=== PATIENT | male | born 1935 | race Caucasian/White ===

== ENCOUNTER 2017-08-09 09:16 | Emergency (ER) | payer OTHER ==
[2017-08-09 09:28] VITALS: TEMP 98.3; BMI 25.0
--- NOTE | 2017-08-09 09:54 | PDOC ---
History of Present Illness - General History Source: Patient Exam Limitations: No Limitations - History of Present Illness Initial Comments: 08/09/17 10:38 The patient is a 81 year old male, accompanied by grandson with no significant past medical history who presents to the emergency department with chest pain and cough for the past 7 days. Patient reports midsternal chest pain, 6/10 in severity, radiating to his upper back. Patient endorses chest pain is exacerbated with deep inspiration and is worse "when it is colder". Patient also endorses productive cough (yellow phlegm) with dyspnea. Patient has not taken any medications for relief and presents to the ED for further evaluation. Patient denies headache or dizziness. Patient denies fever, chills, abdominal pain, nausea, vomit, diarrhea or constipation. Patient denies dysuria, frequency, urgency or hematuria. Patient denies sick contacts or recent travel. Allergies: NKA Past surgical history: Craniotomy s/p subdural hematoma Social history: None PCP: Dr. 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 - Surgical History Neurologic Surgery: Yes - Suicide/Smoking/Psychosocial Hx Smoking History: Never smoked Hx Alcohol Use: No Drug/Substance Use Hx: No <Jeane Cruz - Last Filed: 08/09/17 18:04> - Past Medical History Allergies/Adverse Reactions: Allergies Allergy/AdvReac Type Severity Reaction Status Date / Time No Known Allergies Allergy Verified 08/09/17 09:29 Home Medications: Ambulatory Orders Acetaminophen [Tylenol] 325 mg PO PRN PRN 08/09/17 Albuterol Sulfate Inhaler - [Ventolin HFA Inhaler -] 1 - 2 inh PO QID PRN #1 inhaler 08/09/17 Guaifenesin AC [Robitussin AC] 5 ml PO Q6H PRN #60 ml MDD 20 mL 08/09/17 Warfarin Sodium [Coumadin] 3 mg PO DAILY 08/09/17 Review of Systems - Review of Systems Able to Perform ROS?: Yes Comments:: 08/09/17 12:37 GENERAL/CONSTITUTIONAL: No fever or chills. No weakness. HEAD, EYES, EARS, NOSE AND THROAT: No change in vision. No ear pain or discharge. No sore throat. GASTROINTESTINAL: No nausea, vomiting, diarrhea or constipation. GENITOURINARY: No dysuria, frequency, or change in urination. CARDIOVASCULAR: +chest pain +shortness of breath. RESPIRATORY: + cough. No wheezing, or hemoptysis. MUSCULOSKELETAL: No joint or muscle swelling or pain. No neck or back pain. SKIN: No rash NEUROLOGIC: No headache, vertigo, loss of consciousness, or change in strength/ sensation. ENDOCRINE: No increased thirst. No abnormal weight change. HEMATOLOGIC/LYMPHATIC: No anemia, easy bleeding, or history of blood clots. ALLERGIC/IMMUNOLOGIC: No hives or skin allergy. <Miley Lindo - Last Filed: 08/09/17 12:37> *Physical Exam - Vital Signs Last Vital Signs Temp Pulse Resp BP Pulse Ox 98.3 F 70 16 136/98 98 08/09/17 09:23 08/09/17 10:06 08/09/17 10:06 08/09/17 10:06 08/09/17 10:06 <Miley Lindo - Last Filed: 08/09/17 12:37> - Vital Signs Last Vital Signs Temp Pulse Resp BP Pulse Ox 98.3 F 76 18 138/79 98 08/09/17 09:23 08/09/17 09:23 08/09/17 09:23 08/09/17 09:23 08/09/17 09:23 - Physical Exam Comments: GENERAL: Awake, alert, and fully oriented, in no acute distress HEAD: No signs of trauma EYES: PERRLA, EOMI, sclera anicteric, conjunctiva clear ENT: Auricles normal inspection, hearing grossly normal, nares patent, oropharynx clear without exudates. Moist mucosa NECK: Normal ROM, supple, no lymphadenopathy, JVD, or masses LUNGS: Dec air entry B/L, no wheezes and no crackles HEART: Regular rate and rhythm, normal S1 and S2, no murmurs, rubs or gallops ABDOMEN: Soft, nontender, normoactive bowel sounds. No guarding, no rebound. No masses EXTREMITIES: Normal range of motion, no edema. No clubbing or cyanosis. No cords, erythema, or tenderness NEUROLOGICAL: Cranial nerves II through XII grossly intact. Normal speech, normal gait. Motor and sensation intact. SKIN: Warm, Dry, normal turgor, no rashes or lesions noted. <Jeane Cruz - Last Filed: 08/09/17 18:04> Heart Score/ECG Review - ECG Impressions Comment:: EKG read 09:24- NSR 73 bpm, no acute ST/T changes <Jeane Cruz - Last Filed: 08/09/17 18:04> ED Treatment Course - LABORATORY CBC & Chemistry Diagram: 08/09/17 10:30 08/09/17 10:30 <Miley Lindo - Last Filed: 08/09/17 12:37> - LABORATORY CBC & Chemistry Diagram: 08/09/17 10:30 08/09/17 10:30 <Jeane Cruz - Last Filed: 08/09/17 18:04> Medical Decision Making - Medical Decision Making 08/09/17 13:25 Pt with improved air movement s/p neb treatment. Suspect reactive airway symptoms s/p recent URI/flu. Will treat with nebs and robitussin AC. Low suspicion for ACS, PE. <Jeane Cruz - Last Filed: 08/09/17 18:04> *DC/Admit/Observation/Transfer - Attestations Scribe Attestion: 08/09/17 10:47 Documentation prepared by Miley Lindo, acting as medical data entry clerk for Jeane Cruz MD <Miley Lindo - Last Filed: 08/09/17 12:37> - Discharge Dispostion Admit: No <Jeane Cruz - Last Filed: 08/09/17 18:04> Diagnosis at time of Disposition: Cough, Atypical chest pain - Discharge Dispostion Disposition: HOME Condition at time of disposition: Stable - Prescriptions Prescriptions: Albuterol Sulfate Inhaler - [Ventolin HFA Inhaler -] 1 - 2 inh PO QID PRN #1 inhaler PRN Reason: Short Of Breath/Wheezing Guaifenesin AC [Robitussin AC] 5 ml PO Q6H PRN #60 ml MDD 20 mL PRN Reason: Cough - Referrals Referrals: Papa Phillips MD [Primary Care Provider] - - Patient Instructions Printed Discharge Instructions: DI for Atypical Chest Pain Additional Instructions: Do not take your coumadin tonight. Follow up with your physician in 1-2 days.
[2017-08-09 10:41] LABS: BASO % 1.2 % (0-2.0); EOS % 8.6 % (0-4.5); HEMATOCRIT 37.6 % (35.4-49); HEMOGLOBIN 12.5 GM/dL (11.7-16.9); LYMPH % 19.1 % (8-40); MCH 29.7 pg (25.7-33.7); MCHC 33.2 g/dl (32.0-35.9); MEAN CELL VOLUME 89.5 fl (80-96); MEAN PLT VOLUME 8.4 fl (7.5-11.1); NEUT % 61.1 % (42.8-82.8); PLATELET COUNT 188 K/MM3 (134-434); RDW 13.9 % (11.9-15.9); WHITE BLOOD COUNT 7.1 K/mm3 (4.0-10.0)
[2017-08-09 10:56] LABS: PROTHROMBIN TIME (PATIENT) 54.9 SEC (9.98-11.88)
[2017-08-09 11:01] LABS: INR 4.86 (0.82-1.09)
[2017-08-09 11:16] LABS: ALBUMIN 4.1 g/dl (3.4-5.0); ANION GAP 5 (8-16); BILIRUBIN,TOTAL 0.5 mg/dL (0.2-1.0); BLOOD UREA NITROGEN 17 mg/dL (7-18); CALCIUM 8.3 mg/dL (8.5-10.1); CHLORIDE 103 mmol/L (98-107); CO2 29 mmol/L (21-32); GLUCOSE,RANDOM 107 mg/dL (74-106); SGPT/ALT 27 U/L (12-78); SODIUM 137 mmol/L (136-145); TOT PROT 7.3 g/dl (6.4-8.2)
[2017-08-09 11:19] LABS: ALK PHOS 324 U/L (45-117); POTASSIUM 4.4 mmol/L (3.5-5.1); SGOT/AST 34 U/L (15-37)
[2017-08-09] MEDS ORDERED: ALBUTEROL SO4 0.083% IH SOL 2.5 MG/3 ML VIAL.NEB. NEB ONE ×2 (11:20→11:30)
[2017-08-09] MEDS ORDERED: guaiFENesin/CODEINE 10 ML UNIT-DOSE CUPS PO ONE (13:29)
[2017-08-09 13:36] VITALS: BP 138/69; PULSE 91
[2017-08-09] MEDS ORDERED: guaiFENesin 200 MG/10 ML 10 ML UNIT-DOSE CUPS ONE (13:38)
--- NOTE | 2017-08-09 23:19 | EKG ---
Test Reason : Blood Pressure : / mmHG Vent. Rate : 073 BPM Atrial Rate : 073 BPM P-R Int : 130 ms QRS Dur : 108 ms QT Int : 402 ms P-R-T Axes : 000 -14 -05 degrees QTc Int : 442 ms NORMAL SINUS RHYTHM NORMAL ECG WHEN COMPARED WITH ECG OF 04-NOV-2005 14:22, NO SIGNIFICANT CHANGE WAS FOUND Confirmed by VIJAY SALAS MD ([id number]) on 08/09/2017 11:18:29 PM Referred By: Confirmed By:VIJAY SALAS MD
== END 2017-08-09 13:46 | disposition home or self-care (01) ==
LOC: JER 09:16
DX: R07.89 Other chest pain (principal); Z86.73 Personal history of transient ischemic attack (TIA), and cerebral infarction without residual deficits; Z79.01 Long term (current) use of anticoagulants
CPT/HCPCS: 36415; 71045-TC; 80053; 82550; 84484; 85025; 85610; 93005; 93010; 99285-25

== ENCOUNTER 2018-09-05 00:35 | Inpatient (IN) | payer OTHER ==
--- NOTE | 2018-09-05 01:10 | PDOC ---
Attending Attestation - Resident Resident Name: RománJorge - HPI HPI: 09/05/18 03:26 Pt presents to the ED complaining of the acute onset of crushing substernal chest pain that was relieved with nitro. Also complains of shortness of breath. Patient has history of metastatic prostate CA with bone mets and frequent episodes of shortness of breath, and bone pain, states that this episode was much different than his chronic pain. Patient has a history of blood clots, anticoagulated with warfarin. - Physicial Exam PE: 09/05/18 03:30 Agree with resident exam. PAteint is alert and oriented x 3 and in no acute distress. Lungs are clear. Heart has regular rate and rhythm with no murmurs. aBdomen soft, non tender non distended without guarding or rebound. - Medical Decision Making 09/05/18 03:31 Pt presents to the ED complaining of chest pain relieved with nitroglycerin. EKG shows no evidence of acute ischemia, but troponin is positive. Will treat with asprin and admit to medicine for NSTEMI.
--- NOTE | 2018-09-05 01:34 | PDOC ---
History of Present Illness - General Chief Complaint: Chest Pain Stated Complaint: CHEST PAIN Time Seen by Provider: 09/05/18 01:09 History Source: Patient Exam Limitations: No Limitations - History of Present Illness Initial Comments: 09/05/18 01:26 82 yo male pmh of metastatic prostate cancer (treated by Oncology, Dr. Gary in [facility], 1 round of chemo completed, currently 3 weeks into radiation therapy) blood clots (on warfarin) HLD and fluid retention (recently put on Furosemide by PCP) BIBA for 1 day of CP. Given 0.4 mg sublingual nitro Pt states the pain started last night, lasted 1.5 hours and resolved but throught the day has been constant, non radiating, non exertional substernal CP difficulty to describe. Pt does admit to SOB on exertion which has been a constant problem since metastasis of CA. Admits to bilateral pedal edema that has been getting worse, states he is taking his furosemide. Denies recent travel, calf tenderness, hx of smoking/immobilization, F/C/N/V, back pain, abdominal pain or changes in bowel or bladder habits. Past History - Past Medical History Allergies/Adverse Reactions: Allergies Allergy/AdvReac Type Severity Reaction Status Date / Time No Known Allergies Allergy Verified 09/05/18 01:12 Home Medications: Ambulatory Orders Acetaminophen [Tylenol] 325 mg PO PRN PRN 08/09/17 Albuterol Sulfate Inhaler - [Ventolin HFA Inhaler -] 1 - 2 inh PO QID PRN #1 inhaler 08/09/17 Guaifenesin AC [Robitussin AC -] 5 ml PO Q6H PRN #60 ml MDD 20 mL 08/09/17 Ergocalciferol (Vitamin D2) [Vitamin D2] 50,000 unit PO WEEKLY 09/05/18 Furosemide 20 mg PO BID 09/05/18 Simvastatin 10 mg PO DAILY 09/05/18 Warfarin Sodium [Coumadin] 2.5 mg PO DAILY 09/05/18 Losartan Potassium [Cozaar -] 25 mg PO DAILY #7 tablet 09/07/18 Metoprolol Succinate [Toprol XL -] 25 mg PO DAILY #7 tab.sr.24h 09/07/18 Nitroglycerin [place] [Nitrolingual [place] -] 1 spray TL [id number] PRN #1 bottle MDD 3 09/07/18 COPD: No - Surgical History Neurologic Surgery: Yes - Suicide/Smoking/Psychosocial Hx Smoking History: Never smoked Have you smoked in the past 12 months: No Information on smoking cessation initiated: No Hx Alcohol Use: No Drug/Substance Use Hx: No Review of Systems - Review of Systems Constitutional: No: Chills, Fever Respiratory: Yes: Shortness of Breath (chronic). No: Cough Cardiac (ROS): Yes: Chest Pain (resolved with Nitro). No: Edema ABD/GI: No: Constipated, Diarrhea, Nausea, Vomiting : No: Frequency, Flank Pain Musculoskeletal: No: Back Pain Neurological: No: Headache, Numbness, Tingling *Physical Exam - Vital Signs Last Vital Signs Temp Pulse Resp BP Pulse Ox 99.1 F 95 H 19 95/60 95 09/05/18 00:35 09/05/18 00:35 09/05/18 00:35 09/05/18 00:35 09/05/18 00:35 - Physical Exam General Appearance: Yes: Nourished, Appropriately Dressed. No: Apparent Distress HEENT: positive: EOMI Neck: positive: Supple Respiratory/Chest: positive: Lungs Clear, Normal Breath Sounds. negative: Respiratory Distress, Accessory Muscle Use, Crackles, Rales, Rhonchi, Wheezing Cardiovascular: positive: Regular Rhythm, Regular Rate, S1, S2. negative: Edema , JVD Vascular Pulses: Dorsalis-Pedis (R): 4+, Doralis-Pedis (L): 4+ Gastrointestinal/Abdominal: positive: Flat, Soft. negative: Pulsatile Mass, Distended, Guarding, Rebound, Tenderness Extremity: positive: Normal Capillary Refill Integumentary: positive: Normal Color, Dry, Warm Neurologic: positive: Fully Oriented, Alert, Normal Mood/Affect, Normal Response Moderate Sedation - Procedure Monitoring Vital Signs: Procedure Monitoring Vital Signs Temperature 99.1 F 09/05/18 00:35 Pulse Rate 95 H 09/05/18 00:35 Respiratory Rate 19 09/05/18 00:35 Blood Pressure 95/60 09/05/18 00:35 O2 Sat by Pulse Oximetry (%) 95 09/05/18 00:35 Heart Score/ECG Review - History History: Moderately suspicious - Electrocardiogram EKG: Normal - Age Age: >/= 65 - Risk Factors Risk Factors Heart Score: Yes Hx Hypercholesterolemia, Yes Hx Hypertension Based on the list above the patient has:: >/=3 risk factors or Hx atherosclerotic disease - Troponin Troponin: >/=3x normal limit - Score Heart Score - Total: 7 ED Treatment Course - LABORATORY CBC & Chemistry Diagram: 09/07/18 05:50 09/07/18 05:50 Medical Decision Making - Medical Decision Making 82 yo male presents to ED with CP relieved by 0.4 mg Nitro by EMS Vitals WNL NAD AOX3 Pt does not have active CP while in the ED EKG NSR without ST changes DDX INLT: ACS, PE, CHF, pain related to metastatic prostate CA, costochondritis Labs show elevated trop 1.15 Pt on Warfarin, found to be supra therapeutic, full dose ASA given. Spoke with Cardiology regarding NSTEMI and supra therapeutic warfarin, advised to treat with 25 mg Metoprolol, do not give heparin and admit to tele unit. PT accepted for admission *DC/Admit/Observation/Transfer Diagnosis at time of Disposition: NSTEMI (non-ST elevated myocardial infarction) - Discharge Dispostion Disposition: VNS/HOME HEALTH CARE Condition at time of disposition: Stable Decision to Admit order: Yes - Referrals - Patient Instructions - Post Discharge Activity
[2018-09-05 01:45] LABS: BASO % 0.6 % (0-2.0); EOS % 1.5 % (0-4.5); HEMATOCRIT 29.4 % (35.4-49); HEMOGLOBIN 10.4 GM/dL (11.7-16.9); MCH 32.7 pg (25.7-33.7); MCHC 35.3 g/dl (32.0-35.9); MEAN CELL VOLUME 92.5 fl (80-96); MEAN PLT VOLUME 7.9 fl (7.5-11.1); MONO % 13.8 % (3.8-10.2); NEUT % 70.1 % (42.8-82.8); PLATELET COUNT 171 K/MM3 (134-434); RBC 3.18 M/mm3 (4.00-5.60); RDW 15.2 % (11.9-15.9); WHITE BLOOD COUNT 3.2 K/mm3 (4.0-10.0)
[2018-09-05 03:17] LABS: ALBUMIN 3.5 g/dl (3.4-5.0); ALK PHOS 145 U/L (45-117); ANION GAP 9 MMOL/L (8-16); BILIRUBIN,TOTAL 0.6 mg/dL (0.2-1); BLOOD UREA NITROGEN 17 mg/dL (7-18); CALCIUM 7.4 mg/dL (8.5-10.1); CHLORIDE 105 mmol/L (98-107); CO2 25 mmol/L (21-32); CREATININE 0.9 mg/dL (0.55-1.3); GLUCOSE,RANDOM 116 mg/dL (74-106); N-TERMINAL BNP 2795.6 pg/ml (5-450); POTASSIUM 4.2 mmol/L (3.5-5.1); SGOT/AST 27 U/L (15-37); SGPT/ALT 14 U/L (13-61); SODIUM 139 mmol/L (136-145); TOT PROT 6.2 g/dl (6.4-8.2)
[2018-09-05] MEDS ORDERED: ASPIRIN COATED 81 MG TABLET.EC ONE (03:21)
[2018-09-05 03:48] LABS: INR 3.91 (0.83-1.09); PROTHROMBIN TIME (PATIENT) 46.8 SEC (9.7-13.0)
[2018-09-05 03:51] LABS: ACTIVATED PTT 40.3 SECONDS (25.2-36.5)
[2018-09-05] MEDS ORDERED: NITROGLYCERIN SUBLINGUAL 1/150 0.4 MG TAB SL ONE (04:15)
[2018-09-05] MEDS ORDERED: metoPROLOL SUCCINATE 25 MG TAB.SR.24H (FP) PO ONE (04:57)
[2018-09-05] MEDS ORDERED: ATORVASTATIN CA 40 MG TABLET (FP) PO ONE (05:15)
[2018-09-05] MEDS ORDERED: CLOPIDOGREL BISULFATE 300 MG TABLET PO ONE (05:18)
--- NOTE | 2018-09-05 05:21 | HP ---
CHIEF COMPLAINT: chest pain PCP: HISTORY OF PRESENT ILLNESS: 82M w/ pmhx of metastatic prostate cx (currently doing RT since 08/26/18 MWF, s/p chemo 04/14), subdural hematoma (s/p craniotomy 2005 currently on Coumadin), HLD , fluid retention presented to the ED with persistent substernal chest pain that started Wednesday night during his sleep. Pt stated his substernal chest pain woke him up from sleep and lasted about 1.5 hours x3 episodes. He denies exertional chest pain as he has been getting these symptoms in the middle of the night while he is sleeping. He also admits to worsening shaw during onset of the chest pain, although he does admit that he has baseline SHAW ever since he was diagnosed with met prostate cx. Chest pain is described as 1010 and radiates to his anterior neck. Denies having this pain in the past, denies hx of heart disease. Of note, pt's metastatic prostate cx spread to his lungs. He was supposed to get an echo last week, however, it was not done for unknown reason. POC: Dana - daughter ER course was notable for: (1) Initial BP 95/60, WBC 3.2, H/H 10.4/29.4, CKMB 4.9, Trop 1.15, BNP 2795.6 (2) Nitro SL 0.2 mg x2 given (3) Cardio consulted, recommended medical management, Plavix, Atorvastatin, Metoprolol Recent Travel: Denies PAST MEDICAL HISTORY: As per HPI PAST SURGICAL HISTORY: craniotomy s/p subdural hematoma Social History: Denies hx of smoking/alcohol/rec drug use Home: Currently lives in an apt, daughter lives in same building Family History: Brother- CAD s/p stents Allergies No Known Allergies Allergy (Verified 09/05/18 01:12) HOME MEDICATIONS: Home Medications Medication Instructions Recorded Acetaminophen [Tylenol] 325 mg PO PRN PRN 08/09/17 Albuterol Sulfate Inhaler - 1 - 2 inh PO QID PRN #1 inhaler 08/09/17 [Ventolin HFA Inhaler -] Guaifenesin AC [Robitussin AC] 5 ml PO Q6H PRN #60 ml MDD 20 mL 08/09/17 Warfarin Sodium [Coumadin] 3 mg PO DAILY 08/09/17 REVIEW OF SYSTEMS CONSTITUTIONAL: Absent: fever, chills, diaphoresis, generalized weakness, malaise, loss of appetite, weight change HEENT: Absent: rhinorrhea, nasal congestion, throat pain, throat swelling, difficulty swallowing, mouth swelling, ear pain, eye pain, visual changes CARDIOVASCULAR: +chest pain, b/l peripheral edema Absent: syncope, palpitations, irregular heart rate, lightheadedness, RESPIRATORY: +shortness of breath, dyspnea with exertion Absent: cough, orthopnea, wheezing, stridor, hemoptysis GASTROINTESTINAL: Absent: abdominal pain, abdominal distension, nausea, vomiting, diarrhea, constipation, melena, hematochezia GENITOURINARY: Absent: dysuria, frequency, urgency, hesitancy, hematuria, flank pain MUSCULOSKELETAL: Absent: myalgia, arthralgia, joint swelling, back pain, neck pain NEUROLOGIC: Absent: headache, focal weakness or paresthesias, dizziness, unsteady gait, seizure, mental status changes, bladder or bowel incontinence PHYSICAL EXAMINATION Vital Signs - 24 hr 09/05/18 09/05/18 00:35 04:50 Temperature 99.1 F Pulse Rate 95 H Pulse Rate [ 102 H Right] Respiratory 19 Rate Blood Pressure 95/60 Blood Pressure 115/79 [Left Arm] O2 Sat by Pulse 95 Oximetry (%) GENERAL: Awake, alert, and fully oriented, in no acute distress. HEAD: Normal with no signs of trauma. EYES: Pupils equal, round and reactive to light, extraocular movements intact, sclera anicteric, conjunctiva clear. No lid lag. EARS, NOSE, THROAT: Ears normal, nares patent, oropharynx clear without exudates. Moist mucous membranes. NECK: Normal range of motion, supple without lymphadenopathy, JVD, or masses. LUNGS: Breath sounds equal, clear to auscultation bilaterally. No wheezes, and no crackles. No accessory muscle use. HEART: Regular rate and rhythm, normal S1 and S2 without murmur, rub or gallop. ABDOMEN: Soft, nontender, not distended, normoactive bowel sounds, no guarding, no rebound, no masses. No hepatomegaly or splenomegaly. MUSCULOSKELETAL: Normal range of motion at all joints. No bony deformities or tenderness. No CVA tenderness. UPPER EXTREMITIES: 2+ pulses, warm, well-perfused. No cyanosis. No clubbing. No peripheral edema. LOWER EXTREMITIES: 2+ pulses, warm, well-perfused. No calf tenderness. No peripheral edema. NEUROLOGICAL: Cranial nerves II-XII intact. Normal speech. Normal gait. PSYCHIATRIC: Cooperative. Good eye contact. Appropriate mood and affect. SKIN: Warm, dry, normal turgor, no rashes or lesions noted, normal capillary refill. Laboratory Results - last 24 hr 09/05/18 09/05/18 09/05/18 01:31 01:31 03:28 WBC 3.2 L RBC 3.18 L Hgb 10.4 L Hct 29.4 L D MCV 92.5 MCH 32.7 D MCHC 35.3 RDW 15.2 Plt Count 171 MPV 7.9 Absolute Neuts (auto) 2.2 Neutrophils % 70.1 Lymphocytes % 14.0 D Monocytes % 13.8 H Eosinophils % 1.5 D Basophils % 0.6 Nucleated RBC % 0 PT with INR 46.80 H INR 3.91 H PTT (Actin FS) 40.3 H Sodium 139 Potassium 4.2 Chloride 105 Carbon Dioxide 25 Anion Gap 9 BUN 17 Creatinine 0.9 Creat Clearance w eGFR > 60 Random Glucose 116 H Calcium 7.4 L Total Bilirubin 0.6 AST 27 ALT 14 Alkaline Phosphatase 145 H Creatine Kinase 260 Creatine Kinase Index 1.8 CK-MB (CK-2) 4.9 H Troponin I 1.15 H* B-Natriuretic Peptide 2795.6 H Total Protein 6.2 L Albumin 3.5 CONSULTS Cardio- Dr. Dodson IMAGING: * CXR: pending * CTA Chest: pending * EKG (09/05/18): Sinus tach, HR 96, QTc 530 ms, LVH, no signed of ST-T changes ASSESSMENT/PLAN: 82M w/ pmhx of metastatic prostate cx (currently doing RT since 08/26/18 MWF, s/p chemo 04/14), subdural hematoma (s/p craniotomy 2005 currently on Coumadin), HLD , fluid retention presented to the ED with persistent substernal chest pain. #NSTEMI -Pt found to have no ST elevations on EKG, elevated trop at 1.15, +family history, chest pain improved with nitro; likely to be NSTEMI -Nitro 0.2 mg SL x2 given in ED -Cardio consulted, recommended medical mgmt at this time with Metoprolol, Plavix , statin; await further recs -Give Metoprolol 25 QD, loading dose clopidogrel 300 mg, Atorvastatin 40 mg HS -Will hold off heparin drip for now due to supratherapeutic INR -Monitor vitals; pt found to be hypotensive upon arrival. Given IV NS bolus which improved BP to 115/78. Can give nitro/Morphine if pt is hemodynamically stable -Echo ordered -Trops elevated 1.15; trend trops -CTA to r/o PE -4L O2 NC -ABG ordered -admit to tele #Supratherapeutic INR; INR 3.91 -Hold warfarin for now -No evidence of bleeding #Leukopenia/Anemia -may be related to RT/malignancy -trend CBC; anemia workup (FE/TIBC, transferrin, ferritin, FOBT) #Hx of Metastatic Prostate Cx -Outpatient follow up -Consider onc consult #Hx of Subdural Hematoma -Will hold Coumadin for now #HLD; -Hold home med -Give Atorvastatin 40 PO HS #Prophylaxis -hold AC as INR is supratherapeutic -SCDs #FEN -hold IVf -recheck BMP in AM -NPO for now dispo -admit to inpt tele -full code -medications have been reconciled Visit type - Emergency Visit Emergency Visit: Yes ED Registration Date: 09/05/18 Care time: The patient presented to the Emergency Department on the above date and was hospitalized for further evaluation of their emergent condition. - New Patient This patient is new to me today: Yes Date on this admission: 09/06/18 - Critical Care Critical Care patient: No
--- NOTE | 2018-09-05 05:22 | PN ---
Teaching Attending Note Name of Resident: Yamel Wagoner ATTENDING PHYSICIAN STATEMENT I saw and evaluated the patient. Chart, data, imaging reviewed. I reviewed the resident's note and discussed the case with the resident. I agree with the resident's findings and plan as documented. SUBJECTIVE: 82yo man with prostate caa w/ mets to chest previously on chemo, now with radiation tx to chest c/o substernal chest pain for 1 day with radiation to neck , relieved by nitroglycerin. Pt appears anxious, some shortness of breath present as well. OBJECTIVE: Last Vital Signs Temp Pulse Resp BP Pulse Ox 99.1 F 102 H 19 115/79 95 09/05/18 00:35 09/05/18 04:50 09/05/18 00:35 09/05/18 04:50 09/05/18 00:35 General- appears anxious HEENT - atraumatic neck no jvd cv - s1+s2+tachcardia chest bibasilar crackles abdomen -soft ext -2+ pedal edema in LE Abnormal Lab Results 09/05/18 09/05/18 09/05/18 01:31 01:31 03:28 WBC 3.2 L RBC 3.18 L Hgb 10.4 L Hct 29.4 L D Monocytes % 13.8 H PT with INR 46.80 H INR 3.91 H PTT (Actin FS) 40.3 H Random Glucose 116 H Calcium 7.4 L Alkaline Phosphatase 145 H CK-MB (CK-2) 4.9 H Troponin I 1.15 H* B-Natriuretic Peptide 2795.6 H Total Protein 6.2 L imaging studies reviewed ekg with no acute ST- T changes ASSESSMENT AND PLAN: #NSTEMI- + trop, CKMB, s/p ASA in ER. Dr. Vanegas was called and case discussed over phone, recommends medical management for now. Borderline hypotension, should monitor closely for signs of cardiogenic shock, CHF. Patient found to be desaturating to high 80s on room air. -admit to telemtry -clopidogrel 300mg po -hold off heparin drip for now as INR was supratherapeutic -nitroglycerin 0.4mg SL prn -high dose statin -metoprolol if BP is wnl -supplemental oxygen -ABG -CTA to r/o PE -echo -cardiology consult -monitor BP closely -diurese if BP is stable #Supratherapeutic INR -no evidence of bleeding -monitor INR #leukopenia/anemia -likely related to radiation therapy/malignancy -anemia w/u -trend CBC #lower ext swelling -lower ext duplex to r/o dvt
[2018-09-05] MEDS ORDERED: ATORVASTATIN CA 10 MG TABLET (FP) ONE (05:30)
[2018-09-05] MEDS ORDERED: ASPIRIN 81 MG CHEWABLE TABLETS PO ONE (06:25)
[2018-09-05 07:27] LABS: BASO % 0.9 % (0-2.0); EOS % 1.3 % (0-4.5); HEMATOCRIT 27.6 % (35.4-49); HEMOGLOBIN 9.8 GM/dL (11.7-16.9); LYMPH % 14.2 % (8-40); MCH 32.9 pg (25.7-33.7); MCHC 35.7 g/dl (32.0-35.9); MEAN CELL VOLUME 92.2 fl (80-96); MEAN PLT VOLUME 8.2 fl (7.5-11.1); MONO % 13.3 % (3.8-10.2); NEUT % 70.3 % (42.8-82.8); PLATELET COUNT 162 K/MM3 (134-434); RBC 2.99 M/mm3 (4.00-5.60); WHITE BLOOD COUNT 2.8 K/mm3 (4.0-10.0)
[2018-09-05 07:32] VITALS: BMI 25.9
[2018-09-05 07:51] LABS: ARTERIAL BLOOD GAS pH 7.45 (7.35-7.45)
[2018-09-05 07:52] LABS: ALLENS TEST POSITIVE; ARTERIAL BLD GAS O2 SATURATION 98.7 % (90-98.9)
[2018-09-05 07:58] LABS: ALBUMIN 3.3 g/dl (3.4-5.0); ALK PHOS 142 U/L (45-117); ANION GAP 8 MMOL/L (8-16); BILIRUBIN,TOTAL 0.6 mg/dL (0.2-1); BLOOD UREA NITROGEN 15 mg/dL (7-18); CALCIUM 7.1 mg/dL (8.5-10.1); CHLORIDE 104 mmol/L (98-107); CHOLESTEROL 141 mg/dL (50-200); CO2 27 mmol/L (21-32); CREATININE 0.7 mg/dL (0.55-1.3); GLUCOSE,RANDOM 95 mg/dL (74-106); HDL CHOLESTEROL 44 mg/dL (40-60); MAGNESIUM 2.4 mg/dL (1.8-2.4); PHOSPHOROUS 2.5 mg/dL (2.5-4.9); POTASSIUM 3.5 mmol/L (3.5-5.1); SGOT/AST 26 U/L (15-37); SGPT/ALT 13 U/L (13-61); SODIUM 139 mmol/L (136-145); TOT PROT 5.8 g/dl (6.4-8.2); TRIGLYCERIDES 118 mg/dL (0-150)
--- NOTE | 2018-09-05 10:13 | CON.CARD ---
Consult Consult Specialty:: Cardiology Referred by:: Hospitalist Medicine Reason for Consultation:: Chest pain - History of Present Illness Chief Complaint: Chest pain History of Present Illness: 82 yo man with prostate ca w/ mets to chest previously on chemo, undergoing radiation tx to chest (currently doing RT since 08/26/18 MWF, s/p chemo 04/14), subdural hematoma (s/p craniotomy 2006 currently on Coumadin), HLD c/o substernal chest pain for 1 day with radiation to neck, relieved by nitroglycerin associated with shortness of breath and LE edema, but denies near or true syncope, palpitations, orthopnea, PND. - History Source History Provided By: Patient Limitations to Obtaining History: No Limitations - Alcohol/Substance Use Hx Alcohol Use: No - Smoking History Smoking history: Never smoked Have you smoked in the past 12 months: No Home Medications - Allergies Allergies/Adverse Reactions: Allergies Allergy/AdvReac Type Severity Reaction Status Date / Time No Known Allergies Allergy Verified 09/05/18 01:12 - Home Medications Home Medications: Ambulatory Orders Acetaminophen [Tylenol] 325 mg PO PRN PRN 08/09/17 Albuterol Sulfate Inhaler - [Ventolin HFA Inhaler -] 1 - 2 inh PO QID PRN #1 inhaler 08/09/17 Guaifenesin AC [Robitussin AC] 5 ml PO Q6H PRN #60 ml MDD 20 mL 08/09/17 Warfarin Sodium [Coumadin] 3 mg PO DAILY 08/09/17 Ergocalciferol (Vitamin D2) [Vitamin D2] 50,000 unit PO WEEKLY 09/05/18 Furosemide 20 mg PO BID 09/05/18 Simvastatin 10 mg PO DAILY 09/05/18 Review of Systems - Review of Systems Cardiovascular: reports: Chest Pain, Edema, Shortness of Breath Respiratory: reports: SOB Vital Signs: Vital Signs Temperature 98 F 09/05/18 09:27 Pulse Rate 78 09/05/18 09:27 Respiratory Rate 18 09/05/18 09:27 Blood Pressure 110/64 09/05/18 09:27 O2 Sat by Pulse Oximetry (%) 100 09/05/18 07:31 Constitutional: Yes: No Distress, Calm, Thin Neck: Yes: Supple Respiratory: Yes: Regular, Diminished, On Nasal O2 Gastrointestinal: Yes: Normal Bowel Sounds, Soft Cardiovascular: Yes: Regular Rate and Rhythm JVD: No Carotid Bruit: No Heart Sounds: Yes: S1, S2 Murmur: Yes: Systolic Murmur, Grade 1 Edema: No - Other Data Labs, Other Data: CBC, BMP 09/05/18 06:28 09/05/18 06:28 INR, PTT INR 3.91 (0.83-1.09) H 09/05/18 03:28 Troponin, BNP 09/05/18 09/05/18 01:31 06:28 Troponin I 1.15 H* 1.19 H* B-Natriuretic Peptide 2795.6 H Troponin, BNP 09/05/18 09/05/18 01:31 06:28 Troponin I 1.15 H* 1.19 H* B-Natriuretic Peptide 2795.6 H NSR @ 96 LAD, LVH nonspec ST changes Echo: Pending Imaging - Results Chest X-ray: Report Reviewed (Congestion) Cat Scan: Image Reviewed (Bilateral pleural effusions) Problem List - Problems (1) Subendocardial ischemia Code(s): I24.8 - OTHER FORMS OF ACUTE ISCHEMIC HEART DISEASE (2) Acute diastolic (congestive) heart failure Code(s): I50.31 - ACUTE DIASTOLIC (CONGESTIVE) HEART FAILURE (3) Hyperlipidemia Code(s): E78.5 - HYPERLIPIDEMIA, UNSPECIFIED Qualifiers: Hyperlipidemia type: pure hypercholesterolemia Qualified Code(s): E78.00 - Pure hypercholesterolemia, unspecified; E78.0 - Pure hypercholesterolemia (4) Supratherapeutic INR Code(s): R79.1 - ABNORMAL COAGULATION PROFILE Assessment/Plan 1. Acute hypoxic respiratory failure referable to 2. Acute diastolic heart failure with subendocardial ischemic injury and pleural effusions 3. Met prostate ca on coumadin with supratherapeutic INR 4. Hyperlipidemia 5. Leukopenia/anemia -likely related to radiation therapy/malignancy P:1. F/u chest CT, echo, trend trops to document peak 2. IV diuresis with monitor diuretic response, renal fxn and electrolytes 3. Dose coumadin per INR, continue Toprol XL, Lipitor, eventual JAKE-I/ARB as hemodynamics tolerate 4. Thank you for consultative opportunity
--- NOTE | 2018-09-05 10:33 | EKG ---
Test Reason : Blood Pressure : / mmHG Vent. Rate : 096 BPM Atrial Rate : 096 BPM P-R Int : 156 ms QRS Dur : 098 ms QT Int : 420 ms P-R-T Axes : 012 -35 053 degrees QTc Int : 530 ms NORMAL SINUS RHYTHM LEFT AXIS DEVIATION MODERATE VOLTAGE CRITERIA FOR LVH, MAY BE NORMAL VARIANT NONSPECIFIC ST ABNORMALITY PROLONGED QT ABNORMAL ECG WHEN COMPARED WITH ECG OF 09-AUG-2017 09:22, T WAVE VARIATION Confirmed by VIJAY SALAS MD ([id number]) on 09/05/2018 10:32:48 AM Referred By: Confirmed By:VIJAY SALAS MD
[2018-09-05] MEDS: CLOPIDOGREL BISULFATE 75 MG TABLET (FP) PO SCH (11:14)
[2018-09-05] MEDS: FUROSEMIDE 40 MG/4 ML INJECTABLE VIAL IVPUSH SCH ×2 (11:14→16:05)
--- NOTE | 2018-09-05 12:31 | PN ---
Teaching Attending Note Name of Resident: Guicho Figueroa ATTENDING PHYSICIAN STATEMENT I saw and evaluated the patient. I reviewed the resident's note and discussed the case with the resident. I agree with the resident's findings and plan as documented. SUBJECTIVE:states breathing is much improved but not at baseline. denies CP, SOB < fever, chills, cough, orthopnea, N/V/C/D OBJECTIVE: Last Vital Signs Temp Pulse Resp BP Pulse Ox 98 F 78 18 110/64 98 09/05/18 09:27 09/05/18 09:27 09/05/18 09:27 09/05/18 09:27 09/05/18 09:00 Intake & Output 09/02/18 09/03/18 09/04/18 09/05/18 22:59 22:59 23:59 23:59 Weight 146 lb 6 oz General NAD CV S1 S2 RRR no murmur/rub/gallop Lungs crackles B/L bases, Abdomen soft NT/ND Extremities trace pitting edema ASSESSMENT AND PLAN: 82yo M with PMH prostate ca with mets s/p chemo and RTx, SDH s/p craniotomy presented to the ER with CP and dyspnea 1. NSTEMI-asa/plavix loaded in the ER. not started on hep due to supratherapeutic INR. Trend troponin till it peaks. echo pending. Cardio on board 2. Acute hypoxic respiratory failure- due to volume overload. now 98% on 2L NC. CTA done in the ER. will f/u results. will cont iwth diuresis prn. titrate oxygen supplementation 3. Supratherapeutic INR- unclear why he is on coumadin (states due to SDH?). no signs of bleeding. will trend daily 4. Leukopenia- due to malignancy. trend 5. DVT ppx- supratherapeutic INR
[2018-09-05 14:07] LABS: BASO % 0.8 % (0-2.0); EOS % 1.2 % (0-4.5); HEMATOCRIT 30.1 % (35.4-49); HEMOGLOBIN 10.5 GM/dL (11.7-16.9); LYMPH % 12.9 % (8-40); MCH 32.3 pg (25.7-33.7); MCHC 34.8 g/dl (32.0-35.9); MEAN CELL VOLUME 92.9 fl (80-96); MEAN PLT VOLUME 8.1 fl (7.5-11.1); MONO % 12.7 % (3.8-10.2); NEUT % 72.4 % (42.8-82.8); PLATELET COUNT 169 K/MM3 (134-434); RBC 3.24 M/mm3 (4.00-5.60); RDW 15.6 % (11.9-15.9); WHITE BLOOD COUNT 2.8 K/mm3 (4.0-10.0)
--- NOTE | 2018-09-05 14:54 | ECHO ---
Name: MAXIME ANTON Exam:Adult Echocardiogram Study Date: 09/05/2018 10:43 AM Age: 82 yrs Reason For Study: Chest pain Height: 63 in Weight: 139 lb BSA: 1.7 m2 MMode/2D Measurements & Calculations IVSd: 1.0 cm ACS: 1.9 cm LVIDd: 3.4 cm LVIDs: 2.9 cm LVPWd: 1.8 cm EDV(Teich): 46.6 ml LVOT diam: 1.9 cm ESV(Teich): 32.3 ml RV S Drew: 12.3 cm/sec Doppler Measurements & Calculations MV E max drew: 90.7 cm/sec MV A max drew: 96.7 cm/sec MV dec slope: 406.0 cm/sec2 MV E/A: 0.94 MR max drew: 356.3 cm/sec TR max drew: 274.3 cm/sec MR max P.8 mmHg TR max P.1 mmHg Med Peak E' Drew: 5.8 cm/sec PI Vmax: 176.5 cm/sec Med E/e': 15.7 Lat Peak E' Drew: 6.2 cm/sec Lat E/e': 14.6 Procedure A complete two-dimensional transthoracic echocardiogram was performed (2D, M-mode, Doppler and color flow Doppler). Left Ventricle The left ventricle is normal in size. Left ventricular systolic function is mild to moderately reduce d. Ejection Fraction = 40-45%. Diastolic dysfunction, Grade II, consistent with elevated left atrial pre ssure. Ratio E/E'= 16. There is mild to moderate global hypokinesis of the left ventricle. Right Ventricle The right ventricle is normal size. The right ventricular systolic function is normal. RV systolic TD I is 12 cm/s. Atria The left atrial size is normal. Right atrial size is normal. Mitral Valve The mitral valve is normal in structure and function. There is no mitral regurgitation noted. Tricuspid Valve The tricuspid valve is normal in structure and function. There is mild tricuspid regurgitation. Aortic Valve The aortic valve is normal in structure and function. No aortic regurgitation is present. Pulmonic Valve The pulmonic valve is not well visualized. Trace to mild pulmonic valvular regurgitation. Great Vessels The aortic root is normal size. Pericardium/Pleura There is no pericardial effusion. Interpretation Summary The left ventricle is normal in size. Left ventricular systolic function is mild to moderately reduced. There is mild to moderate global hypokinesis of the left ventricle. Ejection Fraction = 40-45%. Diastolic dysfunction, Grade II, consistent with elevated left atrial pressure. Ratio E/E'= 16 The right ventricular systolic function is normal. The left atrial size is normal. Right atrial size is normal. There is mild tricuspid regurgitation. Trace to mild pulmonic valvular regurgitation. There is no pericardial effusion. Previous study is not available for comparison Patrick Bee MD 09/05/2018 02:54 PM
--- NOTE | 2018-09-05 15:07 | PN ---
Physical Exam: SUBJECTIVE: Patient seen and examined at bedside. Chest pain resolved. Ongoing dyspnea worsened by exertion. No other complaints. OBJECTIVE: Vital Signs Period Temp Pulse Resp BP Sys/Ibarra Pulse Ox Last 24 Hr 98 F-99.1 F 78-102 18-19 95-115/60-79 95-100 GENERAL: A&Ox3, NAD HEENT: NC/AT, PERRLA, EOMI, MMM NECK: Trachea midline, full range of motion, supple. 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 SKIN: Warm, dry, normal turgor, no rashes or lesions noted Laboratory Results - last 24 hr 09/05/18 09/05/18 09/05/18 01:31 01:31 03:28 WBC 3.2 L RBC 3.18 L Hgb 10.4 L Hct 29.4 L D MCV 92.5 MCH 32.7 D MCHC 35.3 RDW 15.2 Plt Count 171 MPV 7.9 Absolute Neuts (auto) 2.2 Neutrophils % 70.1 Lymphocytes % 14.0 D Monocytes % 13.8 H Eosinophils % 1.5 D Basophils % 0.6 Nucleated RBC % 0 PT with INR 46.80 H INR 3.91 H PTT (Actin FS) 40.3 H Anticoagulation Therapy Puncture Site ABG pH ABG pCO2 at Pt Temp ABG pO2 at Pt Temp ABG HCO3 ABG O2 Sat (Measured) ABG O2 Content ABG Base Excess Eugene Test O2 Delivery Device Oxygen Flow Rate Vent Mode Vent Rate Mechanical Rate Pressure Support Vent Sodium 139 Potassium 4.2 Chloride 105 Carbon Dioxide 25 Anion Gap 9 BUN 17 Creatinine 0.9 Creat Clearance w eGFR > 60 Random Glucose 116 H Lactic Acid Calcium 7.4 L Phosphorus Magnesium Ferritin Total Bilirubin 0.6 AST 27 ALT 14 Alkaline Phosphatase 145 H Creatine Kinase 260 Creatine Kinase Index 1.8 CK-MB (CK-2) 4.9 H Troponin I 1.15 H* B-Natriuretic Peptide 2795.6 H Total Protein 6.2 L Albumin 3.5 Triglycerides Cholesterol Total LDL Cholesterol HDL Cholesterol 03/05/1609/05/18 09/05/18 06:28 06:28 06:28 WBC 2.8 L RBC 2.99 L Hgb 9.8 L Hct 27.6 L MCV 92.2 MCH 32.9 MCHC 35.7 RDW 15.0 Plt Count 162 MPV 8.2 Absolute Neuts (auto) 1.9 Neutrophils % 70.3 Lymphocytes % 14.2 Monocytes % 13.3 H Eosinophils % 1.3 Basophils % 0.9 Nucleated RBC % 0 PT with INR INR PTT (Actin FS) Anticoagulation Therapy Puncture Site ABG pH ABG pCO2 at Pt Temp ABG pO2 at Pt Temp ABG HCO3 ABG O2 Sat (Measured) ABG O2 Content ABG Base Excess Eugene Test O2 Delivery Device Oxygen Flow Rate Vent Mode Vent Rate Mechanical Rate Pressure Support Vent Sodium 139 Potassium 3.5 Chloride 104 Carbon Dioxide 27 Anion Gap 8 BUN 15 Creatinine 0.7 Creat Clearance w eGFR > 60 Random Glucose 95 Lactic Acid 1.2 Calcium 7.1 L Phosphorus 2.5 Magnesium 2.4 Ferritin Total Bilirubin 0.6 AST 26 ALT 13 Alkaline Phosphatase 142 H Creatine Kinase Creatine Kinase Index CK-MB (CK-2) Troponin I 1.19 H* B-Natriuretic Peptide Total Protein 5.8 L Albumin 3.3 L Triglycerides 118 Cholesterol 141 Total LDL Cholesterol 82 HDL Cholesterol 44 09/05/18 09/05/18 09/05/18 07:42 07:50 13:40 WBC 2.8 L RBC 3.24 L Hgb 10.5 L Hct 30.1 L MCV 92.9 MCH 32.3 MCHC 34.8 RDW 15.6 Plt Count 169 MPV 8.1 Absolute Neuts (auto) 2.1 Neutrophils % 72.4 Lymphocytes % 12.9 Monocytes % 12.7 H Eosinophils % 1.2 Basophils % 0.8 Nucleated RBC % 0 PT with INR INR PTT (Actin FS) Anticoagulation Therapy No Result Required. Puncture Site Right radial ABG pH 7.45 ABG pCO2 at Pt Temp 37.0 ABG pO2 at Pt Temp 160.0 H* ABG HCO3 25.5 ABG O2 Sat (Measured) 98.7 ABG O2 Content 14.1 L ABG Base Excess No Result Required. Eugene Test Positive O2 Delivery Device No Result Required. Oxygen Flow Rate Yes Vent Mode No Result Required. Vent Rate No Result Required. Mechanical Rate No Result Required. Pressure Support Vent No Result Required. Sodium Potassium Chloride Carbon Dioxide Anion Gap BUN Creatinine Creat Clearance w eGFR Random Glucose Lactic Acid Calcium Phosphorus Magnesium Ferritin 159.9 Total Bilirubin AST ALT Alkaline Phosphatase Creatine Kinase Creatine Kinase Index CK-MB (CK-2) Troponin I B-Natriuretic Peptide Total Protein Albumin Triglycerides Cholesterol Total LDL Cholesterol HDL Cholesterol Active Medications Generic Name Dose Route Start Last Admin Trade Name Freq PRN Reason Stop Dose Admin Atorvastatin Calcium 40 mg 09/05/18 22:00 Lipitor - PO HS JUDSON Clopidogrel Bisulfate 75 mg 09/05/18 10:00 09/05/18 11:14 Plavix - PO 75 mg DAILY JUDSON Administration Furosemide 40 mg 09/05/18 10:31 09/05/18 11:14 Lasix Injection - IVPUSH 40 mg BID@0600,1400 JUDSON Administration Metoprolol Succinate 25 mg 09/06/18 10:00 Toprol Xl - PO DAILY JUDSON ASSESSMENT/PLAN: 82 y/o M w/ PMHx metastatic prostate Ca s/p bicalutiamide Tx (at least as recently as April), currently on ?palliative RT to prescribed 10 Fx, ?SDH vs ?venous thrombosis s/p craniotomy, p/w CP and dyspnea #NSTEMI -EKG w/o ST changes -serial troponins rising, now 1.57 -cardiology on board -continue to trend -echo: mild-mod reduction of LV systolic function, EF 40-45%, grade II diastolic dysfunction, mild TR, mild FL -cont Plavix/Toprol/Lipitor -no AC as INR is supratherapeutic -hold coumadin #acute respiratory failure 2/2 volume overload -saturating 98% on 2L NC -CTA negative -cont Lasix #supratherapeutic INR -cont to trend -hold coumadin -indication for coumadin is unclear #Leukopenia -d/t malignancy vs oncologic Tx -trend CBC #FEN -no IVF -monitor and correct electrolytes -cardiac diet #PPx -DVT: not indicated given INR elevation -GI: not indicated #code -full #dispo -cont to monitor on telemetry Visit type - Emergency Visit Emergency Visit: No - New Patient This patient is new to me today: Yes Date on this admission: 09/05/18 - Critical Care Critical Care patient: No
[2018-09-05] MEDS: ATORVASTATIN CA 40 MG TABLET (FP) PO SCH (21:11)
[2018-09-06 04:17] LABS: SERUM IRON SATURATION 29 % (15-55); TOTAL IRON BINDING CAPACITY 281 ug/dL (250-450); UIBC 200 ug/dL (111-343)
[2018-09-06] MEDS: FUROSEMIDE 40 MG/4 ML INJECTABLE VIAL IVPUSH SCH ×2 (05:43→13:47)
--- NOTE | 2018-09-06 07:54 | PN ---
Physical Exam: SUBJECTIVE: Patient seen and examined at bedside. No acute complaints, no chest or other pain, breathing improved. OBJECTIVE: Vital Signs Period Temp Pulse Resp BP Sys/Ibarra Pulse Ox Last 24 Hr 97.7 F-98.5 F 73-88 16-26 91-116/52-67 98-99 GENERAL: A&Ox3, NAD HEENT: NC/AT, PERRLA, EOMI, MMM NECK: Trachea midline, full range of motion, supple. 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 SKIN: Warm, dry, normal turgor, no rashes or lesions noted Laboratory Results - last 24 hr 09/05/18 09/05/18 09/05/18 06:28 07:42 07:50 WBC RBC Hgb Hct MCV MCH MCHC RDW Plt Count MPV Absolute Neuts (auto) Neutrophils % Lymphocytes % Monocytes % Eosinophils % Basophils % Nucleated RBC % Puncture Site Right radial ABG pH 7.45 ABG pCO2 at Pt Temp 37.0 ABG pO2 at Pt Temp 160.0 H* ABG HCO3 25.5 ABG O2 Sat (Measured) 98.7 ABG O2 Content 14.1 L ABG Base Excess No Result Required. Eugene Test Positive Oxygen Flow Rate Yes Sodium 139 Potassium 3.5 Chloride 104 Carbon Dioxide 27 Anion Gap 8 BUN 15 Creatinine 0.7 Creat Clearance w eGFR > 60 Random Glucose 95 Calcium 7.1 L Phosphorus 2.5 Magnesium 2.4 Iron 81 TIBC 281 Iron Saturation 29 Transferrin 237 Ferritin Total Bilirubin 0.6 AST 26 ALT 13 Alkaline Phosphatase 142 H Troponin I 1.19 H* Total Protein 5.8 L Albumin 3.3 L Triglycerides 118 Cholesterol 141 Total LDL Cholesterol 82 HDL Cholesterol 44 09/05/18 09/05/18 09/05/18 07:50 13:40 13:40 WBC 2.8 L RBC 3.24 L Hgb 10.5 L Hct 30.1 L MCV 92.9 MCH 32.3 MCHC 34.8 RDW 15.6 Plt Count 169 MPV 8.1 Absolute Neuts (auto) 2.1 Neutrophils % 72.4 Lymphocytes % 12.9 Monocytes % 12.7 H Eosinophils % 1.2 Basophils % 0.8 Nucleated RBC % 0 Puncture Site ABG pH ABG pCO2 at Pt Temp ABG pO2 at Pt Temp ABG HCO3 ABG O2 Sat (Measured) ABG O2 Content ABG Base Excess Eugene Test Oxygen Flow Rate Sodium Potassium Chloride Carbon Dioxide Anion Gap BUN Creatinine Creat Clearance w eGFR Random Glucose Calcium Phosphorus Magnesium Iron TIBC Iron Saturation Transferrin Ferritin 159.9 Total Bilirubin AST ALT Alkaline Phosphatase Troponin I 1.57 H* Total Protein Albumin Triglycerides Cholesterol Total LDL Cholesterol HDL Cholesterol 09/05/18 17:00 WBC RBC Hgb Hct MCV MCH MCHC RDW Plt Count MPV Absolute Neuts (auto) Neutrophils % Lymphocytes % Monocytes % Eosinophils % Basophils % Nucleated RBC % Puncture Site ABG pH ABG pCO2 at Pt Temp ABG pO2 at Pt Temp ABG HCO3 ABG O2 Sat (Measured) ABG O2 Content ABG Base Excess Eugene Test Oxygen Flow Rate Sodium Potassium Chloride Carbon Dioxide Anion Gap BUN Creatinine Creat Clearance w eGFR Random Glucose Calcium Phosphorus Magnesium Iron TIBC Iron Saturation Transferrin Ferritin Total Bilirubin AST ALT Alkaline Phosphatase Troponin I 1.50 H* Total Protein Albumin Triglycerides Cholesterol Total LDL Cholesterol HDL Cholesterol Active Medications Generic Name Dose Route Start Last Admin Trade Name Freq PRN Reason Stop Dose Admin Atorvastatin Calcium 40 mg 09/05/18 22:00 09/05/18 21:11 Lipitor - PO 40 mg HS JUDSON Administration Clopidogrel Bisulfate 75 mg 09/05/18 10:00 09/05/18 11:14 Plavix - PO 75 mg DAILY JUDSON Administration Furosemide 40 mg 09/05/18 10:31 09/06/18 05:43 Lasix Injection - IVPUSH 40 mg BID@0600,1400 JUDSON Administration Metoprolol Succinate 25 mg 09/06/18 10:00 Toprol Xl - PO DAILY JUDSON ASSESSMENT/PLAN: 82 y/o M w/ PMHx metastatic prostate Ca s/p bicalutiamide Tx (at least as recently as April), currently on ?palliative RT to prescribed 10 Fx, ?SDH vs ?venous thrombosis s/p craniotomy, p/w CP and dyspnea #NSTEMI -EKG w/o ST changes -serial troponins peaked at 1.57 now 1.5 -cardiology on board -echo: mild-mod reduction of LV systolic function, EF 40-45%, grade II diastolic dysfunction, mild TR, mild RI -cont Plavix/Toprol/Lipitor -no AC as INR is supratherapeutic -hold coumadin #acute respiratory failure 2/2 volume overload -saturating 98% on 2L NC -CTA negative -cont Lasix #supratherapeutic INR -cont to trend -hold coumadin -indication for coumadin is unclear #Leukopenia -d/t malignancy vs oncologic Tx -trend CBC #Prostate Ca -currently on ?palliative RT, radiation oncologist Dr. Yovany Dale contacted and informed of hospitalization #FEN -no IVF -monitor and correct electrolytes -cardiac diet #PPx -DVT: not indicated given INR elevation -GI: not indicated #code -full #dispo -cont to monitor on telemetry Visit type - Emergency Visit Emergency Visit: No - New Patient This patient is new to me today: No - Critical Care Critical Care patient: No
[2018-09-06 07:56] LABS: BASO % 1.1 % (0-2.0); EOS % 2.3 % (0-4.5); HEMATOCRIT 32.4 % (35.4-49); HEMOGLOBIN 11.6 GM/dL (11.7-16.9); LYMPH % 26.9 % (8-40); MCH 32.9 pg (25.7-33.7); MCHC 35.7 g/dl (32.0-35.9); MEAN PLT VOLUME 8.7 fl (7.5-11.1); MONO % 14.8 % (3.8-10.2); NEUT % 54.9 % (42.8-82.8); PLATELET COUNT 205 K/MM3 (134-434); RBC 3.52 M/mm3 (4.00-5.60); RDW 14.9 % (11.9-15.9); WHITE BLOOD COUNT 4.3 K/mm3 (4.0-10.0)
[2018-09-06 08:14] LABS: INR 2.83 (0.83-1.09); PROTHROMBIN TIME (PATIENT) 33.8 SEC (9.7-13.0)
[2018-09-06 08:25] LABS: ANION GAP 8 MMOL/L (8-16); BLOOD UREA NITROGEN 19 mg/dL (7-18); CALCIUM 7.5 mg/dL (8.5-10.1); CHLORIDE 102 mmol/L (98-107); CO2 30 mmol/L (21-32); GLUCOSE,RANDOM 141 mg/dL (74-106); MAGNESIUM 2.4 mg/dL (1.8-2.4); PHOSPHOROUS 2.9 mg/dL (2.5-4.9); POTASSIUM 3.3 mmol/L (3.5-5.1); SODIUM 140 mmol/L (136-145)
[2018-09-06] MEDS ORDERED: POTASSIUM CHLORIDE TABS 20 MEQ TABLET.ER (FP) PO ONE (09:14)
[2018-09-06] MEDS: CLOPIDOGREL BISULFATE 75 MG TABLET (FP) PO SCH (09:31)
[2018-09-06] MEDS: KCL 10 MEQ IVPB 10 MEQ/100 ML INFUS.BAG IVPB SCH ×3 (09:31→11:52)
[2018-09-06] MEDS: metoPROLOL SUCCINATE 25 MG TAB.SR.24H (FP) PO SCH (09:32)
--- NOTE | 2018-09-06 11:24 | PN ---
Progress Note, Physician Chief Complaint: Events noted Complains of epigastric discomfort History of Present Illness: Patient was seen and examined. Awake and alert. Chart was reviewed Denies chest pain, SOB or palpitations - Current Medication List Current Medications: Active Medications Atorvastatin Calcium (Lipitor -) 40 mg PO HS [facility] Last Admin: 09/05/18 21:11 Dose: 40 mg Clopidogrel Bisulfate (Plavix -) 75 mg PO DAILY [facility] Last Admin: 09/06/18 09:31 Dose: 75 mg Furosemide (Lasix Injection -) 40 mg IVPUSH BID@0600,1400 [facility] Last Admin: 09/06/18 05:43 Dose: 40 mg Potassium Chloride (Potassium Chloride 10 Meq Premix Ivpb -) 10 meq in 100 mls @ 100 mls/hr IVPB Q60M [facility] Stop: 09/06/18 12:14 Last Admin: 09/06/18 10:39 Dose: 100 mls/hr Metoprolol Succinate (Toprol Xl -) 25 mg PO DAILY [facility] Last Admin: 09/06/18 09:32 Dose: Not Given - Objective Vital Signs: Vital Signs Temperature 98 F 09/06/18 10:39 Pulse Rate 92 H 09/06/18 10:39 Respiratory Rate 18 09/06/18 10:39 Blood Pressure 95/62 09/06/18 10:39 O2 Sat by Pulse Oximetry (%) 99 09/05/18 21:00 Eyes: Yes: PERRL HENT: Yes: Atraumatic Neck: Yes: Supple Cardiovascular: Yes: Regular Rate and Rhythm, Murmur (Soft SM), S1, S2 Respiratory: Yes: CTA Bilaterally Gastrointestinal: Yes: Normal Bowel Sounds, Soft. No: Tenderness Edema: No Additional Findings/Remarks: - Review of Systems Constitutional: denies: Chills, Fever Cardiovascular: denies: Chest Pain, Palpitations, Shortness of Breath Respiratory: denies: Cough, Hemoptysis, Orthopnea, SOB, SOB on Exertion Gastrointestinal: denies: Abdominal Pain, Constipation, Diarrhea, Melena, Nausea , Rectal Bleeding, Vomiting Genitourinary: denies: Dysuria, Hematuria Musculoskeletal: denies: Back Pain Neurological: denies Syncope. denies: Dizziness, Headache, Seizure Labs: CBC, BMP 09/06/18 05:50 09/06/18 05:50 INR, PTT INR 2.83 (0.83-1.09) H 09/06/18 05:50 Problem List - Problems (1) Acute diastolic (congestive) heart failure Code(s): I50.31 - ACUTE DIASTOLIC (CONGESTIVE) HEART FAILURE (2) Hyperlipidemia Code(s): E78.5 - HYPERLIPIDEMIA, UNSPECIFIED Qualifiers: Hyperlipidemia type: pure hypercholesterolemia Qualified Code(s): E78.00 - Pure hypercholesterolemia, unspecified; E78.0 - Pure hypercholesterolemia (3) Subendocardial ischemia Code(s): I24.8 - OTHER FORMS OF ACUTE ISCHEMIC HEART DISEASE (4) Supratherapeutic INR Code(s): R79.1 - ABNORMAL COAGULATION PROFILE Assessment/Plan 1. Acute hypoxic respiratory failure 2. Acute diastolic heart failure with subendocardial ischemic injury and pleural effusion 3. 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 Hyperlipidemia 5. Leukopenia/anemia - likely related to radiation therapy/malignancy 6. LV systolic dysfunction 7. Diastolic dysfunction PLAN: 1. Chest CT noted. 2. Echocardiography noted with mild to moderate LV systolic dysfunction and grade 2 diastolic dysfunction and elevated filling pressure 2. IV diuresis with monitoring renal function and electrolytes 3. Dose Coumadin per INR, continue Toprol XL, Lipitor, eventual JAKE-I/ARB as hemodynamics tolerate Further plans are to follow Patrick Bee MD
[2018-09-06] MEDS ORDERED: PT OWN MED DRAWER 7, Y5N ONE (13:39)
--- NOTE | 2018-09-06 14:17 | PN ---
Teaching Attending Note Name of Resident: Guicho Figueroa ATTENDING PHYSICIAN STATEMENT I saw and evaluated the patient. I reviewed the resident's note and discussed the case with the resident. I agree with the resident's findings and plan as documented. SUBJECTIVE: No further chest pain, shortness of breath. No cough/sputum/fever/ chills. OBJECTIVE: Afebrile, Hemodynamically Stable. Last Vital Signs Temp Pulse Resp BP Pulse Ox 98 F 92 H 18 95/62 98 09/06/18 10:39 09/06/18 10:39 09/06/18 10:39 09/06/18 10:39 09/06/18 09:00 HEENT - Atraumatic, Normocephalic. Heart - S1, S2, RRR Lungs - coarse breath sounds bibasally R>L Abdomen - soft, non-tender. Bowel Sounds normal. Extremities - Trace edema, no calf tenderness Laboratory Results - last 24 hr 09/05/18 09/05/18 09/05/18 07:50 13:40 13:40 WBC 2.8 L RBC 3.24 L Hgb 10.5 L Hct 30.1 L MCV 92.9 MCH 32.3 MCHC 34.8 RDW 15.6 Plt Count 169 MPV 8.1 Absolute Neuts (auto) 2.1 Neutrophils % 72.4 Lymphocytes % 12.9 Monocytes % 12.7 H Eosinophils % 1.2 Basophils % 0.8 Nucleated RBC % 0 PT with INR INR Sodium Potassium Chloride Carbon Dioxide Anion Gap BUN Creatinine Creat Clearance w eGFR Random Glucose Calcium Phosphorus Magnesium Iron 81 TIBC 281 Iron Saturation 29 Transferrin 237 Troponin I 1.57 H* TSH 09/05/18 09/06/18 09/06/18 17:00 05:50 05:50 WBC RBC Hgb Hct MCV MCH MCHC RDW Plt Count MPV Absolute Neuts (auto) Neutrophils % Lymphocytes % Monocytes % Eosinophils % Basophils % Nucleated RBC % PT with INR INR Sodium 140 Potassium 3.3 L Chloride 102 Carbon Dioxide 30 Anion Gap 8 BUN 19 H Creatinine 1.0 Creat Clearance w eGFR > 60 Random Glucose 141 H Calcium 7.5 L Phosphorus 2.9 Magnesium 2.4 Iron TIBC Iron Saturation Transferrin Troponin I 1.50 H* 1.28 H* TSH 1.33 09/06/18 09/06/18 05:50 05:50 WBC 4.3 RBC 3.52 L Hgb 11.6 L Hct 32.4 L MCV 92.0 MCH 32.9 MCHC 35.7 RDW 14.9 Plt Count 205 D MPV 8.7 Absolute Neuts (auto) 2.3 Neutrophils % 54.9 D Lymphocytes % 26.9 D Monocytes % 14.8 H Eosinophils % 2.3 D Basophils % 1.1 Nucleated RBC % 0 PT with INR 33.80 H INR 2.83 H Sodium Potassium Chloride Carbon Dioxide Anion Gap BUN Creatinine Creat Clearance w eGFR Random Glucose Calcium Phosphorus Magnesium Iron TIBC Iron Saturation Transferrin Troponin I TSH Current Medications Generic Name Dose Route Start Last Admin Trade Name Freq PRN Reason Stop Dose Admin Atorvastatin Calcium 40 mg 09/05/18 22:00 09/05/18 21:11 Lipitor - PO 40 mg HS JUDSON Administration Clopidogrel Bisulfate 75 mg 09/05/18 10:00 09/06/18 09:31 Plavix - PO 75 mg DAILY JUDSON Administration Furosemide 40 mg 09/05/18 10:31 09/06/18 05:43 Lasix Injection - IVPUSH 40 mg BID@0600,1400 JUDSON Administration Metoprolol Succinate 25 mg 09/06/18 10:00 09/06/18 09:32 Toprol Xl - PO Not Given DAILY JUDSON ASSESSMENT AND PLAN: 82 year old Male with 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 1. Acute NSTEMI - TropI max 1.5, Currently pain free. Evaluated by Cardiology - started on Plavix, Statin. Echo - EF 40-45%, grade 2 diastolic dysfunction, mild global hypokinesis. Cardiology consulted for recommendations regarding further management/ischemia investigation. 2. Acute Hypoxic Respiratory Failure secondary to Acute Systolic CHF - resolved - responded to Lasix diuresis. Weaned off O2. Started on Toprol. Further recommendations as per Cardiology. CTA Chest - no evidence of PE, small pleural effusions, mediastinal LN. 3. Prostate Cancer with Metastases s/p RTx s/p Hormonal Therapy CT - extensive sclerotic changes; splenic density 2.8cm (rec follow up US) Hematology/Oncology follow up on discharge 4. History of daniela-operative DVT s/p IVC filter, on Coumadin. INR supratherapeutic on admission - now 2.83. Will resume Coumadin pending further consideration of metastatic disease, related prothrombotic state, and bleeding risk. 5. History of SDH s/p Craniotomy - no neuro deficits. 6. HLD - Continue Statin. 7. Hypokalemia - will replete.
[2018-09-06] MEDS ORDERED: WARFARIN NA 3 MG TABLET PO ONE (18:00)
[2018-09-06] MEDS ORDERED: NITROGLYCERIN SUBLINGUAL 1/150 0.4 MG TAB SL ONE ×2 (20:40→20:45)
[2018-09-06] MEDS ORDERED: metoPROLOL SUCCINATE 25 MG TAB.SR.24H (FP) PO ONE (20:41)
[2018-09-06] MEDS: ATORVASTATIN CA 40 MG TABLET (FP) PO SCH (21:10)
[2018-09-07 02:34] VITALS: TEMP 98.8
[2018-09-07 06:21] VITALS: PULSE 84
[2018-09-07] MEDS: FUROSEMIDE 40 MG/4 ML INJECTABLE VIAL IVPUSH SCH (06:34)
[2018-09-07 07:20] LABS: EOS % 2.3 % (0-4.5); HEMATOCRIT 30.9 % (35.4-49); LYMPH % 16.6 % (8-40); MCH 33.4 pg (25.7-33.7); MCHC 35.7 g/dl (32.0-35.9); MEAN CELL VOLUME 93.5 fl (80-96); MEAN PLT VOLUME 8.5 fl (7.5-11.1); MONO % 15.8 % (3.8-10.2); NEUT % 64.3 % (42.8-82.8); PLATELET COUNT 177 K/MM3 (134-434); RDW 15.4 % (11.9-15.9); WHITE BLOOD COUNT 3.1 K/mm3 (4.0-10.0)
[2018-09-07 07:34] LABS: INR 2.03 (0.83-1.09); PROTHROMBIN TIME (PATIENT) 24.1 SEC (9.7-13.0)
[2018-09-07 07:39] LABS: ANION GAP 5 MMOL/L (8-16); BLOOD UREA NITROGEN 19 mg/dL (7-18); CALCIUM 7.2 mg/dL (8.5-10.1); CHLORIDE 105 mmol/L (98-107); CO2 29 mmol/L (21-32); CREATININE 0.8 mg/dL (0.55-1.3); GLUCOSE,RANDOM 114 mg/dL (74-106); MAGNESIUM 2.4 mg/dL (1.8-2.4); PHOSPHOROUS 2.9 mg/dL (2.5-4.9); POTASSIUM 3.8 mmol/L (3.5-5.1); SODIUM 139 mmol/L (136-145)
[2018-09-07] MEDS: metoPROLOL SUCCINATE 25 MG TAB.SR.24H (FP) PO SCH (09:09)
--- NOTE | 2018-09-07 10:58 | PN ---
Progress Note, Physician History of Present Illness: Denies further chest pain or dyspnea. - Current Medication List Current Medications: Active Medications Atorvastatin Calcium (Lipitor -) 40 mg PO HS [facility] Last Admin: 09/06/18 21:10 Dose: 40 mg Furosemide (Lasix Injection -) 40 mg IVPUSH BID@0600,1400 [facility] Last Admin: 09/07/18 06:34 Dose: 40 mg Metoprolol Succinate (Toprol Xl -) 25 mg PO DAILY [facility] Last Admin: 09/07/18 09:09 Dose: Not Given - Objective Vital Signs: Vital Signs Temperature 98.8 F 09/07/18 07:58 Pulse Rate 84 09/07/18 07:58 Respiratory Rate 16 09/07/18 08:00 Blood Pressure 102/67 09/07/18 07:58 O2 Sat by Pulse Oximetry (%) 97 09/07/18 08:00 Constitutional: Yes: No Distress, Calm, Thin Neck: Yes: Supple Cardiovascular: Yes: Regular Rate and Rhythm Respiratory: Yes: Regular, CTA Bilaterally Gastrointestinal: Yes: Normal Bowel Sounds, Soft Edema: No Labs: CBC, BMP 09/07/18 05:50 09/07/18 05:50 INR, PTT INR 2.03 (0.83-1.09) H 09/07/18 05:50 - ....Imaging EKG: Report Reviewed (Tele: NSR) Problem List - Problems (1) Subendocardial ischemia Code(s): I24.8 - OTHER FORMS OF ACUTE ISCHEMIC HEART DISEASE (2) Acute diastolic (congestive) heart failure Code(s): I50.31 - ACUTE DIASTOLIC (CONGESTIVE) HEART FAILURE (3) Hyperlipidemia Code(s): E78.5 - HYPERLIPIDEMIA, UNSPECIFIED Qualifiers: Hyperlipidemia type: pure hypercholesterolemia Qualified Code(s): E78.00 - Pure hypercholesterolemia, unspecified; E78.0 - Pure hypercholesterolemia (4) Prostate cancer metastatic to bone Code(s): C61 - MALIGNANT NEOPLASM OF PROSTATE; C79.51 - SECONDARY MALIGNANT NEOPLASM OF BONE Assessment/Plan 09/05/2018 Echocardiography noted with mild to moderate LV systolic dysfunction LVEF 40-45%, grade 2 diastolic dysfunction and elevated filling pressure, mild TR, CT 09/04/[address]: Pulm vasculaar congestion and small effusions 1. Acute hypoxic respiratory failure 2. Acute diastolic/systolic heart failure with subendocardial ischemic injury and pleural effusion resolving 3. 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 Hyperlipidemia 5. Leukopenia/anemia - likely related to radiation therapy/malignancy PLAN: 1. Change to oral diuresis Lasix 20 qd with monitoring diuretic response, renal function and electrolytes 2. Dose Coumadin per INR, continue Toprol XL 25 qd, Lipitor 40 qhs, add losartan 25 qd as hemodynamics tolerate, Plavix d/lisseth 3. May be d/lisseth home with further cardiovascular w/u as outpatient [phone]
[2018-09-07] MEDS ORDERED: LOSARTAN POTASSIUM 25 MG TABLET PO SCH (12:00)
--- NOTE | 2018-09-07 12:52 | EKG ---
Test Reason : Blood Pressure : / mmHG Vent. Rate : 103 BPM Atrial Rate : 103 BPM P-R Int : 086 ms QRS Dur : 096 ms QT Int : 364 ms P-R-T Axes : 000 -27 105 degrees QTc Int : 476 ms SINUS TACHYCARDIA WITH SHORT OH SEPTAL INFARCT , AGE UNDETERMINED ABNORMAL ECG WHEN COMPARED WITH ECG OF 05-SEP-2018 00:42, OH INTERVAL HAS DECREASED SEPTAL INFARCT IS NOW PRESENT ST NOW DEPRESSED IN LATERAL LEADS QT HAS SHORTENED Confirmed by NORBERTO QUIÑONEZ, GENARO ([id number]) on 09/07/2018 12:52:19 PM Referred By: Confirmed By:GENARO THORNTON MD
[2018-09-07 13:14] VITALS: BP 89/47
--- NOTE | 2018-09-07 13:29 | DS ---
Physical Exam: SUBJECTIVE: Patient seen and examined at bedside. No acute complaints, no chest or other pain, breathing improved. OBJECTIVE: Vital Signs Period Temp Pulse Resp BP Sys/Ibarra Pulse Ox Last 24 Hr 98.0 F-98.8 F 82-106 16-20 83-140/47-87 97-97 PHYSICAL EXAM GENERAL: A&Ox3, NAD HEENT: NC/AT, PERRLA, EOMI, MMM NECK: Trachea midline, full range of motion, supple. LUNGS: CTA b/l HEART: RRR no m/r/g ABDOMEN: +bs, soft, NT, ND EXTREMITIES: 2+ pulses, warm, well-perfused, no edema. NEUROLOGICAL: circuit court magistrate, motor, sensory systems w/o focal deficit PSYCH: Normal mood, normal affect. SKIN: Warm, dry, normal turgor, no rashes or lesions noted LABS Laboratory Results - last 24 hr 09/06/18 09/07/18 09/07/18 20:25 05:50 05:50 WBC 3.1 L RBC 3.30 L Hgb 11.0 L Hct 30.9 L MCV 93.5 MCH 33.4 MCHC 35.7 RDW 15.4 Plt Count 177 MPV 8.5 Absolute Neuts (auto) 2.0 Neutrophils % 64.3 Lymphocytes % 16.6 D Monocytes % 15.8 H Eosinophils % 2.3 Basophils % 1.0 Nucleated RBC % 0 PT with INR 24.10 H INR 2.03 H Sodium Potassium Chloride Carbon Dioxide Anion Gap BUN Creatinine Creat Clearance w eGFR Random Glucose Calcium Phosphorus Magnesium Creatine Kinase 170 Creatine Kinase Index 0.8 CK-MB (CK-2) 1.4 Troponin I 0.59 H 09/07/18 05:50 WBC RBC Hgb Hct MCV MCH MCHC RDW Plt Count MPV Absolute Neuts (auto) Neutrophils % Lymphocytes % Monocytes % Eosinophils % Basophils % Nucleated RBC % PT with INR INR Sodium 139 Potassium 3.8 Chloride 105 Carbon Dioxide 29 Anion Gap 5 L BUN 19 H Creatinine 0.8 Creat Clearance w eGFR > 60 Random Glucose 114 H Calcium 7.2 L Phosphorus 2.9 Magnesium 2.4 Creatine Kinase Creatine Kinase Index CK-MB (CK-2) Troponin I HOSPITAL COURSE: Date of Admission:09/05/18 Patient is an 82 y/o M w/ PMHx metastatic prostate Ca s/p bicalutiamide Tx (at least as recently as April), currently on ?palliative RT to prescribed 10 Fx , h/o SDH s/p craniotomy in 2005, subsequently developed b/l LE DVTs and was started on coumadin, p/w substernal chest pain and dyspnea. EKG w/o ST changes, serial troponins positive and rising to peak of 1.57 then downtrended, admitted for NSTEMI. Cardiology was consulted. CTA negative for PE or other acute pathology. INR was supratherapeutic on presentation and coumadin was held, then restarted when INR fell to therapeutic range. Per cardiology patient was treated with Plavix/Lipitor/Toprol/Losartan. He was stabilized and discharged for outpatient f/u with primary care and cardiology on coumadin, statin, beta- blockade, and ARB (anti-platelet therapy held). Additionally patient's radiation oncologist was contacted to inform him of hiatus of treatment during hospitalization. Date of Discharge: 09/07/18 Minutes to complete discharge: 40 Discharge Summary Reason For Visit: NON ST ELEVATION MYOCARDIAL INFARCTION NSTEMI Current Active Problems Acute diastolic (congestive) heart failure (Acute) Hyperlipidemia (Acute) NSTEMI (non-ST elevated myocardial infarction) (Acute) Prostate cancer metastatic to bone (Acute) Subendocardial ischemia (Acute) Supratherapeutic INR (Acute) Condition: Stable - Instructions Diet, Activity, Other Instructions: You were hospitalized for a heart attack. You seen and evaluated by a staff computer aided design designer and treated with medical management. There is no indication for invasive cardiac intervention at this time. Please resume your home medications. Additionally, you are being prescribed three new medications. (1) Losartan and (2) Metoprolol Succinate, which will aid in your recovery from the heart attack and are to be taken every day exactly as prescribed, and (3) Nitroglycerin, to be sprayed under the tongue only if you feel chest pain. Follow up with Dr. Dodson, the computer aided design designer, within 1 week of discharge for further evaluation and management. Additionally, please follow up with your primary medical doctor, Dr. Ardon. Referrals have been made on your behalf. If you experience worsening chest pain, shortness of breath, sudden weakness or numbness, fever, chills, or any other new or concerning symptoms, please return to the Emergency Department. Referrals: Terra Ardon MD [Other] ( ) Omar Dodson MD [Staff Physician] - Disposition: VNS/HOME HEALTH CARE - Home Medications Comprehensive Discharge Medication List: Ambulatory Orders Acetaminophen [Tylenol] 325 mg PO PRN PRN 08/09/17 Albuterol Sulfate Inhaler - [Ventolin HFA Inhaler -] 1 - 2 inh PO QID PRN #1 inhaler 08/09/17 Guaifenesin AC [Robitussin AC -] 5 ml PO Q6H PRN #60 ml MDD 20 mL 08/09/17 Ergocalciferol (Vitamin D2) [Vitamin D2] 50,000 unit PO WEEKLY 09/05/18 Furosemide 20 mg PO BID 09/05/18 Simvastatin 10 mg PO DAILY 09/05/18 Warfarin Sodium [Coumadin] 2.5 mg PO DAILY 09/05/18 Losartan Potassium [Cozaar -] 25 mg PO DAILY #7 tablet 09/07/18 Metoprolol Succinate [Toprol XL -] 25 mg PO DAILY #7 tab.sr.24h 09/07/18 Nitroglycerin [place] [Nitrolingual [place] -] 1 spray TL [id number] PRN #1 bottle MDD 3 09/07/18 This patient is new to me today: No Emergency Visit: No Critical Care patient: No - Discharge Referral Referred to [facility] No
--- NOTE | 2018-09-07 15:27 | PN ---
Teaching Attending Note Name of Resident: Guicho Figueroa ATTENDING PHYSICIAN STATEMENT I saw and evaluated the patient. I reviewed the resident's note and discussed the case with the resident. I agree with the resident's findings and plan as documented. SUBJECTIVE: No further chest pain, shortness of breath. No cough/sputum/fever/ chills. OBJECTIVE: Afebrile, Hemodynamically Stable. Last Vital Signs Temp Pulse Resp BP Pulse Ox 98.8 F 84 16 89/47 L 97 09/07/18 07:58 09/07/18 13:14 09/07/18 13:14 09/07/18 13:14 09/07/18 08:00 HEENT - Atraumatic, Normocephalic. Heart - S1, S2, RRR Lungs - few crackles bibasally R>L Abdomen - soft, non-tender. Bowel Sounds normal. Extremities - Trace edema, no calf tenderness Laboratory Results - last 24 hr 09/06/18 09/07/18 09/07/18 20:25 05:50 05:50 WBC 3.1 L RBC 3.30 L Hgb 11.0 L Hct 30.9 L MCV 93.5 MCH 33.4 MCHC 35.7 RDW 15.4 Plt Count 177 MPV 8.5 Absolute Neuts (auto) 2.0 Neutrophils % 64.3 Lymphocytes % 16.6 D Monocytes % 15.8 H Eosinophils % 2.3 Basophils % 1.0 Nucleated RBC % 0 PT with INR 24.10 H INR 2.03 H Sodium Potassium Chloride Carbon Dioxide Anion Gap BUN Creatinine Creat Clearance w eGFR Random Glucose Calcium Phosphorus Magnesium Creatine Kinase 170 Creatine Kinase Index 0.8 CK-MB (CK-2) 1.4 Troponin I 0.59 H 09/07/18 05:50 WBC RBC Hgb Hct MCV MCH MCHC RDW Plt Count MPV Absolute Neuts (auto) Neutrophils % Lymphocytes % Monocytes % Eosinophils % Basophils % Nucleated RBC % PT with INR INR Sodium 139 Potassium 3.8 Chloride 105 Carbon Dioxide 29 Anion Gap 5 L BUN 19 H Creatinine 0.8 Creat Clearance w eGFR > 60 Random Glucose 114 H Calcium 7.2 L Phosphorus 2.9 Magnesium 2.4 Creatine Kinase Creatine Kinase Index CK-MB (CK-2) Troponin I Discharge Medications Medication Instructions Recorded Acetaminophen [Tylenol] 325 mg PO PRN PRN 08/09/17 Albuterol Sulfate Inhaler - 1 - 2 inh PO QID PRN #1 inhaler 08/09/17 [Ventolin HFA Inhaler -] Guaifenesin AC [Robitussin AC -] 5 ml PO Q6H PRN #60 ml MDD 20 mL 08/09/17 Ergocalciferol (Vitamin D2) 50,000 unit PO WEEKLY 09/05/18 [Vitamin D2] Furosemide 20 mg PO BID 09/05/18 Simvastatin 10 mg PO DAILY 09/05/18 Warfarin Sodium [Coumadin] 2.5 mg PO DAILY 09/05/18 Losartan Potassium [Cozaar -] 25 mg PO DAILY #7 tablet 09/07/18 Metoprolol Succinate [Toprol XL -] 25 mg PO DAILY #7 tab.sr.24h 09/07/18 Nitroglycerin [place] [Nitrolingual 1 spray TL [id number] PRN #1 bottle 09/07/18 [place] -] MDD 3 ASSESSMENT AND PLAN: 82 year old Male with 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 1. Acute NSTEMI - TropI max 1.5, Currently pain free. Evaluated by Cardiology - started on Plavix, Statin. Echo - EF 40-45%, grade 2 diastolic dysfunction, mild global hypokinesis. Cardiology evaluated and recommended medication optimization with BB, JAKE-I, Statin. 2. Acute Hypoxic Respiratory Failure secondary to Acute Systolic CHF - resolved - responded to Lasix diuresis. Weaned off O2. Started on Toprol and JAKE-I. Medically Stable for discharge on oral Lasix, Metoprolol, Lisinopril with out- patient follow up. CTA Chest - no evidence of PE, small pleural effusions, mediastinal LN. 3. Prostate Cancer with Metastases s/p RTx s/p Hormonal Therapy CT - extensive sclerotic changes; splenic density 2.8cm (rec follow up US) Hematology/Oncology follow up on discharge 4. History of daniela-operative LE DVT, on Coumadin. INR supratherapeutic on admission - now 2. Coumadin resumed pending further consideration of metastatic disease, related prothrombotic state, and bleeding risk by Oncology and Cardiology as an out-patient. 5. History of SDH s/p Craniotomy - no neuro deficits. 6. HLD - Continue Statin. 7. Hypokalemia - repleted. Medically stable for discharge on optimal medication regimen as recommended by Cardiology - for outpatient Cardiology follow up.
[2018-09-08] MEDS ORDERED: FUROSEMIDE 20 MG TABLET (FP) PO SCH (10:00)
== END 2018-09-07 14:34 | disposition home health service (06) | DRG 280 ==
LOC: JER 00:35 → JERBED 03:42 → J4W 06:20
PROVIDERS: ADMIT Internal Medicine
DX: I21.4 Non-ST elevation (NSTEMI) myocardial infarction (principal); I50.31 Acute diastolic (congestive) heart failure; J96.01 Acute respiratory failure with hypoxia; C79.51 Secondary malignant neoplasm of bone; D68.8 Other specified coagulation defects; E78.5 Hyperlipidemia, unspecified; C61 Malignant neoplasm of prostate; Z79.01 Long term (current) use of anticoagulants; D63.0 Anemia in neoplastic disease; D70.9 Neutropenia, unspecified
CPT/HCPCS: 36415; 36600; 71045-TC-FY; 71275-TC; 76705-TC; 80048; 80053; 80061; 82550; 82553; 82728; 82803; 83540; 83550; 83605; 83721; 83735; 83880; 84100; 84443; 84466; 84484; 85025; 85610; 85730; 93005; 93010; 93306-TC; 93970-TC; 99283-25

== ENCOUNTER 2018-09-15 18:23 | Inpatient (IN) | payer OTHER ==
--- NOTE | 2018-09-15 20:00 | PDOC ---
Attending Attestation - [facility] HPI: 09/15/18 20:57 The patient is an 83 year old male with a past medical history of Prostate cancer with mets to lungs s/p chemotherapy (last session March 2018) currently getting radiation for 3 weeks 3 times weekly, CHF, HTN, HLD, clot in brain s/p removal (on Coumadin) here today for evaluation of shortness of breath and 2 lbs weight gain in the past 24 hours. The patients daughter reports that the patients aide noticed the patients weight gain and increased shortness of breath. She also reports that the patients ankles are more swollen. The patient reports that he is usually short of breath but it has been worse recently. Patient also notes an episode of chest pain which resolved when he used his nitro spray. Currently denies chest pain. Patient denies headache, lightheadedness. Denies fever, chills. Denies chest pain, shortness of breath. Denies nausea, vomiting, diarrhea, abdominal pain. Allergies: NKDA - Physicial Exam PE: 09/15/18 21:17 Constitutional: Awake, alert, oriented. No acute distress. Head: Normocephalic. Atraumatic Eyes: PERRL. EOMI. Conjunctivae are not pale. ENT: Mucous membranes are moist and intact. Posterior pharynx without exudates or erythema. Uvula midline. Neck: Supple. Full ROM. No lymphadenopathy. Cardiovascular: Regular rate. Regular rhythm. S1, S2 regular. Distal pulses are 2+ and symmetric. Pulmonary/Chest: +rales bilaterally at lung bases with diminished breath sounds in the right lung. No evidence of respiratory distress. Abdominal: +dilated vessels in abdomen. Soft and non-distended. There is no tenderness. No rebound, guarding or rigidity. No organomegaly. No palpable masses. Good bowel sounds. Back: No CVA tenderness. Musculoskeletal: + 1+pitting edema of ankles bilaterally. No cyanosis. No clubbing. Full range of motion in all extremities. No calf tenderness. Radial/ pedal pulses are intact and 2+ bilaterally Skin: Skin is warm and dry. No petechiae. No purpura. Neurological: Alert and oriented to person, place, and time. Cranial nerves II -XII are grossly intact. Normal speech. Strength is grossly symmetric. No sensory deficits. Psychiatric: Good eye contact. Normal interaction, affect and behavior. - Medical Decision Making 09/15/18 20:57 Documentation prepared by BERYL Horton, acting as medical lab director for Josi Hooper DO. <Guicho Peralta - Last Filed: 09/15/18 21:17> - Resident Resident Name: Andie Huynh - ED Attending Attestation I have performed the following: I have examined & evaluated the patient, The case was reviewed & discussed with the resident, I agree w/resident's findings & plan, Exceptions are as noted - Medical Decision Making 09/15/18 20:00 I, Dr. Josi Hooper, DO, attest that this document has been prepared under my direction and personally reviewed by me in its entirety. I further attest, that it accurately reflects all work, treatment, procedures and medical decision -making performed by me. 09/15/18 21:26 a/p: 83yo male with increasing sob, simpson, 2lb wt gain since yesterday -sob with exertion and speaking -1+ edema in the legs -soft rales in the chest -concern for volume overload -will send labs, ekg, cxr -will most likely need iv lasix -will monitor and reassess -pt laying slightly elevated and not flat but in NAD 09/15/18 21:32 mildly elevated bnp b lines on bedside ultrasound edema in legs will give iv lasix and place in obs 09/15/18 23:22 resident discussed the case with tasha/discussed with Narciso the resident with [facility] who accepts pt to service <Josi Hooper - Last Filed: 09/15/18 23:23> Heart Score/ECG Review - ECG Intrepretation Comment:: 09/15/18 21:29 sinus at 66, nl axis, nl interval, no acute st/t wave findings <Josi Hooper - Last Filed: 09/15/18 23:23>
--- NOTE | 2018-09-15 20:32 | PDOC ---
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 Per daughter, high school home economics teacher noticed pt gained 2lbs and is having a harder time breathing. Pt states that he is normally short of breath but this time he can only speak a few words without needed to catch a breath. Per daughter, ankles seem more swollen than usual. Pt states he was having chest pain earlier but the pain went away when he used the nitro spray. Right now he is denying chest pain, cough, fevers, chills, pleuritic chest pain, weakness, numbness/ tingling, changes in vision PMD: Reva Onc: Linus? PMH: see hpi PSH: see hpi Meds: see med rec Allergies: nkda Past History - Past Medical History Allergies/Adverse Reactions: Allergies Allergy/AdvReac Type Severity Reaction Status Date / Time No Known Allergies Allergy Verified 09/05/18 01:12 Home Medications: Ambulatory Orders Ergocalciferol (Vitamin D2) [Vitamin D2] 50,000 unit PO WEEKLY 09/05/18 Furosemide 20 mg PO TID 09/05/18 Simvastatin 10 mg PO DAILY 09/05/18 Warfarin Sodium [Coumadin] 3 mg PO DAILY 09/05/18 Losartan Potassium [Cozaar -] 25 mg PO DAILY #7 tablet 09/07/18 Nitroglycerin [place] [Nitrolingual [place] -] 1 spray TL [id number] PRN #1 bottle MDD 3 09/07/18 Abiraterone Acetate 250 mg PO QID 09/15/18 Furosemide 20 mg PO BID 09/15/18 Prednisone 5 mg PO BID 09/15/18 Cancer: Yes (PROSTATE METS TO BONE) COPD: No CHF: Yes HTN: Yes Hypercholesterolemia: Yes - Surgical History Neurologic Surgery: Yes - Suicide/Smoking/Psychosocial Hx Smoking History: Unknown if ever smoked Have you smoked in the past 12 months: No Hx Alcohol Use: No Drug/Substance Use Hx: No Substance Use Type: None Hx Substance Use Treatment: No Review of Systems - Review of Systems Constitutional: Yes: Other (weight gain). No: Chills, Fever, Night Sweats, Weakness HEENTM: No: Blurred Vision, Double Vision Respiratory: Yes: SOB with Exertion. No: Cough, SOB at Rest, Wheezing, Productive cough Cardiac (ROS): No: Chest Pain, Lightheadedness, Palpitations, Syncope, Chest Tightness ABD/GI: No: Constipated, Diarrhea, Nausea, Vomiting, Abdominal cramping : No: Burning, Dysuria Musculoskeletal: No: Back Pain, Joint Pain, Neck Pain Integumentary: No: Symptoms Reported Neurological: No: Headache, Numbness, Tingling, Tremors, Weakness *Physical Exam - Vital Signs Last Vital Signs Temp Pulse Resp BP Pulse Ox 97.5 F L 71 16 110/63 97 09/15/18 18:25 09/15/18 18:25 09/15/18 18:25 09/15/18 18:25 09/15/18 18:25 - Physical Exam General Appearance: Yes: Nourished, Appropriately Dressed. No: Apparent Distress HEENT: positive: EOMI, [place], Normal ENT Inspection Neck: positive: Trachea midline, Supple. negative: Lymphadenopathy (R), Lymphadenopathy (L) Respiratory/Chest: positive: Lungs Clear, Normal Breath Sounds. negative: Crackles, Rales, Rhonchi, Stridor, Wheezing Cardiovascular: positive: Regular Rhythm, Regular Rate, S1, S2, Edema (slight edema in ankles). negative: JVD, Murmur Vascular Pulses: Carotid (R): 2+, Carotid (L): 2+, Dorsalis-Pedis (R): 1+, Doralis-Pedis (L): 1+ Gastrointestinal/Abdominal: positive: Normal Bowel Sounds, Soft. negative: Tender Musculoskeletal: negative: CVA Tenderness Extremity: positive: Normal Capillary Refill, Pelvis Stable, Pedal Edema (1+ in ankles) Integumentary: positive: Normal Color, Dry, Warm Neurologic: positive: generator man II-XII NML intact, Fully Oriented, Alert, Normal Mood/ Affect, Normal Response, Motor Strength 5/5 Moderate Sedation - Procedure Monitoring Vital Signs: Procedure Monitoring Vital Signs Temperature 97.5 F L 09/15/18 18:25 Pulse Rate 71 09/15/18 18:25 Respiratory Rate 16 09/15/18 18:25 Blood Pressure 110/63 09/15/18 18:25 O2 Sat by Pulse Oximetry (%) 97 09/15/18 18:25 ED Treatment Course - LABORATORY CBC & Chemistry Diagram: 09/15/18 20:00 09/15/18 20:21 - RADIOLOGY Radiology Studies Ordered: Category Date Time Status CHEST X-RAY PORTABLE* [RAD] Stat Radiology 09/15/18 19:55 Ordered Medical Decision Making - Medical Decision Making 09/15/18 20:31 Pt is an 83yo M with PMH of Prostate Ca with mets to lungs s/p chemotherapy ( last session March 2018) currently getting radiation x3 weeks three times weekly, last session is tomorrow, CHF, HTN, HLD, 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 Per daughter, high school home economics teacher noticed pt gained 2lbs and is having a harder time breathing. Pt states that he is normally short of breath but this time he can only speak a few words without needed to catch a breath. Per daughter, ankles seem more swollen than usual. Pt states he was having chest pain earlier but the pain went away when he used the nitro spray. Right now he is denying chest pain, cough, fevers, chills, pleuritic chest pain, weakness, numbness/tingling, changes in vision Vitals: wnl PE: slight edema in ankles ddx includes but not limited to chf exacerbation, acs, pna, ptx, pe, dissection -cbc, cmp, trop, bnp, mg, coags -ekg, cxr Lab significant for bnp 1999s. POCUS shows some b lines in LLF. CXR shows increased haziness in left lower lung field which is shown on prior CT. given 20mg lasix. all other labs wnl. trop negative. ua negative for infection. will admit tele/obs for chf. *DC/Admit/Observation/Transfer Diagnosis at time of Disposition: CHF (congestive heart failure) Qualifiers: Heart failure type: unspecified Heart failure chronicity: unspecified Qualified Code(s): I50.9 - Heart failure, unspecified - Discharge Dispostion Condition at time of disposition: Good Decision to Admit order: Yes - Referrals - Patient Instructions - Post Discharge Activity
[2018-09-15 20:38] LABS: BASO % 1.1 % (0-2.0); HEMOGLOBIN 10.6 GM/dL (11.7-16.9); LYMPH % 15.9 % (8-40); MCH 33.5 pg (25.7-33.7); MCHC 35.4 g/dl (32.0-35.9); MEAN CELL VOLUME 94.5 fl (80-96); MEAN PLT VOLUME 8.9 fl (7.5-11.1); MONO % 14.6 % (3.8-10.2); NEUT % 67.4 % (42.8-82.8); PLATELET COUNT 155 K/MM3 (134-434); RBC 3.18 M/mm3 (4.00-5.60); RDW 15.3 % (11.9-15.9); WHITE BLOOD COUNT 3.1 K/mm3 (4.0-10.0)
[2018-09-15 20:50] LABS: INR 1.08 (0.83-1.09); PROTHROMBIN TIME (PATIENT) 12.7 SEC (9.7-13.0)
[2018-09-15 20:52] LABS: ACTIVATED PTT 26.5 SECONDS (25.2-36.5)
[2018-09-15 21:19] LABS: ALBUMIN 3.8 g/dl (3.4-5.0); ALK PHOS 165 U/L (45-117); ANION GAP 8 MMOL/L (8-16); BILIRUBIN,TOTAL 0.6 mg/dL (0.2-1); BLOOD UREA NITROGEN 22 mg/dL (7-18); CALCIUM 7.4 mg/dL (8.5-10.1); CHLORIDE 104 mmol/L (98-107); CO2 26 mmol/L (21-32); CREATININE 0.9 mg/dL (0.55-1.3); GLUCOSE,RANDOM 88 mg/dL (74-106); MAGNESIUM 2.7 mg/dL (1.8-2.4); N-TERMINAL BNP 2439.6 pg/ml (5-450); POTASSIUM 4.3 mmol/L (3.5-5.1); SGOT/AST 19 U/L (15-37); SGPT/ALT 17 U/L (13-61); SODIUM 138 mmol/L (136-145); TOT PROT 6.5 g/dl (6.4-8.2)
[2018-09-15] MEDS ORDERED: FUROSEMIDE 40 MG/4 ML INJECTABLE VIAL IVPUSH ONE ×2 (21:32→23:45)
[2018-09-15] MEDS ORDERED: FUROSEMIDE 40 MG/4 ML INJECTABLE VIAL ONE (21:39)
[2018-09-15 21:59] LABS: URINE APPEARANCE CLEAR; URINE BILIRUBIN NEGATIVE (<2.0 mg/dL); URINE COLOR YELLOW; URINE GLUCOSE (UA) NEGATIVE (NEGATIVE); URINE KETONE NEGATIVE (NEGATIVE); URINE LEUK ESTERASE NEGATIVE (NEGATIVE); URINE NITRITE NEGATIVE (NEGATIVE); URINE PROTEIN NEGATIVE (NEGATIVE)
--- NOTE | 2018-09-15 22:30 | PN ---
Teaching Attending Note Name of Resident: Narciso Jeong ATTENDING PHYSICIAN STATEMENT I saw and evaluated the patient. I reviewed the resident's note and discussed the case with the resident. I agree with the resident's findings and plan as documented. SUBJECTIVE: Seen and examined; please see resident note for further historical documentation. Briefly, this is an 83 y/o presenting with symptoms of fluid overload. He has a known history of systolic/diastolic CHF and was recently discharged 09/07 (admitted 09/05) for NSTEMI (subendocardial ischemia) and was seen by Dr. Dodson at that time; per DCS was on 20 lasix BID. SOB is exertional, improved with rest; some orthopnea. He states he is compliant with his home medications. Based on documented weights he has a 5 pound gain since the of this month. His home health worker noted weight gain, swelling of his LE. He was discharged off Plavix. Though he initially denied it to the ER he endorses to us a history of intermittent chest pain that is substernal and nonradiating that had woke from sleep and that also occurred this AM. He is scheduled to followup with CV on 09/26 per the family. 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, HLD, Leukopenia, Anemia, PSH, Family Hx, Social Hx reviewed Medication list reviewed; pending reconciliation Home Medications Medication Instructions Recorded Ergocalciferol (Vitamin D2) 50,000 unit PO WEEKLY 09/05/18 [Vitamin D2] Furosemide 20 mg PO TID 09/05/18 Simvastatin 10 mg PO DAILY 09/05/18 Warfarin Sodium [Coumadin] 3 mg PO DAILY 09/05/18 Losartan Potassium [Cozaar -] 25 mg PO DAILY #7 tablet 09/07/18 Nitroglycerin [place] [Nitrolingual 1 spray TL [id number] PRN #1 bottle 09/07/18 [place] -] MDD 3 Abiraterone Acetate 250 mg PO QID 09/15/18 Furosemide 20 mg PO BID 09/15/18 Prednisone 5 mg PO BID 09/15/18 OBJECTIVE: VS, labs, imaging reviewed NAD, AAO, resting comfortably in bed NC AT EOMI PERRLA RRR s1/2 no mgr, 1+ sym b/l edema Lungs with mild b/l crackles, w/ sym exp NT ND +BS CN2-12 wnl, no fnd Normal mood, appropriate behavior 09/05/2018 echo (per Dr. Dodson's note) shows mild to moderate LVEF reduced to 40- 45% with G2 diastolic dyfn and elevated filling pressure; mild TR and NC. Prior imaging studies have demonstrated fluid overload. Reviewed old CV consultations. ASSESSMENT AND PLAN: Patient presents with apparent CHF exacerbation and chest pain and is found to have subtherapeutic INR. 1) CHF Exacerbation -BNP actually lower than it was last time; he is saturating well on RA and is hemodynamically stable. Lasix per the DC summary/meds and his home bottle is written for BID but per conversation with ER the patient may have been taking QOD but the family assures us that they have been taking daily. Is also on chronic prednisone which could potentially worsen his sx. -Placing on Lasix 40 IV QD and assess output to see if can do a BID dose; daily weights, strict Is and Os, fluid/salt restriction -Continue GDMT with BB, JAKE. Consider CV consultation for medication optimization. Reviewed 09/05 echo. -Monitor on telemetry; optimize electrolytes 2) Chest Pain in adult with recent subendocardial ischemia, r/o ACS -Will monitor on telemetry; he has been CP free since he got here with his last instance being in the AM with occasional nighttime occurances. Will of course consider non-cardiac causes but will r/o NM, etc. Initial troponin is negative so will trend and monitor. Consider CV consult in the AM. Given ASA in the ER. As bridging with warfarin therapy and given not DC on ASA will hold off scheduling additional doses. 3) History of brain clot 2005, with subtherapeutic INR on coumadin. -INR is 1.08 today; he has not had his INR checked since DC. Will bridge with lovenox and restart coumadin with pharmacy to dose. May need teaching. He has an IVC filter; denies history of DVT. Check old records. 4) Anemia -At baseline; may be related to cancer; followup OP and monitor CBC 5) Leukopenia -At baseline; may be related to cancer/tx. Followup OP and monitor CBC 6) Prostate Cancer s/p RT/Hormonal tx -Noted history; nonacute and may followup as OP. Continue home meds. 7) Elevated Alkaline Phosphatase -Chronically elevated; last in 140s now 160s. Check GGT.
[2018-09-16] MEDS ORDERED: ASPIRIN 81 MG CHEWABLE TABLETS PO ONE (00:05)
[2018-09-16] MEDS ORDERED: ENOXAPARIN NA (PORCINE) 60 MG/0.6 ML DISP.SYRIN SQ SCH (00:15)
[2018-09-16] MEDS ORDERED: ENOXAPARIN NA (PORCINE) 60 MG/0.6 ML DISP.SYRIN SQ ONE ×2 (00:15→00:24)
[2018-09-16] MEDS ORDERED: ASPIRIN 81 MG CHEWABLE TABLETS ONE (00:24)
[2018-09-16] MEDS ORDERED: FUROSEMIDE 40 MG/4 ML INJECTABLE VIAL ONE (00:24)
--- NOTE | 2018-09-16 00:28 | HP ---
<Narciso Jeong - Last Filed: 09/18/18 18:50> CHIEF COMPLAINT: shortness of breath, leg swelling PCP: Dr. Diamond Vasquez HISTORY OF PRESENT ILLNESS: Pt. is an 83 y.o. M presenting for shortness of breath and leg swelling that was noticed earlier in the day by ADMINISTRATIVE OFFICE MANAGER. Per daughter , ADMINISTRATIVE OFFICE MANAGER notice swelling of the ankles, shortness of breath and ~2lb weight gain over the last 24 hours. Pt. endorses baseline dyspnea on exertion. Pt. endorses chest pain earlier in the day, he took a spray of nitroglycerin and te chest pain resolved. Per Pt. he has been using the nitroglycerin almost everyday since his last hospital admission. Pt. endorses L>R elbow pain and bilateral shoulder pain that "comes and goes" without any identifiable associations. Patient was recently admitted for chest pain 2/2 NSTEMI and was started on Nitroglycerin spray, Metoprolol and Losartan. Pt. endorses taking Prednisone and Abiraterone for metastatic prostate cancer. Pt. denies any shortness of breath, chest pain, headache, abdominal pain, changes in bowel or urinary habits. ER course was notable for: (1)Lasix 40mg IV (2)EKG (3) Recent Travel: No PAST MEDICAL HISTORY: Prostate Ca(known mets to lung, suspicious for bone and periaortic), CHF, HTN, HLD, brain clot? PAST SURGICAL HISTORY: IVC Filter, craniotomy for subdural hematoma(2005) Social History: Smoking: Denies Alcohol: Denies Drugs: [place] Lives in the same building as daughter but separate Apt. Family History: Brother-CAD x3 stents Allergies No Known Allergies Allergy (Verified 09/05/18 01:12) HOME MEDICATIONS: Home Medications Medication Instructions Recorded Ergocalciferol (Vitamin D2) 50,000 unit PO WEEKLY 09/05/18 [Vitamin D2] Furosemide 20 mg PO TID 09/05/18 Simvastatin 10 mg PO DAILY 09/05/18 Warfarin Sodium [Coumadin] 3 mg PO DAILY 09/05/18 Losartan Potassium [Cozaar -] 25 mg PO DAILY #7 tablet 09/07/18 Nitroglycerin [place] [Nitrolingual 1 spray TL [id number] PRN #1 bottle 09/07/18 [place] -] MDD 3 Abiraterone Acetate 250 mg PO QID 09/15/18 Furosemide 20 mg PO BID 09/15/18 Prednisone 5 mg PO BID 09/15/18 REVIEW OF SYSTEMS CONSTITUTIONAL: weight change Absent: fever, chills, diaphoresis, generalized weakness, malaise, loss of appetite, HEENT: Absent: rhinorrhea, nasal congestion, throat pain, throat swelling, difficulty swallowing, mouth swelling, ear pain, eye pain, visual changes CARDIOVASCULAR: chest pain-resolved now, peripheral edema Absent: , syncope, palpitations, irregular heart rate, lightheadedness RESPIRATORY: shortness of breath, dyspnea with exertion Absent: cough, orthopnea, wheezing, stridor, hemoptysis GASTROINTESTINAL: Absent: abdominal pain, abdominal distension, nausea, vomiting, diarrhea, constipation, melena, hematochezia GENITOURINARY: Absent: dysuria, frequency, urgency, hesitancy, hematuria, flank pain, genital pain MUSCULOSKELETAL: Absent: myalgia, arthralgia, joint swelling, back pain, neck pain SKIN: Absent: rash, itching, pallor HEMATOLOGIC/IMMUNOLOGIC: Absent: easy bleeding, easy bruising, lymphadenopathy, frequent infections ENDOCRINE: unexplained weight gain, Absent: unexplained weight loss, heat intolerance, cold intolerance NEUROLOGIC: Absent: headache, focal weakness or paresthesias, dizziness, unsteady gait, seizure, mental status changes, bladder or bowel incontinence PSYCHIATRIC: Absent: anxiety, depression, suicidal or homicidal ideation, hallucinations. PHYSICAL EXAMINATION Vital Signs - 24 hr 09/15/18 18:25 Temperature 97.5 F L Pulse Rate 71 Respiratory 16 Rate Blood Pressure 110/63 O2 Sat by Pulse 97 Oximetry (%) GENERAL: Awake, alert, and fully oriented, in no acute distress. HEAD: Normal with no signs of trauma. EYES: Pupils equal, round and reactive to light, extraocular movements intact, sclera anicteric, conjunctiva clear. EARS, NOSE, THROAT: Ears normal, nares patent, oropharynx clear without exudates. Moist mucous membranes. NECK: Normal range of motion, supple without lymphadenopathy, JVD, or masses. LUNGS: Bibasilar crackles. No accessory muscle use. HEART: Regular rate and rhythm, normal S1 and S2 without murmur, rub or gallop. ABDOMEN: Soft, nontender, not distended, normoactive bowel sounds, no guarding, no rebound, no masses. No hepatomegaly or splenomegaly. MUSCULOSKELETAL: Normal range of motion at all joints. No bony deformities or tenderness. No CVA tenderness. UPPER EXTREMITIES: 2+ pulses, warm, well-perfused. No cyanosis. No clubbing. No peripheral edema. LOWER EXTREMITIES: warm, well-perfused. No calf tenderness. No peripheral edema. NEUROLOGICAL: Normal speech. PSYCHIATRIC: Cooperative. Good eye contact. Appropriate mood and affect. SKIN: Warm, dry, normal turgor, no rashes or lesions noted, normal capillary refill. Laboratory Results - last 24 hr 09/15/18 09/15/18 09/15/18 20:00 20:00 20:21 WBC 3.1 L RBC 3.18 L Hgb 10.6 L Hct 30.0 L MCV 94.5 MCH 33.5 MCHC 35.4 RDW 15.3 Plt Count 155 MPV 8.9 Absolute Neuts (auto) 2.1 Neutrophils % 67.4 Lymphocytes % 15.9 Monocytes % 14.6 H Eosinophils % 1.0 Basophils % 1.1 Nucleated RBC % 0 PT with INR 12.70 INR 1.08 PTT (Actin FS) 26.5 Sodium Potassium Chloride Carbon Dioxide Anion Gap BUN Creatinine Creat Clearance w eGFR Random Glucose Calcium Magnesium Total Bilirubin AST ALT Alkaline Phosphatase Troponin I 0.02 B-Natriuretic Peptide Total Protein Albumin Urine Color Urine Appearance Urine pH Ur Specific [place] Urine Protein Urine Glucose (UA) Urine Ketones Urine Blood Urine Nitrite Urine Bilirubin Urine Urobilinogen Ur Leukocyte Esterase 09/15/18 09/15/18 20:21 21:30 WBC RBC Hgb Hct MCV MCH MCHC RDW Plt Count MPV Absolute Neuts (auto) Neutrophils % Lymphocytes % Monocytes % Eosinophils % Basophils % Nucleated RBC % PT with INR INR PTT (Actin FS) Sodium 138 Potassium 4.3 Chloride 104 Carbon Dioxide 26 Anion Gap 8 BUN 22 H Creatinine 0.9 Creat Clearance w eGFR 80.20 Random Glucose 88 Calcium 7.4 L Magnesium 2.7 H Total Bilirubin 0.6 AST 19 ALT 17 Alkaline Phosphatase 165 H Troponin I B-Natriuretic Peptide 2439.6 H Total Protein 6.5 Albumin 3.8 Urine Color Yellow Urine Appearance Clear Urine pH 6.0 Ur Specific [place] 1.012 Urine Protein Negative Urine Glucose (UA) Negative Urine Ketones Negative Urine Blood Negative Urine Nitrite Negative Urine Bilirubin Negative Urine Urobilinogen 1.0 Ur Leukocyte Esterase Negative ASSESSMENT/PLAN: Pt. is an 83 y.o. M w/ PMHx. Prostate Ca(known mets to lung, suspicious for bone and periaortic), CHF, HTN, HLD, brain clot?presents with shortness of breath and leg swelling that was noticed earlier in the day by ADMINISTRATIVE OFFICE MANAGER. #Dyspnea on Exertion like 2/2 CHF started Lasix 40mg IV Daily Given Lovenox 1mg/kg in ED Pt.'s last echo was on 09/05/18: nml LV size, 40-45% EF, mild-moderate global hypokinesis, Grade 2 diastolic dysfunction, mild TR, mild pulmonic valvular dysfunction #Chest pain Trop- x 2 EKG: NSR, no acute ST segment or t wave changes c/w simvastatin for HLD c/w Nitroglycerin spray PRN #Metastatic Prostate Ca c/w Abiraterone and Prednisone f/u on receiving last radiation therapy session #Leukopenia Pt. a baseline WBC level based on levels compared to last admission on discharge Pt. has Hx. of radiation therapy(3x/week for 3 weeks-last session scheduled for 09/16/18) #HTN c/w Metoprolol and Losartan #FEN encourage PO intake monitor electrolytes replete as needed encourage PO intake #DVTPpx. received therapeutic Lovenox dose in ED can c/w Pt.s home dose of Coumadin 3mg Visit type - Emergency Visit Emergency Visit: Yes ED Registration Date: 09/15/18 Care time: The patient presented to the Emergency Department on the above date and was hospitalized for further evaluation of their emergent condition. - New Patient This patient is new to me today: Yes Date on this admission: 09/15/18 - Critical Care Critical Care patient: No <Tim Drake - Last Filed: 10/17/18 21:52> Seen and examined; agree with above aside from what is supplemented in my own documentation. Repeated all villanueva parts of exam, supervised all vital parts of patient care.
[2018-09-16 04:31] VITALS: BMI 18.6
[2018-09-16 06:36] LABS: HEMATOCRIT 30.7 % (35.4-49); HEMOGLOBIN 10.7 GM/dL (11.7-16.9); MCH 32.8 pg (25.7-33.7); MEAN CELL VOLUME 93.8 fl (80-96); MEAN PLT VOLUME 8.6 fl (7.5-11.1); PLATELET COUNT 156 K/MM3 (134-434); RBC 3.27 M/mm3 (4.00-5.60); RDW 15.1 % (11.9-15.9); WHITE BLOOD COUNT 3.2 K/mm3 (4.0-10.0)
[2018-09-16 06:58] LABS: INR 1.15 (0.83-1.09); PROTHROMBIN TIME (PATIENT) 13.6 SEC (9.7-13.0)
[2018-09-16 07:06] LABS: ANION GAP 7 MMOL/L (8-16); BLOOD UREA NITROGEN 21 mg/dL (7-18); CALCIUM 7.2 mg/dL (8.5-10.1); CHLORIDE 100 mmol/L (98-107); CO2 31 mmol/L (21-32); CREATININE 0.9 mg/dL (0.55-1.3); GLUCOSE,RANDOM 89 mg/dL (74-106); MAGNESIUM 2.8 mg/dL (1.8-2.4); PHOSPHOROUS 3.1 mg/dL (2.5-4.9); POTASSIUM 3.6 mmol/L (3.5-5.1); SODIUM 139 mmol/L (136-145)
[2018-09-16] MEDS ORDERED: NITROGLYCERIN 0.4MG/SPRAY 4.9 GM BOTTLE TL PRN (08:29)
[2018-09-16] MEDS ORDERED: NITROGLYCERIN SUBLINGUAL 1/150 0.4 MG TAB SL PRN (09:22)
[2018-09-16] MEDS ORDERED: ABIRATERONE ACETATE 250 MG PO SCH (10:00)
[2018-09-16] MEDS: predniSONE 5 MG TABLET (UD) PO SCH ×2 (10:46→21:32)
[2018-09-16] MEDS: FUROSEMIDE 40 MG/4 ML INJECTABLE VIAL IVPUSH SCH (10:46)
[2018-09-16] MEDS: ENOXAPARIN NA (PORCINE) 60 MG/0.6 ML DISP.SYRIN SQ SCH ×2 (10:46→21:32)
--- NOTE | 2018-09-16 11:03 | EKG ---
Test Reason : Blood Pressure : / mmHG Vent. Rate : 066 BPM Atrial Rate : 066 BPM P-R Int : 124 ms QRS Dur : 098 ms QT Int : 438 ms P-R-T Axes : -26 -23 027 degrees QTc Int : 459 ms NORMAL SINUS RHYTHM MINIMAL VOLTAGE CRITERIA FOR LVH, MAY BE NORMAL VARIANT Confirmed by SHERI LOPEZ MD ([id number]) on 09/16/2018 11:03:19 AM Referred By: Confirmed By:SHERI LOPEZ MD
--- NOTE | 2018-09-16 13:53 | PN ---
Physical Exam: SUBJECTIVE: Patient seen and examined at bedside. States dyspnea is ongoing, only with exertion. Edema improved. No chest pain at time of encounter. OBJECTIVE: Vital Signs Period Temp Pulse Resp BP Sys/Ibarra Pulse Ox Last 24 Hr 97.5 F-98.5 F 71-88 16-20 96-122/58-76 97-100 HEENT: NC/AT, PERRLA, EOMI, MMM NECK: Trachea midline, full range of motion, supple. 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 SKIN: Warm, dry, normal turgor, no rashes or lesions noted Laboratory Results - last 24 hr 09/15/18 09/15/18 09/15/18 20:00 20:00 20:21 WBC 3.1 L RBC 3.18 L Hgb 10.6 L Hct 30.0 L MCV 94.5 MCH 33.5 MCHC 35.4 RDW 15.3 Plt Count 155 MPV 8.9 Absolute Neuts (auto) 2.1 Neutrophils % 67.4 Lymphocytes % 15.9 Monocytes % 14.6 H Eosinophils % 1.0 Basophils % 1.1 Nucleated RBC % 0 PT with INR 12.70 INR 1.08 PTT (Actin FS) 26.5 Sodium Potassium Chloride Carbon Dioxide Anion Gap BUN Creatinine Creat Clearance w eGFR Random Glucose Calcium Phosphorus Magnesium Total Bilirubin AST ALT Alkaline Phosphatase Troponin I 0.02 B-Natriuretic Peptide Total Protein Albumin Urine Color Urine Appearance Urine pH Ur Specific [place] Urine Protein Urine Glucose (UA) Urine Ketones Urine Blood Urine Nitrite Urine Bilirubin Urine Urobilinogen Ur Leukocyte Esterase Blood Type Antibody Screen 09/15/18 09/15/18 09/16/18 20:21 21:30 01:45 WBC RBC Hgb Hct MCV MCH MCHC RDW Plt Count MPV Absolute Neuts (auto) Neutrophils % Lymphocytes % Monocytes % Eosinophils % Basophils % Nucleated RBC % PT with INR INR PTT (Actin FS) Sodium 138 Potassium 4.3 Chloride 104 Carbon Dioxide 26 Anion Gap 8 BUN 22 H Creatinine 0.9 Creat Clearance w eGFR 80.20 Random Glucose 88 Calcium 7.4 L Phosphorus Magnesium 2.7 H Total Bilirubin 0.6 AST 19 ALT 17 Alkaline Phosphatase 165 H Troponin I 0.02 B-Natriuretic Peptide 2439.6 H Total Protein 6.5 Albumin 3.8 Urine Color Yellow Urine Appearance Clear Urine pH 6.0 Ur Specific [place] 1.012 Urine Protein Negative Urine Glucose (UA) Negative Urine Ketones Negative Urine Blood Negative Urine Nitrite Negative Urine Bilirubin Negative Urine Urobilinogen 1.0 Ur Leukocyte Esterase Negative Blood Type Antibody Screen 09/16/18 09/16/18 09/16/18 05:30 05:30 05:30 WBC 3.2 L RBC 3.27 L Hgb 10.7 L Hct 30.7 L MCV 93.8 MCH 32.8 MCHC 35.0 RDW 15.1 Plt Count 156 MPV 8.6 Absolute Neuts (auto) Neutrophils % Lymphocytes % Monocytes % Eosinophils % Basophils % Nucleated RBC % PT with INR 13.60 H INR 1.15 H PTT (Actin FS) Sodium 139 Potassium 3.6 Chloride 100 Carbon Dioxide 31 Anion Gap 7 L BUN 21 H Creatinine 0.9 Creat Clearance w eGFR 80.20 Random Glucose 89 Calcium 7.2 L Phosphorus 3.1 Magnesium 2.8 H Total Bilirubin AST ALT Alkaline Phosphatase Troponin I B-Natriuretic Peptide Total Protein Albumin Urine Color Urine Appearance Urine pH Ur Specific [place] Urine Protein Urine Glucose (UA) Urine Ketones Urine Blood Urine Nitrite Urine Bilirubin Urine Urobilinogen Ur Leukocyte Esterase Blood Type Antibody Screen 09/16/18 05:30 WBC RBC Hgb Hct MCV MCH MCHC RDW Plt Count MPV Absolute Neuts (auto) Neutrophils % Lymphocytes % Monocytes % Eosinophils % Basophils % Nucleated RBC % PT with INR INR PTT (Actin FS) Sodium Potassium Chloride Carbon Dioxide Anion Gap BUN Creatinine Creat Clearance w eGFR Random Glucose Calcium Phosphorus Magnesium Total Bilirubin AST ALT Alkaline Phosphatase Troponin I B-Natriuretic Peptide Total Protein Albumin Urine Color Urine Appearance Urine pH Ur Specific [place] Urine Protein Urine Glucose (UA) Urine Ketones Urine Blood Urine Nitrite Urine Bilirubin Urine Urobilinogen Ur Leukocyte Esterase Blood Type B POSITIVE Antibody Screen Negative Active Medications Generic Name Dose Route Start Last Admin Trade Name Freq PRN Reason Stop Dose Admin Atorvastatin Calcium 10 mg 09/16/18 22:00 Lipitor - PO HS [facility] Enoxaparin Sodium 60 mg 09/16/18 10:00 09/16/18 10:46 Lovenox - SQ 60 mg BID [facility] Administration Ergocalciferol 50,000 unit 09/20/18 10:00 Drisdol - PO Tu [facility] Furosemide 40 mg 09/16/18 10:00 09/16/18 10:46 Lasix Injection - IVPUSH 40 mg DAILY [facility] Administration Nitroglycerin 0.4 mg 09/16/18 09:22 Nitrostat - SL Q5M PRN FOR CHEST PAIN Non-Formulary Medication 250 mg 09/16/18 10:00 Abiraterone Acetate [Abiraterone Acetate] PO QID [facility] Prednisone 5 mg 09/16/18 10:00 09/16/18 10:46 Deltasone - PO 5 mg BID [facility] Administration ASSESSMENT/PLAN: 83 y/o M w/ metastatic prostate Ca s/p ADT/RT now on prednisone and abiraterone , 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 Admitted for CHF exacerbation #CHF exacerbation -echo 09/05: 40-45% F, global hypokinesis, grade II diastolic dysfunction -cont Lasix -PT #CAD -cont lipitor -NTG PRN -holding home anti-hypertensives at present d/t soft blood pressures on presentation -monitor BP #Prostate Ca -cont prednisone, abiraterone #h/o DVT -therapeutic dose Lovenox -INR subtherapeutic, holding coumadin, consider Lovenox brim curler in setting of malignancy #FEN -no IVF -monitor and replete electrolytes -Chol/Fat/Na-controlled diet #PPx -DVT: therapeutic Lovenox -GI: not indicated #code -full #dispo -cont to monitor on telemetry Visit type - Emergency Visit Emergency Visit: No - New Patient This patient is new to me today: Yes Date on this admission: 09/16/18 - Critical Care Critical Care patient: No
--- NOTE | 2018-09-16 14:54 | PN ---
Teaching Attending Note Name of Resident: Guicho Figueroa ATTENDING PHYSICIAN STATEMENT I saw and evaluated the patient. I reviewed the resident's note and discussed the case with the resident. I agree with the resident's findings and plan as documented. SUBJECTIVE:c/o dyspnea when speaking and minimal exertion. denies CP, fever, chills, cough, N/V/C/D OBJECTIVE: Last Vital Signs Temp Pulse Resp BP Pulse Ox 97.8 F 77 18 96/58 L 99 09/16/18 06:00 09/16/18 06:00 09/16/18 06:00 09/16/18 06:00 09/16/18 02:00 Intake & Output 09/13/18 09/14/18 09/15/18 09/16/18 23:59 23:59 23:59 23:59 Weight 142 lb 137 lb General NAD CV S1 S2 RRR no murmur/rub/gallop Lungs CTA B/L no wheezing/rales/rhonchi Abdomen soft NT/ND Extremities trace pitting edema ASSESSMENT AND PLAN: 82yo M with PMH prostate ca with mets s/p chemo and RTx, SDH s/p craniotomy with recent admission for NSTEMI which was medically managed returned with worsening shortness of breath and pedal edema and found to be in acute on chronic systolic CHF 1. Acute on chronic systolic CHF- remains symptomatic. will cont lasix IV. recent echo noted. water restrict <1L. strict I&O, daily weights 2. Subtherapeutic INR- states he is compliant with coumadin. will need to d/w with PMD if pt would benefit from alternative agent for anticoagulation. currently on full dose lovenox 3. CAD- cont statin 4. prostate ca with mets- cont chemo. 5. SDH s/p craniotomy 6. DVT ppx- full dose lovenox
[2018-09-16] MEDS: ATORVASTATIN CA 10 MG TABLET (FP) PO SCH (21:32)
[2018-09-17 07:31] LABS: EOS % 0.6 % (0-4.5); HEMATOCRIT 30.6 % (35.4-49); HEMOGLOBIN 10.7 GM/dL (11.7-16.9); LYMPH % 14.9 % (8-40); MCHC 34.9 g/dl (32.0-35.9); MEAN CELL VOLUME 94.6 fl (80-96); MEAN PLT VOLUME 8.9 fl (7.5-11.1); MONO % 12.6 % (3.8-10.2); NEUT % 70.9 % (42.8-82.8); PLATELET COUNT 150 K/MM3 (134-434); RBC 3.24 M/mm3 (4.00-5.60); RDW 15.4 % (11.9-15.9); WHITE BLOOD COUNT 3.3 K/mm3 (4.0-10.0)
[2018-09-17 07:35] LABS: ANION GAP 8 MMOL/L (8-16); BLOOD UREA NITROGEN 25 mg/dL (7-18); CHLORIDE 101 mmol/L (98-107); CO2 29 mmol/L (21-32); CREATININE 0.8 mg/dL (0.55-1.3); GLUCOSE,RANDOM 101 mg/dL (74-106); MAGNESIUM 2.8 mg/dL (1.8-2.4); POTASSIUM 3.7 mmol/L (3.5-5.1); SODIUM 138 mmol/L (136-145)
[2018-09-17 08:04] LABS: CALCIUM 6.8 mg/dL (8.5-10.1)
[2018-09-17] MEDS: predniSONE 5 MG TABLET (UD) PO SCH ×2 (09:29→22:49)
[2018-09-17] MEDS: ENOXAPARIN NA (PORCINE) 60 MG/0.6 ML DISP.SYRIN SQ SCH ×2 (09:29→22:49)
[2018-09-17] MEDS: FUROSEMIDE 40 MG/4 ML INJECTABLE VIAL IVPUSH SCH (09:29)
--- NOTE | 2018-09-17 13:32 | PN ---
Progress Note (short form) - Note Progress Note: c/o persistent SOB on exertion. no improvement since arrival. has non productive cough. Denies CP, fever, chills, N/V/C/D Current Medications Generic Name Dose Route Start Last Admin Trade Name Freq PRN Reason Stop Dose Admin Atorvastatin Calcium 10 mg 09/16/18 22:00 09/16/18 21:32 Lipitor - PO 10 mg HS [facility] Administration Enoxaparin Sodium 60 mg 09/16/18 10:00 09/17/18 09:29 Lovenox - SQ 60 mg BID [facility] Administration Ergocalciferol 50,000 unit 09/20/18 10:00 Drisdol - PO Tu [facility] Furosemide 40 mg 09/16/18 10:00 09/17/18 09:29 Lasix Injection - IVPUSH 40 mg DAILY [facility] Administration Nitroglycerin 0.4 mg 09/16/18 09:22 Nitrostat - SL Q5M PRN FOR CHEST PAIN Non-Formulary Medication 1,000 mg 09/16/18 18:15 Abiraterone Acetate [Abiraterone Acetate] PO DAILY [facility] Prednisone 5 mg 09/16/18 10:00 09/17/18 09:29 Deltasone - PO 5 mg BID [facility] Administration Last Vital Signs Temp Pulse Resp BP Pulse Ox 97.2 F L 99 H 20 121/69 99 09/17/18 10:00 09/17/18 10:00 09/17/18 10:00 09/17/18 10:00 09/17/18 10:00 Intake & Output 09/14/18 09/15/18 09/16/18 09/17/18 23:59 23:59 23:59 23:59 Intake Total 250 10 Balance 250 10 Weight 142 lb 137 lb 136 lb 8 oz General NAD CV S1 S2 RRR no murmur/rub/gallop Lungs CTA B/L no wheezing/rales/rhonchi Abdomen soft NT/ND Extremities no pitting edema CBCD WBC 3.3 K/mm3 (4.0-10.0) L 09/17/18 05:30 RBC 3.24 M/mm3 (4.00-5.60) L 09/17/18 05:30 Hgb 10.7 GM/dL (11.7-16.9) L 09/17/18 05:30 Hct 30.6 % (35.4-49) L 09/17/18 05:30 MCV 94.6 fl (80-96) 09/17/18 05:30 MCHC 34.9 g/dl (32.0-35.9) 09/17/18 05:30 RDW 15.4 % (11.9-15.9) 09/17/18 05:30 Plt Count 150 K/MM3 (134-434) 09/17/18 05:30 MPV 8.9 fl (7.5-11.1) 09/17/18 05:30 CMP Sodium 138 mmol/L (136-145) 09/17/18 05:30 Potassium 3.7 mmol/L (3.5-5.1) 09/17/18 05:30 Chloride 101 mmol/L (98-107) 09/17/18 05:30 Carbon Dioxide 29 mmol/L (21-32) 09/17/18 05:30 Anion Gap 8 MMOL/L (8-16) 09/17/18 05:30 BUN 25 mg/dL (7-18) H 09/17/18 05:30 Creatinine 0.8 mg/dL (0.55-1.3) 09/17/18 05:30 Creat Clearance w eGFR 91.87 (>60) 09/17/18 05:30 Calcium 6.8 mg/dL (8.5-10.1) L* 09/17/18 05:30 Total Bilirubin 0.6 mg/dL (0.2-1) 09/15/18 20:21 AST 19 U/L (15-37) 09/15/18 20:21 ALT 17 U/L (13-61) 09/15/18 20:21 Alkaline Phosphatase 165 U/L (45-117) H 09/15/18 20:21 Total Protein 6.5 g/dl (6.4-8.2) 09/15/18 20:21 Albumin 3.8 g/dl (3.4-5.0) 09/15/18 20:21 ASSESSMENT AND PLAN: 82yo M with PMH prostate ca with mets s/p chemo and RTx, SDH s/p craniotomy with recent admission for NSTEMI which was medically managed returned with worsening shortness of breath and pedal edema and found to be in acute on chronic systolic CHF 1. Acute on chronic systolic CHF- remains symptomatic however does not appear volume overloaded. will repeat CXR to evaluate. cont lasix IV. recent echo noted. water restrict <1L. strict I&O, daily weights 2. Subtherapeutic INR- states he is compliant with coumadin. will need to d/w with PMD if pt would benefit from alternative agent for anticoagulation. currently on full dose lovenox 3. CAD- cont statin 4. prostate ca with mets- cont chemo. 5. SDH s/p craniotomy 6. DVT ppx- full dose lovenox Visit type - Emergency Visit Emergency Visit: Yes ED Registration Date: 09/15/18 Care time: The patient presented to the Emergency Department on the above date and was hospitalized for further evaluation of their emergent condition. - New Patient This patient is new to me today: No - Critical Care Critical Care patient: No - Discharge Referral Referred to [facility] Med P.C.: No
[2018-09-17] MEDS ORDERED: FUROSEMIDE 40 MG/4 ML INJECTABLE VIAL IVPUSH ONE (14:55)
[2018-09-17 15:01] LABS: ALBUMIN 3.8 g/dl (3.4-5.0)
[2018-09-17] MEDS: ATORVASTATIN CA 10 MG TABLET (FP) PO SCH (22:49)
[2018-09-18] MEDS ORDERED: FUROSEMIDE 20 MG TABLET (FP) PO SCH (06:00)
[2018-09-18] MEDS: FUROSEMIDE 40 MG/4 ML INJECTABLE VIAL IVPUSH SCH (06:01)
[2018-09-18 07:35] LABS: ANION GAP 12 MMOL/L (8-16); BLOOD UREA NITROGEN 30 mg/dL (7-18); CALCIUM 7.3 mg/dL (8.5-10.1); CHLORIDE 98 mmol/L (98-107); CO2 28 mmol/L (21-32); GLUCOSE,RANDOM 136 mg/dL (74-106); POTASSIUM 3.7 mmol/L (3.5-5.1); SODIUM 138 mmol/L (136-145)
[2018-09-18] MEDS: ENOXAPARIN NA (PORCINE) 60 MG/0.6 ML DISP.SYRIN SQ SCH ×2 (09:05→22:13)
[2018-09-18] MEDS: predniSONE 5 MG TABLET (UD) PO SCH ×2 (09:06→22:13)
[2018-09-18] MEDS ORDERED: PT OWN MED DRAWER 7, Y5N ONE ×2 (09:44→12:13)
--- NOTE | 2018-09-18 11:56 | PN ---
Physical Exam: SUBJECTIVE: Patient seen and examined at bedside. Dyspnea is unchanged, occurs with exertion, no dyspnea at rest. Edema improved. No chest pain since admission. Did complain of spell of dizziness this morning, resolved by time of encounter. OBJECTIVE: Vital Signs Period Temp Pulse Resp BP Sys/Ibarra Pulse Ox Last 24 Hr 97.6 F-98.8 F 69-105 18-20 88-133/50-77 95-100 HEENT: NC/AT, PERRLA, EOMI, MMM NECK: Trachea midline, full range of motion, supple. 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 SKIN: Warm, dry, normal turgor, no rashes or lesions noted Laboratory Results - last 24 hr 09/17/18 09/18/18 05:30 06:00 Sodium 138 138 Potassium 3.7 3.7 Chloride 101 98 Carbon Dioxide 29 28 Anion Gap 8 12 BUN 25 H 30 H Creatinine 0.8 1.0 Creat Clearance w eGFR 91.87 71.02 Random Glucose 101 136 H Calcium 6.8 L* 7.3 L Phosphorus 3.0 Magnesium 2.8 H Albumin 3.8 Active Medications Generic Name Dose Route Start Last Admin Trade Name Freq PRN Reason Stop Dose Admin Atorvastatin Calcium 10 mg 09/16/18 22:00 09/17/18 22:49 Lipitor - PO 10 mg HS [facility] Administration Enoxaparin Sodium 60 mg 09/16/18 10:00 09/18/18 09:05 Lovenox - SQ 60 mg BID [facility] Administration Ergocalciferol 50,000 unit 09/20/18 10:00 Drisdol - PO [facility] [place] Furosemide 40 mg 09/18/18 06:00 09/18/18 06:01 Lasix Injection - IVPUSH 40 mg BID@0600,1400 [facility] Administration Nitroglycerin 0.4 mg 09/16/18 09:22 Nitrostat - SL Q5M PRN FOR CHEST PAIN Non-Formulary Medication 1,000 mg 09/18/18 10:00 09/18/18 09:43 Abiraterone Acetate [Abiraterone Acetate] PO 1,000 mg DAILY [facility] Administration Prednisone 5 mg 09/16/18 10:00 09/18/18 09:06 Deltasone - PO 5 mg BID [facility] Administration ASSESSMENT/PLAN: 83 y/o M w/ metastatic prostate Ca s/p ADT/RT now on prednisone and abiraterone , 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
--- NOTE | 2018-09-18 12:44 | PN ---
Progress Note (short form) - Note Progress Note: Orthostatics+, holding Lasix, ordering chest CT and pulmonology consult
--- NOTE | 2018-09-18 12:45 | PN ---
Teaching Attending Note Name of Resident: Guicho Figueroa ATTENDING PHYSICIAN STATEMENT I saw and evaluated the patient. I reviewed the resident's note and discussed the case with the resident. I agree with the resident's findings and plan as documented. SUBJECTIVE:cont to have dyspnea on exertion and when speaking. c/o dizyzness this AM when getting out of bed. denies CP or cough OBJECTIVE: Last Vital Signs Temp Pulse Resp BP Pulse Ox 97.7 F 103 H 18 88/50 L 95 09/18/18 08:00 09/18/18 09:12 09/18/18 10:46 09/18/18 09:12 09/18/18 10:46 Intake & Output 09/15/18 09/16/18 09/17/18 09/18/18 23:59 23:59 23:59 23:59 Intake Total 250 630 15 Balance 250 630 15 Weight 142 lb 137 lb 136 lb 8 oz 132 lb 6.4 oz General NAD Lungs scattered wheezing no crackles. good inspiratory effort Extremities no pedal edema ASSESSMENT AND PLAN: 82yo M with PMH prostate ca with mets s/p chemo and RTx, SDH s/p craniotomy with recent admission for NSTEMI which was medically managed returned with worsening shortness of breath and pedal edema and found to be in acute on chronic systolic CHF 1. Acute on chronic systolic CHF- remains symptomatic however does not appear volume overloaded. repeat CXR supports taht and now becoming symptomatic with + orthostatics. will check CT chest and consult pulmonary. hold lasix. strict I&O , daily weights 2. Subtherapeutic INR- states he is compliant with coumadin. will need to d/w with PMD if pt would benefit from alternative agent for anticoagulation. currently on full dose lovenox 3. CAD- cont statin 4. prostate ca with mets- cont chemo. 5. SDH s/p craniotomy 6. DVT ppx- full dose lovenox
--- NOTE | 2018-09-18 14:06 | CON.PULM ---
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 The patients family reports that the patients aide noticed the patients weight gain and increased shortness of breath. She also reports that the patients ankles are more swollen. The patient reports that he is usually short of breath but it has been worse recently. Patient also notes an episode of chest pain which resolved when he used his nitro spray. Currently denies chest pain. Patient is a never smoker. 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 No: Renal Inusuff Heme/Onc: Yes: Anemia Infectious Disease: No: AIDS Psych: No: Addictions Musculoskeletal: Yes: Other (pain in shoulders) - Alcohol/Substance Use Hx Alcohol Use: No - Smoking History Smoking history: Never smoked Have you smoked in the past 12 months: No - Social History ADL: Family Assistance Place of : Other History of Recent Travel: No Home Medications - Allergies Allergies/Adverse Reactions: Allergies Allergy/AdvReac Type Severity Reaction Status Date / Time No Known Allergies Allergy Verified 09/05/18 01:12 - Home Medications Home Medications: Ambulatory Orders Ergocalciferol (Vitamin D2) [Vitamin D2] 50,000 unit PO WEEKLY 09/05/18 Furosemide 20 mg PO TID 09/05/18 Simvastatin 10 mg PO DAILY 09/05/18 Warfarin Sodium [Coumadin] 3 mg PO DAILY 09/05/18 Losartan Potassium [Cozaar -] 25 mg PO DAILY #7 tablet 09/07/18 Nitroglycerin Pike [Nitrolingual Pike -] 1 spray TL [id number] PRN #1 bottle MDD 3 09/07/18 Abiraterone Acetate 250 mg PO QID 09/15/18 Furosemide 20 mg PO BID 09/15/18 Prednisone 5 mg PO BID 09/15/18 Family Disease History - Family Disease History Family History: Unremarkable Review of Systems - Review of Systems Constitutional: reports: Loss of Appetite. denies: Fever Eyes: denies: Blind Spots HENT: denies: Difficult Swallowing Neck: denies: Decreased ROM Cardiovascular: reports: Shortness of Breath. denies: Chest Pain Respiratory: reports: Exercise Intolerance, Orthopnea, SOB on Exertion. denies : Hemoptysis Gastrointestinal: denies: Abdominal Pain Genitourinary: reports: No Symptoms Breasts: reports: No Symptoms Reported Musculoskeletal: reports: Back Pain, Joint Pain Integumentary: reports: No Symptoms Neurological: reports: No Symptoms Physical Exam Vital Sings: Vital Signs Temperature 97.7 F 09/18/18 08:00 Pulse Rate 103 H 09/18/18 09:12 Respiratory Rate 18 09/18/18 10:46 Blood Pressure 88/50 L 09/18/18 09:12 O2 Sat by Pulse Oximetry (%) 95 09/18/18 10:46 Constitutional: Yes: Calm Eyes: Yes: EOM Intact HENT: Yes: Normocephalic Cardiovascular: Yes: Regular Rate and Rhythm Respiratory: Yes: CTA Bilaterally, Other (diminished at bases) Gastrointestinal: Yes: Normal Bowel Sounds, Soft Edema: LLE: Trace, RLE: Trace Integumentary: Yes: Petechiae Neurological: Yes: WNL Labs: CBC, BMP 09/17/18 05:30 09/18/18 06:00 rest reviewed Imaging - Results Chest X-ray: Report Reviewed, Image Reviewed Cat Scan: Report Reviewed, Image Reviewed EKG: Report Reviewed Problem List - Problems (1) CHF (congestive heart failure) Code(s): I50.9 - HEART FAILURE, UNSPECIFIED Qualifiers: Heart failure type: unspecified Heart failure chronicity: unspecified Qualified Code(s): I50.9 - Heart failure, unspecified (2) Acute diastolic (congestive) heart failure Code(s): I50.31 - ACUTE DIASTOLIC (CONGESTIVE) HEART FAILURE (3) NSTEMI (non-ST elevated myocardial infarction) Code(s): I21.4 - NON-ST ELEVATION (NSTEMI) MYOCARDIAL INFARCTION (4) Prostate cancer metastatic to bone Code(s): C61 - MALIGNANT NEOPLASM OF PROSTATE; C79.51 - SECONDARY MALIGNANT NEOPLASM OF BONE Assessment/Plan AGREE THAT LIKELY SCENARIO IS EXACERBATION OF CHF. DOES NOT APPEAR TO HAVE UNDERLYING LUNG DISEASE PROSTATE CA WITH BONE METS PATIENT RULED OUT FOR PE DURING LAST RECENT ADMISSION INDEX OF SUSPICION FOR PE IS LOW CONTINUE A/C, DIURETIC/CARDIO FOLLOW UP Collette CAGE MD
[2018-09-18] MEDS: ATORVASTATIN CA 10 MG TABLET (FP) PO SCH (22:13)
[2018-09-19 07:04] LABS: ANION GAP 7 MMOL/L (8-16); BLOOD UREA NITROGEN 34 mg/dL (7-18); CALCIUM 7.9 mg/dL (8.5-10.1); CHLORIDE 97 mmol/L (98-107); CO2 30 mmol/L (21-32); CREATININE 0.9 mg/dL (0.55-1.3); GLUCOSE,RANDOM 117 mg/dL (74-106); PHOSPHOROUS 3.5 mg/dL (2.5-4.9); POTASSIUM 3.7 mmol/L (3.5-5.1); SODIUM 133 mmol/L (136-145)
[2018-09-19] MEDS ORDERED: PT OWN MED DRAWER 7, Y5N ONE (08:49)
[2018-09-19 09:11] LABS: INR 0.99 (0.83-1.09); PROTHROMBIN TIME (PATIENT) 11.7 SEC (9.7-13.0)
--- NOTE | 2018-09-19 10:08 | EKG ---
Test Reason : Blood Pressure : / mmHG Vent. Rate : 072 BPM Atrial Rate : 072 BPM P-R Int : 150 ms QRS Dur : 100 ms QT Int : 450 ms P-R-T Axes : 012 -31 027 degrees QTc Int : 492 ms NORMAL SINUS RHYTHM LEFT AXIS DEVIATION MINIMAL VOLTAGE CRITERIA FOR LVH, MAY BE NORMAL VARIANT PROLONGED QT ABNORMAL ECG WHEN COMPARED WITH ECG OF 15-SEP-2018 20:33, NO SIGNIFICANT CHANGE WAS FOUND Confirmed by MARITZA QUIÑONEZ, VIJAY ([id number]) on 09/19/2018 10:08:16 AM Referred By: Confirmed By:VIJAY SALAS MD
--- NOTE | 2018-09-19 10:23 | PN ---
Physical Exam: SUBJECTIVE: Patient seen and examined at bedside. States breathing is improved. Experienced brief self-resolving chest pain following chest CT last night, did not require NTG. OBJECTIVE: Vital Signs Period Temp Pulse Resp BP Sys/Ibarra Pulse Ox Last 24 Hr 98.2 F-98.7 F 76-102 18-20 98-138/55-76 95-96 HEENT: NC/AT, PERRLA, EOMI, MMM NECK: Trachea midline, full range of motion, supple. 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 SKIN: Warm, dry, normal turgor, no rashes or lesions noted Laboratory Results - last 24 hr 09/19/18 09/19/18 09/19/18 05:30 05:50 08:45 PT with INR 11.70 INR 0.99 Sodium 133 L Potassium 3.7 Chloride 97 L Carbon Dioxide 30 Anion Gap 7 L BUN 34 H Creatinine 0.9 Creat Clearance w eGFR 80.20 Random Glucose 117 H Calcium 7.9 L Phosphorus 3.5 Magnesium 3.0 H Troponin I < 0.02 Active Medications Generic Name Dose Route Start Last Admin Trade Name Freq PRN Reason Stop Dose Admin Atorvastatin Calcium 10 mg 09/16/18 22:00 09/18/18 22:13 Lipitor - PO 10 mg HS JUDSON Administration Enoxaparin Sodium 60 mg 09/16/18 10:00 09/18/18 22:13 Lovenox - SQ 60 mg BID JUDSON Administration Ergocalciferol 50,000 unit 09/20/18 10:00 Drisdol - PO Tu JUDSON Furosemide 40 mg 09/18/18 06:00 09/18/18 06:01 Lasix Injection - IVPUSH 40 mg BID@0600,1400 JUDSON Administration Nitroglycerin 0.4 mg 09/16/18 09:22 Nitrostat - SL Q5M PRN FOR CHEST PAIN Non-Formulary Medication 1,000 mg 09/18/18 10:00 09/18/18 09:43 Abiraterone Acetate [Abiraterone Acetate] PO 1,000 mg DAILY JUDSON Administration Prednisone 5 mg 09/16/18 10:00 09/18/18 22:13 Deltasone - PO 5 mg BID JUDSON Administration ASSESSMENT/PLAN: 83 y/o M w/ metastatic prostate Ca s/p ADT/RT now on prednisone and abiraterone , 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 Admitted for CHF exacerbation #CHF exacerbation -echo 09/05: 40-45% F, global hypokinesis, grade II diastolic dysfunction -resume Lasix -daily weights, strict I/O -PT #CAD -cont lipitor -NTG PRN -holding home anti-hypertensives at present d/t soft blood pressures on presentation -monitor BP #chronic pulmonary disease -considering COPD vs metastatic progression -contrast chest CT pending -pulmonology consulted, no pulmonary interventions recommended #Prostate Ca -cont prednisone, abiraterone #h/o DVT -therapeutic dose Lovenox -INR subtherapeutic, holding coumadin, consider Lovenox long term care pharmacist in setting of malignancy #FEN -no IVF -monitor and replete electrolytes -Chol/Fat/Na-controlled diet #PPx -DVT: therapeutic Lovenox -GI: not indicated #code -full #dispo -cont to monitor on telemetry Visit type - Emergency Visit Emergency Visit: No - New Patient This patient is new to me today: No - Critical Care Critical Care patient: No
--- NOTE | 2018-09-19 10:34 | PN ---
Progress Note, Physician History of Present Illness: PULMONARY ALERT,FEELING BETTER LESS DYSPNEIC BREATHING STILL NOT AT BASELINE - Current Medication List Current Medications: Active Medications Atorvastatin Calcium (Lipitor -) 10 mg PO HS [facility] Last Admin: 09/18/18 22:13 Dose: 10 mg Enoxaparin Sodium (Lovenox -) 60 mg SQ BID [facility] Last Admin: 09/18/18 22:13 Dose: 60 mg Ergocalciferol (Drisdol -) 50,000 unit PO Tu [facility] Furosemide (Lasix Injection -) 40 mg IVPUSH BID@0600,1400 [facility] Last Admin: 09/18/18 06:01 Dose: 40 mg Nitroglycerin (Nitrostat -) 0.4 mg SL Q5M PRN PRN Reason: FOR CHEST PAIN Non-Formulary Medication (Abiraterone Acetate [Abiraterone Acetate]) 1,000 mg PO DAILY [facility] Last Admin: 09/18/18 09:43 Dose: 1,000 mg Prednisone (Deltasone -) 5 mg PO BID [facility] Last Admin: 09/18/18 22:13 Dose: 5 mg - Objective Vital Signs: Vital Signs Temperature 98.4 F 09/19/18 09:00 Pulse Rate 78 09/19/18 09:00 Respiratory Rate 20 09/19/18 09:00 Blood Pressure 98/66 09/19/18 09:00 O2 Sat by Pulse Oximetry (%) 96 09/19/18 09:00 Constitutional: Yes: Calm, Thin Eyes: Yes: WNL HENT: Yes: WNL Neck: Yes: WNL Cardiovascular: Yes: Regular Rate and Rhythm, S1, S2 Respiratory: Yes: Rales (BIBASILAR RALES) Gastrointestinal: Yes: Normal Bowel Sounds, Soft Extremities: Yes: WNL Edema: No Labs: 09/19/18 05:30 INR, PTT INR 0.99 (0.83-1.09) 09/19/18 08:45 Assessment/Plan Problem List - Problems (1) CHF (congestive heart failure) Code(s): I50.9 - HEART FAILURE, UNSPECIFIED Qualifiers: Heart failure type: unspecified Heart failure chronicity: unspecified Qualified Code(s): I50.9 - Heart failure, unspecified (2) Acute diastolic (congestive) heart failure Code(s): I50.31 - ACUTE DIASTOLIC (CONGESTIVE) HEART FAILURE (3) NSTEMI (non-ST elevated myocardial infarction) Code(s): I21.4 - NON-ST ELEVATION (NSTEMI) MYOCARDIAL INFARCTION (4) Prostate cancer metastatic to bone Code(s): C61 - MALIGNANT NEOPLASM OF PROSTATE; C79.51 - SECONDARY MALIGNANT NEOPLASM OF BONE Assessment/Plan EXACERBATION OF CHF PROSTATE CA WITH BONE METS A/C, LASIX CARDIO FOLLOW UP PFTS OUTPATIENT DR LEE
[2018-09-19] MEDS: predniSONE 5 MG TABLET (UD) PO SCH ×2 (10:55→22:07)
[2018-09-19] MEDS: ENOXAPARIN NA (PORCINE) 60 MG/0.6 ML DISP.SYRIN SQ SCH ×2 (10:56→22:07)
[2018-09-19] MEDS: FUROSEMIDE 40 MG/4 ML INJECTABLE VIAL IVPUSH SCH ×3 (10:57→22:07)
--- NOTE | 2018-09-19 15:06 | PN ---
Teaching Attending Note Name of Resident: Guicho Figueroa ATTENDING PHYSICIAN STATEMENT I saw and evaluated the patient. I reviewed the resident's note and discussed the case with the resident. I agree with the resident's findings and plan as documented. SUBJECTIVE: minimal improvement with breathing, feels less winded during conversation. denies CP, fever, chills, cough,. N/V/C/D, dizzy OBJECTIVE: Last Vital Signs Temp Pulse Resp BP Pulse Ox 98.4 F 78 20 98/66 96 09/19/18 09:00 09/19/18 09:00 09/19/18 09:00 09/19/18 09:00 09/19/18 09:00 Intake & Output 09/16/18 09/17/18 09/18/18 09/19/18 23:59 23:59 23:59 23:59 Intake Total 250 630 905 10 Balance 250 630 905 10 Weight 137 lb 136 lb 8 oz 132 lb 6.4 oz 132 lb 9.6 oz General NAD Lungs CTA B/L. good inspiratory effort Extremities no pedal edema ASSESSMENT AND PLAN: 82yo M with PMH prostate ca with mets s/p chemo and RTx, SDH s/p craniotomy with recent admission for NSTEMI which was medically managed returned with worsening shortness of breath and pedal edema and found to be in acute on chronic systolic CHF 1. Acute on chronic systolic CHF- remains symptomatic. CT chest with contrast done yesterday showing volume congestion. repeated orthostatics negative. will re-start lasix IV and monitor weights. pulmonary consulted appreciated and agrees with aggressive diuresis. monitor electrolytes. strict I&O, daily weights 2. Subtherapeutic INR-INR has been very labile since last hospitalization to this one. cont on full dose lovenox as better outcomes in malignancy. 3. CAD- cont statin 4. prostate ca with mets- cont chemo. 5. SDH s/p craniotomy 6. DVT ppx- full dose lovenox
[2018-09-19] MEDS: ATORVASTATIN CA 10 MG TABLET (FP) PO SCH (22:07)
[2018-09-20 08:04] LABS: BASO % 0.6 % (0-2.0); EOS % 1.4 % (0-4.5); HEMATOCRIT 33.1 % (35.4-49); HEMOGLOBIN 11.5 GM/dL (11.7-16.9); MCH 33.4 pg (25.7-33.7); MCHC 34.9 g/dl (32.0-35.9); MEAN CELL VOLUME 95.8 fl (80-96); MEAN PLT VOLUME 8.8 fl (7.5-11.1); MONO % 11.6 % (3.8-10.2); NEUT % 78.4 % (42.8-82.8); PLATELET COUNT 150 K/MM3 (134-434); RBC 3.45 M/mm3 (4.00-5.60); WHITE BLOOD COUNT 4.4 K/mm3 (4.0-10.0)
[2018-09-20 08:40] LABS: ANION GAP 11 MMOL/L (8-16); BLOOD UREA NITROGEN 36 mg/dL (7-18); CALCIUM 7.9 mg/dL (8.5-10.1); CHLORIDE 95 mmol/L (98-107); CO2 29 mmol/L (21-32); GLUCOSE,RANDOM 123 mg/dL (74-106); MAGNESIUM 2.6 mg/dL (1.8-2.4); PHOSPHOROUS 4.2 mg/dL (2.5-4.9); POTASSIUM 3.6 mmol/L (3.5-5.1); SODIUM 135 mmol/L (136-145)
[2018-09-20] MEDS ORDERED: ERGOCALCIFEROL (VIT D2) 50,000 UNIT (1.25 MG) CAPSULE PO SCH (10:00)
[2018-09-20] MEDS: predniSONE 5 MG TABLET (UD) PO SCH (10:02)
[2018-09-20] MEDS: FUROSEMIDE 40 MG/4 ML INJECTABLE VIAL IVPUSH SCH (10:03)
[2018-09-20] MEDS: ENOXAPARIN NA (PORCINE) 60 MG/0.6 ML DISP.SYRIN SQ SCH (10:03)
[2018-09-20] MEDS ORDERED: PT OWN MED DRAWER 7, Y5N ONE (10:13)
--- NOTE | 2018-09-20 10:40 | PN ---
Teaching Attending Note Name of Resident: Guicho Figueroa ATTENDING PHYSICIAN STATEMENT I saw and evaluated the patient. I reviewed the resident's note and discussed the case with the resident. I agree with the resident's findings and plan as documented. SUBJECTIVE:states breathing has resolved. denies CP, SOB, fever, chills, cough, N/V/C/D OBJECTIVE: Last Vital Signs Temp Pulse Resp BP Pulse Ox 97.9 F 81 20 97/43 L 95 09/20/18 05:00 09/20/18 05:00 09/20/18 05:00 09/20/18 05:00 09/19/18 21:00 Intake & Output 09/17/18 09/18/18 09/19/18 09/20/18 23:59 23:59 23:59 23:59 Intake Total 630 905 410 Balance 630 905 410 Weight 136 lb 8 oz 132 lb 6.4 oz 132 lb 9.6 oz 131 lb 12.8 oz General NAD Lungs CTA B/L. good inspiratory effort Extremities no pedal edema ASSESSMENT AND PLAN: 82yo M with PMH prostate ca with mets s/p chemo and RTx, SDH s/p craniotomy with recent admission for NSTEMI which was medically managed returned with worsening shortness of breath and pedal edema and found to be in acute on chronic systolic CHF 1. Acute on chronic systolic CHF-asymptomatic. total of 6lb weight loss this hospital stay. will switch lasix to 40mg BID po which is increased from home dose. counselled patient on dietary changes. and need to check for daily weights and report to double cut sawyer if more than 2 lb increase. states he has a RN who checks on him as well with weights. pulmonary consulted appreciated and agrees with aggressive diuresis. monitor electrolytes. strict I&O, daily weights 2. Subtherapeutic INR-pt has been stating he would be able to give lovenox injections at home however resident spoke with son who said he will not be able to self administer. so will have to place back on coumadin at this time. will resume 3mg dosing even though he was subtherpeutic on presentation he was supratherapeutic on same dose on last presentation. stressed importance of INR check on Wednesday by primary. 3. CAD- cont statin 4. prostate ca with mets- cont chemo. 5. SDH s/p craniotomy 6. DVT ppx- full dose lovenox 7. d/c home
[2018-09-20] MEDS ORDERED: WARFARIN NA 3 MG TABLET PO ONE ×2 (10:41→15:15)
--- NOTE | 2018-09-20 11:07 | PN ---
Progress Note, Physician History of Present Illness: PULMONARY ALERT,FEELING BETTER,DYSPNEA IMPROVED,-COUGH,-CP - Current Medication List Current Medications: Active Medications Atorvastatin Calcium (Lipitor -) 10 mg PO HS [facility] Last Admin: 09/19/18 22:07 Dose: 10 mg Enoxaparin Sodium (Lovenox -) 60 mg SQ BID [facility] Last Admin: 09/20/18 10:03 Dose: 60 mg Ergocalciferol (Drisdol -) 50,000 unit PO Tu [facility] Last Admin: 09/20/18 10:21 Dose: 50,000 unit Furosemide (Lasix Injection -) 40 mg IVPUSH BID [facility] Last Admin: 09/20/18 10:03 Dose: 40 mg Nitroglycerin (Nitrostat -) 0.4 mg SL Q5M PRN PRN Reason: FOR CHEST PAIN Non-Formulary Medication (Abiraterone Acetate [Abiraterone Acetate]) 1,000 mg PO DAILY [facility] Last Admin: 09/20/18 10:02 Dose: 1,000 mg Prednisone (Deltasone -) 5 mg PO BID [facility] Last Admin: 09/20/18 10:02 Dose: 5 mg Warfarin Sodium (Coumadin -) 3 mg PO NOW ONE Stop: 09/20/18 10:42 - Objective Vital Signs: Vital Signs Temperature 97.9 F 09/20/18 05:00 Pulse Rate 81 09/20/18 05:00 Respiratory Rate 20 09/20/18 05:00 Blood Pressure 97/43 L 09/20/18 05:00 O2 Sat by Pulse Oximetry (%) 95 09/19/18 21:00 Constitutional: Yes: Calm, Thin Eyes: Yes: WNL HENT: Yes: WNL Neck: Yes: WNL Cardiovascular: Yes: Pulse Irregular, S1, S2 Respiratory: Yes: Rales (FEW BIBASILAR CRACKLES) Gastrointestinal: Yes: Normal Bowel Sounds, Soft Extremities: Yes: WNL Edema: No Labs: CBC, BMP 09/20/18 07:10 09/20/18 07:10 INR, PTT INR 0.99 (0.83-1.09) 09/19/18 08:45 Assessment/Plan Problem List - Problems (1) CHF (congestive heart failure) Code(s): I50.9 - HEART FAILURE, UNSPECIFIED Qualifiers: Heart failure type: unspecified Heart failure chronicity: unspecified Qualified Code(s): I50.9 - Heart failure, unspecified (2) Acute diastolic (congestive) heart failure Code(s): I50.31 - ACUTE DIASTOLIC (CONGESTIVE) HEART FAILURE (3) NSTEMI (non-ST elevated myocardial infarction) Code(s): I21.4 - NON-ST ELEVATION (NSTEMI) MYOCARDIAL INFARCTION (4) Prostate cancer metastatic to bone Code(s): C61 - MALIGNANT NEOPLASM OF PROSTATE; C79.51 - SECONDARY MALIGNANT NEOPLASM OF BONE Assessment/Plan EXACERBATION OF CHF IMPROVED PROSTATE CA WITH BONE METS A/C, LASIX PFTS OUTPATIENT DR LEE
--- NOTE | 2018-09-20 11:29 | DS ---
Physical Exam: SUBJECTIVE: Patient seen and examined at bedside. States breathing is improved. No other complaints. OBJECTIVE: Vital Signs Period Temp Pulse Resp BP Sys/Ibarra Pulse Ox Last 24 Hr 97.5 F-98.6 F 81-91 20-20 87-118/43-68 95 PHYSICAL EXAM HEENT: NC/AT, PERRLA, EOMI, MMM NECK: Trachea midline, full range of motion, supple. 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 SKIN: Warm, dry, normal turgor, no rashes or lesions noted LABS Laboratory Results - last 24 hr 09/20/18 09/20/18 07:10 07:10 WBC 4.4 RBC 3.45 L Hgb 11.5 L Hct 33.1 L MCV 95.8 MCH 33.4 MCHC 34.9 RDW 15.0 Plt Count 150 MPV 8.8 Absolute Neuts (auto) 3.4 Neutrophils % 78.4 Lymphocytes % 8.0 D Monocytes % 11.6 H Eosinophils % 1.4 D Basophils % 0.6 Nucleated RBC % 0 Sodium 135 L Potassium 3.6 Chloride 95 L Carbon Dioxide 29 Anion Gap 11 BUN 36 H Creatinine 1.0 Creat Clearance w eGFR 71.02 Random Glucose 123 H Calcium 7.9 L Phosphorus 4.2 Magnesium 2.6 H HOSPITAL COURSE: Date of Admission:09/15/18 Patient is an 83 y/o M w/ metastatic prostate Ca s/p ADT/RT now on prednisone and abiraterone, SDH in 2005 s/p craniotomy leading to b/l LE DVT s/p IVC filter now on coumadin, recently hospitalized for NSTEMI and echo at that time showed global LV hypokinesis with EF 40-45%. He presented again to the ED with worsening shortness of breath and lower extremity swelling and was admitted for CHF exacerbation. He further complained of intermittent anginal pain since his prior discharge for which he had been using his PRN NTG spray, but had only one episode of CP during hospitalization which quickly self resolved. EKG and troponins were benign. Contrast CT of the chest was negative for infiltrates and pleural/pulmonary progression of malignancy, though suspicious medistinal and retroperitoneal nodes were observed. He was treated with diuretics and fluid restriction and breathing status gradually improved. Pulmonology was consulted and recommended outpatient followup. Patient had normotensive to hypotensive blood pressures throughout and home anti-hypertensives were held. Consideration was made for switching anticoagulation from warfarin to Lovenox, as his INR was subtherapeutic on this presentation and was supratherapeutic on prior presentation. However, after discussion with his primary care provider and family, it was determined that he will be unable to manage Lovenox therapy as an outpatient, and given his metastatic disease, requires ongoing warfarin therapy. He was discharged for outpatient followup with primary care, cardiology , and pulmonology. He was restarted on warfarin with INR monitoring and two days home bridging with Lovenox, given an increased dose of home Lasix, and his Losartan was held pending cardiology followup. Date of Discharge: 09/20/18 Minutes to complete discharge: 40 Discharge Summary Reason For Visit: CONGESTIVE HEART FAILURE Current Active Problems CHF (congestive heart failure) (Acute) Condition: Stable - Instructions Diet, Activity, Other Instructions: You were hospitalized for an exacerbation of heart failure causing shortness of breath and swelling in your legs. This was most likely caused by your recent heart attack. You were treated with medications to remove excess fluid, and maintained on your other medications for your heart and prostate. There may be a component of chronic lung disease contributing to your symptoms. You were seen and evaluated by the pulmonology service and will require outpatient followup with pulmonology as well as cardiology and primary care. Referrals have been made on your behalf to these providers. Please see them within one week of your discharge. In the meantime, we have adjusted your medications as detailed below. Take your medications exactly as directed and do not make changes without first consulting your doctors. If you experience any new or worsening chest pain, shortness of breath, swelling, fever, chills, or any other new or concerning symptoms, please return to the Emergency Department. MEDICAL RECOMMENDATIONS AND MEDICATION INSTRUCTIONS: You are being transitioned from Lovenox (injectable blood thinner) back to Coumadin (oral blood thinner). We are restarting your Coumadin today, the day of your discharge. Continue taking your Coumadin every day. You will have a visiting nurse provide you with further Lovenox injections for the next two days. You will require a check of your INR (blood measurement of Coumadin) this Wednesday09/23/18. We are increasing your dose of Lasix to 40mg twice daily. A new prescription has been provided to your pharmacy. Weigh yourself first thing in the morning every day and record the number. If you have gained more than 2lbs in a single day, call your welding machine setter, who may recommend taking an extra dose of Lasix or may have other recommendations for further treatment. Discontinue using Losartan for now. Your blood pressures have been low while in the hospital. Your welding machine setter will likely restart you on this or another similar medication at some point in the future, but at present stop taking Losartan and follow up with cardiology. Otherwise resume your home medications, maintain a low salt diet, and keep your fluid intake restricted. Further instructions are included in your discharge packet. Referrals: Terra Ardon MD [Other] ( ) Vignesh Bo MD [Staff Physician] - Omar Dodson MD [Staff Physician] - Disposition: VNS/HOME HEALTH CARE - Home Medications Comprehensive Discharge Medication List: Ambulatory Orders Ergocalciferol (Vitamin D2) [Vitamin D2] 50,000 unit PO WEEKLY 09/05/18 Simvastatin 10 mg PO DAILY 09/05/18 Warfarin Sodium [Coumadin] 3 mg PO DAILY 09/05/18 Nitroglycerin [place] [Nitrolingual [place] -] 1 spray TL [id number] PRN #1 bottle MDD 3 09/07/18 Abiraterone Acetate 250 mg PO QID 09/15/18 Prednisone 5 mg PO BID 09/15/18 Enoxaparin [Lovenox -] 60 mg SQ BID disp.syrin 09/20/18 Furosemide [Lasix -] 40 mg PO BID #60 tablet 09/20/18 This patient is new to me today: No Emergency Visit: No Critical Care patient: No - Discharge Referral Referred to [facility] No
[2018-09-20 14:39] VITALS: BP 116/66; PULSE 102; TEMP 97.8
== END 2018-09-20 15:49 | disposition home health service (06) | DRG 281 ==
LOC: JER 18:23 → OBSVTOIN 21:49 → JERBED 21:49 → J4W 09-16 02:00
PROVIDERS: ADMIT Internal Medicine; ATTEND Internal Medicine
DX: I11.0 Hypertensive heart disease with heart failure (principal); I21.4 Non-ST elevation (NSTEMI) myocardial infarction; C78.00 Secondary malignant neoplasm of unspecified lung; I22.2 Subsequent non-ST elevation (NSTEMI) myocardial infarction; C79.51 Secondary malignant neoplasm of bone; E78.5 Hyperlipidemia, unspecified; I50.23 Acute on chronic systolic (congestive) heart failure; C61 Malignant neoplasm of prostate; D64.9 Anemia, unspecified; D72.819 Decreased white blood cell count, unspecified; I25.10 Atherosclerotic heart disease of native coronary artery without angina pectoris; Z86.718 Personal history of other venous thrombosis and embolism
CPT/HCPCS: 36415; 71045-TC-FY; 71046-TC-FY; 71260-TC; 80048; 80053; 81003; 82040; 83735; 83880; 84100; 84484; 85025; 85027; 85610; 85730; 86850; 86900; 86901; 93005; 93010; 97116-GP; 97161-GP; 99284-25

== ENCOUNTER 2018-10-31 16:37 | Observation (INO) | payer OTHER ==
--- NOTE | 2018-10-31 16:46 | PDOC ---
Rapid Medical Evaluation Chief Complaint: Shortness of Breath Time Seen by Provider: 10/31/18 16:40 Medical Evaluation: Allergies Allergy/AdvReac Type Severity Reaction Status Date / Time No Known Allergies Allergy Verified 09/05/18 01:12 10/31/18 16:41 I have performed a brief in-person evaluation of this patient. The patient presents with a chief complaint of sent by pmd for further evaluation. Patient sent for shortness of breath dyspnea on exertion and weight gain even with diuretic use Pertinent physical exam findings: even and unlabored breathing protubent abdomen + pedal edema I have ordered the following labs ekg The patient will proceed to the ED for further evaluation. Discharge Disposition - Diagnosis Shortness of breath - Referrals - Patient Instructions - Post Discharge Activity
[2018-10-31 17:05] LABS: BASO % 0.9 % (0-2.0); HEMATOCRIT 31.1 % (35.4-49); HEMOGLOBIN 10.6 GM/dL (11.7-16.9); MCH 32.7 pg (25.7-33.7); MCHC 34.1 g/dl (32.0-35.9); MONO % 11.3 % (3.8-10.2); NEUT % 76.8 % (42.8-82.8); PLATELET COUNT 167 K/MM3 (134-434); RBC 3.24 M/mm3 (4.00-5.60); RDW 16.4 % (11.9-15.9); WHITE BLOOD COUNT 4.6 K/mm3 (4.0-10.0)
[2018-10-31] MEDS ORDERED: CLOPIDOGREL BISULFATE 300 MG TABLET PO ONE (18:02)
[2018-10-31 18:03] LABS: ALBUMIN 4.3 g/dl (3.4-5.0); ALK PHOS 148 U/L (45-117); ANION GAP 10 MMOL/L (8-16); BILIRUBIN,TOTAL 1.1 mg/dL (0.2-1); BLOOD UREA NITROGEN 29 mg/dL (7-18); CALCIUM 8.2 mg/dL (8.5-10.1); CHLORIDE 97 mmol/L (98-107); CO2 29 mmol/L (21-32); CREATININE 1.3 mg/dL (0.55-1.3); GLUCOSE,RANDOM 127 mg/dL (74-106); N-TERMINAL BNP 1973.3 pg/ml (5-450); POTASSIUM 3.9 mmol/L (3.5-5.1); SGOT/AST 30 U/L (15-37); SGPT/ALT 26 U/L (13-61); SODIUM 136 mmol/L (136-145); TOT PROT 7.1 g/dl (6.4-8.2)
[2018-10-31] MEDS ORDERED: FUROSEMIDE 40 MG/4 ML INJECTABLE VIAL IVPUSH ONE (18:05)
--- NOTE | 2018-10-31 18:06 | PDOC ---
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 Omar Dodson to the ED for shortness of breath and chest pain increased leg swelling bilaterally and 5 pound weight gain overnight. In office patient found to have nsr @ 89 and with subendocardial ischemic injury new since 10/04/2018. Per Cardiology Dr. 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 PCP: Reva Past History - Past Medical History Allergies/Adverse Reactions: Allergies Allergy/AdvReac Type Severity Reaction Status Date / Time No Known Allergies Allergy Verified 09/05/18 01:12 Home Medications: Ambulatory Orders Ergocalciferol (Vitamin D2) [Vitamin D2] 50,000 unit PO WEEKLY 09/05/18 Simvastatin 10 mg PO DAILY 09/05/18 Warfarin Sodium [Coumadin] 3 mg PO DAILY 09/05/18 Nitroglycerin [place] [Nitrolingual [place] -] 1 spray TL [id number] PRN #1 bottle MDD 3 09/07/18 Abiraterone Acetate 250 mg PO QID 09/15/18 Prednisone 5 mg PO BID 09/15/18 Enoxaparin Sodium 60 mg SQ BID #4 syringe 09/20/18 Furosemide [Lasix -] 40 mg PO BID #60 tablet 09/20/18 Cancer: Yes (PROSTATE METS TO BONE) COPD: No CHF: Yes HTN: Yes Hypercholesterolemia: Yes - Surgical History Neurologic Surgery: Yes - Immunization History Immunization Up to Date: Yes - Suicide/Smoking/Psychosocial Hx Smoking History: Never smoked Have you smoked in the past 12 months: No Hx Alcohol Use: No Drug/Substance Use Hx: No Substance Use Type: None Hx Substance Use Treatment: No Review of Systems - Review of Systems Able to Perform ROS?: Yes Comments:: 10/31/18 18:25 GENERAL/CONSTITUTIONAL: No fever or chills. No weakness. HEAD, EYES, EARS, NOSE AND THROAT: No change in vision. No ear pain or discharge. No sore throat. CARDIOVASCULAR: + chest pain or shortness of breath RESPIRATORY: No cough, wheezing, or hemoptysis. GASTROINTESTINAL: No nausea, vomiting, diarrhea or constipation. GENITOURINARY: No dysuria, frequency, or change in urination. MUSCULOSKELETAL: No joint or muscle swelling or pain. No neck or back pain. SKIN: No rash NEUROLOGIC: No headache, vertigo, loss of consciousness, or change in strength/ sensation. ENDOCRINE: No increased thirst. + abnormal weight change HEMATOLOGIC/LYMPHATIC: No anemia, easy bleeding, or history of blood clots. ALLERGIC/IMMUNOLOGIC: No hives or skin allergy. Is the patient limited Spanish proficient: No *Physical Exam - Vital Signs Last Vital Signs Temp Pulse Resp BP Pulse Ox 97.3 F L 82 17 114/62 99 10/31/18 16:40 10/31/18 16:40 10/31/18 16:40 10/31/18 16:40 10/31/18 16:40 - Physical Exam Comments: 10/31/18 18:27 GENERAL: Awake, alert, and fully oriented, in no acute distress HEAD: No signs of trauma, normocephalic, atraumatic EYES: EOMI, sclera anicteric, conjunctiva clear ENT: oropharynx clear without exudates. Moist mucosa NECK: Normal ROM, supple LUNGS: No distress, speaks full sentences, clear to auscultation bilaterally HEART: Regular rate and rhythm, normal S1 and S2, no murmurs, rubs or gallops, peripheral pulses normal and equal bilaterally. ABDOMEN: Soft, nontender, normoactive bowel sounds. No guarding, no rebound. No masses EXTREMITIES : Normal inspection, Normal range of motion, + 2+ pitting edema to calves bilaterally NEUROLOGICAL: Cranial nerves II through XII grossly intact. Normal speech, no focal sensorimotor deficits SKIN: Warm, Dry, normal turgor, no rashes or lesions noted ED Treatment Course - LABORATORY CBC & Chemistry Diagram: 10/31/18 16:56 10/31/18 16:56 - ADDITIONAL ORDERS Additional order review: 10/31/18 16:56 RBC 3.24 L MCV 96.0 MCHC 34.1 RDW 16.4 H MPV 8.0 Neutrophils % 76.8 Lymphocytes % 9.0 Monocytes % 11.3 H Eosinophils % 2.0 Basophils % 0.9 Medical Decision Making - Medical Decision Making ED Course: Patient found to have ACS of subendocariac ischemic and now with post infarction angina not an ideal invasive therapy candidate given comorbilitis, 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 Dodson who states the patient is having post infarct angina and will be medically managed due to his metastatic prostate cancer. 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 Cordero who agrees to admission *DC/Admit/Observation/Transfer Diagnosis at time of Disposition: Shortness of breath, CHF exacerbation, Angina pectoris, Acute electrocardiogram changes - Discharge Dispostion Condition at time of disposition: Fair Decision to Admit order: Yes - Referrals Referrals: ON STAFF,NOT [Primary Care Provider] - - Patient Instructions - Post Discharge Activity
[2018-10-31] MEDS ORDERED: CLOPIDOGREL BISULFATE 300 MG TABLET ONE (18:39)
[2018-10-31] MEDS ORDERED: FUROSEMIDE 40 MG/4 ML INJECTABLE VIAL ONE (18:39)
--- NOTE | 2018-10-31 18:51 | PDOC ---
Documentation entered by Guicho Peralta SCRIBE, acting as scribe for Jeane Cruz MD. Jeane Cruz MD: This documentation has been prepared by the candaceibeFabian Daniel, SCRIBE, under my direction and personally reviewed by me in its entirety. I confirm that the documentation accurately reflects all work, treatment, procedures, and medical decision making performed by me. 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 Patient sent in by his supervisor ditching, Dr. Dodson, after experiencing chest pain, shortness of breath, and 5 pound weight gain overnight. Patient denies headache, lightheadedness. Denies fever, chills. Denies nausea, vomiting, diarrhea, abdominal pain. Allergies: NKA - Physicial Exam PE: GENERAL: Awake, alert, and fully oriented, in no acute distress HEAD: No signs of trauma EYES: PERRLA, EOMI, sclera anicteric, conjunctiva clear ENT: Auricles normal inspection, hearing grossly normal, nares patent, oropharynx clear without exudates. Moist mucosa NECK: Normal ROM, supple, no lymphadenopathy, JVD, or masses LUNGS: Breath sounds equal, clear to auscultation bilaterally. No wheezes, and no crackles HEART: Regular rate and rhythm, normal S1 and S2, no murmurs, rubs or gallops ABDOMEN: Soft, nontender, normoactive bowel sounds. No guarding, no rebound. No masses EXTREMITIES: Normal range of motion, 2+ pitting edema BLE to mid-magana. No clubbing or cyanosis. No cords, erythema, or tenderness NEUROLOGICAL: Cranial nerves II through XII grossly intact. Normal speech, normal gait. Motor and sensation intact SKIN: Warm, Dry, normal turgor, no rashes or lesions noted. - Medical Decision Making Pt sent by Dr. Dodson for admission. Pt with multi-vessel disease, presenting with cp and fluid retention. Poor cath candidate. Will medically manage as per Dr. Dodson's recommendation.
[2018-10-31 19:38] LABS: PROTHROMBIN TIME (PATIENT) 49.2 SEC (9.7-13.0)
[2018-10-31 19:39] LABS: INR 4.11 (0.83-1.09)
--- NOTE | 2018-10-31 20:36 | HP ---
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 - Past Medical History Cardiovascular: Yes: CAD, CHF, [place] Renal/: Yes: Cancer (prostate). No: Renal Inusuff Heme/Onc: Yes: Anemia Musculoskeletal: Yes: Other (pain in shoulders) - Smoking History Smoking history: Never smoked Have you smoked in the past 12 months: No - Alcohol/Substance Use Hx Alcohol Use: No - Social History ADL: Family Assistance History of Recent Travel: No Home Medications - Allergies Allergies/Adverse Reactions: Allergies Allergy/AdvReac Type Severity Reaction Status Date / Time No Known Allergies Allergy Verified 09/05/18 01:12 - Home Medications Home Medications: Ambulatory Orders Ergocalciferol (Vitamin D2) [Vitamin D2] 50,000 unit PO WEEKLY 09/05/18 Simvastatin 10 mg PO DAILY 09/05/18 Warfarin Sodium [Coumadin] 3 mg PO DAILY 09/05/18 Nitroglycerin [place] [Nitrolingual [place] -] 1 spray TL [id number] PRN #1 bottle MDD 3 09/07/18 Abiraterone Acetate 250 mg PO QID 09/15/18 Prednisone 5 mg PO BID 09/15/18 Atorvastatin Ca [Lipitor] 10 mg PO HS #30 tablet 11/02/18 Furosemide [Lasix -] 40 mg PO DAILY #30 tablet 11/02/18 Losartan Potassium [Cozaar -] 25 mg PO DAILY #30 tablet 11/02/18 Metoprolol Succinate [Toprol XL -] 25 mg PO DAILY #30 tab.sr.24h 11/02/18 Warfarin Na [Coumadin -] 3 mg PO DAILY@1800 tablet 11/02/18 Physical Examination Vital Signs: Vital Signs Temperature 97.3 F L 10/31/18 16:40 Pulse Rate 82 10/31/18 16:40 Respiratory Rate 17 05/06/19 16:40 Blood Pressure 114/62 05/06/19 16:40 O2 Sat by Pulse Oximetry (%) 99 10/31/18 16:40 Constitutional: Yes: No Distress HENT: Yes: Atraumatic Neck: Yes: Supple Cardiovascular: Yes: Regular Rate and Rhythm Respiratory: Yes: CTA Bilaterally Gastrointestinal: Yes: Normal Bowel Sounds Extremities: Yes: WNL Edema: No Neurological: Yes: Alert, Oriented Labs: CBC, BMP 10/31/18 16:56 10/31/18 16:56 Problem List - Problems (1) Hyperlipidemia Assessment/Plan: on med Code(s): E78.5 - HYPERLIPIDEMIA, UNSPECIFIED Qualifiers: (2) Prostate cancer Code(s): C61 - MALIGNANT NEOPLASM OF PROSTATE (3) Angina pectoris Assessment/Plan: tele monitoring fu cardiac profile cardiology consult Code(s): I20.9 - ANGINA PECTORIS, UNSPECIFIED (4) CHF (congestive heart failure) Assessment/Plan: on lasix Code(s): I50.9 - HEART FAILURE, UNSPECIFIED Assessment/Plan Laboratory Tests 10/31/18 10/31/18 10/31/18 16:56 16:56 19:09 WBC 4.6 RBC 3.24 L Hgb 10.6 L Hct 31.1 L MCV 96.0 MCH 32.7 MCHC 34.1 RDW 16.4 H Plt Count 167 MPV 8.0 Absolute Neuts (auto) 3.5 Neutrophils % 76.8 Lymphocytes % 9.0 Monocytes % 11.3 H Eosinophils % 2.0 Basophils % 0.9 Nucleated RBC % 0 PT with INR 49.20 H INR 4.11 H* Sodium 136 Potassium 3.9 Chloride 97 L Carbon Dioxide 29 Anion Gap 10 BUN 29 H Creatinine 1.3 Creat Clearance w eGFR 52.47 Random Glucose 127 H Calcium 8.2 L Total Bilirubin 1.1 H AST 30 ALT 26 Alkaline Phosphatase 148 H Troponin I 0.08 H B-Natriuretic Peptide 1973.3 H Total Protein 7.1 Albumin 4.3 Active Medications Generic Name Dose Route Start Last Admin Trade Name Freq PRN Reason Stop Dose Admin Atorvastatin Calcium 10 mg 10/31/18 22:00 Lipitor - PO HS JUDSON Furosemide 40 mg 11/01/18 10:00 Lasix Injection - IVPUSH DAILY JUDSON Losartan Potassium 25 mg 11/01/18 10:00 Cozaar - PO DAILY JUDSON Metoprolol Succinate 25 mg 10/31/18 19:30 Toprol Xl - PO DAILY JUDSON
[2018-10-31] MEDS: ATORVASTATIN CA 10 MG TABLET (FP) PO SCH (23:06)
[2018-10-31] MEDS: metoPROLOL SUCCINATE 25 MG TAB.SR.24H (FP) PO SCH (23:07)
[2018-11-01 06:49] LABS: INR 3.02 (0.83-1.09)
[2018-11-01 07:03] LABS: ANION GAP 8 MMOL/L (8-16); BLOOD UREA NITROGEN 26 mg/dL (7-18); CALCIUM 7.5 mg/dL (8.5-10.1); CHLORIDE 98 mmol/L (98-107); CO2 34 mmol/L (21-32); GLUCOSE,RANDOM 96 mg/dL (74-106); POTASSIUM 3.2 mmol/L (3.5-5.1); SODIUM 139 mmol/L (136-145)
[2018-11-01] MEDS: metoPROLOL SUCCINATE 25 MG TAB.SR.24H (FP) PO SCH (10:00)
[2018-11-01] MEDS: LOSARTAN POTASSIUM 25 MG TABLET PO SCH (10:00)
[2018-11-01] MEDS: FUROSEMIDE 40 MG/4 ML INJECTABLE VIAL IVPUSH SCH (10:00)
--- NOTE | 2018-11-01 11:38 | EKG ---
Test Reason : Blood Pressure : / mmHG Vent. Rate : 082 BPM Atrial Rate : 082 BPM P-R Int : 136 ms QRS Dur : 096 ms QT Int : 424 ms P-R-T Axes : 000 -28 018 degrees QTc Int : 495 ms NORMAL SINUS RHYTHM MODERATE VOLTAGE CRITERIA FOR LVH, MAY BE NORMAL VARIANT NONSPECIFIC ST ABNORMALITY PROLONGED QT ABNORMAL ECG WHEN COMPARED WITH ECG OF 19-SEP-2018 04:53, NO SIGNIFICANT CHANGE WAS FOUND Confirmed by Tico Sandoval MD ([id number]) on 11/01/2018 11:38:22 AM Referred By: Confirmed By:Tico Sandoval MD
--- NOTE | 2018-11-01 14:17 | CON.CARD ---
Consult Consult Specialty:: Cardiology Referred by:: Dr. Cordero Reason for Consultation:: Cardiac evaluation - History of Present Illness Chief Complaint: Chest pain History of Present Illness: Patient is an 83 year old male of [place] descent with underlying history of prostate CA with metastasis to lung s/p chemotherapy and XRT, in addition CHF, hypertension, hypercholesterolemia, history of subdural hematoma s/p craniotomy in 2005 and history of DVT on Coumadin who presents for evaluation of chest discomfort. He was sent in by Dr. Dodson from our office after noting complaints of chest pain, shortness of breath and the use of SL NTG. Currently, he denies chest pain, SOB or palpitations. He denies paroxysmal nocurnal dyspnea or orthopnea. He denies fever or chills. He denies nausea, vomiting, diarrhea or abdominal pain. He denies headache or lightheadedness. - History Source History Provided By: Patient, Medical Record Limitations to Obtaining History: Language Barrier - Past Medical History Cardio/Vascular: Yes: CAD, CHF, [place] Renal/: Yes: Cancer (prostate) Musculoskeletal: Yes: Other (pain in shoulders) - Past Surgical History Past Surgical History: Yes: Craniotomy - Alcohol/Substance Use Hx Alcohol Use: No - Smoking History Smoking history: Never smoked Have you smoked in the past 12 months: No - Social History ADL: Family Assistance History of Recent Travel: No Home Medications - Allergies Allergies/Adverse Reactions: Allergies Allergy/AdvReac Type Severity Reaction Status Date / Time No Known Allergies Allergy Verified 09/05/18 01:12 - Home Medications Home Medications: Ambulatory Orders Ergocalciferol (Vitamin D2) [Vitamin D2] 50,000 unit PO WEEKLY 09/05/18 Simvastatin 10 mg PO DAILY 09/05/18 Warfarin Sodium [Coumadin] 3 mg PO DAILY 09/05/18 Nitroglycerin [place] [Nitrolingual [place] -] 1 spray TL [id number] PRN #1 bottle MDD 3 09/07/18 Abiraterone Acetate 250 mg PO QID 09/15/18 Prednisone 5 mg PO BID 09/15/18 Enoxaparin Sodium 60 mg SQ BID #4 syringe 09/20/18 Furosemide [Lasix -] 40 mg PO BID #60 tablet 09/20/18 Review of Systems - Review of Systems Constitutional: denies: Chills, Fever Cardiovascular: reports: Chest Pain. denies: Palpitations, Shortness of Breath Respiratory: denies: Cough, Hemoptysis, Orthopnea, SOB, SOB on Exertion Gastrointestinal: denies: Abdominal Pain, Constipation, Diarrhea, Melena, Nausea , Rectal Bleeding, Vomiting Genitourinary: denies: Dysuria, Hematuria Neurological: denies: Dizziness, Headache, Seizure, Syncope Vital Signs: Vital Signs Temperature 98.6 F 11/01/18 07:12 Pulse Rate 79 11/01/18 10:40 Respiratory Rate 14 11/01/18 10:40 Blood Pressure 91/52 L 11/01/18 10:40 O2 Sat by Pulse Oximetry (%) 98 11/01/18 10:40 Eyes: Yes: PERRL HENT: Yes: Atraumatic Neck: Yes: Supple Respiratory: Yes: CTA Bilaterally Gastrointestinal: Yes: Normal Bowel Sounds, Soft. No: Tenderness Cardiovascular: Yes: Regular Rate and Rhythm JVD: No PMI: Non-Displaced Heart Sounds: Yes: S1, S2 Edema: No - Other Data Labs, Other Data: CBC, BMP 10/31/18 16:56 11/01/18 05:30 INR, PTT INR 3.02 (0.83-1.09) H 11/01/18 05:30 Troponin, BNP 10/31/18 11/01/18 16:56 05:30 Troponin I 0.08 H 0.08 H B-Natriuretic Peptide 1973.3 H NSR, moderate LVH, nonspecific ST-T Imaging - Results Chest X-ray: Report Reviewed EKG: Report Reviewed Problem List - Problems (1) Angina pectoris Code(s): I20.9 - ANGINA PECTORIS, UNSPECIFIED (2) Coronary artery disease with unstable angina pectoris Code(s): I25.110 - ATHSCL HEART DISEASE OF [place] COR ART W UNSTABLE ANG PCTRS Qualifiers: Coronary Disease-Associated Artery/Lesion type: [place] artery [place] vs. transplanted heart: [place] heart Qualified Code(s): I25.110 - Atherosclerotic heart disease of [place] coronary artery with unstable angina pectoris (3) Prostate cancer Code(s): C61 - MALIGNANT NEOPLASM OF PROSTATE (4) Acute diastolic (congestive) heart failure Code(s): I50.31 - ACUTE DIASTOLIC (CONGESTIVE) HEART FAILURE (5) Atypical chest pain Code(s): R07.89 - OTHER CHEST PAIN (6) CHF (congestive heart failure) Code(s): I50.9 - HEART FAILURE, UNSPECIFIED (7) Hyperlipidemia Code(s): E78.5 - HYPERLIPIDEMIA, UNSPECIFIED Qualifiers: (8) Prostate cancer metastatic to bone Code(s): C61 - MALIGNANT NEOPLASM OF PROSTATE; C79.51 - SECONDARY MALIGNANT NEOPLASM OF BONE (9) Subendocardial ischemia Code(s): I24.8 - OTHER FORMS OF ACUTE ISCHEMIC HEART DISEASE Assessment/Plan 1. Chest pain syndrome 2. HTN 3. Hypercholesterolemia 4. History of subdural hematoma 5. Prostate CA with lung metastasis 6. History of DVT PLAN: 1. Continue present medical therapy including anticoagulation 2. Trend troponin 3. Review office records to see if further intervention may be needed. Likely conservative management 4. Blood work was reviewed. Further plans are to follow Patrick Bee MD
--- NOTE | 2018-11-01 17:25 | PN ---
Progress Note, Physician - Current Medication List Current Medications: Active Medications Atorvastatin Calcium (Lipitor -) 10 mg PO HS [facility] Last Admin: 10/31/18 23:06 Dose: Not Given Furosemide (Lasix Injection -) 40 mg IVPUSH DAILY [facility] Last Admin: 11/01/18 10:00 Dose: Not Given Losartan Potassium (Cozaar -) 25 mg PO DAILY [facility] Last Admin: 11/01/18 10:00 Dose: Not Given Metoprolol Succinate (Toprol Xl -) 25 mg PO DAILY [facility] Last Admin: 11/01/18 10:00 Dose: Not Given - Objective Vital Signs: Vital Signs Temperature 97.9 F 11/01/18 15:10 Pulse Rate 77 11/01/18 15:10 Respiratory Rate 16 11/01/18 15:10 Blood Pressure 105/69 11/01/18 15:10 O2 Sat by Pulse Oximetry (%) 97 11/01/18 15:10 Constitutional: Yes: No Distress HENT: Yes: Atraumatic Neck: Yes: Supple Cardiovascular: Yes: Regular Rate and Rhythm Respiratory: Yes: CTA Bilaterally Gastrointestinal: Yes: Normal Bowel Sounds Extremities: Yes: WNL Edema: No Peripheral Pulses WNL: Yes Neurological: Yes: Alert, Oriented Labs: CBC, BMP 10/31/18 16:56 11/01/18 05:30 INR, PTT INR 3.02 (0.83-1.09) H 11/01/18 05:30 Problem List - Problems (1) Hyperlipidemia Assessment/Plan: on med Code(s): E78.5 - HYPERLIPIDEMIA, UNSPECIFIED Qualifiers: (2) Prostate cancer Code(s): C61 - MALIGNANT NEOPLASM OF PROSTATE (3) Angina pectoris Assessment/Plan: tele monitoring fu cardiac profile cardiology consult Code(s): I20.9 - ANGINA PECTORIS, UNSPECIFIED (4) CHF (congestive heart failure) Assessment/Plan: on lasix Code(s): I50.9 - HEART FAILURE, UNSPECIFIED
[2018-11-01] MEDS: ATORVASTATIN CA 10 MG TABLET (FP) PO SCH (21:38)
[2018-11-02 05:54] LABS: EOS % 3.6 % (0-4.5); HEMATOCRIT 26.1 % (35.4-49); HEMOGLOBIN 9.2 GM/dL (11.7-16.9); LYMPH % 14.1 % (8-40); MCH 33.2 pg (25.7-33.7); MCHC 35.2 g/dl (32.0-35.9); MEAN CELL VOLUME 94.2 fl (80-96); MEAN PLT VOLUME 8.1 fl (7.5-11.1); MONO % 13.5 % (3.8-10.2); NEUT % 67.8 % (42.8-82.8); PLATELET COUNT 144 K/MM3 (134-434); RBC 2.77 M/mm3 (4.00-5.60); RDW 16.6 % (11.9-15.9); WHITE BLOOD COUNT 3.4 K/mm3 (4.0-10.0)
[2018-11-02 06:17] LABS: INR 2.14 (0.83-1.09); PROTHROMBIN TIME (PATIENT) 25.4 SEC (9.7-13.0)
[2018-11-02 06:36] LABS: ALBUMIN 3.4 g/dl (3.4-5.0); ALK PHOS 114 U/L (45-117); ANION GAP 6 MMOL/L (8-16); BILIRUBIN,TOTAL 0.8 mg/dL (0.2-1); BLOOD UREA NITROGEN 24 mg/dL (7-18); CHLORIDE 100 mmol/L (98-107); CO2 34 mmol/L (21-32); CREATININE 0.8 mg/dL (0.55-1.3); GLUCOSE,RANDOM 94 mg/dL (74-106); POTASSIUM 3.1 mmol/L (3.5-5.1); SGOT/AST 26 U/L (15-37); SGPT/ALT 24 U/L (13-61); SODIUM 140 mmol/L (136-145); TOT PROT 5.8 g/dl (6.4-8.2)
[2018-11-02] MEDS: metoPROLOL SUCCINATE 25 MG TAB.SR.24H (FP) PO SCH (09:54)
[2018-11-02] MEDS: LOSARTAN POTASSIUM 25 MG TABLET PO SCH (09:54)
[2018-11-02 10:35] VITALS: BMI 18.0
[2018-11-02] MEDS: FUROSEMIDE 40 MG/4 ML INJECTABLE VIAL IVPUSH SCH (11:16)
--- NOTE | 2018-11-02 12:03 | PN ---
Progress Note, Physician History of Present Illness: Chest pain and LE edema resolved, SHAW slowly improving. - Current Medication List Current Medications: Active Medications Atorvastatin Calcium (Lipitor -) 10 mg PO HS [facility] Last Admin: 11/01/18 21:38 Dose: 10 mg Furosemide (Lasix Injection -) 40 mg IVPUSH DAILY [facility] Last Admin: 11/02/18 11:16 Dose: 40 mg Losartan Potassium (Cozaar -) 25 mg PO DAILY [facility] Last Admin: 11/02/18 09:54 Dose: Not Given Metoprolol Succinate (Toprol Xl -) 25 mg PO DAILY [facility] Last Admin: 11/02/18 09:54 Dose: Not Given - Objective Vital Signs: Vital Signs Temperature 97.7 F 11/02/18 08:52 Pulse Rate 86 11/02/18 08:52 Respiratory Rate 20 11/02/18 08:52 Blood Pressure 95/56 L 11/02/18 08:52 O2 Sat by Pulse Oximetry (%) 97 11/02/18 08:53 Constitutional: Yes: No Distress, Calm, Thin Neck: Yes: Supple Cardiovascular: Yes: Regular Rate and Rhythm Respiratory: Yes: Regular, Diminished Gastrointestinal: Yes: Normal Bowel Sounds, Soft Edema: No Labs: CBC, BMP 11/02/18 05:30 11/02/18 05:30 INR, PTT INR 2.14 (0.83-1.09) H 11/02/18 05:30 - ....Imaging EKG: Report Reviewed (NSR LVH with improved ST segment depressions) Problem List - Problems (1) Coronary artery disease with unstable angina pectoris Code(s): I25.110 - ATHSCL HEART DISEASE OF [place] COR ART W UNSTABLE ANG PCTRS Qualifiers: Coronary Disease-Associated Artery/Lesion type: [place] artery [place] vs. 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 CAD unstable angina resolved 2. Acute hypoxic respiratory failure referable to 3. Mild-moderate systolic/diastolic heart failure with subendocardial ischemic injury 4. Metastatic prostate ca to bone 5. Chronic bilateral SFV DVT on coumadin with therapeutic INR 6. Leukopenia/anemia likely referable to radiation therapy and malignancy 7. SANDRA resolved P:1. Resume oral diuresis with monitor diuretic response, renal fxn and electrolytes, replete K 2. Coumadin per INR, continue Toprol XL 25 qd, Zocor 10 qhs, losartan 25 qd 3. Trops downtrending 4. D/c planning with f/u in office 5. Not idea invasive therapy candidate due to comorbidities
[2018-11-02] MEDS ORDERED: POTASSIUM CHLORIDE ORAL LIQUID 20 MEQ/15 ML PO ONE (12:30)
--- NOTE | 2018-11-02 16:43 | DS ---
Physical Examination Vital Signs: Vital Signs Temperature 98.3 F 11/02/18 14:00 Pulse Rate 95 H 11/02/18 14:00 Respiratory Rate 18 11/02/18 14:00 Blood Pressure 96/61 11/02/18 14:00 O2 Sat by Pulse Oximetry (%) 97 11/02/18 08:53 Constitutional: Yes: No Distress HENT: Yes: Atraumatic Neck: Yes: Supple Cardiovascular: Yes: Regular Rate and Rhythm Respiratory: Yes: CTA Bilaterally Gastrointestinal: Yes: Normal Bowel Sounds Extremities: Yes: WNL Edema: No Neurological: Yes: Alert, Oriented Labs: CBC, BMP 11/02/18 05:30 11/02/18 05:30 Discharge Summary Reason For Visit: SOB,CHF,ACUTE ELECTROCARDIOGRAPHY CHANGES, ANGINA Current Active Problems Acute electrocardiogram changes (Acute) Acute kidney injury (Acute) Angina pectoris (Acute) CHF exacerbation (Acute) Coronary artery disease with unstable angina pectoris (Acute) Prostate cancer (Acute) Shortness of breath (Acute) Condition: Fair - Instructions - Home Medications Comprehensive Discharge Medication List: Ambulatory Orders Ergocalciferol (Vitamin D2) [Vitamin D2] 50,000 unit PO WEEKLY 09/05/18 Simvastatin 10 mg PO DAILY 09/05/18 Warfarin Sodium [Coumadin] 3 mg PO DAILY 09/05/18 Nitroglycerin [place] [Nitrolingual [place] -] 1 spray TL [id number] PRN #1 bottle MDD 3 09/07/18 Abiraterone Acetate 250 mg PO QID 09/15/18 Prednisone 5 mg PO BID 09/15/18 Atorvastatin Ca [Lipitor] 10 mg PO HS #30 tablet 11/02/18 Furosemide [Lasix -] 40 mg PO DAILY #30 tablet 11/02/18 Losartan Potassium [Cozaar -] 25 mg PO DAILY #30 tablet 11/02/18 Metoprolol Succinate [Toprol XL -] 25 mg PO DAILY #30 tab.sr.24h 11/02/18 Warfarin Na [Coumadin -] 3 mg PO DAILY@1800 tablet 11/02/18 [facility] home
[2018-11-02 17:42] VITALS: BP 92/53; PULSE 84; TEMP 98.4
[2018-11-02] MEDS ORDERED: WARFARIN NA 3 MG TABLET PO SCH (18:00)
[2018-11-03] MEDS ORDERED: FUROSEMIDE 40 MG TABLET (FP) PO SCH (10:00)
== END 2018-11-02 18:29 | disposition home or self-care (01) ==
LOC: JER 16:37 → JERBED 19:11 → INTOOBSV 19:11 → J4S 11-01 18:55
PROVIDERS: ADMIT Internal Medicine; ATTEND Internal Medicine
PROC: 3E033GC Introduction of Other Therapeutic Substance into Peripheral Vein, Percutaneous Approach (ICD-10-PCS; principal; 2018-10-31)
DX: I50.43 Acute on chronic combined systolic (congestive) and diastolic (congestive) heart failure (principal); I24.8 Other forms of acute ischemic heart disease; I25.110 Atherosclerotic heart disease of native coronary artery with unstable angina pectoris; M17.9 Osteoarthritis of knee, unspecified; R07.89 Other chest pain; R06.02 Shortness of breath; R94.31 Abnormal electrocardiogram [ECG] [EKG]; E78.5 Hyperlipidemia, unspecified; C61 Malignant neoplasm of prostate; C78.00 Secondary malignant neoplasm of unspecified lung; C79.51 Secondary malignant neoplasm of bone; I82.503 Chronic embolism and thrombosis of unspecified deep veins of lower extremity, bilateral; Z79.01 Long term (current) use of anticoagulants; Z86.79 Personal history of other diseases of the circulatory system; Z92.21 Personal history of antineoplastic chemotherapy; Z92.3 Personal history of irradiation
CPT/HCPCS: 36415; 71046-TC-FY; 80048; 80053; 82550; 83880; 84484; 85025; 85610; 93005; 93010; 96374; 96376; 99285-25; G0378

== ENCOUNTER 2018-12-19 18:27 | Inpatient (IN) | payer OTHER ==
[2018-12-19] MEDS ORDERED: ASPIRIN 81 MG CHEWABLE TABLETS PO ONE ×2 (18:49→18:58)
[2018-12-19] MEDS ORDERED: SODIUM CHLORIDE 1,000 ML IV ONE (19:02)
[2018-12-19 19:06] LABS: VENOUS PC02 35.3 mmHg (41-51); VENOUS PH 7.38 (7.31-7.41)
--- NOTE | 2018-12-19 19:06 | PDOC ---
History of Present Illness - General Chief Complaint: Blood Pressure Problem Stated Complaint: trouble breathing - History of Present Illness Initial Comments: The pt is a 83M w/ a history of prostate CA with metastasis to lung s/p chemotherapy and XRT, in addition CHF, hypertension, hypercholesterolemia, history of subdural hematoma s/p craniotomy in 2005 and history of DVT on Coumadin who presents for evaluation of 1 day of SOB, worsening edema, and vomiting x1. Per the family his swelling is worse today in his legs and in his face. The also reports that he was complaining of SOB today. On arrival the patient denies pain or shortness of breathing but appears uncomfortable. Currently he denies chest pain, fevers, SOB, nausea 12/19/18 19:06 12/19/18 19:13 Past History - Past Medical History Allergies/Adverse Reactions: Allergies Allergy/AdvReac Type Severity Reaction Status Date / Time No Known Allergies Allergy Verified 12/19/18 18:31 Home Medications: Ambulatory Orders Ergocalciferol (Vitamin D2) [Vitamin D2] 50,000 unit PO WEEKLY 09/05/18 Simvastatin 10 mg PO DAILY 09/05/18 Nitroglycerin [place] [Nitrolingual [place] -] 1 spray TL [id number] PRN #1 bottle MDD 3 09/07/18 Abiraterone Acetate 4 tab PO DAILY 09/15/18 Prednisone 5 mg PO BID 09/15/18 Losartan Potassium [Cozaar -] 25 mg PO DAILY #30 tablet 11/02/18 Metoprolol Succinate [Toprol XL -] 25 mg PO DAILY #30 tab.sr.24h 11/02/18 Furosemide [Lasix -] 20 mg PO DAILY 12/19/18 Tramadol HCl/Acetaminophen [Tramadol-Acetaminophn 37.5-325] 1 each PO TID PRN Warfarin Na [Coumadin -] 2.5 mg PO DAILY@1800 12/19/18 Cancer: Yes (PROSTATE METS TO BONE) COPD: No CHF: Yes HTN: Yes Hypercholesterolemia: Yes - Surgical History Neurologic Surgery: Yes - Immunization History Immunization Up to Date: Yes - Suicide/Smoking/Psychosocial Hx Smoking History: Unknown if ever smoked Have you smoked in the past 12 months: No Hx Alcohol Use: No Drug/Substance Use Hx: No Substance Use Type: None Hx Substance Use Treatment: No Review of Systems - Review of Systems Able to Perform ROS?: Yes Comments:: GENERAL/CONSTITUTIONAL: No fever or chills. No weakness HEAD, EYES, EARS, NOSE AND THROAT: No change in vision. No ear pain or discharge. No sore throat CARDIOVASCULAR: No chest pain; +BLE and facial/periorbital swelling RESPIRATORY: Denies cough, hemoptysis GASTROINTESTINAL: No diarrhea or constipation GENITOURINARY: No dysuria, frequency, or change in urination MUSCULOSKELETAL: No joint or muscle swelling or pain. No neck or back pain SKIN: No rash NEUROLOGIC: No headache, vertigo, loss of consciousness, or change in strength/ sensation ENDOCRINE: No increased thirst. No abnormal weight change HEMATOLOGIC/LYMPHATIC: No anemia, easy bleeding, or history of blood clots ALLERGIC/IMMUNOLOGIC: No hives or skin allergy 12/19/18 19:05 Is the patient limited Cypriot proficient: No *Physical Exam - Vital Signs Last Vital Signs Temp Pulse Resp BP Pulse Ox 97.1 F L 84 20 64/23 L 100 12/19/18 18:32 12/19/18 18:32 12/19/18 18:32 12/19/18 18:32 12/19/18 18:57 - Physical Exam Comments: GENERAL: Awake, alert, and oriented to person/place/time, appears uncomfortable HEAD: No signs of trauma, normocephalic, atraumatic EYES: PERRLA, EOMI, sclera anicteric, conjunctiva clear ENT: Hearing grossly normal, nares patent, oropharynx clear without exudates. No uvular deviation. Moist mucosa CHEST: R port in place LUNGS: No distress, speaks in full sentences, clear to auscultation bilaterally HEART: Regular rate and rhythm, normal S1 and S2, no murmurs appreciated, peripheral pulses normal and equal bilaterally ABDOMEN: Soft, nontender, normoactive bowel sounds. No guarding, no rebound EXTREMITIES: Normal inspection, Normal range of motion, no edema. No clubbing or cyanosis NEUROLOGICAL: Cranial nerves II through XII grossly intact. Normal speech, no focal sensorimotor deficits SKIN: Warm, Dry 12/19/18 19:05 ED Treatment Course - LABORATORY CBC & Chemistry Diagram: 12/19/18 18:45 12/19/18 18:45 Medical Decision Making - Medical Decision Making The pt is an 83M w/ a history of NSTEMI, prostate cancer w/ mets s/p port, HTN who presents for evaluation of 1 day of worsening BLE/facial swelling with SOB Ddx includes ACS, acute CHF, PNA, sepsis ED Course CMP, CBC, Cardiac profile, Coags ECG, R-sided ECG CXR 12/19/18 19:05 ECG w/ ST elevations in aVR with depressions in I and V2 not present on May ECG but present on clinic ECG Pt w/ acute anemia, will send T/S and plan to transfuse 2u pRBC FOBT sent 12/19/18 19:51 POCUS w/ diffuse hypokinesis, no anterior b-lines, b/l pleural b-lines w/ small effusion of left CXR concerning for PNA Trop I elevated, pt s/p ASA Lactate elevated, s/p 1L IVF and will get pRBC 12/19/18 19:52 Case discussed w/ Dr. Cordero, will plan for admission to ICU for NSTEMI, CHF exacerbation, PNA, acute anemia, [facility] ICU team consulted who will come evaluate the pt 12/19/18 21:30 Continued IVF resuscitation, pt currently receiving 1st u pRBC Plan for admission to ICU Pt continues to be A&Ox3, pt reports feeling lethargic but denies pain or SOB *DC/Admit/Observation/Transfer Diagnosis at time of Disposition: NSTEMI (non-ST elevated myocardial infarction), Acute kidney injury CHF exacerbation Qualifiers: Heart failure type: unspecified Qualified Code(s): I50.9 - Heart failure, unspecified Anemia Qualifiers: Anemia type: unspecified type Qualified Code(s): D64.9 - Anemia, unspecified - Discharge Dispostion Condition at time of disposition: Critical Decision to Admit order: Yes - Referrals - Patient Instructions - Post Discharge Activity
[2018-12-19 19:08] LABS: VENOUS PO2 15.9 mmHg (30-40)
[2018-12-19 19:24] LABS: BASO % 0.2 % (0-2.0); EOS % 0.6 % (0-4.5); HEMOGLOBIN 7.6 GM/dL (11.7-16.9); LYMPH % 6.5 % (8-40); MCH 33.6 pg (25.7-33.7); MEAN CELL VOLUME 93.2 fl (80-96); MEAN PLT VOLUME 8.1 fl (7.5-11.1); MONO % 8.8 % (3.8-10.2); NEUT % 83.9 % (42.8-82.8); PLATELET COUNT 156 K/MM3 (134-434); RBC 2.25 M/mm3 (4.00-5.60); RDW 16.8 % (11.9-15.9); WHITE BLOOD COUNT 5.5 K/mm3 (4.0-10.0)
[2018-12-19] MEDS ORDERED: PIPERACILLIN/TAZOB 4.5 GM 4.5 GM in DEXTROSE 5%-WATER 100 ML IVPB ONE (19:34)
[2018-12-19 19:45] LABS: ALBUMIN 3.5 g/dl (3.4-5.0); BILIRUBIN,TOTAL 0.9 mg/dL (0.2-1); BLOOD UREA NITROGEN 64.1 mg/dL (7-18); CALCIUM 7.5 mg/dL (8.5-10.1); CREATININE 2.6 mg/dL (0.55-1.3); POTASSIUM 4.1 mmol/L (3.5-5.1); TOT PROT 6.2 g/dl (6.4-8.2)
--- NOTE | 2018-12-19 19:46 | PDOC ---
Documentation entered by Maurilio Carrasco SCRIBE, acting as scribe for Flakito Cedeño MD. Flakito Cedeño MD: This documentation has been prepared by the Danilo hanson Elijah, SCRIBE, under my direction and personally reviewed by me in its entirety. I confirm that the documentation accurately reflects all work, treatment, procedures, and medical decision making performed by me. Attending Attestation - Resident Resident Name: Connor Umana - ED Attending Attestation I have performed the following: I have examined & evaluated the patient, The case was reviewed & discussed with the resident, I agree w/resident's findings & plan - HPI HPI: 12/19/18 18:58 83y M hx prostate ca with mets to lung sp chemo (last in Mar 2018, no nrecently ) CHF, HTN, HLD, SDH hematoma s/p craniotomy 2005, on caoumdi due to prior blood clots presents with sob and edema. Per the patient's daughter the patient was appeared more swollen, short of breath today relative to his baseline, also notes that he vomited earlier today. He denies any chest pain, , fevers, cough, abdominal pain, dairrhea, melena, bpr. Pt does endorse some R sided back pain. Upon arrival the patient and noted to be hypotensive 70s over 60s he was maintaining well, otherwise appeared to be no distress. PMD: Dr. Ardon Card: Dr. Dodson Upno arrival, the pt was placed on a youth nutritional monitor EKG was performed brian tshowed concern for JOSIE in aVR and STD in V2 - new when compared with ekg dated - R sided ekg showed submilimeter STEs - Case was discussed with Dr. Blackmon (Cardiology, covering for Dr. Dodson) - notes pt had an EKG on Nov 30 with similar changes as an outpatient - it appears pt had a cardiac event between October and early November, but changes from today are old. Not a STEMI. will continue to work pt u pfor his SOB and hypotension - Physicial Exam PE: 12/19/18 19:36 GENERAL: The patient is awake, alert, and fully oriented, Nontoxic - in no acute distress. HEAD: Normocephalic, atraumatic. EYES: extraocular movements intact, sclera anicteric, conjunctiva clear. ENT: Normal voice, Moist mucous membranes. NECK: Normal range of motion, supple LUNGS: rales on L lung HEART: Regular rate and rhythm, normal S1 and S2 without murmur, rub or gallop. ABDOMEN: Soft, nontender No guarding, no rebound. . No CVA tenderness EXTREMITIES: Normal range of motion, +3 pitting edema b/l in LE, pulses 2+ in radial, +1 in LE, deminished cap refill in LE NEUROLOGICAL: No facial assymetry, Normal speech, movin gall 4 ext spntaneously and symmetrically PSYCH: Normal mood, normal affect. SKIN: Warm, Dry, normal turgor, pale - Critical Care Time Total Critical Care Time: 45 Critical Care Statement: The care of this patient involved high complexity decision making to prevent further life threatening deterioration of the patient 's condition and/or to evaluate & treat vital organ system(s) failure or risk of failure. - Medical Decision Making 12/19/18 19:42 ddx - acs, anemia, metabolic derangement, occulrt infection will ck labs, cbc, cmp, trop will give fluids will reasesss 12/19/18 19:45 The patient's blood pressure has improved with fluid resuscitation, the patient' s blood work noted for anemia2 point drop in his hemoglobin since prior admission. The patient denies any blood per rectum or melena. Awaiting stool guaiac. In light of his blood pressure and anemia we'll transfuse the patient with 2 units of packed blood cells. 12/19/18 19:48 pts cxr suggestive of R sided pna will treat for HCAP 12/19/18 21:57 pts bp trending higher with fluids pts labs reviewed noted for anemia - will transfuse cr noted for ckd trop elevated to 4 - will defer current a/c as pt is anemic and is on coumadin with elevated INR will admit to ICU Heart Score/ECG Review - ECG Impressions Comment:: 12/19/18 19:44 Twelve-lead EKG was performed and reviewed by me. There is normal sinus rhythm with a normal rate. rate of 84 JOSIE in aVR, STD in V2 (new when compared with ekg dated 10/31/2018) Right sided EKG showes submilimeter JOSIE
[2018-12-19 19:48] LABS: INR 3.57 (0.83-1.09); PROTHROMBIN TIME (PATIENT) 42.7 SEC (9.7-13.0)
[2018-12-19] MEDS ORDERED: PIPERACILLIN/TAZOB 4.5 GM 4.5 GM/100 ML BAG IVPB ONE (20:06)
[2018-12-19] MEDS ORDERED: ASPIRIN 81 MG CHEWABLE TABLETS ONE (20:06)
--- NOTE | 2018-12-19 21:53 | HP ---
Admitting History and Physical - Primary Care Physician PCP: Nick Cordero - Admission History of Present Illness: 83M w/ a history of prostate CA with metastasis to lung s/p chemotherapy and XRT , in addition CHF, hypertension, hypercholesterolemia, history of subdural hematoma s/p craniotomy in 2005 and history of DVT on Coumadin who presents for evaluation of 1 day of SOB, worsening edema, and vomiting x1. Per the family his swelling is worse today in his legs and in his face. The also reports that he was complaining of SOB today. On arrival the patient denies pain or shortness of breathing but appears uncomfortable. Currently he denies chest pain , fevers, SOB, nausea - Past Medical History Cardiovascular: Yes: CAD, CHF, SD Renal/: Yes: Cancer (prostate). No: Renal Inusuff Heme/Onc: Yes: Anemia Musculoskeletal: Yes: Other (pain in shoulders) - Past Surgical History Past Surgical History: Yes: Craniotomy - Smoking History Smoking history: Unknown if ever smoked Have you smoked in the past 12 months: No - Alcohol/Substance Use Hx Alcohol Use: No - Social History ADL: Family Assistance History of Recent Travel: No Home Medications - Allergies Allergies/Adverse Reactions: Allergies Allergy/AdvReac Type Severity Reaction Status Date / Time No Known Allergies Allergy Verified 12/19/18 18:31 - Home Medications Home Medications: Ambulatory Orders Ergocalciferol (Vitamin D2) [Vitamin D2] 50,000 unit PO WEEKLY 09/05/18 Simvastatin 10 mg PO DAILY 09/05/18 Nitroglycerin [place] [Nitrolingual [place] -] 1 spray TL [id number] PRN #1 bottle MDD 3 09/07/18 Abiraterone Acetate 4 tab PO DAILY 09/15/18 Prednisone 5 mg PO BID 09/15/18 Losartan Potassium [Cozaar -] 25 mg PO DAILY #30 tablet 11/02/18 Metoprolol Succinate [Toprol XL -] 25 mg PO DAILY #30 tab.sr.24h 11/02/18 Furosemide [Lasix -] 20 mg PO DAILY 12/19/18 Tramadol HCl/Acetaminophen [Tramadol-Acetaminophn 37.5-325] 1 each PO TID PRN Warfarin Na [Coumadin -] 2.5 mg PO DAILY@1800 12/19/18 Physical Examination Vital Signs: Vital Signs Temperature 97.1 F L 12/19/18 18:32 Pulse Rate 85 12/19/18 21:39 Respiratory Rate 18 12/19/18 21:39 Blood Pressure 72/54 L 12/19/18 21:39 O2 Sat by Pulse Oximetry (%) 98 12/19/18 21:39 Constitutional: Yes: No Distress HENT: Yes: Atraumatic Neck: Yes: Supple Cardiovascular: Yes: Regular Rate and Rhythm Respiratory: Yes: CTA Bilaterally Gastrointestinal: Yes: Normal Bowel Sounds Extremities: Yes: WNL Edema: No Neurological: Yes: Alert, Oriented Labs: CBC, BMP 12/19/18 18:45 12/19/18 18:45 Problem List - Problems (1) Acute kidney injury Assessment/Plan: iv hydration renal consult fu cr Code(s): N17.9 - ACUTE KIDNEY FAILURE, UNSPECIFIED (2) Anemia Code(s): D64.9 - ANEMIA, UNSPECIFIED Qualifiers: Anemia type: unspecified type Qualified Code(s): D64.9 - Anemia, unspecified (3) CHF exacerbation Code(s): I50.9 - HEART FAILURE, UNSPECIFIED Qualifiers: Heart failure type: combined systolic and diastolic Qualified Code(s): I50.43 - Acute on chronic combined systolic (congestive) and diastolic ( congestive) heart failure (4) NSTEMI (non-ST elevated myocardial infarction) Assessment/Plan: fu cardiac profile tele monitoring cardio consult Code(s): I21.4 - NON-ST ELEVATION (NSTEMI) MYOCARDIAL INFARCTION (5) Acute diastolic (congestive) heart failure Code(s): I50.31 - ACUTE DIASTOLIC (CONGESTIVE) HEART FAILURE (6) Acute electrocardiogram changes Code(s): R94.31 - ABNORMAL ELECTROCARDIOGRAM [ECG] [EKG] (7) Coronary artery disease with unstable angina pectoris Code(s): I25.110 - ATHSCL HEART DISEASE OF [place] [facility] ART W UNSTABLE ANG PCTRS Qualifiers: (8) Hyperlipidemia Code(s): E78.5 - HYPERLIPIDEMIA, UNSPECIFIED Qualifiers: Hyperlipidemia type: pure hypercholesterolemia Qualified Code(s): E78.00 - Pure hypercholesterolemia, unspecified; E78.0 - Pure hypercholesterolemia (9) Prostate cancer Code(s): C61 - MALIGNANT NEOPLASM OF PROSTATE (10) Prostate cancer metastatic to bone Code(s): C61 - MALIGNANT NEOPLASM OF PROSTATE; C79.51 - SECONDARY MALIGNANT NEOPLASM OF BONE (11) Subendocardial ischemia Code(s): I24.8 - OTHER FORMS OF ACUTE ISCHEMIC HEART DISEASE (12) Supratherapeutic INR Assessment/Plan: hold coumadin fu inr Code(s): R79.1 - ABNORMAL COAGULATION PROFILE Assessment/Plan Laboratory Tests 12/19/18 12/19/18 12/19/18 18:45 18:45 18:45 WBC 5.5 RBC 2.25 L Hgb 7.6 L Hct 21.0 L D MCV 93.2 MCH 33.6 MCHC 36.0 H RDW 16.8 H Plt Count 156 MPV 8.1 Absolute Neuts (auto) 4.7 Neutrophils % 83.9 H D Lymphocytes % 6.5 L D Monocytes % 8.8 Eosinophils % 0.6 D Basophils % 0.2 Nucleated RBC % 0 PT with INR 42.70 H INR 3.57 H PTT (Actin FS) 35.0 VBG pH 7.38 POC VBG pCO2 35.3 L POC VBG pO2 15.9 L VBG HCO3 20.2 L VBG O2 Sat ([place]) 13.3 L VBG Base Excess -3.9 L Sodium Potassium Chloride Carbon Dioxide Anion Gap BUN Creatinine Est GFR (CKD-EPI)AfAm Est GFR (CKD-EPI)NonAf Random Glucose Lactic Acid Calcium Total Bilirubin AST ALT Alkaline Phosphatase Creatine Kinase Creatine Kinase Index CK-MB (CK-2) Troponin I B-Natriuretic Peptide Total Protein Albumin Stool Occult Blood Blood Type Antibody Screen Crossmatch 12/19/18 12/19/18 12/19/18 18:45 18:45 18:45 WBC RBC Hgb Hct MCV MCH MCHC RDW Plt Count MPV Absolute Neuts (auto) Neutrophils % Lymphocytes % Monocytes % Eosinophils % Basophils % Nucleated RBC % PT with INR INR PTT (Actin FS) VBG pH POC VBG pCO2 POC VBG pO2 VBG HCO3 VBG O2 Sat (Richardson) VBG Base Excess Sodium 119 L Potassium 4.1 Chloride 84 L Carbon Dioxide 19 L Anion Gap 15 BUN 64.1 H Creatinine 2.6 H Est GFR (CKD-EPI)AfAm 24.94 Est GFR (CKD-EPI)NonAf 21.52 Random Glucose 124 H Lactic Acid 2.4 H* Calcium 7.5 L Total Bilirubin 0.9 AST 54 H ALT 24 Alkaline Phosphatase 125 H Creatine Kinase 333 H Creatine Kinase Index 3.5 CK-MB (CK-2) 11.7 H Troponin I 4.76 H* B-Natriuretic Peptide 90845.3 H Total Protein 6.2 L Albumin 3.5 Stool Occult Blood Blood Type Antibody Screen Crossmatch 12/19/18 12/19/18 19:55 19:55 WBC RBC Hgb Hct MCV MCH MCHC RDW Plt Count MPV Absolute Neuts (auto) Neutrophils % Lymphocytes % Monocytes % Eosinophils % Basophils % Nucleated RBC % PT with INR INR PTT (Actin FS) VBG pH POC VBG pCO2 POC VBG pO2 VBG HCO3 VBG O2 Sat ([place]son) VBG Base Excess Sodium Potassium Chloride Carbon Dioxide Anion Gap BUN Creatinine Est GFR (CKD-EPI)AfAm Est GFR (CKD-EPI)NonAf Random Glucose Lactic Acid Calcium Total Bilirubin AST ALT Alkaline Phosphatase Creatine Kinase Creatine Kinase Index CK-MB (CK-2) Troponin I B-Natriuretic Peptide Total Protein Albumin Stool Occult Blood Negative Blood Type B POSITIVE Antibody Screen Negative Crossmatch See Detail Active Medications Generic Name Dose Route Start Last Admin Trade Name Freq PRN Reason Stop Dose Admin Acetaminophen 650 mg 12/19/18 21:41 Tylenol - PO Q6H PRN FEVER Atorvastatin Calcium 10 mg 12/19/18 22:00 Lipitor - PO HS [facility] Losartan Potassium 25 mg 12/20/18 10:00 Cozaar - PO DAILY [facility] Metoprolol Succinate 25 mg 12/20/18 10:00 Toprol Xl - PO DAILY [facility] Non-Formulary Medication 4 tab 12/20/18 10:00 Abiraterone Acetate [Abiraterone Acetate] PO DAILY [facility] Prednisone 5 mg 12/19/18 22:00 Deltasone - PO BID [facility] Impression 1. hyponatremia 2. yinka 3. chf 4. positive troponins 5. hypocalcemia 6. prostate cancer with mets 7. hypotension 8. lactic acidosis improved 9. shock on pressors 10. a-fib 11. resp failure requiring bipap cc time 60 min
[2018-12-19] MEDS ORDERED: ATORVASTATIN CA 10 MG TABLET (FP) ONE (21:57)
--- NOTE | 2018-12-19 22:16 | CONSULT ---
Consultation: REQUESTING PROVIDER: Dr. Cordero/ER CONSULT SERVICE: ICU Resident PCP: Dr. Ardon Cardiology: Dr. Dodson Oncology: Dr. Joel Roque ([facility]) HISTORY OF PRESENT ILLNESS: 83yo M with h/o 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s and bone (last chemo 03/2018) , stable anginal symptoms, prior subdural hematoma (2005), systolic CHF, HTN, HLD, prior DVT (on Coumadin) who presents today with family due to worsening SOB and edema to legs and face. Pt speaks Filipino but understands some Mauritanian. Pt's history obtained via daughter at bedside and ER fish cleaner (see ER note for number identification). Pt was last hospitalized for CHF exacerbation and pt had his lasix increased. In the interval time, pt's Lasix dose was subsequently decreased due to symptomatic hypotension on an outpatient basis. Pt has had stable anginal symptoms, however his exercise tolerance has been decreasing noted by more frequent breaks with climbing stairs. Pt's daughter notes today when she went to see him the patient looked severely edematous compared to baseline and brought him here for further evaluation. In the ED, pt was found to be hypotensive to 60/20's with confirmed recheck. Pt was given 1.5L of IVF and was noted to have hypervolemic hyponatremia, troponin to 4, and Hgb to 7.4 (decreased from 9 in prior hospitalization). Cardiology was consulted who noted ECG findings in outpatient setting on Nov 30 and likely represent a prior cardiac event and not a current STEMI. Of note, pt received chemoport 1 week prior and was anticipated to start another round of chemotherapy (unknown type) on 12/20/18 at his outpatient oncologist's office. Pt currently with mild distress and slight shortness of breath reported. Pt also endorses poor appetite at baseline and being able to ambulate without difficulty. Otherwise pt denies any lightheadedness, headaches , chest pain/discomfort, palpitations, abdominal pain, diarrhea, nausea, melena , hematochezia, hematemesis, hematuria, dysuria, polyuria, urinary retention. REVIEW OF SYSTEMS: As per HPI PHYSICAL EXAMINATION Vital Signs 12/19/18 12/19/18 12/19/18 18:32 18:48 18:57 Temperature 97.1 F L Pulse Rate 84 Pulse Rate [ Left] Respiratory 20 Rate Blood Pressure 64/23 L Blood Pressure [Left Arm] O2 Sat by Pulse 99 100 100 Oximetry (%) 12/19/18 21:39 Temperature Pulse Rate Pulse Rate [ 85 Left] Respiratory 18 Rate Blood Pressure Blood Pressure 72/54 L [Left Arm] O2 Sat by Pulse 98 Oximetry (%) GENERAL: Mild distress, Awake, alert, and fully oriented HEENT: Nc/AT, EOMI, DARRIAN, sclera anicteric but with injections, MMM, slight conjunctival pallor noted NECK: JVD noted 1 cm above clavicle LUNGS: Diffuse crackles bilaterally. No wheezes. No accessory muscle use. On 3LNC HEART: RRR, normal S1 and S2 without murmur or valvular clicks ABDOMEN: Soft, nondistened, nontender, normoactive BS, no guarding, no hepatomegaly MUSCULOSKELETAL: No CVA tenderness. EXTREMITIES: 2+ DP pulses, warm, well-perfused. No calf tenderness. 4+ pitting edema to the upper thigh PSYCHIATRIC: Cooperative. Good eye contact. Appropriate mood and affect. SKIN: Warm, dry, no rashes noted Laboratory Results 12/19/18 12/19/18 12/19/18 18:45 18:45 18:45 WBC 5.5 RBC 2.25 L Hgb 7.6 L Hct 21.0 L D MCV 93.2 MCH 33.6 MCHC 36.0 H RDW 16.8 H Plt Count 156 MPV 8.1 Absolute Neuts (auto) 4.7 Neutrophils % 83.9 H D Lymphocytes % 6.5 L D Monocytes % 8.8 Eosinophils % 0.6 D Basophils % 0.2 Nucleated RBC % 0 PT with INR 42.70 H INR 3.57 H PTT (Actin FS) 35.0 VBG pH 7.38 POC VBG pCO2 35.3 L POC VBG pO2 15.9 L VBG HCO3 20.2 L VBG O2 Sat (Richardson) 13.3 L VBG Base Excess -3.9 L Sodium Potassium Chloride Carbon Dioxide Anion Gap BUN Creatinine Est GFR (CKD-EPI)AfAm Est GFR (CKD-EPI)NonAf Random Glucose Lactic Acid Calcium Total Bilirubin AST ALT Alkaline Phosphatase Creatine Kinase Creatine Kinase Index CK-MB (CK-2) Troponin I B-Natriuretic Peptide Total Protein Albumin Stool Occult Blood Blood Type Antibody Screen Crossmatch 12/19/18 12/19/18 12/19/18 18:45 18:45 18:45 WBC RBC Hgb Hct MCV MCH MCHC RDW Plt Count MPV Absolute Neuts (auto) Neutrophils % Lymphocytes % Monocytes % Eosinophils % Basophils % Nucleated RBC % PT with INR INR PTT (Actin FS) VBG pH POC VBG pCO2 POC VBG pO2 VBG HCO3 VBG O2 Sat (Richardson) VBG Base Excess Sodium 119 L Potassium 4.1 Chloride 84 L Carbon Dioxide 19 L Anion Gap 15 BUN 64.1 H Creatinine 2.6 H Est GFR (CKD-EPI)AfAm 24.94 Est GFR (CKD-EPI)NonAf 21.52 Random Glucose 124 H Lactic Acid 2.4 H* Calcium 7.5 L Total Bilirubin 0.9 AST 54 H ALT 24 Alkaline Phosphatase 125 H Creatine Kinase 333 H Creatine Kinase Index 3.5 CK-MB (CK-2) 11.7 H Troponin I 4.76 H* B-Natriuretic Peptide 48969.3 H Total Protein 6.2 L Albumin 3.5 Stool Occult Blood Blood Type Antibody Screen Crossmatch 12/19/18 12/19/18 19:55 19:55 WBC RBC Hgb Hct MCV MCH MCHC RDW Plt Count MPV Absolute Neuts (auto) Neutrophils % Lymphocytes % Monocytes % Eosinophils % Basophils % Nucleated RBC % PT with INR INR PTT (Actin FS) VBG pH POC VBG pCO2 POC VBG pO2 VBG HCO3 VBG O2 Sat (Richardson) VBG Base Excess Sodium Potassium Chloride Carbon Dioxide Anion Gap BUN Creatinine Est GFR (CKD-EPI)AfAm Est GFR (CKD-EPI)NonAf Random Glucose Lactic Acid Calcium Total Bilirubin AST ALT Alkaline Phosphatase Creatine Kinase Creatine Kinase Index CK-MB (CK-2) Troponin I B-Natriuretic Peptide Total Protein Albumin Stool Occult Blood Negative Blood Type B POSITIVE Antibody Screen Negative Crossmatch See Detail Active Medications Generic Name Dose Route Start Last Admin Trade Name Freq PRN Reason Stop Dose Admin Acetaminophen 650 mg 12/19/18 21:41 Tylenol - PO Q6H PRN FEVER Atorvastatin Calcium 10 mg 12/19/18 22:00 Lipitor - PO HS [facility] Losartan Potassium 25 mg 12/20/18 10:00 Cozaar - PO DAILY JUDSON Metoprolol Succinate 25 mg 12/20/18 10:00 Toprol Xl - PO DAILY [facility] Non-Formulary Medication 4 tab 12/20/18 10:00 Abiraterone Acetate [Abiraterone Acetate] PO DAILY [facility] Prednisone 5 mg 12/19/18 22:00 Deltasone - PO BID [facility] ASSESSMENT/PLAN: Mixed systolic/diastolic CHF exacerbation Acute renal failure vs. Cardiorenal Syndrome Type I NSTEMI vs subendocardial ischemia Lactic Acidosis Supratherapeutic INR Normocytic Anemia HLD HTN Stage IV Prostate Ca --ER discussed pt with Dr. Arteaga who reported that he suspects the pt had a myocardial event between October-November and these ischemic changes are likely resolution from the event given outpatient ECG with similar findings --In setting of decreased Lasix home dose and likely worsening cardiac output, pt likely developed this overload seen now --Will likely start Levophed for MAP support (would avoid Dobutamine due to cardiac demand) --Holding home antihypertensives --Lasix IVP 40mg once with strict monitoring of pt's urine output --Trend troponins --Echocardiogram ordered --Cardiology consulted --Mixed etiologies for acute renal failure: DDX: use of nephrotoxic medications in setting of low capillary flow state given CHF exacerbation (CRS Type I) likely causing prerenal and intrinsic damage --No proteinuria as of 08/2018 --Holding home ACEi --FeUrea ordered and obtain UA --Renal/bladder ultrasound ordered --Strict I&O's; pt's urinal at bedside --Nephrology consulted --Lactic acidosis resolved --S/p 1UPRBC in ER; repeat CBC with AM labs as pt is asymptomatic and no signs of active bleeding noted --Holding home Coumadin given supratherapeutic INR (Goal 2-3 given pt's previous DVT history) --To inform and obtain more data with Dr. Roque in AM as pt cannot start chemotherapy in current state. FEN: Fluids: 1L Restriction Electrolyte abnormalities: Nutrition: PPX: DVT - Already on Coumadin GI - Protonix 40mg PO given chronic steroid use Dispo: Monitor in ICU and low threshold to start pressors given hypotension in ER Papa Nance DO - IM PGY-2 Visit type - Emergency Visit Emergency Visit: Yes ED Registration Date: 12/19/18 Care time: The patient presented to the Emergency Department on the above date and was hospitalized for further evaluation of their emergent condition. - New Patient This patient is new to me today: Yes Date on this admission: 12/20/18 - Critical Care Critical Care patient: Yes Total Critical Care Time (in minutes): 40 Critical Care Statement: The care of this patient involved high complexity decision making to prevent further life threatening deterioration of the patient 's condition and/or to evaluate & treat vital organ system(s) failure or risk of failure.
[2018-12-19] MEDS: predniSONE 5 MG TABLET (UD) PO SCH (22:25)
[2018-12-19] MEDS: ATORVASTATIN CA 10 MG TABLET (FP) PO SCH (22:25)
[2018-12-20] MEDS ORDERED: NOREPINEPHRINE BITARTRATE 4 MG/4 ML ML IV ONE ×2 (00:48→17:16)
[2018-12-20] MEDS ORDERED: NOREPINEPHRINE BITARTRATE 4,000 MCG in DEXTROSE 5%-WATER - 496 ML IV SCH (01:00)
[2018-12-20] MEDS ORDERED: FUROSEMIDE 40 MG/4 ML INJECTABLE VIAL IVPUSH ONE (03:13)
[2018-12-20 06:11] LABS: BASO % 0.3 % (0-2.0); EOS % 0.7 % (0-4.5); HEMATOCRIT 25.1 % (35.4-49); LYMPH % 4.8 % (8-40); MCH 32.6 pg (25.7-33.7); MCHC 35.8 g/dl (32.0-35.9); MEAN CELL VOLUME 90.9 fl (80-96); MONO % 8.2 % (3.8-10.2); PLATELET COUNT 186 K/MM3 (134-434); RBC 2.76 M/mm3 (4.00-5.60); RDW 18.3 % (11.9-15.9); WHITE BLOOD COUNT 7.2 K/mm3 (4.0-10.0)
--- NOTE | 2018-12-20 06:38 | PN ---
Progress Note (short form) - Note Progress Note: Chief Complaint: Events noted, notes reviewed, progressive dyspnea and increasing weakness, noted hypotension requiring pressors History of Present Illness: Seen and examined in the ICU. Full consult dictated - Current Medication List Current Medications Acetaminophen (Tylenol -) 650 mg PO Q6H PRN PRN Reason: FEVER Atorvastatin Calcium (Lipitor -) 10 mg PO HS JUDSON Last Admin: 12/19/18 22:25 Dose: 10 mg Norepinephrine Bitartrate 4, (000 mcg/ Dextrose) 500 mls @ 37.5 mls/hr IV TITR JUDSON; Protocol Last Admin: 12/20/18 01:00 Dose: 5 mcg/min, 37.5 mls/hr Non-Formulary Medication (Abiraterone Acetate [Abiraterone Acetate]) 4 tab PO DAILY JUDSON Pantoprazole Sodium (Protonix -) 40 mg PO DAILY JUDSON Prednisone (Deltasone -) 5 mg PO BID JUDSON Last Admin: 12/19/18 22:25 Dose: 5 mg Review of Systems Constitutional: denies: Chills, Fever Cardiovascular: As Noted Above Respiratory: denies: Cough or Sputum Production Gastrointestinal: denies: Nausea, Vomiting, Constipation or Abdominal Pain Genitourinary: denies: Dysuria Musculoskeletal: Degenerative Joint Disease Neurological: denies: Dizziness, Headache - Objective Vital Signs: Last Vital Signs Temp Pulse Resp BP Pulse Ox 97.6 F 91 H 20 88/56 L 97 12/20/18 05:51 12/20/18 05:51 12/20/18 05:51 12/20/18 05:51 12/20/18 00:06 Intake & Output 12/17/18 12/18/18 12/19/18 12/20/18 23:59 23:59 23:59 23:59 Intake Total 665.6 Output Total 1250 Balance -584.4 Weight 130 lb 148 lb Neck: Supple Negative JVD Cardiovascular: S1 S2 Regular Rate and Rhythm Respiratory: Diminished breath Sounds at the Bases with Rales Gastrointestinal: Soft Benign Normal Bowel Sounds Ext: Edema Labs: Troponin, BNP 12/19/18 12/19/18 18:45 18:45 Troponin I 4.76 H* B-Natriuretic Peptide 70968.3 H CBC, BMP 12/20/18 05:10 Hepatic Panel Total Bilirubin 0.9 mg/dL (0.2-1) 12/19/18 18:45 AST 54 U/L (15-37) H 12/19/18 18:45 ALT 24 U/L (13-61) 12/19/18 18:45 Alkaline Phosphatase 125 U/L (45-117) H 12/19/18 18:45 Albumin 3.5 g/dl (3.4-5.0) 12/19/18 18:45 INR, PTT INR 3.57 (0.83-1.09) H 12/19/18 18:45 Assessment/Plan ASSESSMENT: 1. Clinical presentation is consistent with class III-IV NYHA classification LV failure related to systolic/diastolic LV dysfunction, hypotension cardiogenic- to exclude sepsis related hypotension 2. CAD with probable post infarct with evidence of demand ischemia angina pectoris 3. Acute on chronic renal insufficiency with 4. Hyponatremia 5. Metastatic prostate carcinoma 6. 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 Anemia PLAN: 1. Continue pressors and down titrate as tolerated maintaining MAP > 65 mmHg 2. Recommend trial with Dobutamine in view of the above noted presentation 3. IV Lasix prn 4. Eventually hemodynamics permitting recommend the addition of B-Blockers/ Coreg +/- ACEI or ARBS- provided renal function at baseline 5. Follow Na level closely Overall poor prognosis Jarrett Patterson MD
[2018-12-20] MEDS: NOREPINEPHRINE BITARTRATE 8,000 MCG in DEXTROSE 5%-WATER - 492 ML IV SCH ×3 (07:00→23:31)
[2018-12-20] MEDS ORDERED: DOBUTAMINE 250 MG/D5W - 250,000 MCG/250 ML INFUS.BAG ONE (08:49)
[2018-12-20 09:11] LABS: ALBUMIN 3.4 g/dl (3.4-5.0); BILIRUBIN,TOTAL 1.5 mg/dL (0.2-1); BLOOD UREA NITROGEN 56.3 mg/dL (7-18); CREATININE 2.1 mg/dL (0.55-1.3); POTASSIUM 3.4 mmol/L (3.5-5.1); TOT PROT 6.1 g/dl (6.4-8.2)
[2018-12-20 09:17] LABS: CALCIUM 6.7 mg/dL (8.5-10.1)
[2018-12-20] MEDS: DOBUTAMINE HCL 250,000 MCG in SODIUM CHLORIDE 230 ML IV SCH (09:30)
[2018-12-20] MEDS ORDERED: PANTOPRAZOLE 40 MG TABLET (FP) PO SCH (10:00)
[2018-12-20] MEDS ORDERED: metoPROLOL SUCCINATE 25 MG TAB.SR.24H (FP) PO SCH (10:00)
[2018-12-20] MEDS ORDERED: LOSARTAN POTASSIUM 25 MG TABLET PO SCH (10:00)
[2018-12-20 10:02] LABS: URINE APPEARANCE CLEAR; URINE BILIRUBIN NEGATIVE (NEGATIVE); URINE COLOR YELLOW; URINE GLUCOSE (UA) NEGATIVE (NEGATIVE); URINE KETONE NEGATIVE (NEGATIVE); URINE LEUK ESTERASE NEGATIVE (NEGATIVE); URINE NITRITE NEGATIVE (NEGATIVE); URINE PROTEIN 1+ (NEGATIVE); URINE UROBILINOGEN 0.2 mg/dL (0.2-1.0)
--- NOTE | 2018-12-20 10:35 | EKG ---
Test Reason : Blood Pressure : / mmHG Vent. Rate : 084 BPM Atrial Rate : 084 BPM P-R Int : 156 ms QRS Dur : 098 ms QT Int : 392 ms P-R-T Axes : -27 -27 161 degrees QTc Int : 463 ms NORMAL SINUS RHYTHM ABNORMAL ECG WHEN COMPARED WITH ECG OF 31-OCT-2018 18:58, ST MORE DEPRESSED ANTERIOR LEADS T WAVE INVERSION NOW EVIDENT IN LATERAL LEADS Confirmed by Tico Sandoval MD ([id number]) on 12/20/2018 10:35:00 AM Referred By: Confirmed By:Tico Sandoval MD
--- NOTE | 2018-12-20 10:39 | CONS ---
DATE OF CONSULTATION: 12/20/2018 REQUESTING PHYSICIAN: Nick Cordero MD CHIEF COMPLAINT: Evaluation of progressive dyspnea, generalized weakness. HISTORY OF PRESENT ILLNESS: Patient is known to our service from recent hospitalization and office followup. This is an 83-year-old male of [place] descent with known history of coronary artery disease, post recent myocardial infarction, angina pectoris, systolic/diastolic left ventricular dysfunction with clinical class 1-2 [place] Heart Association Classification, hypertensive cardiovascular disease, hypercholesterolemia, metastatic prostate carcinoma, post radiation therapy, chemotherapy, history of subdural hematoma, post craniotomy, deep vein thrombosis, currently on Coumadin therapy, who presented to [facility] with progressive weakness and increasing dyspnea. Patient in addition reported bilateral lower extremity edema. Patient reported orthopnea, but denied paroxysmal nocturnal dyspnea. Patient denied any chest discomfort. Patient reported fatigue and tiredness as noted above. Patient denied any palpitations. Patient reported intermittent dizziness, which was exacerbated by postural changes. Upon evaluation in the emergency room, patient was noted to be hypotensive and was noted to have an abnormal chest x-ray consistent with congestive heart failure with elevated troponin I levels. PAST MEDICAL HISTORY: Coronary artery disease, post recent myocardial infarction, angina pectoris, systolic/diastolic left ventricular dysfunction with history of congestive heart failure, hypertensive cardiovascular disease, hypercholesterolemia, craniotomy for subdural hematoma, metastatic prostate carcinoma, post radiation therapy, post chemotherapy, deep vein thrombosis, on Coumadin therapy. SOCIAL HISTORY: Nonsmoker. FAMILY HISTORY: Positive for coronary artery disease. ALLERGIES: None reported. MEDICATIONS: Medical therapy at home included abiraterone acetate 250 mg tablet 4 tablets daily, vitamin D 50,000 units once a week, Lasix 40 mg tablet, half-tablet once daily, prednisone 5 mg twice a day, simvastatin 10 mg once a day, tramadol with acetaminophen 1 tablet 3 times a day as needed , Coumadin 2.5 mg once a day, Cozaar 25 mg once a day, Toprol XL 25 mg once a day. REVIEW OF SYSTEMS: Head and neck: Denies headache, photophobia, blurring of vision. Respiratory: No cough or sputum production. Cardiovascular: As noted above. Gastrointestinal: Denied nausea, vomiting, diarrhea, abdominal discomfort. Genitourinary: No symptoms reported. Musculoskeletal: No symptoms reported. PHYSICAL EXAMINATION: Vital signs: Blood pressure is 90/59 mmHg, pulse rate is 93 beats per minute. Head and neck: Pupils equally reactive to light and accommodation. Extraocular muscles are intact. Anicteric sclerae. Negative JVD. No bruit appreciated. Chest: Diminished decreased breath sounds to the bases bilaterally. rales. Cardiovascular: S1, S2 regular. No murmurs appreciated. Abdomen: Soft, benign. Normoactive bowel sounds. Extremities: 1-2+ ankle edema. Diminished distal pulses. No calf tenderness. STUDIES: Electrocardiogram reveals sinus rhythm with ST-segment abnormality, posterior wall myocardial infarction age undetermined cannot be excluded. Chest x-ray as noted. CBC revealed white cell count of 7.2, hemoglobin of 9.0, platelet count 186. INR 3.57. Basic metabolic profile revealed sodium of 119, BUN 64, creatinine 2.6, potassium 4.1, estimated GFR 24.94, glucose 124, lacic acid 2.4. Troponin 4.76. B type natriuretic peptide is 34,823. ASSESSMENT: 1. Clinical presentation is consistent with class 3-4 [place] Heart Association Classification left ventricular failure related to systolic/diastolic left ventricular dysfunction, hypotension, cardiogenic, sepsis related hypotension. 2. Coronary artery disease probable recent infarction with evidence of demand ischemic injury, angina pectoris. 3. Acute on chronic renal insufficiency with 4. Hyponatremia. 5. Metastatic prostate carcinoma. 6. History of deep vein thrombosis on Coumadin therapy with supratherapeutic international normalized ratio. 7. Anemia. RECOMMENDATIONS: 1. Continuation of pressors and down titration as tolerated, maintaining mean arterial pressure greater than 65 mmHg, patient was initiated on Levophed therapy overnight. 2. Recommend trial with dobutamine in view of the above noted presentation LV systolic dysfunction with congestive heart failure. 3. IV Lasix. 4. Eventually hemodynamics permitting, recommend the addition of beta-marissa carvedilol +/- JAKE inhibitor or angiotensin receptor marissa therapy provided renal function is at baseline. 5. Follow sodium level closely poor prognostic sign. Overall, poor prognosis. Thank you for the kind referral. MARGARET BRAR M.D. KIRILL/[id number]
[2018-12-20] MEDS ORDERED: VASOPRESSIN 20 UNITS/ML VIAL IV ONE ×2 (10:48→19:52)
[2018-12-20] MEDS: predniSONE 5 MG TABLET (UD) PO SCH ×2 (10:54→22:09)
[2018-12-20] MEDS: VASOPRESSIN 50 UNITS in SODIUM CHLORIDE 97.5 ML IVPB SCH ×2 (10:54→21:32)
[2018-12-20 11:33] LABS: INR 3.62 (0.83-1.09); PROTHROMBIN TIME (PATIENT) 43.3 SEC (9.7-13.0)
--- NOTE | 2018-12-20 11:34 | PN ---
Teaching Attending Note Name of Resident: Alisa Xie ATTENDING PHYSICIAN STATEMENT I saw and evaluated the patient. I reviewed the resident's note and discussed the case with the resident. I agree with the resident's findings and plan as documented. SUBJECTIVE: Pt seen and examined in the ICU. Hypotensive now on levophed and dobutamine gtts. Still some shortness of breath but denies chest pain. OBJECTIVE: Vital Signs Period Temp Pulse Resp BP Sys/Ibarra Pulse Ox Last 24 Hr 97 F-97.6 F 78-117 18-25 64-94/23-67 95-100 Intake & Output 12/17/18 12/18/18 12/19/18 12/20/18 23:59 23:59 23:59 23:59 Intake Total 665.6 Output Total 1250 Balance -584.4 Weight 58.967 kg 67.132 kg Gen: tachypneic at rest Neck: +JVD Heart: tachycardic Lung: bibasilar rales Abd: soft, nontender Ext: + edema CBC, BMP 12/20/18 05:10 12/20/18 08:15 Active Medications Acetaminophen (Tylenol -) 650 mg PO Q6H PRN PRN Reason: FEVER Atorvastatin Calcium (Lipitor -) 10 mg PO HS JUDSON Last Admin: 12/19/18 22:25 Dose: 10 mg Furosemide (Lasix Injection -) 60 mg IVPUSH BID@0600,1400 JUDSNO Norepinephrine Bitartrate 8, (000 mcg/ Dextrose) 500 mls @ 18.75 mls/hr IV TITR JUDSON; Protocol Last Admin: 12/20/18 07:00 Dose: 7 mcg/min, 26.25 mls/hr Dobutamine HCl 250,000 mcg/ (Sodium Chloride) 250 mls @ 20.13 mls/hr IV TITR JUDSON; Protocol Last Admin: 12/20/18 09:30 Dose: 5 mcg/kg/min, 20.13 mls/hr Vasopressin 50 units/ Sodium (Chloride) 100 mls @ 4 mls/hr IVPB ASDIR JUDSON; Protocol Last Admin: 12/20/18 10:54 Dose: 2 units/hr, 4 mls/hr Non-Formulary Medication (Abiraterone Acetate [Abiraterone Acetate]) 4 tab PO DAILY JUDSON Pantoprazole Sodium (Protonix -) 40 mg PO DAILY JUDSON Last Admin: 12/20/18 09:55 Dose: 40 mg Prednisone (Deltasone -) 5 mg PO BID [facility] Last Admin: 12/20/18 10:54 Dose: 5 mg ASSESSMENT AND PLAN: Acute on Chronic Systolic/Diastolic Heart Failure Shock - Cardiogenic vs Septic Acute Kidney Injury +Troponins likely Demand Ischemia Lactic Acidosis Hyponatremia likely Hypervolemic h/o DVT Metastatic Prostate Ca Anemia - continue lasix - monitor urine output, creatinine - daily weights - titrate pressors, inotropes to maintain MAP >65 - echocardiogram - trend cardiac enzymes - O2 to keep Spo2 >90% - monitor lytes - f/u UA, urine lytes, osms - f/u cultures - prognosis guarded - continue ICU monitoring critical care time spent in reviewing chart, evaluating patient and formulating plan 35 min
[2018-12-20 12:01] LABS: EPI CELLS 0.5 /HPF (0-5/HPF); HYALINE CASTS 10.15 /lpf (0-8); URINE RBC 2 /hpf (0-4)
[2018-12-20] MEDS ORDERED: POTASSIUM CHLORIDE TABS 20 MEQ TABLET.ER (FP) PO ONE ×2 (12:30→17:09)
--- NOTE | 2018-12-20 12:48 | PN ---
Physical Exam: SUBJECTIVE: Patient seen and examined at bedside-overnight patient became hypotensive with MAPS in the 50's and needed to be started on levophed through chemoport; he states that he is in no pain however his breathing is still an issue for him- he denies any CP/N/V fevers or chills he has not had anymore episodes of vomiting OBJECTIVE: Vital Signs Period Temp Pulse Resp BP Sys/Ibarra Pulse Ox Last 24 Hr 97 F-98.0 F 78-118 17-25 64-94/23-67 95-100 GENERAL: The patient is awake, alert, on nasal canula and pressors . EYES: PEERLA: EOMI no scleral icterus NECK: +JVD LUNGS: diffuse crackles B/L HEART: RRR, S1, S2 without murmur, rub or gallop. ABDOMEN: Soft, Nt/ND +BS in all 4 quadrants EXTREMITIES: 2+ pulses, warm, well-perfused, 3+ pitting edema B/L NEUROLOGICAL: Cranial nerves II through XII grossly intact. Normal speech, gait not observed. PSYCH: Normal mood, normal affect. SKIN: Warm, dry, normal turgor, no rashes or lesions noted Laboratory Results - last 24 hr 12/19/18 12/19/18 12/19/18 18:45 18:45 18:45 WBC 5.5 RBC 2.25 L Hgb 7.6 L Hct 21.0 L D MCV 93.2 MCH 33.6 MCHC 36.0 H RDW 16.8 H Plt Count 156 MPV 8.1 Absolute Neuts (auto) 4.7 Neutrophils % 83.9 H D Lymphocytes % 6.5 L D Monocytes % 8.8 Eosinophils % 0.6 D Basophils % 0.2 Nucleated RBC % 0 PT with INR 42.70 H INR 3.57 H PTT (Actin FS) 35.0 VBG pH 7.38 POC VBG pCO2 35.3 L POC VBG pO2 15.9 L VBG HCO3 20.2 L VBG O2 Sat ([place]) 13.3 L VBG Base Excess -3.9 L Sodium Potassium Chloride Carbon Dioxide Anion Gap BUN Creatinine Est GFR (CKD-EPI)AfAm Est GFR (CKD-EPI)NonAf Random Glucose Serum Osmolality Lactic Acid Calcium Total Bilirubin AST ALT Alkaline Phosphatase Creatine Kinase Creatine Kinase Index CK-MB (CK-2) Troponin I B-Natriuretic Peptide Total Protein Albumin Urine Color Urine Appearance Urine pH Ur Specific [place] Urine Protein Urine Glucose (UA) Urine Ketones Urine Blood Urine Nitrite Urine Bilirubin Urine Urobilinogen Ur Leukocyte Esterase Urine WBC (Auto) Urine RBC (Auto) Urine Casts (Auto) U Pathogenic Cast Auto U Epithel Cells (Auto) U Sm Round Cell (Auto) Urine Bacteria (Auto) Ur Random Creatinine Ur Random Sodium Ur Random Potassium Ur Random Chloride Ur Random Urea Nitrogn Stool Occult Blood Blood Type Antibody Screen Crossmatch 12/19/18 12/19/18 12/19/18 18:45 18:45 18:45 WBC RBC Hgb Hct MCV MCH MCHC RDW Plt Count MPV Absolute Neuts (auto) Neutrophils % Lymphocytes % Monocytes % Eosinophils % Basophils % Nucleated RBC % PT with INR INR PTT (Actin FS) VBG pH POC VBG pCO2 POC VBG pO2 VBG HCO3 VBG O2 Sat (Richardson) VBG Base Excess Sodium 119 L Potassium 4.1 Chloride 84 L Carbon Dioxide 19 L Anion Gap 15 BUN 64.1 H Creatinine 2.6 H Est GFR (CKD-EPI)AfAm 24.94 Est GFR (CKD-EPI)NonAf 21.52 Random Glucose 124 H Serum Osmolality Lactic Acid 2.4 H* Calcium 7.5 L Total Bilirubin 0.9 AST 54 H ALT 24 Alkaline Phosphatase 125 H Creatine Kinase 333 H Creatine Kinase Index 3.5 CK-MB (CK-2) 11.7 H Troponin I 4.76 H* B-Natriuretic Peptide 11469.3 H Total Protein 6.2 L Albumin 3.5 Urine Color Urine Appearance Urine pH Ur Specific [place] Urine Protein Urine Glucose (UA) Urine Ketones Urine Blood Urine Nitrite Urine Bilirubin Urine Urobilinogen Ur Leukocyte Esterase Urine WBC (Auto) Urine RBC (Auto) Urine Casts (Auto) U Pathogenic Cast Auto U Epithel Cells (Auto) U Sm Round Cell (Auto) Urine Bacteria (Auto) Ur Random Creatinine Ur Random Sodium Ur Random Potassium Ur Random Chloride Ur Random Urea Nitrogn Stool Occult Blood Blood Type Antibody Screen Crossmatch 12/19/18 12/19/18 12/19/18 19:55 19:55 22:40 WBC RBC Hgb Hct MCV MCH MCHC RDW Plt Count MPV Absolute Neuts (auto) Neutrophils % Lymphocytes % Monocytes % Eosinophils % Basophils % Nucleated RBC % PT with INR INR PTT (Actin FS) VBG pH POC VBG pCO2 POC VBG pO2 VBG HCO3 VBG O2 Sat (Richardson) VBG Base Excess Sodium Potassium Chloride Carbon Dioxide Anion Gap BUN Creatinine Est GFR (CKD-EPI)AfAm Est GFR (CKD-EPI)NonAf Random Glucose Serum Osmolality Lactic Acid 1.2 Calcium Total Bilirubin AST ALT Alkaline Phosphatase Creatine Kinase Creatine Kinase Index CK-MB (CK-2) Troponin I B-Natriuretic Peptide Total Protein Albumin Urine Color Urine Appearance Urine pH Ur Specific [place] Urine Protein Urine Glucose (UA) Urine Ketones Urine Blood Urine Nitrite Urine Bilirubin Urine Urobilinogen Ur Leukocyte Esterase Urine WBC (Auto) Urine RBC (Auto) Urine Casts (Auto) U Pathogenic Cast Auto U Epithel Cells (Auto) U Sm Round Cell (Auto) Urine Bacteria (Auto) Ur Random Creatinine Ur Random Sodium Ur Random Potassium Ur Random Chloride Ur Random Urea Nitrogn Stool Occult Blood Negative Blood Type B POSITIVE Antibody Screen Negative Crossmatch See Detail 12/20/18 12/20/18 12/20/18 05:10 06:00 06:00 WBC 7.2 RBC 2.76 L Hgb 9.0 L Hct 25.1 L D MCV 90.9 MCH 32.6 MCHC 35.8 RDW 18.3 H Plt Count 186 MPV 8.0 Absolute Neuts (auto) 6.2 Neutrophils % 86.0 H Lymphocytes % 4.8 L D Monocytes % 8.2 Eosinophils % 0.7 Basophils % 0.3 Nucleated RBC % 0 PT with INR INR PTT (Actin FS) VBG pH POC VBG pCO2 POC VBG pO2 VBG HCO3 VBG O2 Sat (Richardson) VBG Base Excess Sodium Potassium Chloride Carbon Dioxide Anion Gap BUN Creatinine Est GFR (CKD-EPI)AfAm Est GFR (CKD-EPI)NonAf Random Glucose Serum Osmolality Lactic Acid Calcium Total Bilirubin AST ALT Alkaline Phosphatase Creatine Kinase Creatine Kinase Index CK-MB (CK-2) Troponin I B-Natriuretic Peptide Total Protein Albumin Urine Color Yellow Urine Appearance Clear Urine pH 5.0 Ur Specific [place] 1.007 L Urine Protein 1+ H Urine Glucose (UA) Negative Urine Ketones Negative Urine Blood Negative Urine Nitrite Negative Urine Bilirubin Negative Urine Urobilinogen 0.2 Ur Leukocyte Esterase Negative Urine WBC (Auto) 1.0 Urine RBC (Auto) 2 Urine Casts (Auto) 10.15 U Pathogenic Cast Auto No Result Required. U Epithel Cells (Auto) 0.5 U Sm Round Cell (Auto) Urine Bacteria (Auto) 2.0 Ur Random Creatinine 27.0 L Ur Random Sodium 22 L Ur Random Potassium 19.3 L Ur Random Chloride 28 L Ur Random Urea Nitrogn 285 L Stool Occult Blood Blood Type Antibody Screen Crossmatch 12/20/18 12/20/18 12/20/18 08:15 08:15 10:25 WBC RBC Hgb Hct MCV MCH MCHC RDW Plt Count MPV Absolute Neuts (auto) Neutrophils % Lymphocytes % Monocytes % Eosinophils % Basophils % Nucleated RBC % PT with INR 43.30 H INR 3.62 H PTT (Actin FS) VBG pH POC VBG pCO2 POC VBG pO2 VBG HCO3 VBG O2 Sat ([place]son) VBG Base Excess Sodium 124 L Potassium 3.4 L Chloride 91 L Carbon Dioxide 18 L Anion Gap 16 BUN 56.3 H Creatinine 2.1 H Est GFR (CKD-EPI)AfAm 32.29 Est GFR (CKD-EPI)NonAf 27.86 Random Glucose 131 H Serum Osmolality 271 L Lactic Acid Calcium 6.7 L* Total Bilirubin 1.5 H AST 56 H ALT 22 Alkaline Phosphatase 117 Creatine Kinase 334 H Creatine Kinase Index 3.5 CK-MB (CK-2) 12.0 H Troponin I 4.93 H* B-Natriuretic Peptide Total Protein 6.1 L Albumin 3.4 Urine Color Urine Appearance Urine pH Ur Specific [place] Urine Protein Urine Glucose (UA) Urine Ketones Urine Blood Urine Nitrite Urine Bilirubin Urine Urobilinogen Ur Leukocyte Esterase Urine WBC (Auto) Urine RBC (Auto) Urine Casts (Auto) U Pathogenic Cast Auto U Epithel Cells (Auto) U Sm Round Cell (Auto) Urine Bacteria (Auto) Ur Random Creatinine Ur Random Sodium Ur Random Potassium Ur Random Chloride Ur Random Urea Nitrogn Stool Occult Blood Blood Type B POSITIVE Antibody Screen Negative Crossmatch Active Medications Generic Name Dose Route Start Last Admin Trade Name Freq PRN Reason Stop Dose Admin Acetaminophen 650 mg 12/19/18 21:41 Tylenol - PO Q6H PRN FEVER Atorvastatin Calcium 10 mg 12/19/18 22:00 12/19/18 22:25 Lipitor - PO 10 mg HS JUDSON Administration Furosemide 60 mg 12/20/18 14:00 Lasix Injection - IVPUSH BID@0600,1400 JUDSON Norepinephrine Bitartrate 8, 500 mls @ 18.75 mls/hr 12/20/18 07:13 12/20/18 07:00 000 mcg/ Dextrose IV 7 mcg/min TITR JUDSON 26.25 mls/hr Administration Protocol 5 MCG/MIN Dobutamine HCl 250,000 mcg/ 250 mls @ 20.13 mls/hr 12/20/18 08:45 12/20/18 10 :30 Sodium Chloride IV 2.5 mcg/kg/min TITR JUDSON 10.06 mls/hr Titration Protocol 5 MCG/KG/MIN Vasopressin 50 units/ Sodium 100 mls @ 4 mls/hr 12/20/18 10:45 12/20/18 10:54 Chloride IVPB 2 units/hr ASDIR JUDSON 4 mls/hr Administration Protocol 2 UNITS/HR Potassium Chloride 10 meq in 100 mls @ 100 mls/hr 12/20/18 12:45 Potassium Chloride 10 Meq Premix Ivpb - IVPB 12/20/18 15:44 Q60M JUDSON Non-Formulary Medication 4 tab 12/20/18 10:00 Abiraterone Acetate [Abiraterone Acetate] PO DAILY JUDSON Pantoprazole Sodium 40 mg 12/20/18 10:00 12/20/18 09:55 Protonix - PO 40 mg DAILY JUDSON Administration Prednisone 5 mg 12/19/18 22:00 12/20/18 10:54 Deltasone - PO 5 mg BID JUDSON Administration ASSESSMENT/PLAN: 83M w/ a history of 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 and bone (last chemo session was mar 2018) CHF, HTN, HLD, previous subdural hematoma s/p craniotomy, history of DVT on Coumadin presented to the ED with a 1 day history of worsening dyspnea, with worsening fluid overload and an episode of vomiting #Neuro stable; no issues #Cardiovascular CHF exacerbation, hypotension, elevated troponin patient started on levophed/dobutamine/vasporession with MAPS remaining in the 60's -lasix 60 BID -trend cardiac enzymes; 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-november -holding home antihypertensives -echo pending -monitor I's and O's -holding coumadin in light of supratheraputic INR #Heme patient had a Hgb of 7.2 when he arrived in the ED and received 1 unit of PRBCS -FOBT was negative -repeat Hgb this AM was 9.0 -will monitor for signs of bleeding #ID patient had a lactic acidosis which has since resolved -received 1 dose of Zosyn in the ED -will hold off on abx right now #Renal patient came in with a Cr of 2.6 (baseline .08-1) and was hyponatremic to 117 ( likely 2/2 hypervolemic hyponatremia) possibly 2/2 cardiorenal syndrome -repeat BMP this afternoon shows sodium of 124 -urine lytes pending and serum osm pending -renal/bladder U/S pending -nephrology on board -monitor lytes; replete accordingly (repeat BMP BID) F/E/N not on fluids monitor electrolytes sodium controlled diet DVT PPX: scds Problem List - Problems (1) Acute kidney injury Code(s): N17.9 - ACUTE KIDNEY FAILURE, UNSPECIFIED (2) CHF exacerbation Code(s): I50.9 - HEART FAILURE, UNSPECIFIED Qualifiers: Heart failure type: unspecified Qualified Code(s): I50.9 - Heart failure, unspecified (3) Hyperlipidemia Code(s): E78.5 - HYPERLIPIDEMIA, UNSPECIFIED Qualifiers: (4) Prostate cancer Code(s): C61 - MALIGNANT NEOPLASM OF PROSTATE (5) Supratherapeutic INR Code(s): R79.1 - ABNORMAL COAGULATION PROFILE Visit type - Emergency Visit Emergency Visit: Yes ED Registration Date: 12/19/18 Care time: The patient presented to the Emergency Department on the above date and was hospitalized for further evaluation of their emergent condition. - New Patient This patient is new to me today: Yes Date on this admission: 12/20/18 - Critical Care Critical Care patient: Yes Total Critical Care Time (in minutes): 35 Critical Care Statement: The care of this patient involved high complexity decision making to prevent further life threatening deterioration of the patient 's condition and/or to evaluate & treat vital organ system(s) failure or risk of failure.
--- NOTE | 2018-12-20 13:46 | CONSULT ---
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 He is accompanied by his daughter who assisted with the history. He was found to be in acute renal failure and found to be hyponatremic. He was admitted to the ICU for further management. He was given lasix and showed a positive response. He still has shortness of breath but feels that it is better than yesterday. He denies chest pain at the moment. He denies dysuria or hematuria. He is awake and alert. He last had chemo in March of 2018. He denies history of ckd. He denies nsaid use. - History Source History Provided By: Patient, Family Member, Medical Record - Past Medical History Cardio/Vascular: Yes: CAD, CHF, [place] Renal/: Yes: Cancer (prostate). No: Renal Inusuff Musculoskeletal: Yes: Other (pain in shoulders) - Past Surgical History Past Surgical History: Yes: Craniotomy - Alcohol/Substance Use Hx Alcohol Use: No - Smoking History Smoking history: Unknown if ever smoked Have you smoked in the past 12 months: No - Social History ADL: Family Assistance History of Recent Travel: No Home Medications - Allergies Allergies/Adverse Reactions: Allergies Allergy/AdvReac Type Severity Reaction Status Date / Time No Known Allergies Allergy Verified 12/19/18 18:31 - Home Medications Home Medications: Ambulatory Orders Ergocalciferol (Vitamin D2) [Vitamin D2] 50,000 unit PO WEEKLY 09/05/18 Simvastatin 10 mg PO DAILY 09/05/18 Nitroglycerin [place] [Nitrolingual [place] -] 1 spray TL [id number] PRN #1 bottle MDD 3 09/07/18 Abiraterone Acetate 4 tab PO DAILY 09/15/18 Prednisone 5 mg PO BID 09/15/18 Losartan Potassium [Cozaar -] 25 mg PO DAILY #30 tablet 11/02/18 Metoprolol Succinate [Toprol XL -] 25 mg PO DAILY #30 tab.sr.24h 11/02/18 Furosemide [Lasix -] 20 mg PO DAILY 12/19/18 Tramadol HCl/Acetaminophen [Tramadol-Acetaminophn 37.5-325] 1 each PO TID PRN Warfarin Na [Coumadin -] 2.5 mg PO DAILY@1800 12/19/18 Family Disease History - Family Disease History Family History: Denies Review of Systems - Review of Systems Constitutional: reports: Malaise Eyes: reports: No Symptoms HENT: reports: No Symptoms, Ocular Prosthesis Cardiovascular: reports: Edema, Shortness of Breath Respiratory: reports: SOB, SOB on Exertion Genitourinary: reports: No Symptoms Musculoskeletal: reports: Muscle Weakness Integumentary: reports: No Symptoms Neurological: reports: No Symptoms Endocrine: reports: No Symptoms Hematology/Lymphatic: reports: No Symptoms Psychiatric: reports: No Symptoms Physical Exam Vital Signs: Vital Signs Temperature 98.0 F 12/20/18 10:00 Pulse Rate 99 H 12/20/18 12:00 Respiratory Rate 23 H 12/20/18 12:00 Blood Pressure 92/56 L 12/20/18 12:00 O2 Sat by Pulse Oximetry (%) 100 12/20/18 09:00 Constitutional: Yes: Calm Eyes: Yes: Conjunctiva Clear HENT: Yes: Atraumatic Neck: Yes: Supple Cardiovascular: Yes: S1, S2 Respiratory: Yes: On Nasal O2, Rhonchi Gastrointestinal: Yes: Soft Renal/: Yes: WNL Musculoskeletal: Yes: WNL Extremities: Yes: WNL Edema: Yes Edema: LLE: 2+, RLE: 2+ Integumentary: Yes: Venous Stasis Changes Neurological: Yes: Oriented Psychiatric: Yes: Oriented Labs: CBC, BMP 12/20/18 05:10 12/20/18 08:15 Laboratory Tests 11/02/18 12/19/18 12/19/18 05:30 18:45 18:45 Hgb 7.6 L Sodium 119 L Potassium Creatinine 0.8 2.6 H Lactic Acid Calcium B-Natriuretic Peptide Albumin 12/19/18 12/19/18 12/19/18 18:45 18:45 22:40 Hgb Sodium Potassium Creatinine Lactic Acid 2.4 H* 1.2 Calcium B-Natriuretic Peptide 15479.3 H Albumin 12/20/18 12/20/18 12/20/18 05:10 08:15 16:00 Hgb 9.0 L Sodium 124 L 124 L Potassium 3.4 L 3.5 Creatinine 2.1 H 1.8 H Lactic Acid Calcium 6.7 L* 6.5 L* B-Natriuretic Peptide Albumin 3.4 Imaging - Results Chest X-ray: Report Reviewed Problem List - Problems (1) Hyponatremia Code(s): E87.1 - HYPO-OSMOLALITY AND HYPONATREMIA (2) Acute kidney injury Code(s): N17.9 - ACUTE KIDNEY FAILURE, UNSPECIFIED (3) Anemia Code(s): D64.9 - ANEMIA, UNSPECIFIED Qualifiers: Anemia type: unspecified type Qualified Code(s): D64.9 - Anemia, unspecified (4) CHF exacerbation Code(s): I50.9 - HEART FAILURE, UNSPECIFIED Qualifiers: Heart failure type: unspecified Qualified Code(s): I50.9 - Heart failure, unspecified (5) NSTEMI (non-ST elevated myocardial infarction) Code(s): I21.4 - NON-ST ELEVATION (NSTEMI) MYOCARDIAL INFARCTION (6) Prostate cancer Code(s): C61 - MALIGNANT NEOPLASM OF PROSTATE (7) Shortness of breath Code(s): R06.02 - SHORTNESS OF BREATH Assessment/Plan Current Medications Generic Name Dose Route Start Last Admin Trade Name Freq PRN Reason Stop Dose Admin Acetaminophen 650 mg 12/19/18 21:41 Tylenol - PO Q6H PRN FEVER Atorvastatin Calcium 10 mg 12/19/18 22:00 12/19/18 22:25 Lipitor - PO 10 mg HS JUDSON Administration Furosemide 60 mg 12/20/18 14:00 Lasix Injection - IVPUSH BID@0600,1400 JUDSON Norepinephrine Bitartrate 8, 500 mls @ 18.75 mls/hr 12/20/18 07:13 12/20/18 07:00 000 mcg/ Dextrose IV 7 mcg/min TITR JUDSON 26.25 mls/hr Administration Protocol 5 MCG/MIN Dobutamine HCl 250,000 mcg/ 250 mls @ 20.13 mls/hr 12/20/18 08:45 12/20/18 10 :30 Sodium Chloride IV 2.5 mcg/kg/min TITR JUDSON 10.06 mls/hr Titration Protocol 5 MCG/KG/MIN Vasopressin 50 units/ Sodium 100 mls @ 4 mls/hr 12/20/18 10:45 12/20/18 10:54 Chloride IVPB 2 units/hr ASDIR JUDSON 4 mls/hr Administration Protocol 2 UNITS/HR Potassium Chloride 10 meq in 100 mls @ 100 mls/hr 12/20/18 12:45 Potassium Chloride 10 Meq Premix Ivpb - IVPB 12/20/18 15:44 Q60M JUDSON Non-Formulary Medication 4 tab 12/20/18 10:00 Abiraterone Acetate [Abiraterone Acetate] PO DAILY JUDSON Pantoprazole Sodium 40 mg 12/20/18 10:00 12/20/18 09:55 Protonix - PO 40 mg DAILY JUDSON Administration Prednisone 5 mg 12/19/18 22:00 12/20/18 10:54 Deltasone - PO 5 mg BID JUDSON Administration Impression 1. hyponatremia 2. sandra 3. chf 4. positive troponins 5. hypocalcemia 6. prostate cancer with mets 7. hypotension 8. lactic acidosis improved 9. shock on pressors Plan - cont lasix as he is responding - monitor sodium - cont pressors to a map of 65 - daily cxr - renal ultrasound - check ua and lytes - possible cardiorenal syndrome - renal function is improving - monitor urine output - discussed with ICU team - discussed with family at bedsid - check serum and urine osm - check cortisol and tsh
--- NOTE | 2018-12-20 13:53 | CON.ID ---
Consult - Past Medical History Cardio/Vascular: Yes: CAD, CHF, [place] Renal/: Yes: Cancer (prostate). No: Renal Inusuff Musculoskeletal: Yes: Other (pain in shoulders) - Past Surgical History Past Surgical History: Yes: Craniotomy - Alcohol/Substance Use Hx Alcohol Use: No - Smoking History Smoking history: Unknown if ever smoked Have you smoked in the past 12 months: No - Social History ADL: Family Assistance History of Recent Travel: No Home Medications - Allergies Allergies/Adverse Reactions: Allergies Allergy/AdvReac Type Severity Reaction Status Date / Time No Known Allergies Allergy Verified 12/19/18 18:31 - Home Medications Home Medications: Ambulatory Orders Ergocalciferol (Vitamin D2) [Vitamin D2] 50,000 unit PO WEEKLY 09/05/18 Simvastatin 10 mg PO DAILY 09/05/18 Nitroglycerin [place] [Nitrolingual [place] -] 1 spray TL [id number] PRN #1 bottle MDD 3 09/07/18 Abiraterone Acetate 4 tab PO DAILY 09/15/18 Prednisone 5 mg PO BID 09/15/18 Losartan Potassium [Cozaar -] 25 mg PO DAILY #30 tablet 11/02/18 Metoprolol Succinate [Toprol XL -] 25 mg PO DAILY #30 tab.sr.24h 11/02/18 Furosemide [Lasix -] 20 mg PO DAILY 12/19/18 Tramadol HCl/Acetaminophen [Tramadol-Acetaminophn 37.5-325] 1 each PO TID PRN Warfarin Na [Coumadin -] 2.5 mg PO DAILY@1800 12/19/18 Physical Exam Vital Signs: Vital Signs Temperature 98.0 F 12/20/18 10:00 Pulse Rate 99 H 12/20/18 12:00 Respiratory Rate 23 H 12/20/18 12:00 Blood Pressure 92/56 L 12/20/18 12:00 O2 Sat by Pulse Oximetry (%) 100 12/20/18 09:00 Labs: CBC, BMP 12/20/18 05:10 12/20/18 08:15
[2018-12-20] MEDS: KCL 10 MEQ IVPB 10 MEQ/100 ML INFUS.BAG IVPB SCH ×3 (14:30→17:54)
[2018-12-20] MEDS ORDERED: CEFEPIME HCL 1 GM VIAL (RESTRICTED TO ID) ONE ×2 (14:42→21:35)
[2018-12-20] MEDS ORDERED: DEXTROSE 5%-WATER - 50 ML IVPB ONE ×2 (14:42→21:36)
[2018-12-20] MEDS: CEFEPIME 1 GM in DEXTROSE 5%-WATER - 50 ML IVPB SCH ×2 (14:46→22:09)
[2018-12-20] MEDS: FUROSEMIDE 40 MG/4 ML INJECTABLE VIAL IVPUSH SCH (14:46)
--- NOTE | 2018-12-20 14:55 | ECHO ---
Name: MAXIME ANTON Exam:Adult Echocardiogram Study Date: 12/20/2018 01:33 PM Age: 83 yrs Reason For Study: Interval Degradation of LV Function Height: 72 in Weight: 148 lb BSA: 1.9 m2 MMode/2D Measurements & Calculations IVSd: 1.1 cm ACS: 1.8 cm LVIDd: 3.4 cm LVIDs: 2.8 cm LVPWd: 1.5 cm EDV(Teich): 47.6 ml LVOT diam: 1.9 cm ESV(Teich): 29.6 ml Doppler Measurements & Calculations MV E max drew: 93.8 cm/sec Ao V2 max: 114.4 cm/sec MV A max drew: 68.1 cm/sec Ao max P.2 mmHg MV E/A: 1.4 Ao V2 mean: 91.6 cm/sec Ao mean P.6 mmHg Ao V2 VTI: 21.0 cm IRVIN(I,D): 2.2 cm2 IRVIN(V,D): 2.3 cm2 LV V1 max P.7 mmHg MR max drew: 318.2 cm/sec LV V1 mean P.5 mmHg MR max P.5 mmHg LV V1 max: 95.8 cm/sec LV V1 mean: 57.2 cm/sec LV V1 VTI: 16.9 cm SV(LVOT): 47.0 ml Med Peak E' Drew: 6.6 cm/sec Med E/e': 14.3 Lat Peak E' Drew: 10.2 cm/sec Lat E/e': 9.2 Procedure A complete two-dimensional transthoracic echocardiogram was performed (2D, M-mode, Doppler and color flow Doppler). The patient was in a tachycardic rhythm during the exam. Left Ventricle The left ventricle is grossly normal size. Left ventricular systolic function is severely reduced. Ej ection Fraction = 25%. The transmitral spectral Doppler flow pattern is suggestive of restrictive physiology . There is severe global hypokinesis of the left ventricle. Right Ventricle The right ventricle is normal in size and function. Atria Normal left and right atrial size and function. Mitral Valve The mitral valve is normal in structure and function. There is trace mitral regurgitation. Tricuspid Valve The tricuspid valve is normal in structure and function. There is trace tricuspid regurgitation. Righ t ventricular systolic pressure is elevated at 41 mmhg. There is mild pulmonary hypertension. Aortic Valve The aortic valve is normal in structure and function. Pulmonic Valve The pulmonic valve is not well visualized. Great Vessels The aortic root is normal size. Pericardium/Pleura There is no pericardial effusion. There is no pleural effusion. Interpretation Summary The patient was in a tachycardic rhythm during the exam. The left ventricle is grossly normal size. There is severe global hypokinesis of the left ventricle. Left ventricular systolic function is severely reduced. Ejection Fraction = 25%. The right ventricle is normal in size and function. There is trace mitral regurgitation. There is trace tricuspid regurgitation. Right ventricular systolic pressure is elevated at 41 mmhg. There is mild pulmonary hypertension. MD Tico Sandoval 12/20/2018 02:54 PM
--- NOTE | 2018-12-20 15:54 | PN ---
Progress Note, Physician History of Present Illness: stable - Current Medication List Current Medications: Active Medications Acetaminophen (Tylenol -) 650 mg PO Q6H PRN PRN Reason: FEVER Atorvastatin Calcium (Lipitor -) 10 mg PO HS JUDSON Last Admin: 12/19/18 22:25 Dose: 10 mg Furosemide (Lasix Injection -) 60 mg IVPUSH BID@0600,1400 JUDSON Last Admin: 12/20/18 14:46 Dose: 60 mg Norepinephrine Bitartrate 8, (000 mcg/ Dextrose) 500 mls @ 18.75 mls/hr IV TITR JUDSON; Protocol Last Admin: 12/20/18 07:00 Dose: 7 mcg/min, 26.25 mls/hr Dobutamine HCl 250,000 mcg/ (Sodium Chloride) 250 mls @ 20.13 mls/hr IV TITR JUDSON; Protocol Last Titration: 12/20/18 10:30 Dose: 2.5 mcg/kg/min, 10.06 mls/hr Vasopressin 50 units/ Sodium (Chloride) 100 mls @ 4 mls/hr IVPB ASDIR JUDSON; Protocol Last Admin: 12/20/18 10:54 Dose: 2 units/hr, 4 mls/hr Cefepime HCl 1 gm/ Dextrose 50 mls @ 100 mls/hr IVPB BID JUDSON; Protocol Last Admin: 12/20/18 14:46 Dose: 100 mls/hr Non-Formulary Medication (Abiraterone Acetate [Abiraterone Acetate]) 4 tab PO DAILY [facility] Pantoprazole Sodium (Protonix -) 40 mg PO DAILY JUDSON Last Admin: 12/20/18 09:55 Dose: 40 mg Prednisone (Deltasone -) 5 mg PO BID JUDSON Last Admin: 12/20/18 10:54 Dose: 5 mg - Objective Vital Signs: Vital Signs Temperature 98.1 F 12/20/18 14:00 Pulse Rate 109 H 12/20/18 14:00 Respiratory Rate 27 H 12/20/18 14:00 Blood Pressure 90/61 12/20/18 14:00 O2 Sat by Pulse Oximetry (%) 100 12/20/18 09:00 Constitutional: Yes: No Distress HENT: Yes: Atraumatic Neck: Yes: Supple Cardiovascular: Yes: Regular Rate and Rhythm Respiratory: Yes: Rhonchi Gastrointestinal: Yes: Normal Bowel Sounds Extremities: Yes: WNL Neurological: Yes: Alert, Oriented Labs: CBC, BMP 12/20/18 05:10 12/20/18 08:15 INR, PTT INR 3.62 (0.83-1.09) H 12/20/18 10:25 Problem List - Problems (1) Acute kidney injury Code(s): N17.9 - ACUTE KIDNEY FAILURE, UNSPECIFIED (2) Anemia Code(s): D64.9 - ANEMIA, UNSPECIFIED Qualifiers: Anemia type: unspecified type Qualified Code(s): D64.9 - Anemia, unspecified (3) CHF exacerbation Code(s): I50.9 - HEART FAILURE, UNSPECIFIED Qualifiers: Heart failure type: combined systolic and diastolic Qualified Code(s): I50.43 - Acute on chronic combined systolic (congestive) and diastolic ( congestive) heart failure (4) NSTEMI (non-ST elevated myocardial infarction) Code(s): I21.4 - NON-ST ELEVATION (NSTEMI) MYOCARDIAL INFARCTION (5) Acute diastolic (congestive) heart failure Code(s): I50.31 - ACUTE DIASTOLIC (CONGESTIVE) HEART FAILURE (6) Acute electrocardiogram changes Code(s): R94.31 - ABNORMAL ELECTROCARDIOGRAM [ECG] [EKG] (7) Coronary artery disease with unstable angina pectoris Code(s): I25.110 - ATHSCL HEART DISEASE OF [place] ART W UNSTABLE ANG PCTRS Qualifiers: (8) Hyperlipidemia Code(s): E78.5 - HYPERLIPIDEMIA, UNSPECIFIED Qualifiers: Hyperlipidemia type: pure hypercholesterolemia Qualified Code(s): E78.00 - Pure hypercholesterolemia, unspecified; E78.0 - Pure hypercholesterolemia (9) Prostate cancer Code(s): C61 - MALIGNANT NEOPLASM OF PROSTATE (10) Prostate cancer metastatic to bone Code(s): C61 - MALIGNANT NEOPLASM OF PROSTATE; C79.51 - SECONDARY MALIGNANT NEOPLASM OF BONE (11) Subendocardial ischemia Code(s): I24.8 - OTHER FORMS OF ACUTE ISCHEMIC HEART DISEASE (12) Supratherapeutic INR Code(s): R79.1 - ABNORMAL COAGULATION PROFILE Assessment/Plan Impression 1. hyponatremia 2. yinka 3. chf 4. positive troponins 5. hypocalcemia 6. prostate cancer with mets 7. hypotension 8. lactic acidosis improved 9. shock on pressors 10. a-fib 11. resp failure requiring bipap Plan continue current meds cc time 35 min
[2018-12-20 17:35] LABS: BLOOD UREA NITROGEN 50.2 mg/dL (7-18); CREATININE 1.8 mg/dL (0.55-1.3); POTASSIUM 3.5 mmol/L (3.5-5.1)
[2018-12-20 17:38] LABS: CALCIUM 6.5 mg/dL (8.5-10.1)
[2018-12-20] MEDS ORDERED: CALCIUM GLUCONATE 10% - 1,000 MG/10 ML VIAL IVPB ONE (18:32)
[2018-12-20] MEDS ORDERED: PT OWN MED DRAWER 7, Y5N ONE (21:35)
[2018-12-20] MEDS: ATORVASTATIN CA 10 MG TABLET (FP) PO SCH (22:08)
[2018-12-20] MEDS: ACETAMINOPHEN 325 MG TABLET (FP) PO PRN (23:42)
[2018-12-21] MEDS: ACETAMINOPHEN 325 MG TABLET (FP) PO PRN (05:13)
[2018-12-21] MEDS: FUROSEMIDE 40 MG/4 ML INJECTABLE VIAL IVPUSH SCH (05:31)
[2018-12-21 06:28] LABS: HEMATOCRIT 27.4 % (35.4-49); HEMOGLOBIN 9.5 GM/dL (11.7-16.9); MCH 32.3 pg (25.7-33.7); MCHC 34.7 g/dl (32.0-35.9); MEAN CELL VOLUME 92.9 fl (80-96); MEAN PLT VOLUME 7.9 fl (7.5-11.1); PLATELET COUNT 210 K/MM3 (134-434); RBC 2.95 M/mm3 (4.00-5.60); RDW 18.8 % (11.9-15.9); WHITE BLOOD COUNT 13.7 K/mm3 (4.0-10.0)
[2018-12-21 06:42] LABS: ALBUMIN 3.3 g/dl (3.4-5.0); BLOOD UREA NITROGEN 47.8 mg/dL (7-18); CREATININE 1.8 mg/dL (0.55-1.3); MAGNESIUM 2.3 mg/dL (1.8-2.4); PHOSPHOROUS 4.3 mg/dL (2.5-4.9); POTASSIUM 3.9 mmol/L (3.5-5.1); TOT PROT 6.1 g/dl (6.4-8.2)
[2018-12-21 07:02] LABS: CALCIUM 6.6 mg/dL (8.5-10.1)
--- NOTE | 2018-12-21 07:56 | PN ---
Physical Exam: SUBJECTIVE: Patient seen and examined at bedside- overnight patients MAPS were in the 50's-60's patient states that he feels his breathing is getting worse and he is feeling more lethargic today though denies any pain- denies any CP/N/ V fevers or chills. patient is on vasopressin 6, levophed 20 and dobutamine 2.5 with soft MAPS OBJECTIVE: Vital Signs Period Temp Pulse Resp BP Sys/Ibarra Pulse Ox Last 24 Hr 97.8 F-98.6 F 93-118 17-27 60-96/30-65 100-100 GENERAL: The patient is awake, alert, weak on nasal canula in slight respiratory distress EYES: PEERLA: EOMI no scleral icterus . NECK: + JVD LUNGS: diffuse crackles appreciated B/L at the bases with diminished breath sounds HEART: Regular rate and rhythm, S1, S2 without murmur, rub or gallop. ABDOMEN: Soft, nontender; nondistended +BS in all 4 quadrants. EXTREMITIES: 2+ pulses, warm, well-perfused, 2+ pitting edema B/L. PSYCH: Normal mood, normal affect. SKIN: bruising at chemoport site Laboratory Results - last 24 hr 12/20/18 12/20/18 12/20/18 06:00 06:00 08:15 WBC RBC Hgb Hct MCV MCH MCHC RDW Plt Count MPV PT with INR INR Sodium Potassium Chloride Carbon Dioxide Anion Gap BUN Creatinine Est GFR (CKD-EPI)AfAm Est GFR (CKD-EPI)NonAf Random Glucose Serum Osmolality Calcium Phosphorus Magnesium Total Bilirubin AST ALT Alkaline Phosphatase Creatine Kinase Creatine Kinase Index CK-MB (CK-2) Troponin I Total Protein Albumin Urine Color Yellow Urine Appearance Clear Urine pH 5.0 Ur Specific [place] 1.007 L Urine Protein 1+ H Urine Glucose (UA) Negative Urine Ketones Negative Urine Blood Negative Urine Nitrite Negative Urine Bilirubin Negative Urine Urobilinogen 0.2 Ur Leukocyte Esterase Negative Urine WBC (Auto) 1.0 Urine RBC (Auto) 2 Urine Casts (Auto) 10.15 U Pathogenic Cast Auto No Result Required. U Epithel Cells (Auto) 0.5 U Sm Round Cell (Auto) Urine Bacteria (Auto) 2.0 Urine Osmolality Ur Random Creatinine 27.0 L Ur Random Sodium 22 L Ur Random Potassium 19.3 L Ur Random Chloride 28 L Ur Random Urea Nitrogn 285 L Blood Type B POSITIVE Antibody Screen Negative 12/20/18 12/20/18 12/20/18 08:15 10:25 16:00 WBC RBC Hgb Hct MCV MCH MCHC RDW Plt Count MPV PT with INR 43.30 H INR 3.62 H Sodium 124 L 124 L Potassium 3.4 L 3.5 Chloride 91 L 91 L Carbon Dioxide 18 L 17 L Anion Gap 16 16 BUN 56.3 H 50.2 H Creatinine 2.1 H 1.8 H Est GFR (CKD-EPI)AfAm 32.29 38.91 Est GFR (CKD-EPI)NonAf 27.86 33.57 Random Glucose 131 H 225 H Serum Osmolality 271 L Calcium 6.7 L* 6.5 L* Phosphorus Magnesium Total Bilirubin 1.5 H AST 56 H ALT 22 Alkaline Phosphatase 117 Creatine Kinase 334 H Creatine Kinase Index 3.5 CK-MB (CK-2) 12.0 H Troponin I 4.93 H* Total Protein 6.1 L Albumin 3.4 Urine Color Urine Appearance Urine pH Ur Specific [place] Urine Protein Urine Glucose (UA) Urine Ketones Urine Blood Urine Nitrite Urine Bilirubin Urine Urobilinogen Ur Leukocyte Esterase Urine WBC (Auto) Urine RBC (Auto) Urine Casts (Auto) U Pathogenic Cast Auto U Epithel Cells (Auto) U Sm Round Cell (Auto) Urine Bacteria (Auto) Urine Osmolality Ur Random Creatinine Ur Random Sodium Ur Random Potassium Ur Random Chloride Ur Random Urea Nitrogn Blood Type Antibody Screen 12/20/18 12/20/18 12/20/18 16:30 16:51 21:00 WBC RBC Hgb Hct MCV MCH MCHC RDW Plt Count MPV PT with INR INR Sodium Potassium Chloride Carbon Dioxide Anion Gap BUN Creatinine Est GFR (CKD-EPI)AfAm Est GFR (CKD-EPI)NonAf Random Glucose Serum Osmolality Calcium Phosphorus Magnesium Total Bilirubin AST ALT Alkaline Phosphatase Creatine Kinase 262 261 Creatine Kinase Index 3.7 3.4 CK-MB (CK-2) 9.8 H 9.0 H Troponin I 3.93 H* 3.97 H* Total Protein Albumin Urine Color Urine Appearance Urine pH Ur Specific [place] Urine Protein Urine Glucose (UA) Urine Ketones Urine Blood Urine Nitrite Urine Bilirubin Urine Urobilinogen Ur Leukocyte Esterase Urine WBC (Auto) Urine RBC (Auto) Urine Casts (Auto) U Pathogenic Cast Auto U Epithel Cells (Auto) U Sm Round Cell (Auto) Urine Bacteria (Auto) Urine Osmolality 319 Ur Random Creatinine Ur Random Sodium Ur Random Potassium Ur Random Chloride Ur Random Urea Nitrogn Blood Type Antibody Screen 12/21/18 12/21/18 05:45 05:45 WBC 13.7 H RBC 2.95 L Hgb 9.5 L Hct 27.4 L MCV 92.9 MCH 32.3 MCHC 34.7 RDW 18.8 H Plt Count 210 MPV 7.9 PT with INR INR Sodium 122 L Potassium 3.9 Chloride 90 L Carbon Dioxide 16 L Anion Gap 17 H BUN 47.8 H Creatinine 1.8 H Est GFR (CKD-EPI)AfAm 38.91 Est GFR (CKD-EPI)NonAf 33.57 Random Glucose 253 H Serum Osmolality Calcium 6.6 L* Phosphorus 4.3 Magnesium 2.3 Total Bilirubin 1.0 AST 47 H ALT 25 Alkaline Phosphatase 105 Creatine Kinase 250 Creatine Kinase Index CK-MB (CK-2) Troponin I 4.24 H* Total Protein 6.1 L Albumin 3.3 L Urine Color Urine Appearance Urine pH Ur Specific [place] Urine Protein Urine Glucose (UA) Urine Ketones Urine Blood Urine Nitrite Urine Bilirubin Urine Urobilinogen Ur Leukocyte Esterase Urine WBC (Auto) Urine RBC (Auto) Urine Casts (Auto) U Pathogenic Cast Auto U Epithel Cells (Auto) U Sm Round Cell (Auto) Urine Bacteria (Auto) Urine Osmolality Ur Random Creatinine Ur Random Sodium Ur Random Potassium Ur Random Chloride Ur Random Urea Nitrogn Blood Type Antibody Screen Active Medications Generic Name Dose Route Start Last Admin Trade Name Freq PRN Reason Stop Dose Admin Acetaminophen 650 mg 12/19/18 21:41 12/21/18 05:13 Tylenol - PO 650 mg Q6H PRN Administration FEVER Atorvastatin Calcium 10 mg 12/19/18 22:00 12/20/18 22:08 Lipitor - PO 10 mg HS JUDSON Administration Calcium Gluconate 1,000 mg 12/21/18 07:10 Calcium Gluconate 10% - IVPUSH 12/21/18 07:11 ONCE ONE Furosemide 60 mg 12/20/18 14:00 12/21/18 05:31 Lasix Injection - IVPUSH 60 mg BID@0600,1400 JUDSON Administration Norepinephrine Bitartrate 8, 500 mls @ 18.75 mls/hr 12/20/18 07:13 12/20/18 23:31 000 mcg/ Dextrose IV 20 mcg/min TITR JUDSON 75 mls/hr Administration Protocol 5 MCG/MIN Dobutamine HCl 250,000 mcg/ 250 mls @ 20.13 mls/hr 12/20/18 08:45 12/20/18 10 :30 Sodium Chloride IV 2.5 mcg/kg/min TITR JUDSON 10.06 mls/hr Titration Protocol 5 MCG/KG/MIN Vasopressin 50 units/ Sodium 100 mls @ 4 mls/hr 12/20/18 10:45 12/20/18 21:32 Chloride IVPB 6 units/hr ASDIR JUDSON 12 mls/hr Administration Protocol 2 UNITS/HR Cefepime HCl 1 gm/ Dextrose 50 mls @ 100 mls/hr 12/20/18 14:00 12/20/18 22:09 IVPB 100 mls/hr BID JUDSON Administration Protocol Non-Formulary Medication 4 tab 12/20/18 10:00 Abiraterone Acetate [Abiraterone Acetate] PO DAILY JU[facility]ON Pantoprazole Sodium 40 mg 12/20/18 10:00 12/20/18 09:55 Protonix - PO 40 mg DAILY JUDSON Administration Prednisone 5 mg 12/19/18 22:00 12/20/18 22:09 Deltasone - PO 5 mg BID JUDSON Administration ASSESSMENT/PLAN: 83M w/ a history of 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 and bone (last chemo session was mar 2018) CHF, HTN, HLD, previous subdural hematoma s/p craniotomy, history of DVT on Coumadin presented to the ED with a 1 day history of worsening dyspnea, with worsening fluid overload and an episode of vomiting #Neuro stable; no issues #Cardiovascular CHF exacerbation, hypotension, elevated troponin patient started on levophed/dobutamine/vasporession with MAPS remaining in the 60's -increased dobutamine and patient went into rapid afib with RVR- required 4 shocks, amio loading dose and amiodarone drip with no effect- gave digozin -lasix 60 BID -trend cardiac enzymes; 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 -holding home antihypertensives -echo done which shows an EF of 25% with severe global hypokinesis of the LV and mild pulmonary hypertension -monitor I's and O's (output last night was 600ml) -holding coumadin in light of supratheraputic INR #Heme/Onc patient had a Hgb of 7.2 when he arrived in the ED and received 1 unit of PRBCS -FOBT was negative -repeat Hgb this AM was 9.5 -will monitor for signs of bleeding -patient has history of prostate ca with mets to bone/lung; was supposed to start chemotherapy yesterday however on hold in light of current medical condition -palliative care consulted with family discussion in process regarding goals of care #ID patient now has a WBC count of 13.7 (up from 6.7 on arrival) -patient started on cefepime yesterday -ID on board #Pulmonary patient has been having worsening dyspnea likely 2/2 fluid overload -currently on BIPAP with saturations in the low 80's; getting stat ABG to assess need for intubation -repeat CXR this AM shows increased pleural and pulmonary congestive changes -daily CXR's #Renal patient came in with a Cr of 2.6 (baseline .08-1) and was hyponatremic to 117 ( likely 2/2 hypervolemic hyponatremia) possibly 2/2 cardiorenal syndrome -This AM serum sodium 122; BUN 47.8 Cr 1.8 -renal/bladder U/S done showing no evidence of hydronephrosis with normal kidneys (however postvoid images could not be obtained) -urine Na 22; urine osm 319; urine na 22; urine cr 27; urine urea 285; FeUrea calculated 39% showing an intrinsic process taking place -nephrology on board -monitor lytes; replete accordingly (repeat BMP BID) F/E/N not on fluids monitor electrolytes sodium controlled diet DVT PPX: scds GI: protonix 40 daily goals of care discussion in process : palliative care consulted Problem List - Problems (1) Acute kidney injury Code(s): N17.9 - ACUTE KIDNEY FAILURE, UNSPECIFIED (2) CHF exacerbation Code(s): I50.9 - HEART FAILURE, UNSPECIFIED Qualifiers: Heart failure type: combined systolic and diastolic Qualified Code(s): I50.43 - Acute on chronic combined systolic (congestive) and diastolic ( congestive) heart failure (3) Hyperlipidemia Code(s): E78.5 - HYPERLIPIDEMIA, UNSPECIFIED Qualifiers: Hyperlipidemia type: pure hypercholesterolemia Qualified Code(s): E78.00 - Pure hypercholesterolemia, unspecified; E78.0 - Pure hypercholesterolemia (4) Prostate cancer Code(s): C61 - MALIGNANT NEOPLASM OF PROSTATE (5) Supratherapeutic INR Code(s): R79.1 - ABNORMAL COAGULATION PROFILE Visit type - Emergency Visit Emergency Visit: Yes ED Registration Date: 12/19/18 Care time: The patient presented to the Emergency Department on the above date and was hospitalized for further evaluation of their emergent condition. - New Patient This patient is new to me today: No - Critical Care Critical Care patient: Yes Total Critical Care Time (in minutes): 35 Critical Care Statement: The care of this patient involved high complexity decision making to prevent further life threatening deterioration of the patient 's condition and/or to evaluate & treat vital organ system(s) failure or risk of failure.
[2018-12-21] MEDS: CALCIUM GLUCONATE 10% - 1,000 MG/10 ML VIAL IVPB ONE ×2 (08:09→09:20)
[2018-12-21] MEDS: NOREPINEPHRINE BITARTRATE 8,000 MCG in DEXTROSE 5%-WATER - 492 ML IV SCH (08:11)
[2018-12-21] MEDS: DOBUTAMINE HCL 250,000 MCG in SODIUM CHLORIDE 230 ML IV SCH (09:37)
[2018-12-21] MEDS ORDERED: AMIODARONE HCL 150 MG/3 ML VIAL IVPUSH ONE (09:54)
--- NOTE | 2018-12-21 09:57 | PN ---
Progress Note, Physician History of Present Illness: Dyspneic on bipap, now in rapid afib and hypotensive, dobutamine gtt decreased, given amio for rate-control. - Current Medication List Current Medications: Active Medications Acetaminophen (Tylenol -) 650 mg PO Q6H PRN PRN Reason: FEVER Last Admin: 12/21/18 05:13 Dose: 650 mg Amiodarone HCl (Cordarone Injection -) 150 mg IVPUSH ONCE ONE Stop: 12/21/18 09:55 Atorvastatin Calcium (Lipitor -) 10 mg PO HS JUDSON Last Admin: 12/20/18 22:08 Dose: 10 mg Furosemide (Lasix Injection -) 60 mg IVPUSH BID@0600,1400 JUDSON Last Admin: 12/21/18 05:31 Dose: 60 mg Norepinephrine Bitartrate 8, (000 mcg/ Dextrose) 500 mls @ 18.75 mls/hr IV TITR JUDSON; Protocol Last Titration: 12/21/18 09:38 Dose: 10 mcg/min, 37.5 mls/hr Dobutamine HCl 250,000 mcg/ (Sodium Chloride) 250 mls @ 20.13 mls/hr IV TITR JUDSON; Protocol Last Admin: 12/21/18 09:37 Dose: 5 mcg/kg/min, 20.13 mls/hr Vasopressin 50 units/ Sodium (Chloride) 100 mls @ 4 mls/hr IVPB ASDIR JUDSON; Protocol Last Admin: 12/20/18 21:32 Dose: 6 units/hr, 12 mls/hr Cefepime HCl 1 gm/ Dextrose 50 mls @ 100 mls/hr IVPB BID JUDSON; Protocol Last Admin: 12/20/18 22:09 Dose: 100 mls/hr Non-Formulary Medication (Abiraterone Acetate [Abiraterone Acetate]) 4 tab PO DAILY [facility] Pantoprazole Sodium (Protonix -) 40 mg PO DAILY JUDSON Last Admin: 12/20/18 09:55 Dose: 40 mg Prednisone (Deltasone -) 5 mg PO BID JUDSON Last Admin: 12/20/18 22:09 Dose: 5 mg - Objective Vital Signs: Vital Signs Temperature 98.6 F 12/21/18 05:00 Pulse Rate 107 H 12/21/18 09:38 Respiratory Rate 20 12/21/18 05:40 Blood Pressure 87/65 L 12/21/18 09:38 O2 Sat by Pulse Oximetry (%) 100 12/20/18 20:36 Constitutional: Yes: Anxious, Mild Distress, Thin Cardiovascular: Yes: Tachycardia, Pulse Irregular Respiratory: Yes: Regular, Diminished, On BiPap Gastrointestinal: Yes: Soft, Hypoactive Bowel Sounds Edema: No Labs: CBC, BMP 12/21/18 05:45 12/21/18 05:45 INR, PTT INR 3.62 (0.83-1.09) H 12/20/18 10:25 - ....Imaging Chest X-ray: Report Reviewed (CHF) Ultrasound: Report Reviewed (12/20/18 Renal US: Bilateral effusions and ascites , no hydro) EKG: Report Reviewed (Rapid afib @ 133) Problem List - Problems (1) Acute kidney injury Code(s): N17.9 - ACUTE KIDNEY FAILURE, UNSPECIFIED (2) Anemia Code(s): D64.9 - ANEMIA, UNSPECIFIED Qualifiers: Anemia type: unspecified type Qualified Code(s): D64.9 - Anemia, unspecified (3) CHF exacerbation Code(s): I50.9 - HEART FAILURE, UNSPECIFIED Qualifiers: Heart failure type: combined systolic and diastolic Qualified Code(s): I50.43 - Acute on chronic combined systolic (congestive) and diastolic ( congestive) heart failure (4) Hyponatremia Code(s): E87.1 - HYPO-OSMOLALITY AND HYPONATREMIA (5) Hyperlipidemia Code(s): E78.5 - HYPERLIPIDEMIA, UNSPECIFIED Qualifiers: Hyperlipidemia type: pure hypercholesterolemia Qualified Code(s): E78.00 - Pure hypercholesterolemia, unspecified; E78.0 - Pure hypercholesterolemia (6) Prostate cancer metastatic to bone Code(s): C61 - MALIGNANT NEOPLASM OF PROSTATE; C79.51 - SECONDARY MALIGNANT NEOPLASM OF BONE (7) Subendocardial ischemia Code(s): I24.8 - OTHER FORMS OF ACUTE ISCHEMIC HEART DISEASE (8) Supratherapeutic INR Code(s): R79.1 - ABNORMAL COAGULATION PROFILE (9) Atrial fibrillation with rapid ventricular response Code(s): I48.91 - UNSPECIFIED ATRIAL FIBRILLATION Assessment/Plan 12/20/2018 Echo: Severely decreased LVEF 25%, normal RV size and fxn, tr MR, TR RVSP 41 mmHg 1. Acute on chronic class III-IV NYHA classification LV systolic failure, hypotension cardiogenic- to exclude sepsis related hypotension 2. CAD with evidence of demand ischemia 3. Paroxysmal afib with RVR 4. Acute on chronic renal insufficiency improving with 5. Hyponatremia 6. Metastatic prostate carcinoma 7. 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 Anemia PLAN: 1. Continue pressors and down titrate as tolerated maintaining MAP > 65 mmHg 2. Decrease Dobutamine and use amiodarone for rate-control, consider cardioversion if hemodynamics remain altered 3. Lasix 60 IV bid with monitor diuretic response, renal fxn and electrolytes 4. Eventually hemodynamics permitting recommend the addition of B-Blockers/ Coreg +/- ACEI or ARBS- provided renal function at baseline 5. Follow Na level closely 6. Empiric abx course per C&S
[2018-12-21] MEDS ORDERED: morphine SULFATE 4 MG/ML VIAL IVPUSH ONE (10:30)
[2018-12-21] MEDS ORDERED: MIDAZOLAM HCL 5 MG/1 ML Single Dose Vial IVPUSH ONE (10:30)
[2018-12-21] MEDS ORDERED: morphine SULFATE 4 MG/ML VIAL ONE (10:31)
[2018-12-21] MEDS ORDERED: DEXTROSE 5%-WATER - 50 ML IVPB ONE ×2 (10:43→20:40)
[2018-12-21] MEDS ORDERED: AMIODARONE IN DEXTROSE,ISO-OSM 360 MG/200 ML BAG ONE (10:43)
[2018-12-21] MEDS ORDERED: CEFEPIME HCL 1 GM VIAL (RESTRICTED TO ID) ONE ×2 (10:43→20:40)
[2018-12-21] MEDS ORDERED: DIGOXIN 0.5 MG/2 ML AMPUL IVPUSH ONE (10:54)
[2018-12-21] MEDS ORDERED: INSULIN (LEVEMIR) 100 UNITS/ML UNITS SQ ONE (10:58)
--- NOTE | 2018-12-21 11:06 | PN ---
Progress Note, Physician History of Present Illness: Pt seen and examined at bedside. He remains in the ICU. He went into rapid a- fib earlier today. He complains of shortness of breath. He is on bipap. - Current Medication List Current Medications: Active Medications Acetaminophen (Tylenol -) 650 mg PO Q6H PRN PRN Reason: FEVER Last Admin: 12/21/18 05:13 Dose: 650 mg Atorvastatin Calcium (Lipitor -) 10 mg PO HS JUDSON Last Admin: 12/20/18 22:08 Dose: 10 mg Digoxin (Lanoxin Injection -) 0.5 mg IVPUSH ONCE ONE Stop: 12/21/18 10:55 Furosemide (Lasix Injection -) 60 mg IVPUSH BID@0600,1400 JUDSON Last Admin: 12/21/18 05:31 Dose: 60 mg Norepinephrine Bitartrate 8, (000 mcg/ Dextrose) 500 mls @ 18.75 mls/hr IV TITR JUDSON; Protocol Last Titration: 12/21/18 09:38 Dose: 10 mcg/min, 37.5 mls/hr Dobutamine HCl 250,000 mcg/ (Sodium Chloride) 250 mls @ 20.13 mls/hr IV TITR JUDSON; Protocol Last Admin: 12/21/18 09:37 Dose: 5 mcg/kg/min, 20.13 mls/hr Vasopressin 50 units/ Sodium (Chloride) 100 mls @ 4 mls/hr IVPB ASDIR JUDSON; Protocol Last Admin: 12/20/18 21:32 Dose: 6 units/hr, 12 mls/hr Cefepime HCl 1 gm/ Dextrose 50 mls @ 100 mls/hr IVPB BID JUDSON; Protocol Last Admin: 12/20/18 22:09 Dose: 100 mls/hr Non-Formulary Medication (Abiraterone Acetate [Abiraterone Acetate]) 4 tab PO DAILY [facility] Pantoprazole Sodium (Protonix -) 40 mg PO DAILY JUDSON Last Admin: 12/20/18 09:55 Dose: 40 mg Prednisone (Deltasone -) 5 mg PO BID JUDSON Last Admin: 12/20/18 22:09 Dose: 5 mg - Objective Vital Signs: Vital Signs Temperature 98.6 F 12/21/18 05:00 Pulse Rate 107 H 12/21/18 09:38 Respiratory Rate 20 12/21/18 05:40 Blood Pressure 87/65 L 12/21/18 09:38 O2 Sat by Pulse Oximetry (%) 100 12/20/18 20:36 Constitutional: Yes: Calm Eyes: Yes: Conjunctiva Clear HENT: Yes: Atraumatic Neck: Yes: Supple Cardiovascular: Yes: S1, S2 Respiratory: Yes: On BiPap Gastrointestinal: Yes: Soft Genitourinary: Yes: WNL Edema: Yes Edema: LLE: 1+, RLE: 1+ Neurological: Yes: Oriented Psychiatric: Yes: Oriented Labs: CBC, BMP 12/21/18 05:45 12/21/18 05:45 INR, PTT INR 3.62 (0.83-1.09) H 12/20/18 10:25 - ....Imaging Chest X-ray: Report Reviewed Problem List - Problems (1) Hyponatremia Code(s): E87.1 - HYPO-OSMOLALITY AND HYPONATREMIA (2) Acute kidney injury Code(s): N17.9 - ACUTE KIDNEY FAILURE, UNSPECIFIED (3) Anemia Code(s): D64.9 - ANEMIA, UNSPECIFIED Qualifiers: Anemia type: unspecified type Qualified Code(s): D64.9 - Anemia, unspecified (4) CHF exacerbation Code(s): I50.9 - HEART FAILURE, UNSPECIFIED Qualifiers: Heart failure type: combined systolic and diastolic Qualified Code(s): I50.43 - Acute on chronic combined systolic (congestive) and diastolic ( congestive) heart failure (5) NSTEMI (non-ST elevated myocardial infarction) Code(s): I21.4 - NON-ST ELEVATION (NSTEMI) MYOCARDIAL INFARCTION (6) Prostate cancer Code(s): C61 - MALIGNANT NEOPLASM OF PROSTATE (7) Shortness of breath Code(s): R06.02 - SHORTNESS OF BREATH Assessment/Plan Current Medications Generic Name Dose Route Start Last Admin Trade Name Freq PRN Reason Stop Dose Admin Acetaminophen 650 mg 12/19/18 21:41 12/21/18 05:13 Tylenol - PO 650 mg Q6H PRN Administration FEVER Atorvastatin Calcium 10 mg 12/19/18 22:00 12/20/18 22:08 Lipitor - PO 10 mg HS JDUSON Administration Digoxin 0.5 mg 12/21/18 10:54 12/21/18 11:00 Lanoxin Injection - IVPUSH 12/21/18 10:55 0.5 mg ONCE ONE Administration Furosemide 60 mg 12/20/18 14:00 12/21/18 05:31 Lasix Injection - IVPUSH 60 mg BID@0600,1400 JUDSON Administration Norepinephrine Bitartrate 8, 500 mls @ 18.75 mls/hr 12/20/18 07:13 12/21/18 09:38 000 mcg/ Dextrose IV 10 mcg/min TITR JUDSON 37.5 mls/hr Titration Protocol 5 MCG/MIN Dobutamine HCl 250,000 mcg/ 250 mls @ 20.13 mls/hr 12/20/18 08:45 12/21/18 09 :37 Sodium Chloride IV 5 mcg/kg/min TITR JUDSON 20.13 mls/hr Administration Protocol 5 MCG/KG/MIN Vasopressin 50 units/ Sodium 100 mls @ 4 mls/hr 12/20/18 10:45 12/20/18 21:32 Chloride IVPB 6 units/hr ASDIR JUDSON 12 mls/hr Administration Protocol 2 UNITS/HR Cefepime HCl 1 gm/ Dextrose 50 mls @ 100 mls/hr 12/20/18 14:00 12/20/18 22:09 IVPB 100 mls/hr BID JUDSON Administration Protocol Non-Formulary Medication 4 tab 12/20/18 10:00 Abiraterone Acetate [Abiraterone Acetate] PO DAILY [facility] Pantoprazole Sodium 40 mg 12/20/18 10:00 12/20/18 09:55 Protonix - PO 40 mg DAILY JUDSON Administration Prednisone 5 mg 12/19/18 22:00 12/20/18 22:09 Deltasone - PO 5 mg BID JUDSON Administration Impression 1. hyponatremia 2. yinka 3. chf 4. positive troponins 5. hypocalcemia 6. prostate cancer with mets 7. hypotension 8. lactic acidosis improved 9. shock on pressors 10. a-fib 11. resp failure requiring bipap Plan - renal function slowly improving - cont with lasix with close monitoring of sodium - pt remains very hypotensive, pressors being adjusted - change drips from d5w to saline - renal ultrasound reviewed - family will meet today to discuss GOC - discussed with cardiology - keep in ICU - prognosis guarded - check cortisol and tsh
[2018-12-21] MEDS: VASOPRESSIN 50 UNITS in SODIUM CHLORIDE 97.5 ML IVPB SCH (11:11)
[2018-12-21] MEDS: CEFEPIME 1 GM in DEXTROSE 5%-WATER - 50 ML IVPB SCH ×2 (11:12→21:04)
[2018-12-21] MEDS ORDERED: AMIODARONE IN DEXTROSE,ISO-OSM 360 MG/200 ML BAG IVPB SCH ×3 (11:15→17:00)
[2018-12-21] MEDS ORDERED: FUROSEMIDE 40 MG/4 ML INJECTABLE VIAL IVPUSH ONE (11:29)
[2018-12-21] MEDS ORDERED: FUROSEMIDE INJECTION 100 MG in DEXTROSE 5%-WATER - 90 ML IVPB SCH (11:30)
[2018-12-21 11:37] LABS: ARTERIAL BLOOD GAS BASE EXCESS -9.1 meq/l (-2-2); ARTERIAL BLOOD GAS PCO2 25.1 mmHg (35-45); ARTERIAL BLOOD GAS PO2 215 mmHg (80-105); ARTERIAL BLOOD GAS pH 7.38 (7.35-7.45)
--- NOTE | 2018-12-21 11:44 | PN ---
Teaching Attending Note Name of Resident: Alisa Xie ATTENDING PHYSICIAN STATEMENT I saw and evaluated the patient. I reviewed the resident's note and discussed the case with the resident. I agree with the resident's findings and plan as documented. SUBJECTIVE: Pt seen and examined in the ICU. Placed on BiPAP overnight for worsening shortness of breath. Went into rapid atrial fibrillation this AM with worsening hemodynamics. Attempted DCCV x 4 with 200J synced without conversion. Now on levophed, vasopressin, dobutamine and amiodarone gtts. OBJECTIVE: Vital Signs Period Temp Pulse Resp BP Sys/Ibarra Pulse Ox Last 24 Hr 97.8 F-98.6 F 99-120 17-27 60-96/30-65 100-100 Intake & Output 12/18/18 12/19/18 12/20/18 12/21/18 23:59 23:59 23:59 23:59 Intake Total 1799.6 1464 Output Total 2710 750 Balance -910.4 714 Weight 58.967 kg 67.132 kg 64.637 kg Gen: tachypneic on BiPAP Heart: tachycardic, irregular Lung: scattered rhonchi Abd: soft, nontender Ext: no edema CBC, BMP 12/21/18 05:45 12/21/18 05:45 CXR: increasing congestion Active Medications Acetaminophen (Tylenol -) 650 mg PO Q6H PRN PRN Reason: FEVER Last Admin: 12/21/18 05:13 Dose: 650 mg Atorvastatin Calcium (Lipitor -) 10 mg PO HS JUDSON Last Admin: 12/20/18 22:08 Dose: 10 mg Dobutamine HCl 250,000 mcg/ (Sodium Chloride) 250 mls @ 20.13 mls/hr IV TITR JU[facility]ON; Protocol Last Admin: 12/21/18 09:37 Dose: 5 mcg/kg/min, 20.13 mls/hr Vasopressin 50 units/ Sodium (Chloride) 100 mls @ 4 mls/hr IVPB ASDIR JUDSON; Protocol Last Admin: 12/21/18 11:11 Dose: 6 units/hr, 12 mls/hr Cefepime HCl 1 gm/ Dextrose 50 mls @ 100 mls/hr IVPB BID JU[facility]ON; Protocol Last Admin: 12/21/18 11:12 Dose: 100 mls/hr Amiodarone HCl/Dextrose (Nexterone 360 Mg/200 Ml Bag) 360 mg in 200 mls @ 16.667 mls/hr IVPB ASDIR JUDSON; Protocol Norepinephrine Bitartrate 8, 000 mcg/ Dextrose/Sodium Chloride 500 mls @ 18.75 mls/hr IV TITR JU[facility]ON; Protocol Furosemide 100 mg/ Dextrose 100 mls @ 5 mls/hr IVPB TITR JUDSON; Protocol Non-Formulary Medication (Abiraterone Acetate [Abiraterone Acetate]) 4 tab PO DAILY JU[facility] Pantoprazole Sodium (Protonix -) 40 mg PO DAILY [facility] Last Admin: 12/20/18 09:55 Dose: 40 mg Prednisone (Deltasone -) 5 mg PO BID JU[facility]ON Last Admin: 12/20/18 22:09 Dose: 5 mg ASSESSMENT AND PLAN: Acute on Chronic Systolic/Diastolic Heart Failure Shock - Likely Cardiogenic Acute Kidney Injury +Troponins likely Demand Ischemia Lactic Acidosis Hyponatremia likely Hypervolemic h/o DVT Metastatic Prostate Ca Anemia - continue lasix - monitor urine output, creatinine - daily weights - titrate pressors, inotropes to maintain MAP >65 - continue amiodarone gtt - start digoxin - trend cardiac enzymes - continue anticoagulation - O2 to keep Spo2 >90% - check ABG - may need intubation - BiPAP to assist in work of breathing - monitor lytes - on empiric antibiotics, f/u cultures - prognosis guarded, continue discussions regarding goals of care - continue ICU monitoring critical care time spent in reviewing chart, evaluating patient and formulating plan 75 min
[2018-12-21 11:48] LABS: ALLENS TEST POSITIVE
[2018-12-21] MEDS ORDERED: VASOPRESSIN 20 UNITS/ML VIAL IV ONE (11:56)
[2018-12-21] MEDS: PANTOPRAZOLE SODIUM 40 MG VIAL IVPUSH SCH (12:39)
[2018-12-21 13:52] LABS: PROTHROMBIN TIME (PATIENT) 180.8 SEC (9.7-13.0)
[2018-12-21 13:54] LABS: INR 14.91 (0.83-1.09)
--- NOTE | 2018-12-21 14:20 | PN ---
Progress Note, Physician History of Present Illness: patient in the icu events noted now on bipap went into rapid afib had to be shocked mental status ok - Current Medication List Current Medications: Active Medications Acetaminophen (Tylenol -) 650 mg PO Q6H PRN PRN Reason: FEVER Last Admin: 12/21/18 05:13 Dose: 650 mg Atorvastatin Calcium (Lipitor -) 10 mg PO HS JUDSON Last Admin: 12/20/18 22:08 Dose: 10 mg Dobutamine HCl 250,000 mcg/ (Sodium Chloride) 250 mls @ 20.13 mls/hr IV TITR [facility]; Protocol Last Admin: 12/21/18 09:37 Dose: 5 mcg/kg/min, 20.13 mls/hr Vasopressin 50 units/ Sodium (Chloride) 100 mls @ 4 mls/hr IVPB ASDIR [facility]; Protocol Last Admin: 12/21/18 11:11 Dose: 6 units/hr, 12 mls/hr Cefepime HCl 1 gm/ Dextrose 50 mls @ 100 mls/hr IVPB BID [facility]; Protocol Last Admin: 12/21/18 11:12 Dose: 100 mls/hr Norepinephrine Bitartrate 8, 000 mcg/ Dextrose/Sodium Chloride 500 mls @ 18.75 mls/hr IV TITR [facility]; Protocol Furosemide 100 mg/ Dextrose 100 mls @ 5 mls/hr IVPB TITR [facility]; Protocol Amiodarone HCl/Dextrose (Nexterone 360 Mg/200 Ml Bag) 360 mg in 200 mls @ 33.333 mls/hr IVPB ASDIR [facility]; Protocol Last Admin: 12/21/18 11:00 Dose: 33.333 mls/hr Non-Formulary Medication (Abiraterone Acetate [Abiraterone Acetate]) 4 tab PO DAILY [facility] Pantoprazole Sodium (Protonix Iv) 40 mg IVPUSH DAILY J[facility] Last Admin: 12/21/18 12:39 Dose: 40 mg Prednisone (Deltasone -) 5 mg PO BID [facility] Last Admin: 12/20/18 22:09 Dose: 5 mg - Objective Vital Signs: Vital Signs Temperature 98.4 F 12/21/18 08:00 Pulse Rate 97 H 12/21/18 13:00 Respiratory Rate 17 12/21/18 13:00 Blood Pressure 97/70 12/21/18 13:00 O2 Sat by Pulse Oximetry (%) 98 12/21/18 12:41 Constitutional: Yes: Calm, Mild Distress, Thin Neck: Yes: Supple Cardiovascular: Yes: Tachycardia, S1, S2 Respiratory: Yes: On BiPap Gastrointestinal: Yes: Normal Bowel Sounds, Soft Musculoskeletal: Yes: WNL Extremities: Yes: WNL Neurological: Yes: Alert Psychiatric: Yes: Alert Labs: CBC, BMP 12/21/18 05:45 12/21/18 05:45 INR, PTT INR 14.91 (0.83-1.09) H* 12/21/18 11:40 Assessment/Plan Acute on Chronic Systolic/Diastolic Heart Failure Shock - Likely Cardiogenic Acute Kidney Injury +Troponins likely Demand Ischemia Lactic Acidosis Hyponatremia likely Hypervolemic h/o DVT Metastatic Prostate Ca Anemia plan continue as per icu continue empiric abx await for cx resp support nutrition rest as per the team cc 40 min
[2018-12-21] MEDS ORDERED: ONDANSETRON 4 MG/2 ML VIAL IVPUSH ONE (15:07)
[2018-12-21] MEDS ORDERED: ONDANSETRON 4 MG/2 ML VIAL ONE (15:10)
[2018-12-21] MEDS ORDERED: PT OWN MED DRAWER 7, Y5N ONE ×2 (15:46→20:40)
[2018-12-21 15:56] LABS: BLOOD UREA NITROGEN 46.5 mg/dL (7-18); CREATININE 1.8 mg/dL (0.55-1.3); POTASSIUM 4.1 mmol/L (3.5-5.1)
[2018-12-21 16:14] LABS: CALCIUM 6.8 mg/dL (8.5-10.1)
--- NOTE | 2018-12-21 16:40 | PROC ---
Central Line Insertion Indication: Vasopressor Risks and Benefits Explained: Yes Consent on Chart: Yes Central Line: Triple Lumen Catheter Anesthesia: 1% Lidocaine Sterile Technique: Yes Ultrasound Guided Assistance: Yes Position: Left Internal Jugular Post Insertion: Yes: Chest X-Ray Ordered Sterile Dressing Applied: Yes
[2018-12-21 20:29] LABS: INR > 15.00 (0.83-1.09)
--- NOTE | 2018-12-21 20:32 | PN ---
Progress Note, Physician History of Present Illness: stable - Current Medication List Current Medications: Active Medications Acetaminophen (Tylenol -) 650 mg PO Q6H PRN PRN Reason: FEVER Last Admin: 12/21/18 05:13 Dose: 650 mg Atorvastatin Calcium (Lipitor -) 10 mg PO HS JU[facility]ON Last Admin: 12/20/18 22:08 Dose: 10 mg Dobutamine HCl 250,000 mcg/ (Sodium Chloride) 250 mls @ 20.13 mls/hr IV TITR [facility]; Protocol Last Admin: 12/21/18 09:37 Dose: 5 mcg/kg/min, 20.13 mls/hr Vasopressin 50 units/ Sodium (Chloride) 100 mls @ 4 mls/hr IVPB ASDIR JUDSON; Protocol Last Admin: 12/21/18 11:11 Dose: 6 units/hr, 12 mls/hr Cefepime HCl 1 gm/ Dextrose 50 mls @ 100 mls/hr IVPB BID JU[facility]ON; Protocol Last Admin: 12/21/18 11:12 Dose: 100 mls/hr Norepinephrine Bitartrate 8, 000 mcg/ Dextrose/Sodium Chloride 500 mls @ 18.75 mls/hr IV TITR JU[facility]; Protocol Furosemide 100 mg/ Dextrose 100 mls @ 5 mls/hr IVPB TITR JU[facility]ON; Protocol Last Admin: 12/21/18 15:48 Dose: 5 mg/hr, 5 mls/hr Amiodarone HCl/Dextrose (Nexterone 360 Mg/200 Ml Bag) 360 mg in 200 mls @ 33.333 mls/hr IVPB ASDIR [facility]; Protocol Last Admin: 12/21/18 11:00 Dose: 33.333 mls/hr Amiodarone HCl/Dextrose (Nexterone 360 Mg/200 Ml Bag) 360 mg in 200 mls @ 16.667 mls/hr IVPB ASDIR [facility]; Protocol Non-Formulary Medication (Abiraterone Acetate [Abiraterone Acetate]) 4 tab PO DAILY [facility] Pantoprazole Sodium (Protonix Iv) 40 mg IVPUSH DAILY [facility] Last Admin: 12/21/18 12:39 Dose: 40 mg Prednisone (Deltasone -) 5 mg PO BID [facility] Last Admin: 12/20/18 22:09 Dose: 5 mg - Objective Vital Signs: Vital Signs Temperature 97 F L 12/21/18 20:00 Pulse Rate 89 12/21/18 20:00 Respiratory Rate 14 06/26/19 20:00 Blood Pressure 86/67 L 12/21/18 20:00 O2 Sat by Pulse Oximetry (%) 95 12/21/18 18:17 Constitutional: Yes: No Distress HENT: Yes: Atraumatic Neck: Yes: Supple Cardiovascular: Yes: Regular Rate and Rhythm Respiratory: Yes: CTA Bilaterally Gastrointestinal: Yes: Normal Bowel Sounds Extremities: Yes: WNL Neurological: Yes: Alert, Oriented Labs: CBC, BMP 12/21/18 05:45 12/21/18 14:45 INR, PTT INR > 15.00 (0.83-1.09) H* 12/21/18 17:35 Problem List - Problems (1) Acute kidney injury Assessment/Plan: iv hydration renal consult fu cr Code(s): N17.9 - ACUTE KIDNEY FAILURE, UNSPECIFIED (2) Anemia Code(s): D64.9 - ANEMIA, UNSPECIFIED Qualifiers: Anemia type: unspecified type Qualified Code(s): D64.9 - Anemia, unspecified (3) CHF exacerbation Code(s): I50.9 - HEART FAILURE, UNSPECIFIED Qualifiers: Heart failure type: combined systolic and diastolic Qualified Code(s): I50.43 - Acute on chronic combined systolic (congestive) and diastolic ( congestive) heart failure (4) NSTEMI (non-ST elevated myocardial infarction) Assessment/Plan: fu cardiac profile tele monitoring cardio consult Code(s): I21.4 - NON-ST ELEVATION (NSTEMI) MYOCARDIAL INFARCTION (5) Acute diastolic (congestive) heart failure Code(s): I50.31 - ACUTE DIASTOLIC (CONGESTIVE) HEART FAILURE (6) Acute electrocardiogram changes Code(s): R94.31 - ABNORMAL ELECTROCARDIOGRAM [ECG] [EKG] (7) Coronary artery disease with unstable angina pectoris Code(s): I25.110 - ATHSCL HEART DISEASE OF [place] COR ART W UNSTABLE ANG PCTRS Qualifiers: (8) Hyperlipidemia Code(s): E78.5 - HYPERLIPIDEMIA, UNSPECIFIED Qualifiers: Hyperlipidemia type: pure hypercholesterolemia Qualified Code(s): E78.00 - Pure hypercholesterolemia, unspecified; E78.0 - Pure hypercholesterolemia (9) Prostate cancer Code(s): C61 - MALIGNANT NEOPLASM OF PROSTATE (10) Prostate cancer metastatic to bone Code(s): C61 - MALIGNANT NEOPLASM OF PROSTATE; C79.51 - SECONDARY MALIGNANT NEOPLASM OF BONE (11) Subendocardial ischemia Code(s): I24.8 - OTHER FORMS OF ACUTE ISCHEMIC HEART DISEASE (12) Supratherapeutic INR Assessment/Plan: hold coumadin fu inr Code(s): R79.1 - ABNORMAL COAGULATION PROFILE Assessment/Plan Impression 1. hyponatremia 2. yinka 3. chf 4. positive troponins 5. hypocalcemia 6. prostate cancer with mets 7. hypotension 8. lactic acidosis improved 9. shock on pressors 10. a-fib 11. resp failure requiring bipap Plan continue current meds, on emperic abx cxs negative cc time 35 min
[2018-12-21] MEDS ORDERED: PHYTONADIONE 5 MG TABLET PO ONE (20:33)
[2018-12-21] MEDS: predniSONE 5 MG TABLET (UD) PO SCH ×2 (20:35→21:04)
[2018-12-21] MEDS: NOREPINEPHRINE BITARTRATE IV SCH (20:36)
[2018-12-21] MEDS: NORMAL SALINE IV SCH (20:36)
[2018-12-21] MEDS: DEXTROSE 5% IV SCH (20:36)
--- NOTE | 2018-12-21 20:36 | PN ---
Progress Note (short form) - Note Progress Note: Pt's repeat INR 16 as reported by lab. Given 2 individual tests with >10 and no signs of active bleeding will give Vitamin K 5mg PO once. Likely decompensated heart failure is contributing to steady increase of INR without any warfarin use in addition to his existing malignancy. Will continue to monitor bleeding especially at site of IJ. H/H continues to trend up daily after 1UPRBC given on initial presentation.
[2018-12-21] MEDS ORDERED: PHYTONADIONE 10 MG/1 ML AMP ONE (20:39)
[2018-12-21] MEDS: ATORVASTATIN CA 10 MG TABLET (FP) PO SCH (21:04)
[2018-12-22] MEDS: DEXTROSE 5% IV SCH (01:29)
[2018-12-22] MEDS: NOREPINEPHRINE BITARTRATE IV SCH (01:29)
[2018-12-22] MEDS: VASOPRESSIN 50 UNITS in SODIUM CHLORIDE 97.5 ML IVPB SCH ×3 (01:29→16:30)
[2018-12-22] MEDS: NORMAL SALINE IV SCH (01:29)
[2018-12-22 06:22] LABS: HEMATOCRIT 24.7 % (35.4-49); HEMOGLOBIN 8.8 GM/dL (11.7-16.9); MCH 32.6 pg (25.7-33.7); MCHC 35.6 g/dl (32.0-35.9); MEAN CELL VOLUME 91.4 fl (80-96); MEAN PLT VOLUME 8.1 fl (7.5-11.1); PLATELET COUNT 188 K/MM3 (134-434); RDW 18.2 % (11.9-15.9); WHITE BLOOD COUNT 9.7 K/mm3 (4.0-10.0)
[2018-12-22 06:30] LABS: CREATININE 1.7 mg/dL (0.55-1.3); MAGNESIUM 2.3 mg/dL (1.8-2.4); PHOSPHOROUS 3.8 mg/dL (2.5-4.9)
[2018-12-22 06:35] LABS: CALCIUM 6.5 mg/dL (8.5-10.1)
[2018-12-22 08:02] LABS: ALBUMIN 3.1 g/dl (3.4-5.0); BILIRUBIN,DIRECT 0.3 mg/dL (0.0-0.2); BILIRUBIN,TOTAL 0.6 mg/dL (0.2-1); TOT PROT 5.7 g/dl (6.4-8.2)
--- NOTE | 2018-12-22 08:23 | PN ---
Physical Exam: SUBJECTIVE: Patient seen and examined at bedside; overnight patient received a dose of vitamin K in light of supratheraputic INR- patient remains on BIPAP with good saturations and remains in sinus rhythm patient is on levophed 15; dobutamine 3; vasopressin 6- his only complaint is that the mask is uncomfortable OBJECTIVE: Vital Signs Period Temp Pulse Resp BP Sys/Ibarra Pulse Ox Last 24 Hr 97 F-97.2 F 57-140 12-30 74-97/54-79 95-100 GENERAL: The patient is awake, alert, weak, on BIPAP EYES: PEERLA; EOMI; no scleral icterus NECK: + JVD (however improving ) LUNGS:crackles appreciated at the B/L bases with slightly diminished breath sounds HEART: Regular rate and rhythm, S1, S2 without murmur, rub or gallop. ABDOMEN: Soft, nontender; nondistended +BS in all 4 quadrants EXTREMITIES: 2+ pulses, slightly warm , well-perfused, 1+ pitting edema B/L . PSYCH: Normal mood, normal affect. SKIN: Warm, dry, normal turgor, no rashes or lesions noted Laboratory Results - last 24 hr 12/21/18 12/21/18 12/21/18 11:23 11:40 14:45 WBC RBC Hgb Hct MCV MCH MCHC RDW Plt Count MPV PT with INR 180.80 H INR 14.91 H* Anticoagulation Therapy No Result Required. Puncture Site Right radial ABG pH 7.38 ABG pCO2 at Pt Temp 25.1 L ABG pO2 at Pt Temp 215 H ABG HCO3 14.5 L ABG O2 Sat (Measured) 100.0 H ABG O2 Content 12.8 L ABG Base Excess -9.1 L Eugene Test Positive O2 Delivery Device Bipap Oxygen Flow Rate 60% Vent Mode S/t Vent Rate 16 Mechanical Rate Bipap Pressure Support Vent Ipap 12/epap 5 Sodium 122 L Potassium 4.1 Chloride 90 L Carbon Dioxide 17 L Anion Gap 15 BUN 46.5 H Creatinine 1.8 H Est GFR (CKD-EPI)AfAm 38.91 Est GFR (CKD-EPI)NonAf 33.57 Random Glucose 311 H* Calcium 6.8 L* Phosphorus Magnesium Total Bilirubin Direct Bilirubin AST ALT Alkaline Phosphatase Creatine Kinase Creatine Kinase Index CK-MB (CK-2) Troponin I 6.01 H* Total Protein Albumin TSH 12/21/18 12/21/18 12/22/18 17:35 21:00 05:10 WBC 9.7 RBC 2.70 L Hgb 8.8 L Hct 24.7 L MCV 91.4 MCH 32.6 MCHC 35.6 RDW 18.2 H Plt Count 188 MPV 8.1 PT with INR 195.30 H INR > 15.00 H* Anticoagulation Therapy Puncture Site ABG pH ABG pCO2 at Pt Temp ABG pO2 at Pt Temp ABG HCO3 ABG O2 Sat (Measured) ABG O2 Content ABG Base Excess Eugene Test O2 Delivery Device Oxygen Flow Rate Vent Mode Vent Rate Mechanical Rate Pressure Support Vent Sodium Potassium Chloride Carbon Dioxide Anion Gap BUN Creatinine Est GFR (CKD-EPI)AfAm Est GFR (CKD-EPI)NonAf Random Glucose Calcium Phosphorus Magnesium Total Bilirubin Direct Bilirubin AST ALT Alkaline Phosphatase Creatine Kinase 272 Creatine Kinase Index 3.6 CK-MB (CK-2) 9.8 H Troponin I 5.86 H* Total Protein Albumin [facility] 12/22/18 05:10 WBC RBC Hgb Hct MCV MCH MCHC RDW Plt Count MPV PT with INR INR Anticoagulation Therapy Puncture Site ABG pH ABG pCO2 at Pt Temp ABG pO2 at Pt Temp ABG HCO3 ABG O2 Sat (Measured) ABG O2 Content ABG Base Excess Eugene Test O2 Delivery Device Oxygen Flow Rate Vent Mode Vent Rate Mechanical Rate Pressure Support Vent Sodium 124 L Potassium 4.0 Chloride 92 L Carbon Dioxide 21 Anion Gap 12 BUN 47.0 H Creatinine 1.7 H Est GFR (CKD-EPI)AfAm 41.69 Est GFR (CKD-EPI)NonAf 35.97 Random Glucose 214 H Calcium 6.5 L* Phosphorus 3.8 Magnesium 2.3 Total Bilirubin 0.6 Direct Bilirubin 0.3 H AST 126 H ALT 97 H Alkaline Phosphatase 96 Creatine Kinase 258 Creatine Kinase Index 3.1 CK-MB (CK-2) 8.1 H Troponin I 5.58 H* Total Protein 5.7 L Albumin 3.1 L TSH 1.03 D Active Medications Generic Name Dose Route Start Last Admin Trade Name Freq PRN Reason Stop Dose Admin Acetaminophen 650 mg 12/19/18 21:41 12/21/18 05:13 Tylenol - PO 650 mg Q6H PRN Administration FEVER Atorvastatin Calcium 10 mg 12/19/18 22:00 12/21/18 21:04 Lipitor - PO 10 mg HS JUDSON Administration Calcium Gluconate 1,000 mg 12/22/18 08:30 Calcium Gluconate 10% - IVPB 12/22/18 08:31 ONCE ONE Dobutamine HCl 250,000 mcg/ 250 mls @ 20.13 mls/hr 12/20/18 08:45 12/21/18 09 :37 Sodium Chloride IV 5 mcg/kg/min TITR JUDSON 20.13 mls/hr Administration Protocol 5 MCG/KG/MIN Vasopressin 50 units/ Sodium 100 mls @ 4 mls/hr 12/20/18 10:45 12/22/18 01:29 Chloride IVPB 6 units/hr ASDIR JUDSON 12 mls/hr Administration Protocol 2 UNITS/HR Cefepime HCl 1 gm/ Dextrose 50 mls @ 100 mls/hr 12/20/18 14:00 12/21/18 21:04 IVPB 100 mls/hr BID JU[facility]ON Administration Protocol Norepinephrine Bitartrate 8, 500 mls @ 18.75 mls/hr 12/21/18 11:31 12/22/18 01:29 000 mcg/ Dextrose/Sodium IV 15 mcg/min Chloride TITR JU[facility]ON 56.25 mls/hr Administration Protocol 5 MCG/MIN Furosemide 100 mg/ Dextrose 100 mls @ 5 mls/hr 12/21/18 11:30 12/21/18 15:48 IVPB 5 mg/hr TITR [facility] 5 mls/hr Administration Protocol 5 MG/HR Amiodarone HCl/Dextrose 360 mg in 200 mls @ 33.333 mls/hr 12/21/18 11:46 11:00 Nexterone 360 Mg/200 Ml Bag IVPB 33.333 mls/hr ASDIR JU[facility]ON Administration Protocol 1 MG/MIN Amiodarone HCl/Dextrose 360 mg in 200 mls @ 16.667 mls/hr 12/21/18 17:00 20:37 Nexterone 360 Mg/200 Ml Bag IVPB Not Given ASDIR JUDSON Protocol 0.5 MG/MIN Non-Formulary Medication 4 tab 12/20/18 10:00 Abiraterone Acetate [Abiraterone Acetate] PO DAILY [facility] Pantoprazole Sodium 40 mg 12/21/18 12:00 12/21/18 12:39 Protonix Iv IVPUSH 40 mg DAILY [facility] Administration Prednisone 5 mg 12/19/18 22:00 12/21/18 21:04 Deltasone - PO 5 mg BID JU[facility]ON Administration ASSESSMENT/PLAN: 83M w/ a history of 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 and bone (last chemo session was mar 2018) CHF, HTN, HLD, previous subdural hematoma s/p craniotomy, history of DVT on Coumadin presented to the ED with a 1 day history of worsening dyspnea, with worsening fluid overload and an episode of vomiting #Neuro stable; no issues #Cardiovascular CHF exacerbation, hypotension, elevated troponin ; cardiogenic shock patient on levophed 15; dobutamine 3, vasopressin 6; will try and wean off pressors (given low EF MAP goal can be >55) -left IJ central line was placed yesterday -patient no longer in afib with RVR; will d/c amiodarone drip and monitor -started lasix drip yesterday; increasing to 10 mg/hr -cardiac enzymes peaked at 6.01 -holding home antihypertensives -echo done which shows an EF of 25% with severe global hypokinesis of the LV and mild pulmonary hypertension -monitor I's and O's (put out 1.6L in 24 hours) however still net positive -holding coumadin in light of supratheraputic INR #Endocrine -adding stress dose steroids hydrocortisone 100q8H #GI patient has slight transaminitis (AST 126; ALT 97)with normal alk phos and T jamin -will continue to monitor #Heme/Onc patients INR went up to >15 last night and received vitamin K -repeat coags pending this AM -heme onc consulted -Hgb dropped from 9.5 to 8.8 this AM -will monitor for signs of bleeding -patient has history of prostate ca with mets to bone/lung; was supposed to start chemotherapy yesterday however on hold in light of current medical condition -palliative care consulted with family discussion in process regarding goals of care #ID patient's WBC down form 13.7 to 9.7 -blood and urine cx negative -can most likely d/c abx -ID on board #Pulmonary -patient currently transitioned to ventimask (no longer on BIPAP)- if cannot tolerate ventimask will try high-flow before going back to BIPAP -repeat CXR this AM shows congestive changes with B/L effusions v. infiltrates -daily CXR's #Renal patient came in with a Cr of 2.6 (baseline .08-1) and was hyponatremic to 117 ( likely 2/2 hypervolemic hyponatremia) possibly 2/2 cardiorenal syndrome -This AM serum sodium 124; BUN 47 Cr 1.7 -renal/bladder U/S done showing no evidence of hydronephrosis with normal kidneys (however postvoid images could not be obtained) -urine Na 22; urine osm 319; urine na 22; urine cr 27; urine urea 285; FeUrea calculated 39% showing an intrinsic process taking place -patient on lasix drip (increased to 10mg/hr from 5mg/hr) -nephrology on board -monitor lytes; replete accordingly (repeat BMP BID) F/E/N not on fluids monitor electrolytes full liquid diet DVT PPX: scds in light of supratheraputic INR GI: protonix 40 daily patients family had meeting yesterday and patient is full code Problem List - Problems (1) Acute kidney injury Code(s): N17.9 - ACUTE KIDNEY FAILURE, UNSPECIFIED (2) CHF exacerbation Code(s): I50.9 - HEART FAILURE, UNSPECIFIED Qualifiers: Heart failure type: combined systolic and diastolic Qualified Code(s): I50.43 - Acute on chronic combined systolic (congestive) and diastolic ( congestive) heart failure (3) Hyperlipidemia Code(s): E78.5 - HYPERLIPIDEMIA, UNSPECIFIED Qualifiers: Hyperlipidemia type: pure hypercholesterolemia Qualified Code(s): E78.00 - Pure hypercholesterolemia, unspecified; E78.0 - Pure hypercholesterolemia (4) Prostate cancer Code(s): C61 - MALIGNANT NEOPLASM OF PROSTATE (5) Supratherapeutic INR Code(s): R79.1 - ABNORMAL COAGULATION PROFILE Visit type - Emergency Visit Emergency Visit: Yes ED Registration Date: 12/19/18 Care time: The patient presented to the Emergency Department on the above date and was hospitalized for further evaluation of their emergent condition. - New Patient This patient is new to me today: No - Critical Care Critical Care patient: Yes Total Critical Care Time (in minutes): 35 Critical Care Statement: The care of this patient involved high complexity decision making to prevent further life threatening deterioration of the patient 's condition and/or to evaluate & treat vital organ system(s) failure or risk of failure.
[2018-12-22] MEDS ORDERED: CEFEPIME HCL 1 GM VIAL (RESTRICTED TO ID) ONE ×2 (08:27→21:35)
[2018-12-22] MEDS ORDERED: DEXTROSE 5%-WATER - 50 ML IVPB ONE ×2 (08:27→21:35)
[2018-12-22] MEDS ORDERED: CALCIUM GLUCONATE 10% - 1,000 MG/10 ML VIAL IVPB ONE (08:30)
[2018-12-22] MEDS: PANTOPRAZOLE SODIUM 40 MG VIAL IVPUSH SCH (09:48)
[2018-12-22] MEDS: CEFEPIME 1 GM in DEXTROSE 5%-WATER - 50 ML IVPB SCH ×2 (09:49→21:57)
[2018-12-22 10:13] LABS: PROTHROMBIN TIME (PATIENT) 176.3 SEC (9.7-13.0)
[2018-12-22] MEDS ORDERED: VASOPRESSIN 20 UNITS/ML VIAL IV ONE ×2 (10:13→16:21)
[2018-12-22 10:15] LABS: INR 14.54 (0.83-1.09)
[2018-12-22 10:37] LABS: PROTHROMBIN TIME (PATIENT) 91.9 SEC (9.7-13.0)
[2018-12-22] MEDS ORDERED: FUROSEMIDE INJECTION 100 MG in DEXTROSE 5%-WATER - 90 ML IVPB SCH (10:41)
[2018-12-22] MEDS: HYDROCORTISONE SOD SUCCINATE 100 MG/2 ML VIAL IVPUSH SCH ×2 (11:00→17:28)
--- NOTE | 2018-12-22 11:37 | PN ---
Teaching Attending Note Name of Resident: Alisa Xie ATTENDING PHYSICIAN STATEMENT I saw and evaluated the patient. I reviewed the resident's note and discussed the case with the resident. I agree with the resident's findings and plan as documented. SUBJECTIVE: Pt seen and examined in the ICU. Remains on levophed, vasopressin, dobutamine gtts. Off BiPAP now on ventimask 40%, states breathing is slightly improved from yesterday. Remains in sinus rhythm. OBJECTIVE: Vital Signs Period Temp Pulse Resp BP Sys/Ibarra Pulse Ox Last 24 Hr 97 F-97.5 F 57-109 06-23 75-97/53-79 95-100 Intake & Output 12/19/18 12/20/18 12/21/18 12/22/18 23:59 23:59 23:59 23:59 Intake Total 1799.6 2223.2 1324.8 Output Total 2710 1200 400 Balance -910.4 1023.2 924.8 Weight 58.967 kg 67.132 kg 64.41 kg 67.642 kg Gen: mildly tachypneic at rest Neck: +JVD Heart: RRR Lung: bibasilar rales Abd: soft, nontender Ext: 1+ edema CBC, BMP 12/22/18 05:10 12/22/18 05:10 CXR: bilateral effusions, pulmonary vascular congestion Active Medications Acetaminophen (Tylenol -) 650 mg PO Q6H PRN PRN Reason: FEVER Last Admin: 12/21/18 05:13 Dose: 650 mg Atorvastatin Calcium (Lipitor -) 10 mg PO HS [facility]ON Last Admin: 12/21/18 21:04 Dose: 10 mg Hydrocortisone Sodium Succinate (Solu-Cortef -) 100 mg IVPUSH Q8H-IV [facility] Last Admin: 12/22/18 11:00 Dose: 100 mg Dobutamine HCl 250,000 mcg/ (Sodium Chloride) 250 mls @ 20.13 mls/hr IV TITR [facility]; Protocol Last Admin: 12/21/18 09:37 Dose: 5 mcg/kg/min, 20.13 mls/hr Vasopressin 50 units/ Sodium (Chloride) 100 mls @ 4 mls/hr IVPB ASDIR [facility]; Protocol Last Admin: 12/22/18 01:29 Dose: 6 units/hr, 12 mls/hr Cefepime HCl 1 gm/ Dextrose 50 mls @ 100 mls/hr IVPB BID JU[facility]ON; Protocol Last Admin: 12/22/18 09:49 Dose: 100 mls/hr Norepinephrine Bitartrate 8, 000 mcg/ Dextrose/Sodium Chloride 500 mls @ 18.75 mls/hr IV TITR JU[facility]ON; Protocol Last Admin: 12/22/18 01:29 Dose: 15 mcg/min, 56.25 mls/hr Furosemide 100 mg/ Dextrose 100 mls @ 10 mls/hr IVPB TITR JUDSON; Protocol Non-Formulary Medication (Abiraterone Acetate [Abiraterone Acetate]) 4 tab PO DAILY JUDSON Pantoprazole Sodium (Protonix Iv) 40 mg IVPUSH DAILY JU[facility]ON Last Admin: 12/22/18 09:48 Dose: 40 mg ASSESSMENT AND PLAN: Acute on Chronic Systolic/Diastolic Heart Failure Shock - Likely Cardiogenic Acute Kidney Injury +Troponins likely Demand Ischemia Lactic Acidosis Hyponatremia likely Hypervolemic h/o DVT Metastatic Prostate Ca Anemia - increase lasix gtt - monitor urine output, creatinine - daily weights - titrate pressors, inotropes to maintain MAP >65 - can d/c amiodarone - holding anticoagulation, keep INR 2-3 - start empiric stress dose steroids - O2 to keep Spo2 >90% - HFOT/BiPAP to assist in work of breathing - monitor lytes - on empiric antibiotics, f/u cultures - prognosis guarded, continue discussions regarding goals of care - continue ICU monitoring critical care time spent in reviewing chart, evaluating patient and formulating plan 35 min
--- NOTE | 2018-12-22 12:02 | PN ---
Progress Note, Physician History of Present Illness: Weaned off Bipap on 40% VM, back in SR with amio since d/lisseth. Remains on levophed, vasopressin, dobutamine gtts. - Current Medication List Current Medications: Active Medications Acetaminophen (Tylenol -) 650 mg PO Q6H PRN PRN Reason: FEVER Last Admin: 12/21/18 05:13 Dose: 650 mg Atorvastatin Calcium (Lipitor -) 10 mg PO HS JUDSON Last Admin: 12/21/18 21:04 Dose: 10 mg Hydrocortisone Sodium Succinate (Solu-Cortef -) 100 mg IVPUSH Q8H-IV JUDSON Last Admin: 12/22/18 11:00 Dose: 100 mg Dobutamine HCl 250,000 mcg/ (Sodium Chloride) 250 mls @ 20.13 mls/hr IV TITR JUDSON; Protocol Last Admin: 12/21/18 09:37 Dose: 5 mcg/kg/min, 20.13 mls/hr Vasopressin 50 units/ Sodium (Chloride) 100 mls @ 4 mls/hr IVPB ASDIR JUDSON; Protocol Last Admin: 12/22/18 01:29 Dose: 6 units/hr, 12 mls/hr Cefepime HCl 1 gm/ Dextrose 50 mls @ 100 mls/hr IVPB BID JUDSON; Protocol Last Admin: 12/22/18 09:49 Dose: 100 mls/hr Norepinephrine Bitartrate 8, 000 mcg/ Dextrose/Sodium Chloride 500 mls @ 18.75 mls/hr IV TITR JUDSON; Protocol Last Admin: 12/22/18 01:29 Dose: 15 mcg/min, 56.25 mls/hr Furosemide 100 mg/ Dextrose 100 mls @ 10 mls/hr IVPB TITR JUDSON; Protocol Non-Formulary Medication (Abiraterone Acetate [Abiraterone Acetate]) 4 tab PO DAILY JUDSON Pantoprazole Sodium (Protonix Iv) 40 mg IVPUSH DAILY JUDSON Last Admin: 12/22/18 09:48 Dose: 40 mg - Objective Vital Signs: Vital Signs Temperature 97.5 F L 12/22/18 10:00 Pulse Rate 93 H 12/22/18 10:00 Respiratory Rate 12/22/18 10:00 Blood Pressure 75/53 L 12/22/18 10:00 O2 Sat by Pulse Oximetry (%) 100 12/22/18 10:12 Constitutional: Yes: No Distress, Calm, Thin Neck: Yes: Supple Cardiovascular: Yes: Regular Rate and Rhythm Respiratory: Yes: Regular, Diminished, On Venti-Mask Gastrointestinal: Yes: Soft, Hypoactive Bowel Sounds Edema: Yes Edema: LLE: Trace, RLE: Trace Labs: CBC, BMP 12/22/18 05:10 12/22/18 05:10 INR, PTT INR 14.54 (0.83-1.09) H* 12/22/18 05:10 - ....Imaging Chest X-ray: Report Reviewed (Congestion with bilateral effusions) EKG: Report Reviewed (Tele: NSR) Problem List - Problems (1) Acute kidney injury Code(s): N17.9 - ACUTE KIDNEY FAILURE, UNSPECIFIED (2) Anemia Code(s): D64.9 - ANEMIA, UNSPECIFIED Qualifiers: Anemia type: unspecified type Qualified Code(s): D64.9 - Anemia, unspecified (3) CHF exacerbation Code(s): I50.9 - HEART FAILURE, UNSPECIFIED Qualifiers: Heart failure type: combined systolic and diastolic Qualified Code(s): I50.43 - Acute on chronic combined systolic (congestive) and diastolic ( congestive) heart failure (4) Hyponatremia Code(s): E87.1 - HYPO-OSMOLALITY AND HYPONATREMIA (5) Hyperlipidemia Code(s): E78.5 - HYPERLIPIDEMIA, UNSPECIFIED Qualifiers: Hyperlipidemia type: pure hypercholesterolemia Qualified Code(s): E78.00 - Pure hypercholesterolemia, unspecified; E78.0 - Pure hypercholesterolemia (6) Prostate cancer metastatic to bone Code(s): C61 - MALIGNANT NEOPLASM OF PROSTATE; C79.51 - SECONDARY MALIGNANT NEOPLASM OF BONE (7) Subendocardial ischemia Code(s): I24.8 - OTHER FORMS OF ACUTE ISCHEMIC HEART DISEASE (8) Supratherapeutic INR Code(s): R79.1 - ABNORMAL COAGULATION PROFILE (9) Atrial fibrillation with rapid ventricular response Code(s): I48.91 - UNSPECIFIED ATRIAL FIBRILLATION (10) Cardiogenic shock Code(s): R57.0 - CARDIOGENIC SHOCK Assessment/Plan 12/20/2018 Echo: Severely decreased LVEF 25%, normal RV size and fxn, tr MR, TR RVSP 41 mmHg 1. Acute on chronic class III-IV NYHA classification LV systolic failure, hypotension cardiogenic- to exclude sepsis related hypotension 2. CAD with evidence of demand ischemia 3. Paroxysmal afib with RVR 4. Acute on chronic renal insufficiency improving with 5. Hyponatremia-Hypervolemic improved 6. Metastatic prostate carcinoma 7. 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 Anemia PLAN: 1. Continue pressors and wean as tolerated maintaining MAP > 65 mmHg, called pharmacy to double concentrate solutions 2. Decrease Dobutamine@2.5 and use amiodarone as needed for rate-control 3. Lasix gtt @ 10/hr with monitor diuretic response, renal fxn and electrolytes 4. Eventually hemodynamics permitting recommend the addition of B-Blockers/ Coreg +/- ACEI or ARBS- provided renal function at baseline 5. Follow Na level closely 6. Empiric abx course per C&S, stress dose steroids, O2 to keep Spo2 >90%
[2018-12-22 12:08] LABS: INR 7.63 (0.83-1.09)
--- NOTE | 2018-12-22 12:11 | PN ---
Progress Note, Physician - Current Medication List Current Medications: Active Medications Acetaminophen (Tylenol -) 650 mg PO Q6H PRN PRN Reason: FEVER Last Admin: 12/21/18 05:13 Dose: 650 mg Atorvastatin Calcium (Lipitor -) 10 mg PO HS JUDSON Last Admin: 12/21/18 21:04 Dose: 10 mg Hydrocortisone Sodium Succinate (Solu-Cortef -) 100 mg IVPUSH Q8H-IV JUDSON Last Admin: 12/22/18 11:00 Dose: 100 mg Dobutamine HCl 250,000 mcg/ (Sodium Chloride) 250 mls @ 20.13 mls/hr IV TITR JUDSON; Protocol Last Admin: 12/21/18 09:37 Dose: 5 mcg/kg/min, 20.13 mls/hr Vasopressin 50 units/ Sodium (Chloride) 100 mls @ 4 mls/hr IVPB ASDIR JUDSON; Protocol Last Admin: 12/22/18 01:29 Dose: 6 units/hr, 12 mls/hr Cefepime HCl 1 gm/ Dextrose 50 mls @ 100 mls/hr IVPB BID JUDSON; Protocol Last Admin: 12/22/18 09:49 Dose: 100 mls/hr Norepinephrine Bitartrate 8, 000 mcg/ Dextrose/Sodium Chloride 500 mls @ 18.75 mls/hr IV TITR JUDSON; Protocol Last Admin: 12/22/18 01:29 Dose: 15 mcg/min, 56.25 mls/hr Furosemide 100 mg/ Dextrose 100 mls @ 10 mls/hr IVPB TITR JUDSON; Protocol Non-Formulary Medication (Abiraterone Acetate [Abiraterone Acetate]) 4 tab PO DAILY JUDSON Pantoprazole Sodium (Protonix Iv) 40 mg IVPUSH DAILY JUDSON Last Admin: 12/22/18 09:48 Dose: 40 mg - Objective Vital Signs: Vital Signs Temperature 97.5 F L 12/22/18 10:00 Pulse Rate 92 H 12/22/18 12:00 Respiratory Rate 19 12/22/18 12:00 Blood Pressure 83/58 L 12/22/18 12:00 O2 Sat by Pulse Oximetry (%) 100 12/22/18 10:12 Labs: CBC, BMP 12/22/18 05:10 12/22/18 05:10 INR, PTT INR 7.63 (0.83-1.09) H* 12/22/18 09:49
[2018-12-22] MEDS ORDERED: FUROSEMIDE INJECTION 100 MG in DEXTROSE 5%-WATER - 40 ML IVPB SCH ×2 (12:30→13:33)
--- NOTE | 2018-12-22 13:39 | EKG ---
Test Reason : Blood Pressure : / mmHG Vent. Rate : 133 BPM Atrial Rate : 078 BPM P-R Int : 000 ms QRS Dur : 104 ms QT Int : 310 ms P-R-T Axes : 000 -48 162 degrees QTc Int : 461 ms ATRIAL FIBRILLATION WITH RAPID VENTRICULAR RESPONSE LEFT AXIS DEVIATION ABNORMAL ECG WHEN COMPARED WITH ECG OF 19-DEC-2018 18:41, ATRIAL FIBRILLATION HAS REPLACED SINUS RHYTHM VENT. RATE HAS INCREASED BY 49 BPM Confirmed by LENNIE QUIÑONEZ, TONIO ([id number]) on 12/22/2018 1:39:27 PM Referred By: Confirmed By:TONIO HOGUE MD
--- NOTE | 2018-12-22 13:41 | PN ---
Progress Note, Physician History of Present Illness: Pt seen and examined at bedside. He is awake however still has shortness of breath. - Current Medication List Current Medications: Active Medications Acetaminophen (Tylenol -) 650 mg PO Q6H PRN PRN Reason: FEVER Last Admin: 12/21/18 05:13 Dose: 650 mg Atorvastatin Calcium (Lipitor -) 10 mg PO HS JUDSON Last Admin: 12/21/18 21:04 Dose: 10 mg Hydrocortisone Sodium Succinate (Solu-Cortef -) 100 mg IVPUSH Q8H-IV JUDSON Last Admin: 12/22/18 11:00 Dose: 100 mg Dobutamine HCl 250,000 mcg/ (Sodium Chloride) 250 mls @ 20.13 mls/hr IV TITR JUDSON; Protocol Last Admin: 12/21/18 09:37 Dose: 5 mcg/kg/min, 20.13 mls/hr Vasopressin 50 units/ Sodium (Chloride) 100 mls @ 4 mls/hr IVPB ASDIR JUDSON; Protocol Last Admin: 12/22/18 12:27 Dose: 6 units/hr, 12 mls/hr Cefepime HCl 1 gm/ Dextrose 50 mls @ 100 mls/hr IVPB BID JUDSON; Protocol Last Admin: 12/22/18 09:49 Dose: 100 mls/hr Furosemide 100 mg/ Dextrose 50 mls @ 2.5 mls/hr IVPB TITR JUDSON; Protocol Norepinephrine Bitartrate 8, (000 mcg/ Dextrose) 250 mls @ 9.37 mls/hr IVPB TITR JUDSON; Protocol Non-Formulary Medication (Abiraterone Acetate [Abiraterone Acetate]) 4 tab PO DAILY JUDSON Pantoprazole Sodium (Protonix Iv) 40 mg IVPUSH DAILY JUDSON Last Admin: 12/22/18 09:48 Dose: 40 mg - Objective Vital Signs: Vital Signs Temperature 97.5 F L 12/22/18 10:00 Pulse Rate 92 H 12/22/18 12:00 Respiratory Rate 12/22/18 12:00 Blood Pressure 83/58 L 12/22/18 12:00 O2 Sat by Pulse Oximetry (%) 100 12/22/18 10:12 Constitutional: Yes: Calm Eyes: Yes: Conjunctiva Clear Cardiovascular: Yes: S1, S2 Respiratory: Yes: On Venti-Mask, Rhonchi Gastrointestinal: Yes: Soft Genitourinary: Yes: WNL Musculoskeletal: Yes: WNL Edema: Yes Edema: LLE: 1+, RLE: 1+ Neurological: Yes: Oriented Psychiatric: Yes: Oriented Labs: CBC, BMP 12/22/18 05:10 12/22/18 05:10 INR, PTT INR 7.63 (0.83-1.09) H* 12/22/18 09:49 Problem List - Problems (1) Hyponatremia Code(s): E87.1 - HYPO-OSMOLALITY AND HYPONATREMIA (2) Acute kidney injury Code(s): N17.9 - ACUTE KIDNEY FAILURE, UNSPECIFIED (3) Anemia Code(s): D64.9 - ANEMIA, UNSPECIFIED Qualifiers: Anemia type: unspecified type Qualified Code(s): D64.9 - Anemia, unspecified (4) CHF exacerbation Code(s): I50.9 - HEART FAILURE, UNSPECIFIED Qualifiers: Heart failure type: combined systolic and diastolic Qualified Code(s): I50.43 - Acute on chronic combined systolic (congestive) and diastolic ( congestive) heart failure (5) NSTEMI (non-ST elevated myocardial infarction) Code(s): I21.4 - NON-ST ELEVATION (NSTEMI) MYOCARDIAL INFARCTION (6) Prostate cancer Code(s): C61 - MALIGNANT NEOPLASM OF PROSTATE (7) Shortness of breath Code(s): R06.02 - SHORTNESS OF BREATH Assessment/Plan Current Medications Generic Name Dose Route Start Last Admin Trade Name Freq PRN Reason Stop Dose Admin Acetaminophen 650 mg 12/19/18 21:41 12/21/18 05:13 Tylenol - PO 650 mg Q6H PRN Administration FEVER Atorvastatin Calcium 10 mg 12/19/18 22:00 12/21/18 21:04 Lipitor - PO 10 mg HS JUDSON Administration Hydrocortisone Sodium Succinate 100 mg 12/22/18 11:00 12/22/18 11:00 Solu-Cortef - IVPUSH 100 mg Q8H-IV JUDSON Administration Dobutamine HCl 250,000 mcg/ 250 mls @ 20.13 mls/hr 12/20/18 08:45 12/21/18 09 :37 Sodium Chloride IV 5 mcg/kg/min TITR JUDSON 20.13 mls/hr Administration Protocol 5 MCG/KG/MIN Vasopressin 50 units/ Sodium 100 mls @ 4 mls/hr 12/20/18 10:45 12/22/18 12:27 Chloride IVPB 6 units/hr ASDIR JUDSON 12 mls/hr Administration Protocol 2 UNITS/HR Cefepime HCl 1 gm/ Dextrose 50 mls @ 100 mls/hr 12/20/18 14:00 12/22/18 09:49 IVPB 100 mls/hr BID JUDSON Administration Protocol Furosemide 100 mg/ Dextrose 50 mls @ 2.5 mls/hr 12/23/18 13:33 IVPB TITR JUDSON Protocol 5 MG/HR Norepinephrine Bitartrate 8, 250 mls @ 9.37 mls/hr 12/22/18 13:33 000 mcg/ Dextrose IVPB TITR JUDSON Protocol 5 MCG/MIN Non-Formulary Medication 4 tab 12/20/18 10:00 Abiraterone Acetate [Abiraterone Acetate] PO DAILY JUDSON Pantoprazole Sodium 40 mg 12/21/18 12:00 12/22/18 09:48 Protonix Iv IVPUSH 40 mg DAILY JUDSON Administration Impression 1. hyponatremia 2. yinka 3. chf 4. positive troponins 5. hypocalcemia 6. prostate cancer with mets 7. hypotension 8. lactic acidosis improved 9. shock on pressors 10. a-fib 11. resp failure requiring bipap Plan - cont lasix - monitor renal function - monitor sodium - cont pressors - bp remains low - keep net negative - cardio input appreciated - daily cxr - monitor pulse ox - rate is improved
[2018-12-22] MEDS: NOREPINEPHRINE BITARTRATE 8,000 MCG in DEXTROSE 5%-WATER - 242 ML IVPB SCH (16:35)
[2018-12-22] MEDS ORDERED: PT OWN MED DRAWER 7, Y5N ONE (17:21)
[2018-12-22] MEDS: FUROSEMIDE INJECTION 100 MG in DEXTROSE 5%-WATER - 40 ML IVPB SCH (18:04)
--- NOTE | 2018-12-22 18:27 | PN ---
Progress Note, Physician History of Present Illness: stable - Current Medication List Current Medications: Active Medications Acetaminophen (Tylenol -) 650 mg PO Q6H PRN PRN Reason: FEVER Last Admin: 12/21/18 05:13 Dose: 650 mg Atorvastatin Calcium (Lipitor -) 10 mg PO HS JUDSON Last Admin: 12/21/18 21:04 Dose: 10 mg Hydrocortisone Sodium Succinate (Solu-Cortef -) 100 mg IVPUSH Q8H-IV JUDSON Last Admin: 12/22/18 17:28 Dose: 100 mg Dobutamine HCl 250,000 mcg/ (Sodium Chloride) 250 mls @ 20.13 mls/hr IV TITR JUDSON; Protocol Last Admin: 12/21/18 09:37 Dose: 5 mcg/kg/min, 20.13 mls/hr Vasopressin 50 units/ Sodium (Chloride) 100 mls @ 4 mls/hr IVPB ASDIR JUDSON; Protocol Last Admin: 12/22/18 16:30 Dose: 6 units/hr, 12 mls/hr Cefepime HCl 1 gm/ Dextrose 50 mls @ 100 mls/hr IVPB BID JUDSON; Protocol Last Admin: 12/22/18 09:49 Dose: 100 mls/hr Furosemide 100 mg/ Dextrose 50 mls @ 2.5 mls/hr IVPB TITR JUDSON; Protocol Last Admin: 12/22/18 18:04 Dose: 5 mg/hr, 2.5 mls/hr Norepinephrine Bitartrate 8, (000 mcg/ Dextrose) 250 mls @ 9.37 mls/hr IVPB TITR JUDSON; Protocol Last Admin: 12/22/18 16:35 Dose: 9.7 mcg/min, 18.2 mls/hr Non-Formulary Medication (Abiraterone Acetate [Abiraterone Acetate]) 4 tab PO DAILY JUDSON Pantoprazole Sodium (Protonix Iv) 40 mg IVPUSH DAILY JUDSON Last Admin: 12/22/18 09:48 Dose: 40 mg - Objective Vital Signs: Vital Signs Temperature 97.7 F 12/22/18 17:00 Pulse Rate 101 H 12/22/18 17:00 Respiratory Rate 18 12/22/18 17:00 Blood Pressure 83/58 L 12/22/18 17:00 O2 Sat by Pulse Oximetry (%) 100 12/22/18 10:12 Constitutional: Yes: No Distress HENT: Yes: Atraumatic Neck: Yes: Supple Cardiovascular: Yes: Regular Rate and Rhythm Respiratory: Yes: CTA Bilaterally Gastrointestinal: Yes: Normal Bowel Sounds Extremities: Yes: WNL Neurological: Yes: Alert, Oriented Labs: CBC, BMP 12/22/18 05:10 12/22/18 05:10 INR, PTT INR 7.63 (0.83-1.09) H* 12/22/18 09:49 Problem List - Problems (1) Acute kidney injury Assessment/Plan: iv hydration renal consult fu cr Code(s): N17.9 - ACUTE KIDNEY FAILURE, UNSPECIFIED (2) Anemia Code(s): D64.9 - ANEMIA, UNSPECIFIED Qualifiers: Anemia type: unspecified type Qualified Code(s): D64.9 - Anemia, unspecified (3) CHF exacerbation Code(s): I50.9 - HEART FAILURE, UNSPECIFIED Qualifiers: Heart failure type: combined systolic and diastolic Qualified Code(s): I50.43 - Acute on chronic combined systolic (congestive) and diastolic ( congestive) heart failure (4) NSTEMI (non-ST elevated myocardial infarction) Assessment/Plan: troponins positive on cardiac meds per cardiology Code(s): I21.4 - NON-ST ELEVATION (NSTEMI) MYOCARDIAL INFARCTION (5) Acute diastolic (congestive) heart failure Code(s): I50.31 - ACUTE DIASTOLIC (CONGESTIVE) HEART FAILURE (6) Acute electrocardiogram changes Code(s): R94.31 - ABNORMAL ELECTROCARDIOGRAM [ECG] [EKG] (7) Coronary artery disease with unstable angina pectoris Code(s): I25.110 - ATHSCL HEART DISEASE OF [place] COR ART W UNSTABLE ANG PCTRS Qualifiers: (8) Hyperlipidemia Code(s): E78.5 - HYPERLIPIDEMIA, UNSPECIFIED Qualifiers: Hyperlipidemia type: pure hypercholesterolemia Qualified Code(s): E78.00 - Pure hypercholesterolemia, unspecified; E78.0 - Pure hypercholesterolemia (9) Prostate cancer Code(s): C61 - MALIGNANT NEOPLASM OF PROSTATE (10) Prostate cancer metastatic to bone Code(s): C61 - MALIGNANT NEOPLASM OF PROSTATE; C79.51 - SECONDARY MALIGNANT NEOPLASM OF BONE (11) Subendocardial ischemia Code(s): I24.8 - OTHER FORMS OF ACUTE ISCHEMIC HEART DISEASE (12) Supratherapeutic INR Assessment/Plan: hold coumadin fu inr po vit K Code(s): R79.1 - ABNORMAL COAGULATION PROFILE Assessment/Plan Impression 1. hyponatremia 2. yinka 3. chf 4. positive troponins 5. hypocalcemia 6. prostate cancer with mets 7. hypotension 8. lactic acidosis improved 9. shock on pressors 10. a-fib 11. resp failure requiring bipap Plan continue current meds, on emperic abx cxs negative cc time 40 min
[2018-12-22] MEDS: DOBUTAMINE HCL 250,000 MCG in SODIUM CHLORIDE 230 ML IV SCH (21:28)
[2018-12-22] MEDS: ATORVASTATIN CA 10 MG TABLET (FP) PO SCH (21:57)
--- NOTE | 2018-12-22 22:39 | CONSULT ---
Consult - text type - Consultation Consultation Note: Patient seen and examined The pt is a 83M w/ a history of prostate CA with metastasis to bone on abiraterone, in addition CHF, hypertension, hypercholesterolemia, history of subdural hematoma s/p craniotomy in 2005 and history of DVT on Coumadin who presents for evaluation of 1 day of SOB, worsening edema, and vomiting. Patient is alert, oriented, moderately dyspneic. Getting dypneic on speaking full sentences Allergies/Adverse Reactions: Allergies Allergy/AdvReac Type Severity Reaction Status Date / Time No Known Allergies Allergy Verified 12/19/18 18:31 Home Medications: Ambulatory Orders Ergocalciferol (Vitamin D2) [Vitamin D2] 50,000 unit PO WEEKLY 09/05/18 Simvastatin 10 mg PO DAILY 09/05/18 Nitroglycerin [place] [Nitrolingual [place] -] 1 spray TL [id number] PRN #1 bottle MDD 3 09/07/18 Abiraterone Acetate 4 tab PO DAILY 09/15/18 Prednisone 5 mg PO BID 09/15/18 Losartan Potassium [Cozaar -] 25 mg PO DAILY #30 tablet 11/02/18 Metoprolol Succinate [Toprol XL -] 25 mg PO DAILY #30 tab.sr.24h 11/02/18 Furosemide [Lasix -] 20 mg PO DAILY 12/19/18 Tramadol HCl/Acetaminophen [Tramadol-Acetaminophn 37.5-325] 1 each PO TID PRN Warfarin Na [Coumadin -] 2.5 mg PO DAILY@1800 12/19/18 PMH Metastatic prostate cancer--bone meds/nodalmets on CT scans in 09/13. On abiraterone COPD: No CHF: Yes HTN: Yes Hypercholesterolemia: Yes - Surgical History Neurologic Surgery: Yes - Immunization History Immunization Up to Date: Yes - Suicide/Smoking/Psychosocial Hx Smoking History: Unknown if ever smoked - Vital Signs Afebrile, on pressors, hypotensive Cor: RSR, No murmurs, No gallops Lungs: Clear to P&A ( anteriorly) Abd: Soft, Normal bowel sounds, No organomegaly Ext:No significant edema Lab/meds reviewed A/P 83 y/o with metastatic prostate cancer,h/o DVT,CHF , on empiric cefepime, hypotensive, hypoxic, SANDRA We have been consulted for elevated INR Suspect its due to coumadin+ passive hepatic congestion s/p vitamin K 5mg 12/21 No active bleeding Monitor Monitor PT/PTT/fibrinogen/CBC will follow
[2018-12-23] MEDS: HYDROCORTISONE SOD SUCCINATE 100 MG/2 ML VIAL IVPUSH SCH ×3 (01:49→19:36)
[2018-12-23] MEDS: ACETAMINOPHEN 325 MG TABLET (FP) PO PRN ×2 (01:50→08:18)
[2018-12-23] MEDS ORDERED: LORazepam 2 MG/ML SDV VIAL IVPUSH ONE (05:05)
--- NOTE | 2018-12-23 05:05 | PN ---
Progress Note (short form) - Note Progress Note: UPDATE 2: Pt returned to atrial fibrillation at rate of 70's - 80's. Given pt's hemodynamics and controlled rate will hold off on amiodarone load. Pt already with supratherapeutic INR. If pt becomes tachycardic again with titration of pressors can reinitiate amiodarone. UPDATE 1: ABG resulted in: Primary anion gap metabolic acidosis with acute respiratory alkalosis with concurrent non-gap metabolic acidosis Changed settings to 10/5/RR 10/40% given ABG findings as CO2 has been decreasing acutely given hyperventilation. Pt's work of breathing improved at this point with HR 80bpm, MAP 63 on pressors and no distress at bedside. Pt still appears confused, routine labs drawn and awaiting Throughout night pt was trialed on HFO2 for relief from Bilevel device. Pt was noted to have increased work of breathing and tachypnea to 25 breaths per minute. Pt was transitioned back to Bilevel for work of breathing and appeared more comfortable. 1-2 hrs later called to bedside due to pt's HR acutely dropping from 100bpm to 50bpm and having a questionable poor SpO2. Pt's oxygen spirometry with poor waveform currently with patient awake. Unfortunately pt is not cooperating appearing confused and continually pulling at IV lines and BiLevel mask. Pt noted to have cool extremities, no crackles appreciated at this point. STAT ABG ordered and taken. Pt confused and combatitive to treatment despite multiple attempts at reorientation so restraints applied in acute setting. Increased EPAP to 7 and Oxygen content to 100% to temporarize possible acute hypoxia Pt's daughter Dana informed and aware of situation. --Possibility of increased WOB due to worsening fluid retention and ? hypoxia causing confusion --Titrate pressors for hemodynamics
[2018-12-23 05:08] LABS: ARTERIAL BLOOD GAS BASE EXCESS -14.3 meq/l (-2-2); ARTERIAL BLOOD GAS PCO2 19.6 mmHg (35-45); ARTERIAL BLOOD GAS PO2 387 mmHg (80-105); ARTERIAL BLOOD GAS pH 7.33 (7.35-7.45)
[2018-12-23 05:11] LABS: ALLENS TEST POSITIVE
[2018-12-23] MEDS ORDERED: MORPHINE SULFATE 2 MG/ML VIAL IVPUSH ONE (05:15)
[2018-12-23] MEDS ORDERED: MORPHINE SULFATE 2 MG/ML VIAL ONE (05:18)
[2018-12-23 05:53] LABS: HEMOGLOBIN 8.9 GM/dL (11.7-16.9); MCH 32.6 pg (25.7-33.7); MCHC 34.1 g/dl (32.0-35.9); MEAN CELL VOLUME 95.6 fl (80-96); MEAN PLT VOLUME 8.5 fl (7.5-11.1); PLATELET COUNT 185 K/MM3 (134-434); RBC 2.72 M/mm3 (4.00-5.60); RDW 19.2 % (11.9-15.9); WHITE BLOOD COUNT 10.7 K/mm3 (4.0-10.0)
[2018-12-23 06:25] LABS: INR 2.09 (0.83-1.09); PROTHROMBIN TIME (PATIENT) 24.8 SEC (9.7-13.0)
[2018-12-23 06:47] LABS: BILIRUBIN,TOTAL 0.6 mg/dL (0.2-1); BLOOD UREA NITROGEN 52.8 mg/dL (7-18); CREATININE 2.3 mg/dL (0.55-1.3); MAGNESIUM 2.9 mg/dL (1.8-2.4); PHOSPHOROUS 4.9 mg/dL (2.5-4.9); POTASSIUM 4.7 mmol/L (3.5-5.1); TOT PROT 5.9 g/dl (6.4-8.2)
[2018-12-23 06:48] LABS: CALCIUM 6.9 mg/dL (8.5-10.1)
--- NOTE | 2018-12-23 09:37 | PN ---
Progress Note, Physician History of Present Illness: Overnight events reviewed, placed back on HFO2 for increased work of breathing, back in rate-controlled afib. Remains on levophed @ 20meq, vasopressin @ 6 units , and dobutamine @ 5mq. - Current Medication List Current Medications: Active Medications Acetaminophen (Tylenol -) 650 mg PO Q6H PRN PRN Reason: FEVER Last Admin: 12/23/18 01:50 Dose: 650 mg Atorvastatin Calcium (Lipitor -) 10 mg PO HS JUDSON Last Admin: 12/22/18 21:57 Dose: 10 mg Hydrocortisone Sodium Succinate (Solu-Cortef -) 100 mg IVPUSH Q8H-IV JUDSON Last Admin: 12/23/18 01:49 Dose: 100 mg Dobutamine HCl 250,000 mcg/ (Sodium Chloride) 250 mls @ 20.13 mls/hr IV TITR JUDSON; Protocol Last Admin: 12/22/18 21:28 Dose: Not Given Vasopressin 50 units/ Sodium (Chloride) 100 mls @ 4 mls/hr IVPB ASDIR JUDSON; Protocol Last Admin: 12/22/18 16:30 Dose: 6 units/hr, 12 mls/hr Cefepime HCl 1 gm/ Dextrose 50 mls @ 100 mls/hr IVPB BID JUDSON; Protocol Last Admin: 12/22/18 21:57 Dose: 100 mls/hr Furosemide 100 mg/ Dextrose 50 mls @ 2.5 mls/hr IVPB TITR JUDSON; Protocol Last Admin: 12/22/18 18:04 Dose: 5 mg/hr, 2.5 mls/hr Norepinephrine Bitartrate 8, (000 mcg/ Dextrose) 250 mls @ 9.37 mls/hr IVPB TITR JUDSON; Protocol Last Titration: 12/23/18 09:23 Dose: 25 mcg/min, 46.87 mls/hr Non-Formulary Medication (Abiraterone Acetate [Abiraterone Acetate]) 4 tab PO DAILY JUDSON Pantoprazole Sodium (Protonix Iv) 40 mg IVPUSH DAILY JUDSON Last Admin: 12/22/18 09:48 Dose: 40 mg - Objective Vital Signs: Vital Signs Temperature 98.3 F 12/23/18 05:00 Pulse Rate 102 H 12/23/18 09:20 Respiratory Rate 24 H 12/23/18 09:20 Blood Pressure 66/52 L 12/23/18 09:20 O2 Sat by Pulse Oximetry (%) 100 12/22/18 10:12 Constitutional: Yes: No Distress, Calm Neck: Yes: Supple Cardiovascular: Yes: Pulse Irregular Respiratory: Yes: Regular, Other (HFO2) Gastrointestinal: Yes: Soft, Hypoactive Bowel Sounds Edema: Yes Edema: LLE: Trace, RLE: Trace Labs: CBC, BMP 12/23/18 05:15 12/23/18 05:15 INR, PTT INR 2.09 (0.83-1.09) H 12/23/18 05:15 Fibrinogen 325.0 mg/dL (238-498) 12/23/18 05:15 Problem List - Problems (1) Acute kidney injury Code(s): N17.9 - ACUTE KIDNEY FAILURE, UNSPECIFIED (2) Anemia Code(s): D64.9 - ANEMIA, UNSPECIFIED Qualifiers: Anemia type: unspecified type Qualified Code(s): D64.9 - Anemia, unspecified (3) CHF exacerbation Code(s): I50.9 - HEART FAILURE, UNSPECIFIED Qualifiers: Heart failure type: combined systolic and diastolic Qualified Code(s): I50.43 - Acute on chronic combined systolic (congestive) and diastolic ( congestive) heart failure (4) Hyponatremia Code(s): E87.1 - HYPO-OSMOLALITY AND HYPONATREMIA (5) Hyperlipidemia Code(s): E78.5 - HYPERLIPIDEMIA, UNSPECIFIED Qualifiers: Hyperlipidemia type: pure hypercholesterolemia Qualified Code(s): E78.00 - Pure hypercholesterolemia, unspecified; E78.0 - Pure hypercholesterolemia (6) Prostate cancer metastatic to bone Code(s): C61 - MALIGNANT NEOPLASM OF PROSTATE; C79.51 - SECONDARY MALIGNANT NEOPLASM OF BONE (7) Subendocardial ischemia Code(s): I24.8 - OTHER FORMS OF ACUTE ISCHEMIC HEART DISEASE (8) Supratherapeutic INR Code(s): R79.1 - ABNORMAL COAGULATION PROFILE (9) Atrial fibrillation with rapid ventricular response Code(s): I48.91 - UNSPECIFIED ATRIAL FIBRILLATION (10) Cardiogenic shock Code(s): R57.0 - CARDIOGENIC SHOCK Assessment/Plan 12/20/2018 Echo: Severely decreased LVEF 25%, normal RV size and fxn, tr MR, TR RVSP 41 mmHg 1. Acute on chronic class III-IV NYHA classification LV systolic failure, cardiogenic shock - to exclude sepsis related hypotension 2. CAD with evidence of demand ischemia 3. Paroxysmal afib with RVR 4. Acute on chronic renal insufficiency 5. Hyponatremia-Hypervolemic improved 6. Metastatic prostate carcinoma 7. 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 Anemia 9. Shock liver PLAN: 1. Continue pressors and wean as tolerated maintaining MAP > 65 mmHg, 2. Decrease Dobutamine@5 and use amiodarone as needed for rate-control 3. Lasix gtt @ 10/hr with monitor diuretic response, renal fxn and electrolytes 4. Eventually hemodynamics permitting recommend the addition of B-Blockers/ Coreg +/- ACEI or ARBS- provided renal function at baseline 5. Follow Na level closely 6. Empiric abx course per C&S, stress dose steroids, O2 to keep Spo2 >90% 7. GOC to be addressed, palliative care consult 8. Coumadin per INR, trend LFTs
[2018-12-23] MEDS ORDERED: DEXTROSE 5%-WATER - 50 ML IVPB ONE ×2 (10:00→21:08)
[2018-12-23] MEDS ORDERED: CEFEPIME HCL 1 GM VIAL (RESTRICTED TO ID) ONE ×2 (10:00→21:08)
[2018-12-23] MEDS: CEFEPIME 1 GM in DEXTROSE 5%-WATER - 50 ML IVPB SCH ×2 (10:04→21:22)
[2018-12-23] MEDS: PANTOPRAZOLE SODIUM 40 MG VIAL IVPUSH SCH (10:08)
[2018-12-23] MEDS: ABIRATERONE ACETATE PO SCH ×2 (10:15→16:23)
--- NOTE | 2018-12-23 10:20 | PN ---
Progress Note, Physician History of Present Illness: events noted from yesterday patient has detoriated pressors are increased to maintain bp - Current Medication List Current Medications: Active Medications Acetaminophen (Tylenol -) 650 mg PO Q6H PRN PRN Reason: FEVER Last Admin: 12/23/18 01:50 Dose: 650 mg Atorvastatin Calcium (Lipitor -) 10 mg PO HS JUDSON Last Admin: 12/22/18 21:57 Dose: 10 mg Hydrocortisone Sodium Succinate (Solu-Cortef -) 100 mg IVPUSH Q8H-IV JUDSON Last Admin: 12/23/18 01:49 Dose: 100 mg Dobutamine HCl 250,000 mcg/ (Sodium Chloride) 250 mls @ 20.13 mls/hr IV TITR JUDSON; Protocol Last Admin: 12/22/18 21:28 Dose: Not Given Vasopressin 50 units/ Sodium (Chloride) 100 mls @ 4 mls/hr IVPB ASDIR JUDSON; Protocol Last Admin: 12/22/18 16:30 Dose: 6 units/hr, 12 mls/hr Cefepime HCl 1 gm/ Dextrose 50 mls @ 100 mls/hr IVPB BID JUDSON; Protocol Last Admin: 12/22/18 21:57 Dose: 100 mls/hr Furosemide 100 mg/ Dextrose 50 mls @ 2.5 mls/hr IVPB TITR JUDSON; Protocol Last Admin: 12/22/18 18:04 Dose: 5 mg/hr, 2.5 mls/hr Norepinephrine Bitartrate 8, (000 mcg/ Dextrose) 250 mls @ 9.37 mls/hr IVPB TITR JUDSON; Protocol Last Titration: 12/23/18 09:23 Dose: 25 mcg/min, 46.87 mls/hr Non-Formulary Medication (Abiraterone Acetate [Abiraterone Acetate]) 4 tab PO DAILY JUDSON Pantoprazole Sodium (Protonix Iv) 40 mg IVPUSH DAILY JUDSON Last Admin: 12/22/18 09:48 Dose: 40 mg - Objective Vital Signs: Vital Signs Temperature 98.3 F 12/23/18 05:00 Pulse Rate 102 H 12/23/18 09:20 Respiratory Rate 24 H 12/23/18 09:20 Blood Pressure 66/52 L 12/23/18 09:20 O2 Sat by Pulse Oximetry (%) 100 12/22/18 10:12 Constitutional: Yes: Calm Cardiovascular: Yes: S1, S2 Gastrointestinal: Yes: Normal Bowel Sounds, Soft Musculoskeletal: Yes: WNL Extremities: Yes: WNL Neurological: Yes: Alert Psychiatric: Yes: Alert Labs: CBC, BMP 12/23/18 05:15 12/23/18 05:15 INR, PTT INR 2.09 (0.83-1.09) H 12/23/18 05:15 Fibrinogen 325.0 mg/dL (238-498) 12/23/18 05:15 Assessment/Plan Acute on Chronic Systolic/Diastolic Heart Failure Shock - Likely Cardiogenic Acute Kidney Injury +Troponins likely Demand Ischemia Lactic Acidosis Hyponatremia likely Hypervolemic h/o DVT Metastatic Prostate Ca Anemia plan continue as per icu continue empiric abx await for cx resp support nutrition rest as per the team cc 40 min
[2018-12-23] MEDS: VASOPRESSIN 50 UNITS in SODIUM CHLORIDE 97.5 ML IVPB SCH ×2 (10:39→19:36)
[2018-12-23] MEDS: FUROSEMIDE INJECTION 100 MG in DEXTROSE 5%-WATER - 40 ML IVPB SCH ×2 (10:50→17:04)
[2018-12-23 10:57] LABS: INR 2.14 (0.83-1.09); PROTHROMBIN TIME (PATIENT) 25.5 SEC (9.7-13.0)
--- NOTE | 2018-12-23 11:19 | PN ---
Teaching Attending Note Name of Resident: Alisa Xie ATTENDING PHYSICIAN STATEMENT I saw and evaluated the patient. I reviewed the resident's note and discussed the case with the resident. I agree with the resident's findings and plan as documented. SUBJECTIVE: Patient seen and examined in the ICU. Profound Cardiogenic shock. Remains on levophed @ 20meq, vasopressin @ 6 units , and dobutamine @ 5mq. Remains on HFOT. Awake and responsive. Reports SOB is better. OBJECTIVE: Intake & Output 12/20/18 12/21/18 12/22/18 12/23/18 23:59 23:59 23:59 23:59 Intake Total 1799.6 2223.2 2696.4 687.6 Output Total 2710 1200 975 0 Balance -910.4 1023.2 1721.4 687.6 Weight 148 lb 142 lb 149 lb 2 oz 153 lb Last Vital Signs Temp Pulse Resp BP Pulse Ox 98.3 F 102 H 24 H 66/52 L 100 12/23/18 05:00 12/23/18 09:20 12/23/18 09:20 12/23/18 09:20 12/22/18 10:12 Active Medications Acetaminophen (Tylenol -) 650 mg PO Q6H PRN PRN Reason: FEVER Last Admin: 12/23/18 01:50 Dose: 650 mg Atorvastatin Calcium (Lipitor -) 10 mg PO HS JUDSON Last Admin: 12/22/18 21:57 Dose: 10 mg Hydrocortisone Sodium Succinate (Solu-Cortef -) 100 mg IVPUSH Q8H-IV JUDSON Last Admin: 12/23/18 10:06 Dose: 100 mg Dobutamine HCl 250,000 mcg/ (Sodium Chloride) 250 mls @ 20.13 mls/hr IV TITR JUDSON; Protocol Last Admin: 12/22/18 21:28 Dose: Not Given Vasopressin 50 units/ Sodium (Chloride) 100 mls @ 4 mls/hr IVPB ASDIR JUDSON; Protocol Last Admin: 12/23/18 10:39 Dose: 6 units/hr, 12 mls/hr Cefepime HCl 1 gm/ Dextrose 50 mls @ 100 mls/hr IVPB BID JUDSON; Protocol Last Admin: 12/23/18 10:04 Dose: 100 mls/hr Furosemide 100 mg/ Dextrose 50 mls @ 2.5 mls/hr IVPB TITR JUDSON; Protocol Last Admin: 12/23/18 10:50 Dose: 5 mg/hr, 2.5 mls/hr Norepinephrine Bitartrate 8, (000 mcg/ Dextrose) 250 mls @ 9.37 mls/hr IVPB TITR JUDSON; Protocol Last Titration: 12/23/18 09:23 Dose: 25 mcg/min, 46.87 mls/hr Non-Formulary Medication (Abiraterone Acetate [Abiraterone Acetate]) 4 tab PO DAILY JUDSON Last Admin: 12/23/18 10:15 Dose: 4 tab Pantoprazole Sodium (Protonix Iv) 40 mg IVPUSH DAILY JUDSON Last Admin: 12/23/18 10:08 Dose: 40 mg Gen: mildly tachypneic at rest Neck: +JVD Heart: RRR Lung: bibasilar rales Abd: soft, nontender Ext: 1+ edema Laboratory Results - last 24 hr 12/19/18 12/22/18 12/23/18 19:55 09:49 04:50 WBC RBC Hgb Hct MCV MCH MCHC RDW Plt Count MPV PT with INR INR 7.63 H* PTT (Actin FS) Fibrinogen Anticoagulation Therapy No Result Required. Puncture Site Right radial ABG pH 7.33 L ABG pCO2 at Pt Temp 19.6 L ABG pO2 at Pt Temp 387 H ABG HCO3 10.1 L ABG O2 Sat (Measured) 100.0 H ABG O2 Content 13.4 L ABG Base Excess -14.3 L Eugene Test Positive O2 Delivery Device No Result Required. Oxygen Flow Rate 100% Vent Mode No Result Required. Vent Rate No Result Required. Mechanical Rate No Result Required. Pressure Support Vent No Result Required. Sodium Potassium Chloride Carbon Dioxide Anion Gap BUN Creatinine Est GFR (CKD-EPI)AfAm Est GFR (CKD-EPI)NonAf Random Glucose Lactic Acid Calcium Phosphorus Magnesium Total Bilirubin AST ALT Alkaline Phosphatase Total Protein Albumin Blood Type B POSITIVE Antibody Screen Negative Crossmatch See Detail 12/23/18 12/23/18 12/23/18 05:15 05:15 05:15 WBC 10.7 H RBC 2.72 L Hgb 8.9 L Hct 26.0 L MCV 95.6 MCH 32.6 MCHC 34.1 RDW 19.2 H Plt Count 185 MPV 8.5 PT with INR INR PTT (Actin FS) 32.6 Fibrinogen Anticoagulation Therapy Puncture Site ABG pH ABG pCO2 at Pt Temp ABG pO2 at Pt Temp ABG HCO3 ABG O2 Sat (Measured) ABG O2 Content ABG Base Excess Eugene Test O2 Delivery Device Oxygen Flow Rate Vent Mode Vent Rate Mechanical Rate Pressure Support Vent Sodium 123 L Potassium 4.7 Chloride 91 L Carbon Dioxide 15 L Anion Gap 17 H BUN 52.8 H Creatinine 2.3 H Est GFR (CKD-EPI)AfAm 28.93 Est GFR (CKD-EPI)NonAf 24.96 Random Glucose 323 H* Lactic Acid Calcium 6.9 L* Phosphorus 4.9 Magnesium 2.9 H Total Bilirubin 0.6 AST 214 H ALT 211 H Alkaline Phosphatase 118 H Total Protein 5.9 L Albumin 3.0 L Blood Type Antibody Screen Crossmatch 12/23/18 12/23/18 12/23/18 05:15 05:15 10:00 WBC RBC Hgb Hct MCV MCH MCHC RDW Plt Count MPV PT with INR 24.80 H 25.50 H INR 2.09 H 2.14 H PTT (Actin FS) Fibrinogen 325.0 Anticoagulation Therapy Puncture Site ABG pH ABG pCO2 at Pt Temp ABG pO2 at Pt Temp ABG HCO3 ABG O2 Sat (Measured) ABG O2 Content ABG Base Excess Eugene Test O2 Delivery Device Oxygen Flow Rate Vent Mode Vent Rate Mechanical Rate Pressure Support Vent Sodium Potassium Chloride Carbon Dioxide Anion Gap BUN Creatinine Est GFR (CKD-EPI)AfAm Est GFR (CKD-EPI)NonAf Random Glucose Lactic Acid Calcium Phosphorus Magnesium Total Bilirubin AST ALT Alkaline Phosphatase Total Protein Albumin Blood Type Antibody Screen Crossmatch 12/23/18 10:00 WBC RBC Hgb Hct MCV MCH MCHC RDW Plt Count MPV PT with INR INR PTT (Actin FS) Fibrinogen Anticoagulation Therapy Puncture Site ABG pH ABG pCO2 at Pt Temp ABG pO2 at Pt Temp ABG HCO3 ABG O2 Sat (Measured) ABG O2 Content ABG Base Excess Eugene Test O2 Delivery Device Oxygen Flow Rate Vent Mode Vent Rate Mechanical Rate Pressure Support Vent Sodium Potassium Chloride Carbon Dioxide Anion Gap BUN Creatinine Est GFR (CKD-EPI)AfAm Est GFR (CKD-EPI)NonAf Random Glucose Lactic Acid 6.5 H* Calcium Phosphorus Magnesium Total Bilirubin AST ALT Alkaline Phosphatase Total Protein Albumin Blood Type Antibody Screen Crossmatch ASSESSMENT AND PLAN: Acute on Chronic Systolic/Diastolic Heart Failure Shock - Likely Cardiogenic Acute Kidney Injury +Troponins likely Demand Ischemia Lactic Acidosis Hyponatremia likely Hypervolemic h/o DVT Metastatic Prostate Ca Anemia - Lasix drip - monitor urine output, creatinine - daily weights - titrate pressors, inotropes to maintain MAP >65 - holding anticoagulation, keep INR 2-3 - Stress dose steroids - O2 to keep Spo2 >90% - HFOT to assist in work of breathing - monitor lytes - on empiric antibiotics per ID, f/u cultures - Overall prognosis appears poor, continue discussions regarding goals of care - continue ICU monitoring Dr Woods Critical care time spent in reviewing chart, evaluating patient and formulating plan 36 min
[2018-12-23] MEDS: NOREPINEPHRINE BITARTRATE 8,000 MCG in DEXTROSE 5%-WATER - 242 ML IVPB SCH ×4 (11:35→23:57)
--- NOTE | 2018-12-23 11:52 | PN ---
Physical Exam: SUBJECTIVE: Patient seen and examined at bedside- patients condition is deteriorating he went back into afib overnight and his work of breathing is increasing and patient needed to be placed back on bilevel overnight however he grew more confused and started pulling out all of his IV lines so he was placed back on hi-flow. he is now on max pressors with MAPS in the low 60's OBJECTIVE: Vital Signs Period Temp Pulse Resp BP Sys/Ibarra Pulse Ox Last 24 Hr 97.4 F-98.3 F 71-103 14-30 66-89/52-62 GENERAL: The patient is awake, alert, in acute distress; tachypneic on hi-flow. EYES: PEERLA; EOMI; no scleral ictreus NECK: + JVD LUNGS: crackles appreciated B/L with poor air entry; tachypneic, . HEART: Regular rate and rhythm, S1, S2 without murmur, rub or gallop. ABDOMEN: Soft, nontender, nondistended, normoactive bowel sounds, no guarding, no rebound, no hepatosplenomegaly, no masses. EXTREMITIES: faint pulses; cool extremities 1+ pitting edema B/L. NEUROLOGICAL: Cranial nerves II through XII grossly intact. Normal speech, gait not observed. PSYCH: Normal mood, normal affect. SKIN: cool ; slightly mottled lower extremities Laboratory Results - last 24 hr 12/19/18 12/22/18 12/23/18 19:55 09:49 04:50 WBC RBC Hgb Hct MCV MCH MCHC RDW Plt Count MPV PT with INR INR 7.63 H* PTT (Actin FS) Fibrinogen Anticoagulation Therapy No Result Required. Puncture Site Right radial ABG pH 7.33 L ABG pCO2 at Pt Temp 19.6 L ABG pO2 at Pt Temp 387 H ABG HCO3 10.1 L ABG O2 Sat (Measured) 100.0 H ABG O2 Content 13.4 L ABG Base Excess -14.3 L Eugene Test Positive O2 Delivery Device No Result Required. Oxygen Flow Rate 100% Vent Mode No Result Required. Vent Rate No Result Required. Mechanical Rate No Result Required. Pressure Support Vent No Result Required. Sodium Potassium Chloride Carbon Dioxide Anion Gap BUN Creatinine Est GFR (CKD-EPI)AfAm Est GFR (CKD-EPI)NonAf Random Glucose Lactic Acid Calcium Phosphorus Magnesium Total Bilirubin AST ALT Alkaline Phosphatase Total Protein Albumin Blood Type B POSITIVE Antibody Screen Negative Crossmatch See Detail 12/23/18 12/23/18 12/23/18 05:15 05:15 05:15 WBC 10.7 H RBC 2.72 L Hgb 8.9 L Hct 26.0 L MCV 95.6 MCH 32.6 MCHC 34.1 RDW 19.2 H Plt Count 185 MPV 8.5 PT with INR INR PTT (Actin FS) 32.6 Fibrinogen Anticoagulation Therapy Puncture Site ABG pH ABG pCO2 at Pt Temp ABG pO2 at Pt Temp ABG HCO3 ABG O2 Sat (Measured) ABG O2 Content ABG Base Excess Eugene Test O2 Delivery Device Oxygen Flow Rate Vent Mode Vent Rate Mechanical Rate Pressure Support Vent Sodium 123 L Potassium 4.7 Chloride 91 L Carbon Dioxide 15 L Anion Gap 17 H BUN 52.8 H Creatinine 2.3 H Est GFR (CKD-EPI)AfAm 28.93 Est GFR (CKD-EPI)NonAf 24.96 Random Glucose 323 H* Lactic Acid Calcium 6.9 L* Phosphorus 4.9 Magnesium 2.9 H Total Bilirubin 0.6 AST 214 H ALT 211 H Alkaline Phosphatase 118 H Total Protein 5.9 L Albumin 3.0 L Blood Type Antibody Screen Crossmatch 12/23/18 12/23/18 12/23/18 05:15 05:15 10:00 WBC RBC Hgb Hct MCV MCH MCHC RDW Plt Count MPV PT with INR 24.80 H 25.50 H INR 2.09 H 2.14 H PTT (Actin FS) Fibrinogen 325.0 Anticoagulation Therapy Puncture Site ABG pH ABG pCO2 at Pt Temp ABG pO2 at Pt Temp ABG HCO3 ABG O2 Sat (Measured) ABG O2 Content ABG Base Excess Eugene Test O2 Delivery Device Oxygen Flow Rate Vent Mode Vent Rate Mechanical Rate Pressure Support Vent Sodium Potassium Chloride Carbon Dioxide Anion Gap BUN Creatinine Est GFR (CKD-EPI)AfAm Est GFR (CKD-EPI)NonAf Random Glucose Lactic Acid Calcium Phosphorus Magnesium Total Bilirubin AST ALT Alkaline Phosphatase Total Protein Albumin Blood Type Antibody Screen Crossmatch 12/23/18 10:00 WBC RBC Hgb Hct MCV MCH MCHC RDW Plt Count MPV PT with INR INR PTT (Actin FS) Fibrinogen Anticoagulation Therapy Puncture Site ABG pH ABG pCO2 at Pt Temp ABG pO2 at Pt Temp ABG HCO3 ABG O2 Sat (Measured) ABG O2 Content ABG Base Excess Eugene Test O2 Delivery Device Oxygen Flow Rate Vent Mode Vent Rate Mechanical Rate Pressure Support Vent Sodium Potassium Chloride Carbon Dioxide Anion Gap BUN Creatinine Est GFR (CKD-EPI)AfAm Est GFR (CKD-EPI)NonAf Random Glucose Lactic Acid 6.5 H* Calcium Phosphorus Magnesium Total Bilirubin AST ALT Alkaline Phosphatase Total Protein Albumin Blood Type Antibody Screen Crossmatch Active Medications Generic Name Dose Route Start Last Admin Trade Name Freq PRN Reason Stop Dose Admin Acetaminophen 650 mg 12/19/18 21:41 12/23/18 01:50 Tylenol - PO 650 mg Q6H PRN Administration FEVER Atorvastatin Calcium 10 mg 12/19/18 22:00 12/22/18 21:57 Lipitor - PO 10 mg HS JUDSON Administration Hydrocortisone Sodium Succinate 100 mg 12/22/18 11:00 12/23/18 10:06 Solu-Cortef - IVPUSH 100 mg Q8H-IV JUDSON Administration Dobutamine HCl 250,000 mcg/ 250 mls @ 20.13 mls/hr 12/20/18 08:45 12/22/18 21 :28 Sodium Chloride IV Not Given TITR JUDSON Protocol 5 MCG/KG/MIN Vasopressin 50 units/ Sodium 100 mls @ 4 mls/hr 12/20/18 10:45 12/23/18 10:39 Chloride IVPB 6 units/hr ASDIR JUDSON 12 mls/hr Administration Protocol 2 UNITS/HR Cefepime HCl 1 gm/ Dextrose 50 mls @ 100 mls/hr 12/20/18 14:00 12/23/18 10:04 IVPB 100 mls/hr BID JUDSON Administration Protocol Furosemide 100 mg/ Dextrose 50 mls @ 2.5 mls/hr 12/22/18 16:45 12/23/18 10:50 IVPB 5 mg/hr TITR JUDSON 2.5 mls/hr Administration Protocol 5 MG/HR Norepinephrine Bitartrate 8, 250 mls @ 9.37 mls/hr 12/22/18 13:33 12/23/18 11 :35 000 mcg/ Dextrose IVPB 25 mcg/min TITR JUDSON 46.87 mls/hr Administration Protocol 5 MCG/MIN Non-Formulary Medication 4 tab 12/23/18 10:00 12/23/18 10:15 Abiraterone Acetate [Abiraterone Acetate] PO 4 tab DAILY JUDSON Administration Pantoprazole Sodium 40 mg 12/21/18 12:00 12/23/18 10:08 Protonix Iv IVPUSH 40 mg DAILY JUDSON Administration ASSESSMENT/PLAN: 83M w/ a history of 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 and bone (last chemo session was mar 2018) CHF, HTN, HLD, previous subdural hematoma s/p craniotomy, history of DVT on Coumadin presented to the ED with a 1 day history of worsening dyspnea, with worsening fluid overload and an episode of vomiting #Neuro stable; no issues #Cardiovascular CHF exacerbation, hypotension, elevated troponin ; cardiogenic shock patient on levophed 25; dobutamine 5, vasopressin 6; -left IJ central line was placed 2 days ago -patient went back into afib overnight however is now back in sinus -lasix drip 5mg/hr -cardiac enzymes peaked at 6.01 -holding home antihypertensives -echo done which shows an EF of 25% with severe global hypokinesis of the LV and mild pulmonary hypertension -monitor I's and O's (put out 1.6L in 24 hours) however still net positive -holding coumadin in light of supratheraputic INR #Endocrine -adding stress dose steroids hydrocortisone 100q8H -patient now has a metabolic acidosis likely 2/2 renal failure #GI patient has slight transaminitis (AST 214; ALT 211) -will continue to monitor #Heme/Onc patients INR is now down to 2.09 after receiving vitamin K -heme onc consulted on board -Hgb stabel at 8.9 this AM -will monitor for signs of bleeding -patient has history of prostate ca with mets to bone/lung; -palliative care consulted with family discussion in process regarding goals of care #ID patient's WBC is up from 9.7 to 10.7 (likely 2/2 hydrocortisone use) -ID on board #Pulmonary -patient on hi-flow however is working to breath and states that the bilevel is uncomfortable -family meeting in discussion in terms of intubating or DNI #Renal patient came in with a Cr of 2.6 (baseline .08-1) and was hyponatremic to 117 ( likely 2/2 hypervolemic hyponatremia) possibly 2/2 cardiorenal syndrome -This AM serum sodium 124; Cr 2.3 -patient on lasix drip 5mg/hr -nephrology on board -monitor lytes; replete accordingly F/E/N not on fluids monitor electrolytes full liquid diet DVT PPX: scds in light of supratheraputic INR GI: protonix 40 daily family discussion in process; prognosis poor palliative care meeting today Problem List - Problems (1) Acute kidney injury Code(s): N17.9 - ACUTE KIDNEY FAILURE, UNSPECIFIED (2) CHF exacerbation Code(s): I50.9 - HEART FAILURE, UNSPECIFIED Qualifiers: Heart failure type: combined systolic and diastolic Qualified Code(s): I50.43 - Acute on chronic combined systolic (congestive) and diastolic ( congestive) heart failure (3) Hyperlipidemia Code(s): E78.5 - HYPERLIPIDEMIA, UNSPECIFIED Qualifiers: Hyperlipidemia type: pure hypercholesterolemia Qualified Code(s): E78.00 - Pure hypercholesterolemia, unspecified; E78.0 - Pure hypercholesterolemia (4) Prostate cancer Code(s): C61 - MALIGNANT NEOPLASM OF PROSTATE (5) Supratherapeutic INR Code(s): R79.1 - ABNORMAL COAGULATION PROFILE Visit type - Emergency Visit Emergency Visit: Yes ED Registration Date: 12/19/18 Care time: The patient presented to the Emergency Department on the above date and was hospitalized for further evaluation of their emergent condition. - New Patient This patient is new to me today: No - Critical Care Critical Care patient: Yes Total Critical Care Time (in minutes): 35 Critical Care Statement: The care of this patient involved high complexity decision making to prevent further life threatening deterioration of the patient 's condition and/or to evaluate & treat vital organ system(s) failure or risk of failure.
--- NOTE | 2018-12-23 12:58 | PN ---
Progress Note, Physician History of Present Illness: on face mask - Current Medication List Current Medications: Active Medications Acetaminophen (Tylenol -) 650 mg PO Q6H PRN PRN Reason: FEVER Last Admin: 12/23/18 01:50 Dose: 650 mg Atorvastatin Calcium (Lipitor -) 10 mg PO HS JUDSON Last Admin: 12/22/18 21:57 Dose: 10 mg Hydrocortisone Sodium Succinate (Solu-Cortef -) 100 mg IVPUSH Q8H-IV JUDSON Last Admin: 12/23/18 10:06 Dose: 100 mg Dobutamine HCl 250,000 mcg/ (Sodium Chloride) 250 mls @ 20.13 mls/hr IV TITR JUDSON; Protocol Last Admin: 12/22/18 21:28 Dose: Not Given Vasopressin 50 units/ Sodium (Chloride) 100 mls @ 4 mls/hr IVPB ASDIR JUDSON; Protocol Last Admin: 12/23/18 10:39 Dose: 6 units/hr, 12 mls/hr Cefepime HCl 1 gm/ Dextrose 50 mls @ 100 mls/hr IVPB BID JUDSON; Protocol Last Admin: 12/23/18 10:04 Dose: 100 mls/hr Furosemide 100 mg/ Dextrose 50 mls @ 2.5 mls/hr IVPB TITR JUDSON; Protocol Last Admin: 12/23/18 10:50 Dose: 5 mg/hr, 2.5 mls/hr Norepinephrine Bitartrate 8, (000 mcg/ Dextrose) 250 mls @ 9.37 mls/hr IVPB TITR JUDSON; Protocol Last Admin: 12/23/18 11:35 Dose: 25 mcg/min, 46.87 mls/hr Non-Formulary Medication (Abiraterone Acetate [Abiraterone Acetate]) 4 tab PO DAILY JUDSON Last Admin: 12/23/18 10:15 Dose: 4 tab Pantoprazole Sodium (Protonix Iv) 40 mg IVPUSH DAILY JUDSON Last Admin: 12/23/18 10:08 Dose: 40 mg - Objective Vital Signs: Vital Signs Temperature 98.3 F 12/23/18 05:00 Pulse Rate 95 H 12/23/18 12:00 Respiratory Rate 20 12/23/18 12:00 Blood Pressure 93/70 12/23/18 12:00 O2 Sat by Pulse Oximetry (%) 100 12/22/18 10:12 Constitutional: Yes: Calm HENT: Yes: Atraumatic Neck: Yes: Supple Cardiovascular: Yes: Regular Rate and Rhythm Respiratory: Yes: Rhonchi Gastrointestinal: Yes: Normal Bowel Sounds Extremities: Yes: WNL Edema: No Neurological: Yes: Alert, Oriented Labs: CBC, BMP 12/23/18 05:15 12/23/18 05:15 INR, PTT INR 2.14 (0.83-1.09) H 12/23/18 10:00 Fibrinogen 325.0 mg/dL (238-498) 12/23/18 05:15 Problem List - Problems (1) Acute kidney injury Assessment/Plan: cr increasing on diuresis Code(s): N17.9 - ACUTE KIDNEY FAILURE, UNSPECIFIED (2) Anemia Code(s): D64.9 - ANEMIA, UNSPECIFIED Qualifiers: Anemia type: unspecified type Qualified Code(s): D64.9 - Anemia, unspecified (3) CHF exacerbation Code(s): I50.9 - HEART FAILURE, UNSPECIFIED Qualifiers: Heart failure type: combined systolic and diastolic Qualified Code(s): I50.43 - Acute on chronic combined systolic (congestive) and diastolic ( congestive) heart failure (4) NSTEMI (non-ST elevated myocardial infarction) Assessment/Plan: troponins positive...trending down now on cardiac meds per cardiology Code(s): I21.4 - NON-ST ELEVATION (NSTEMI) MYOCARDIAL INFARCTION (5) Acute diastolic (congestive) heart failure Assessment/Plan: pressor support Code(s): I50.31 - ACUTE DIASTOLIC (CONGESTIVE) HEART FAILURE (6) Acute electrocardiogram changes Code(s): R94.31 - ABNORMAL ELECTROCARDIOGRAM [ECG] [EKG] (7) Coronary artery disease with unstable angina pectoris Code(s): I25.110 - ATHSCL HEART DISEASE OF [place] ART W UNSTABLE ANG PCTRS Qualifiers: (8) Hyperlipidemia Code(s): E78.5 - HYPERLIPIDEMIA, UNSPECIFIED Qualifiers: Hyperlipidemia type: pure hypercholesterolemia Qualified Code(s): E78.00 - Pure hypercholesterolemia, unspecified; E78.0 - Pure hypercholesterolemia (9) Prostate cancer Code(s): C61 - MALIGNANT NEOPLASM OF PROSTATE (10) Prostate cancer metastatic to bone Code(s): C61 - MALIGNANT NEOPLASM OF PROSTATE; C79.51 - SECONDARY MALIGNANT NEOPLASM OF BONE (11) Subendocardial ischemia Code(s): I24.8 - OTHER FORMS OF ACUTE ISCHEMIC HEART DISEASE (12) Supratherapeutic INR Assessment/Plan: shock liver monitor Code(s): R79.1 - ABNORMAL COAGULATION PROFILE Assessment/Plan Impression 1. hyponatremia 2. yinka 3. chf 4. positive troponins 5. hypocalcemia 6. prostate cancer with mets 7. hypotension 8. lactic acidosis improved 9. shock on pressors 10. a-fib 11. resp failure requiring bipap Plan continue current meds, on emperic abx cxs negative cc time 40 min
--- NOTE | 2018-12-23 13:27 | PN ---
Progress Note, Physician History of Present Illness: Pt seen and examined at bedside. He is short of breath. His pressor requirements have increased. - Current Medication List Current Medications: Active Medications Acetaminophen (Tylenol -) 650 mg PO Q6H PRN PRN Reason: FEVER Last Admin: 12/23/18 01:50 Dose: 650 mg Atorvastatin Calcium (Lipitor -) 10 mg PO HS JUDSON Last Admin: 12/22/18 21:57 Dose: 10 mg Hydrocortisone Sodium Succinate (Solu-Cortef -) 100 mg IVPUSH Q8H-IV JUDSON Last Admin: 12/23/18 10:06 Dose: 100 mg Dobutamine HCl 250,000 mcg/ (Sodium Chloride) 250 mls @ 20.13 mls/hr IV TITR JUDSON; Protocol Last Admin: 12/22/18 21:28 Dose: Not Given Vasopressin 50 units/ Sodium (Chloride) 100 mls @ 4 mls/hr IVPB ASDIR JUDSON; Protocol Last Admin: 12/23/18 10:39 Dose: 6 units/hr, 12 mls/hr Cefepime HCl 1 gm/ Dextrose 50 mls @ 100 mls/hr IVPB BID JUDSON; Protocol Last Admin: 12/23/18 10:04 Dose: 100 mls/hr Furosemide 100 mg/ Dextrose 50 mls @ 2.5 mls/hr IVPB TITR JUDSON; Protocol Last Admin: 12/23/18 10:50 Dose: 5 mg/hr, 2.5 mls/hr Norepinephrine Bitartrate 8, (000 mcg/ Dextrose) 250 mls @ 9.37 mls/hr IVPB TITR JUDSON; Protocol Last Admin: 12/23/18 11:35 Dose: 25 mcg/min, 46.87 mls/hr Non-Formulary Medication (Abiraterone Acetate [Abiraterone Acetate]) 4 tab PO DAILY JUDSON Last Admin: 12/23/18 10:15 Dose: 4 tab Pantoprazole Sodium (Protonix Iv) 40 mg IVPUSH DAILY JUDSON Last Admin: 12/23/18 10:08 Dose: 40 mg - Objective Vital Signs: Vital Signs Temperature 98.3 F 12/23/18 05:00 Pulse Rate 95 H 12/23/18 12:00 Respiratory Rate 20 12/23/18 12:00 Blood Pressure 93/70 12/23/18 12:00 O2 Sat by Pulse Oximetry (%) 100 12/22/18 10:12 Constitutional: Yes: Calm Eyes: Yes: Conjunctiva Clear HENT: Yes: Atraumatic Neck: Yes: Supple Cardiovascular: Yes: S1, S2 Respiratory: Yes: On Nasal O2, Rhonchi Gastrointestinal: Yes: Soft Genitourinary: Yes: WNL Musculoskeletal: Yes: WNL Edema: Yes Edema: LLE: 1+, RLE: 1+ Neurological: Yes: Oriented Psychiatric: Yes: Oriented Labs: CBC, BMP 12/23/18 05:15 12/23/18 05:15 INR, PTT INR 2.14 (0.83-1.09) H 12/23/18 10:00 Fibrinogen 325.0 mg/dL (238-498) 12/23/18 05:15 Problem List - Problems (1) Hyponatremia Code(s): E87.1 - HYPO-OSMOLALITY AND HYPONATREMIA (2) Acute kidney injury Code(s): N17.9 - ACUTE KIDNEY FAILURE, UNSPECIFIED (3) Anemia Code(s): D64.9 - ANEMIA, UNSPECIFIED Qualifiers: Anemia type: unspecified type Qualified Code(s): D64.9 - Anemia, unspecified (4) CHF exacerbation Code(s): I50.9 - HEART FAILURE, UNSPECIFIED Qualifiers: Heart failure type: combined systolic and diastolic Qualified Code(s): I50.43 - Acute on chronic combined systolic (congestive) and diastolic ( congestive) heart failure (5) NSTEMI (non-ST elevated myocardial infarction) Code(s): I21.4 - NON-ST ELEVATION (NSTEMI) MYOCARDIAL INFARCTION (6) Prostate cancer Code(s): C61 - MALIGNANT NEOPLASM OF PROSTATE (7) Shortness of breath Code(s): R06.02 - SHORTNESS OF BREATH Assessment/Plan Current Medications Generic Name Dose Route Start Last Admin Trade Name Freq PRN Reason Stop Dose Admin Acetaminophen 650 mg 12/19/18 21:41 12/23/18 01:50 Tylenol - PO 650 mg Q6H PRN Administration FEVER Atorvastatin Calcium 10 mg 12/19/18 22:00 12/22/18 21:57 Lipitor - PO 10 mg HS JUDSON Administration Hydrocortisone Sodium Succinate 100 mg 12/22/18 11:00 12/23/18 10:06 Solu-Cortef - IVPUSH 100 mg Q8H-IV JUDSON Administration Dobutamine HCl 250,000 mcg/ 250 mls @ 20.13 mls/hr 12/20/18 08:45 12/22/18 21 :28 Sodium Chloride IV Not Given TITR JUDSON Protocol 5 MCG/KG/MIN Vasopressin 50 units/ Sodium 100 mls @ 4 mls/hr 12/20/18 10:45 12/23/18 10:39 Chloride IVPB 6 units/hr ASDIR JUDSON 12 mls/hr Administration Protocol 2 UNITS/HR Cefepime HCl 1 gm/ Dextrose 50 mls @ 100 mls/hr 12/20/18 14:00 12/23/18 10:04 IVPB 100 mls/hr BID JUDSON Administration Protocol Furosemide 100 mg/ Dextrose 50 mls @ 2.5 mls/hr 12/22/18 16:45 12/23/18 10:50 IVPB 5 mg/hr TITR UJDSON 2.5 mls/hr Administration Protocol 5 MG/HR Norepinephrine Bitartrate 8, 250 mls @ 9.37 mls/hr 12/22/18 13:33 12/23/18 11 :35 000 mcg/ Dextrose IVPB 25 mcg/min TITR JUDSON 46.87 mls/hr Administration Protocol 5 MCG/MIN Non-Formulary Medication 4 tab 12/23/18 10:00 12/23/18 10:15 Abiraterone Acetate [Abiraterone Acetate] PO 4 tab DAILY JUDSON Administration Pantoprazole Sodium 40 mg 12/21/18 12:00 12/23/18 10:08 Protonix Iv IVPUSH 40 mg DAILY JUDSON Administration Impression 1. hyponatremia 2. yinka 3. chf 4. positive troponins 5. hypocalcemia 6. prostate cancer with mets 7. hypotension 8. lactic acidosis improved 9. shock on pressors 10. a-fib 11. resp failure requiring bipap Plan - renal function worsening - pt remains hypotensive - likely developing ATN - cont supportive care - family to discuss GOC - discussed with ICU team
[2018-12-23] MEDS ORDERED: PT OWN MED DRAWER 7, Y5N ONE (14:46)
--- NOTE | 2018-12-23 14:51 | PROC ---
Procedure Note Procedure: R femoral arterial line placed using seldinger technique for accurate BP measurements with pt on multiple pressors.
[2018-12-23 15:38] VITALS: BMI 20.7
[2018-12-23] MEDS: DOBUTAMINE HCL 250,000 MCG in SODIUM CHLORIDE 230 ML IV SCH (16:24)
--- NOTE | 2018-12-23 20:23 | PN ---
Progress Note (short form) - Note Progress Note: Patient seen and examined Awake , alert On oxygen, pressors Last Vital Signs Temp Pulse Resp BP Pulse Ox 98.1 F 98 H 18 89/60 L 100 12/23/18 16:00 12/23/18 20:00 12/23/18 20:00 12/23/18 20:00 12/22/18 10:12 HEENT: DANIEL, EOM Intact Cor: RSR, No murmurs, No gallops Lungs: rales bases Abd: Soft, Normal bowel sounds, No organomegaly Ext:No significant edema, stasis Skin: No rashes, Integument intact CBC, BMP 12/23/18 05:15 12/23/18 05:15 INR, PTT INR 2.14 (0.83-1.09) H 12/23/18 10:00 Fibrinogen 325.0 mg/dL (238-498) 12/23/18 05:15 Current Medications Generic Name Dose Route Start Last Admin Trade Name Freq PRN Reason Stop Dose Admin Acetaminophen 650 mg 12/19/18 21:41 12/23/18 01:50 Tylenol - PO 650 mg Q6H PRN Administration FEVER Atorvastatin Calcium 10 mg 12/19/18 22:00 12/22/18 21:57 Lipitor - PO 10 mg HS JUDSON Administration Hydrocortisone Sodium Succinate 100 mg 12/22/18 11:00 12/23/18 19:36 Solu-Cortef - IVPUSH 100 mg Q8H-IV JUDSON Administration Dobutamine HCl 250,000 mcg/ 250 mls @ 20.13 mls/hr 12/20/18 08:45 12/23/18 16 :24 Sodium Chloride IV Not Given TITR JUDSON Protocol 5 MCG/KG/MIN Vasopressin 50 units/ Sodium 100 mls @ 4 mls/hr 12/20/18 10:45 12/23/18 19:36 Chloride IVPB 6 units/hr ASDIR JUDSON 12 mls/hr Administration Protocol 2 UNITS/HR Cefepime HCl 1 gm/ Dextrose 50 mls @ 100 mls/hr 12/20/18 14:00 12/23/18 10:04 IVPB 100 mls/hr BID JUDSON Administration Protocol Furosemide 100 mg/ Dextrose 50 mls @ 2.5 mls/hr 12/22/18 16:45 12/23/18 17:04 IVPB Not Given TITR JUDSON Protocol 5 MG/HR Norepinephrine Bitartrate 8, 250 mls @ 9.37 mls/hr 12/22/18 13:33 12/23/18 17 :29 000 mcg/ Dextrose IVPB 25 mcg/min TITR JUDSON 46.87 mls/hr Administration Protocol 5 MCG/MIN Non-Formulary Medication 4 tab 12/23/18 10:00 12/23/18 16:23 Abiraterone Acetate [Abiraterone Acetate] PO Not Given DAILY JUDSON Pantoprazole Sodium 40 mg 12/21/18 12:00 12/23/18 10:08 Protonix Iv IVPUSH 40 mg DAILY JUDSON Administration Impression: metastatic prostate ca on chemotherapy( likely taxotere) and abiraterone. Bone mets. NSTEMI Lactic acidosis Positive troponins Anemia S/P transfusion Shock on pressors/antibiotics SANDRA Hyponatremia Shock liver Coagulopathy secondary to shock liver , CHF,prior a/c No active bleeding Continuing per critical care / renal management.
[2018-12-23] MEDS ORDERED: ACETAMINOPHEN 1000 MG/100 ML VIAL (NON FORMULARY) IVPB PRN (21:03)
[2018-12-23] MEDS: ATORVASTATIN CA 10 MG TABLET (FP) PO SCH (21:22)
[2018-12-24] MEDS: HYDROCORTISONE SOD SUCCINATE 100 MG/2 ML VIAL IVPUSH SCH ×3 (02:00→17:30)
[2018-12-24 06:09] LABS: HEMATOCRIT 24.7 % (35.4-49); HEMOGLOBIN 8.6 GM/dL (11.7-16.9); MCHC 34.7 g/dl (32.0-35.9); WHITE BLOOD COUNT 10.1 K/mm3 (4.0-10.0)
[2018-12-24 06:12] LABS: MCH 32.6 pg (25.7-33.7); MEAN PLT VOLUME 8.1 fl (7.5-11.1); PLATELET COUNT 162 K/MM3 (134-434); RBC 2.63 M/mm3 (4.00-5.60); RDW 18.7 % (11.9-15.9)
[2018-12-24 06:37] LABS: BLOOD UREA NITROGEN 64.4 mg/dL (7-18); CREATININE 2.8 mg/dL (0.55-1.3); MAGNESIUM 2.6 mg/dL (1.8-2.4); PHOSPHOROUS 5.3 mg/dL (2.5-4.9); POTASSIUM 4.6 mmol/L (3.5-5.1); TOT PROT 5.9 g/dl (6.4-8.2)
[2018-12-24 06:39] LABS: CALCIUM 6.4 mg/dL (8.5-10.1)
[2018-12-24] MEDS ORDERED: CALCIUM GLUCONATE 10% - 1,000 MG/10 ML VIAL IVPUSH ONE (06:44)
[2018-12-24 06:52] LABS: INR 1.94 (0.83-1.09)
--- NOTE | 2018-12-24 07:30 | PN ---
Progress Note (short form) - Note Progress Note: PULM/CCM SUBJECTIVE: Patient seen and examined in the ICU. -worsening Cr, downtrending Hco3 -still positive fluid balance OBJECTIVE: Vital Signs Temp 97.5 F L 12/23/18 22:00 Pulse 96 H 12/24/18 06:00 Resp 19 12/24/18 06:00 BP 98/51 L 12/24/18 06:00 Pulse Ox 100 12/22/18 10:12 Intake & Output 12/23/18 12/23/18 12/24/18 11:59 23:59 11:59 Intake Total 687.6 973.6 964.0 Output Total 0 125 Balance 687.6 848.6 964.0 Weight 69.4 kg 70.488 kg Intake: IV 587.6 753.6 864.0 Dobutrex - 250,000 Mcg In 145.2 144 145.2 Normal Saline - 230 ml @ 5 MCG/KG/MIN 20.13 mls/ hr IV TITR [facility] Rx#: [id number] Lasix Injection - 100 mg 30 In D5w - 40 ml @ 5 MG/HR 2.5 mls/hr IVPB TITR JUDSON Rx#:[id number] Lasix Injection - 100 mg 30 30 In D5w - 40 ml @ 5 MG/HR 2.5 mls/hr IVPB TITR JUDSON Rx#:[id number] Levophed - 8,000 Mcg In 218.4 435.6 544.8 D5w - 242 ml @ 5 MCG/MIN 9.37 mls/hr IVPB TITR [facility] Rx#:[id number] Pitressin - 50 Units In 144 144 144 Normal Saline - 97.5 ml @ 2 UNITS/HR 4 mls/hr IVPB ASDIR JUDSON Rx#: [id number] Saline Lock 50 IVPB 160 100 Oral 100 60 Output: Urine 0 125 Void 0 125 Other: Voiding Method Urinal Bowel Movement No No Body Mass Index (BMI) 20.7 Weight Measurement Method Built in Bedscale Built in Bedscale Current Medications Acetaminophen (Ofirmev Injection -) 1,000 mg IVPB Q6H PRN PRN Reason: PAIN LEVEL 1-5 Last Admin: 12/23/18 21:58 Dose: 1,000 mg Atorvastatin Calcium (Lipitor -) 10 mg PO HS JUDSON Last Admin: 12/23/18 21:22 Dose: 10 mg Hydrocortisone Sodium Succinate (Solu-Cortef -) 100 mg IVPUSH Q8H-IV JUDSON Last Admin: 12/24/18 02:00 Dose: 100 mg Dobutamine HCl 250,000 mcg/ (Sodium Chloride) 250 mls @ 20.13 mls/hr IV TITR JUDSON; Protocol Last Admin: 12/23/18 16:24 Dose: Not Given Vasopressin 50 units/ Sodium (Chloride) 100 mls @ 4 mls/hr IVPB ASDIR JUDSON; Protocol Last Admin: 12/23/18 19:36 Dose: 6 units/hr, 12 mls/hr Cefepime HCl 1 gm/ Dextrose 50 mls @ 100 mls/hr IVPB BID JUDSON; Protocol Last Admin: 12/23/18 21:22 Dose: 100 mls/hr Furosemide 100 mg/ Dextrose 50 mls @ 2.5 mls/hr IVPB TITR JUDSON; Protocol Last Admin: 12/23/18 17:04 Dose: Not Given Norepinephrine Bitartrate 8, (000 mcg/ Dextrose) 250 mls @ 9.37 mls/hr IVPB TITR JUDSON; Protocol Last Admin: 12/23/18 23:57 Dose: 25 mcg/min, 46.87 mls/hr Non-Formulary Medication (Abiraterone Acetate [Abiraterone Acetate]) 4 tab PO DAILY JUDSON Last Admin: 12/23/18 16:23 Dose: Not Given Pantoprazole Sodium (Protonix Iv) 40 mg IVPUSH DAILY JUDSON Last Admin: 12/23/18 10:08 Dose: 40 mg CBCD WBC 10.1 K/mm3 (4.0-10.0) H 12/24/18 05:37 RBC 2.63 M/mm3 (4.00-5.60) L 12/24/18 05:37 Hgb 8.6 GM/dL (11.7-16.9) L 12/24/18 05:37 Hct 24.7 % (35.4-49) L 12/24/18 05:37 MCV 94.0 fl (80-96) 12/24/18 05:37 MCHC 34.7 g/dl (32.0-35.9) 12/24/18 05:37 RDW 18.7 % (11.9-15.9) H 12/24/18 05:37 Plt Count 162 K/MM3 (134-434) 12/24/18 05:37 MPV 8.1 fl (7.5-11.1) 12/24/18 05:37 CMP Sodium 121 mmol/L (136-145) L 12/24/18 05:37 Potassium 4.6 mmol/L (3.5-5.1) 12/24/18 05:37 Chloride 91 mmol/L (98-107) L 12/24/18 05:37 Carbon Dioxide 15 mmol/L (21-32) L 12/24/18 05:37 Anion Gap 16 MMOL/L (8-16) 12/24/18 05:37 BUN 64.4 mg/dL (7-18) H 12/24/18 05:37 Creatinine 2.8 mg/dL (0.55-1.3) H 12/24/18 05:37 Random Glucose 199 mg/dL (74-106) H 12/24/18 05:37 Calcium 6.4 mg/dL (8.5-10.1) L* 12/24/18 05:37 Total Bilirubin 1.0 mg/dL (0.2-1) 12/24/18 05:37 AST 682 U/L (15-37) H 12/24/18 05:37 ALT 587 U/L (13-61) H 12/24/18 05:37 Alkaline Phosphatase 120 U/L (45-117) H 12/24/18 05:37 Total Protein 5.9 g/dl (6.4-8.2) L 12/24/18 05:37 Albumin 3.0 g/dl (3.4-5.0) L 12/24/18 05:37 CARDIAC ENZYMES Creatine Kinase 258 U/L (26-308) 12/22/18 05:10 Troponin I 5.58 ng/ml (0.00-0.05) H* 12/22/18 05:10 Gen: mildly tachypneic at rest Neck: +JVD Heart: RRR Lung: bibasilar rales Abd: soft, nontender Ext: 2+ pitting edema with diffuse ecchymosis ASSESSMENT AND PLAN: Acute on Chronic Systolic/Diastolic Heart Failure Shock - Likely Cardiogenic Acute Kidney Injury +Troponins likely Demand Ischemia Lactic Acidosis Hyponatremia likely Hypervolemic h/o DVT Metastatic Prostate Ca Anemia - inotropic assisted diuresis failing on current regimen, increasing Cr, decreasing Hco3, + fluid balance - monitor urine output, creatinine - daily weights - will increase inotropes and try to down titrate vasopressors/afterload - titrate pressors, inotropes to maintain MAP >65 - holding anticoagulation, keep INR 2-3 - Stress dose steroids - O2 to keep Spo2 >90% - HFOT to assist in work of breathing - monitor lytes - on empiric antibiotics per ID, f/u cultures - DNR/DNI, will give morphine for dyspnea as needed - continue ICU monitoring Clarence ACNP [id number]
[2018-12-24] MEDS: FUROSEMIDE INJECTION 100 MG in DEXTROSE 5%-WATER - 40 ML IVPB SCH ×2 (08:04→16:22)
[2018-12-24] MEDS ORDERED: CEFEPIME HCL 1 GM VIAL (RESTRICTED TO ID) ONE (09:05)
[2018-12-24] MEDS ORDERED: DEXTROSE 5%-WATER - 50 ML IVPB ONE (09:05)
[2018-12-24] MEDS: CEFEPIME 1 GM in DEXTROSE 5%-WATER - 50 ML IVPB SCH (09:14)
[2018-12-24] MEDS: PANTOPRAZOLE SODIUM 40 MG VIAL IVPUSH SCH (09:16)
[2018-12-24] MEDS: ABIRATERONE ACETATE PO SCH (09:16)
[2018-12-24] MEDS ORDERED: PT OWN MED DRAWER 7, Y5N ONE ×3 (09:42→16:59)
[2018-12-24] MEDS ORDERED: FUROSEMIDE 40 MG/4 ML INJECTABLE VIAL IVPUSH SCH (10:00)
--- NOTE | 2018-12-24 11:43 | PN ---
Progress Note, Physician History of Present Illness: on face mask - Current Medication List Current Medications: Active Medications Acetaminophen (Ofirmev Injection -) 1,000 mg IVPB Q6H PRN PRN Reason: PAIN LEVEL 1-5 Last Admin: 12/23/18 21:58 Dose: 1,000 mg Atorvastatin Calcium (Lipitor -) 10 mg PO HS JUDSON Last Admin: 12/23/18 21:22 Dose: 10 mg Furosemide (Lasix Injection -) 60 mg IVPUSH DAILY JUDSON Last Admin: 12/24/18 09:15 Dose: 60 mg Hydrocortisone Sodium Succinate (Solu-Cortef -) 100 mg IVPUSH Q8H-IV JUDSON Last Admin: 12/24/18 09:16 Dose: 100 mg Dobutamine HCl 250,000 mcg/ (Sodium Chloride) 250 mls @ 20.13 mls/hr IV TITR JUDSON; Protocol Last Titration: 12/24/18 07:25 Dose: 5 mcg/kg/min, 20.13 mls/hr Vasopressin 50 units/ Sodium (Chloride) 100 mls @ 4 mls/hr IVPB ASDIR JUDSNO; Protocol Last Admin: 12/23/18 19:36 Dose: 6 units/hr, 12 mls/hr Cefepime HCl 1 gm/ Dextrose 50 mls @ 100 mls/hr IVPB BID JUDSON; Protocol Last Admin: 12/24/18 09:14 Dose: 100 mls/hr Furosemide 100 mg/ Dextrose 50 mls @ 2.5 mls/hr IVPB TITR JUDSON; Protocol Last Titration: 12/24/18 08:20 Dose: 10 mg/hr, 5 mls/hr Norepinephrine Bitartrate 8, (000 mcg/ Dextrose) 250 mls @ 9.37 mls/hr IVPB TITR JUDSON; Protocol Last Admin: 12/23/18 23:57 Dose: 25 mcg/min, 46.87 mls/hr Non-Formulary Medication (Abiraterone Acetate [Abiraterone Acetate]) 4 tab PO DAILY JUDSON Last Admin: 12/24/18 09:16 Dose: 4 tab Pantoprazole Sodium (Protonix Iv) 40 mg IVPUSH DAILY JUDSON Last Admin: 12/24/18 09:16 Dose: 40 mg - Objective Vital Signs: Vital Signs Temperature 97.5 F L 12/23/18 22:00 Pulse Rate 87 12/24/18 10:00 Respiratory Rate 20 12/24/18 10:00 Blood Pressure 91/64 12/24/18 10:00 O2 Sat by Pulse Oximetry (%) 100 12/22/18 10:12 Constitutional: Yes: No Distress HENT: Yes: Atraumatic Neck: Yes: Supple Cardiovascular: Yes: Regular Rate and Rhythm Respiratory: Yes: Rhonchi, Wheezes Gastrointestinal: Yes: Normal Bowel Sounds Extremities: Yes: WNL Neurological: Yes: Alert, Oriented Labs: CBC, BMP 12/24/18 05:37 12/24/18 05:37 INR, PTT INR 1.94 (0.83-1.09) H 12/24/18 05:37 Fibrinogen 325.0 mg/dL (238-498) 12/23/18 05:15 Problem List - Problems (1) Acute kidney injury Assessment/Plan: cr increasing on diuresis Code(s): N17.9 - ACUTE KIDNEY FAILURE, UNSPECIFIED (2) Anemia Code(s): D64.9 - ANEMIA, UNSPECIFIED Qualifiers: Anemia type: unspecified type Qualified Code(s): D64.9 - Anemia, unspecified (3) CHF exacerbation Code(s): I50.9 - HEART FAILURE, UNSPECIFIED Qualifiers: Heart failure type: combined systolic and diastolic Qualified Code(s): I50.43 - Acute on chronic combined systolic (congestive) and diastolic ( congestive) heart failure (4) NSTEMI (non-ST elevated myocardial infarction) Assessment/Plan: troponins positive...trending down now on cardiac meds per cardiology Code(s): I21.4 - NON-ST ELEVATION (NSTEMI) MYOCARDIAL INFARCTION (5) Acute diastolic (congestive) heart failure Assessment/Plan: pressor support Code(s): I50.31 - ACUTE DIASTOLIC (CONGESTIVE) HEART FAILURE (6) Acute electrocardiogram changes Code(s): R94.31 - ABNORMAL ELECTROCARDIOGRAM [ECG] [EKG] (7) Coronary artery disease with unstable angina pectoris Code(s): I25.110 - ATHSCL HEART DISEASE OF [place] ART W UNSTABLE ANG PCTRS Qualifiers: (8) Hyperlipidemia Code(s): E78.5 - HYPERLIPIDEMIA, UNSPECIFIED Qualifiers: Hyperlipidemia type: pure hypercholesterolemia Qualified Code(s): E78.00 - Pure hypercholesterolemia, unspecified; E78.0 - Pure hypercholesterolemia (9) Prostate cancer Code(s): C61 - MALIGNANT NEOPLASM OF PROSTATE (10) Prostate cancer metastatic to bone Code(s): C61 - MALIGNANT NEOPLASM OF PROSTATE; C79.51 - SECONDARY MALIGNANT NEOPLASM OF BONE (11) Subendocardial ischemia Code(s): I24.8 - OTHER FORMS OF ACUTE ISCHEMIC HEART DISEASE (12) Supratherapeutic INR Assessment/Plan: shock liver monitor Code(s): R79.1 - ABNORMAL COAGULATION PROFILE Assessment/Plan Impression 1. hyponatremia 2. yinka 3. chf 4. positive troponins 5. hypocalcemia 6. prostate cancer with mets 7. hypotension 8. lactic acidosis improved 9. shock on pressors 10. a-fib 11. resp failure requiring bipap Plan continue current meds, on emperic abx cxs negative cc time 40 min
[2018-12-24] MEDS ORDERED: MORPHINE SULFATE 2 MG/ML VIAL IVPUSH PRN ×2 (11:54→14:08)
[2018-12-24] MEDS ORDERED: MORPHINE SULFATE 2 MG/ML VIAL ONE (11:57)
--- NOTE | 2018-12-24 12:23 | PN ---
Progress Note, Physician History of Present Illness: Pt seen and examined at bedside. He is awake however is on bipap. He remains in the ICU. He remains on pressors. He does have difficulty breathing when off of bipap. He denies chest pain. - Current Medication List Current Medications: Active Medications Acetaminophen (Ofirmev Injection -) 1,000 mg IVPB Q6H PRN PRN Reason: PAIN LEVEL 1-5 Last Admin: 12/23/18 21:58 Dose: 1,000 mg Atorvastatin Calcium (Lipitor -) 10 mg PO HS JUDSON Last Admin: 12/23/18 21:22 Dose: 10 mg Furosemide (Lasix Injection -) 60 mg IVPUSH DAILY JUDSON Last Admin: 12/24/18 09:15 Dose: 60 mg Hydrocortisone Sodium Succinate (Solu-Cortef -) 100 mg IVPUSH Q8H-IV JUDSON Last Admin: 12/24/18 09:16 Dose: 100 mg Dobutamine HCl 250,000 mcg/ (Sodium Chloride) 250 mls @ 20.13 mls/hr IV TITR JUDSON; Protocol Last Titration: 12/24/18 11:51 Dose: 7.5 mcg/kg/min, 30.2 mls/hr Vasopressin 50 units/ Sodium (Chloride) 100 mls @ 4 mls/hr IVPB ASDIR JUDSON; Protocol Last Admin: 12/23/18 19:36 Dose: 6 units/hr, 12 mls/hr Cefepime HCl 1 gm/ Dextrose 50 mls @ 100 mls/hr IVPB BID JUDSON; Protocol Last Admin: 12/24/18 09:14 Dose: 100 mls/hr Furosemide 100 mg/ Dextrose 50 mls @ 2.5 mls/hr IVPB TITR JUDSON; Protocol Last Titration: 12/24/18 08:20 Dose: 10 mg/hr, 5 mls/hr Norepinephrine Bitartrate 8, (000 mcg/ Dextrose) 250 mls @ 9.37 mls/hr IVPB TITR JUDSON; Protocol Last Titration: 12/24/18 11:14 Dose: 24 mcg/min, 45 mls/hr Morphine Sulfate (Morphine Sulfate) 2 mg IVPUSH Q3H PRN PRN Reason: shortness of breath Non-Formulary Medication (Abiraterone Acetate [Abiraterone Acetate]) 4 tab PO DAILY JUDSON Last Admin: 12/24/18 09:16 Dose: 4 tab Pantoprazole Sodium (Protonix Iv) 40 mg IVPUSH DAILY JUDSON Last Admin: 12/24/18 09:16 Dose: 40 mg - Objective Vital Signs: Vital Signs Temperature 97.5 F L 12/23/18 22:00 Pulse Rate 84 12/24/18 12:00 Respiratory Rate 22 H 12/24/18 12:00 Blood Pressure 87/59 L 12/24/18 12:00 O2 Sat by Pulse Oximetry (%) 100 12/22/18 10:12 Constitutional: Yes: Mild Distress Eyes: Yes: Conjunctiva Clear HENT: Yes: Atraumatic Cardiovascular: Yes: S1, S2 Respiratory: Yes: On BiPap Gastrointestinal: Yes: Soft Genitourinary: Yes: WNL Musculoskeletal: Yes: Muscle Weakness Extremities: Yes: Cool Edema: Yes Edema: LLE: 2+, RLE: 2+ Integumentary: Yes: Venous Stasis Changes Wound/Incision: Yes: Clean/Dry Neurological: Yes: Oriented Psychiatric: Yes: Oriented Labs: CBC, BMP 12/24/18 05:37 12/24/18 05:37 INR, PTT INR 1.94 (0.83-1.09) H 12/24/18 05:37 Fibrinogen 325.0 mg/dL (238-498) 12/23/18 05:15 - ....Imaging Chest X-ray: Report Reviewed Problem List - Problems (1) Hyponatremia Code(s): E87.1 - HYPO-OSMOLALITY AND HYPONATREMIA (2) Acute kidney injury Code(s): N17.9 - ACUTE KIDNEY FAILURE, UNSPECIFIED (3) Anemia Code(s): D64.9 - ANEMIA, UNSPECIFIED Qualifiers: Anemia type: unspecified type Qualified Code(s): D64.9 - Anemia, unspecified (4) CHF exacerbation Code(s): I50.9 - HEART FAILURE, UNSPECIFIED Qualifiers: Heart failure type: combined systolic and diastolic Qualified Code(s): I50.43 - Acute on chronic combined systolic (congestive) and diastolic ( congestive) heart failure (5) NSTEMI (non-ST elevated myocardial infarction) Code(s): I21.4 - NON-ST ELEVATION (NSTEMI) MYOCARDIAL INFARCTION (6) Prostate cancer Code(s): C61 - MALIGNANT NEOPLASM OF PROSTATE (7) Shortness of breath Code(s): R06.02 - SHORTNESS OF BREATH Assessment/Plan Current Medications Generic Name Dose Route Start Last Admin Trade Name Freq PRN Reason Stop Dose Admin Acetaminophen 1,000 mg 12/23/18 21:03 12/23/18 21:58 Ofirmev Injection - IVPB 1,000 mg Q6H PRN Administration PAIN LEVEL 1-5 Atorvastatin Calcium 10 mg 12/19/18 22:00 12/23/18 21:22 Lipitor - PO 10 mg HS JUDSON Administration Furosemide 60 mg 12/24/18 10:00 12/24/18 09:15 Lasix Injection - IVPUSH 60 mg DAILY JUDSON Administration Hydrocortisone Sodium Succinate 100 mg 12/22/18 11:00 12/24/18 09:16 Solu-Cortef - IVPUSH 100 mg Q8H-IV JUDSON Administration Dobutamine HCl 250,000 mcg/ 250 mls @ 20.13 mls/hr 12/20/18 08:45 12/24/18 11 :51 Sodium Chloride IV 7.5 mcg/kg/min TITR JUDSON 30.2 mls/hr Titration Protocol 5 MCG/KG/MIN Vasopressin 50 units/ Sodium 100 mls @ 4 mls/hr 12/20/18 10:45 12/23/18 19:36 Chloride IVPB 6 units/hr ASDIR JUDSON 12 mls/hr Administration Protocol 2 UNITS/HR Cefepime HCl 1 gm/ Dextrose 50 mls @ 100 mls/hr 12/20/18 14:00 12/24/18 09:14 IVPB 100 mls/hr BID JUDSON Administration Protocol Furosemide 100 mg/ Dextrose 50 mls @ 2.5 mls/hr 12/22/18 16:45 12/24/18 08:20 IVPB 10 mg/hr TITR JUDSON 5 mls/hr Titration Protocol 5 MG/HR Norepinephrine Bitartrate 8, 250 mls @ 9.37 mls/hr 12/22/18 13:33 12/24/18 11 :14 000 mcg/ Dextrose IVPB 24 mcg/min TITR JUDSON 45 mls/hr Titration Protocol 5 MCG/MIN Morphine Sulfate 2 mg 12/24/18 11:54 Morphine Sulfate IVPUSH Q3H PRN shortness of breath Non-Formulary Medication 4 tab 12/23/18 10:00 12/24/18 09:16 Abiraterone Acetate [Abiraterone Acetate] PO 4 tab DAILY JUDSON Administration Pantoprazole Sodium 40 mg 12/21/18 12:00 12/24/18 09:16 Protonix Iv IVPUSH 40 mg DAILY JUDSON Administration Impression 1. hyponatremia 2. yinka 3. chf 4. positive troponins 5. hypocalcemia 6. prostate cancer with mets 7. hypotension 8. lactic acidosis improved 9. shock on pressors 10. a-fib 11. resp failure requiring bipap Plan - renal function continues to worsen - sodium is worsening - pt is not responding much to diuretics - pressors for hypotension - likely worsening ATN - prognosis is poor - discussed with ICU team - monitor pulse ox - cont bipap - cont with ICU care
[2018-12-24] MEDS: NOREPINEPHRINE BITARTRATE 8,000 MCG in DEXTROSE 5%-WATER - 242 ML IVPB SCH ×2 (13:23→14:12)
[2018-12-24] MEDS: VASOPRESSIN 50 UNITS in SODIUM CHLORIDE 97.5 ML IVPB SCH ×2 (13:24→21:25)
--- NOTE | 2018-12-24 13:46 | PN ---
Progress Note, Physician - Current Medication List Current Medications: Active Medications Acetaminophen (Ofirmev Injection -) 1,000 mg IVPB Q6H PRN PRN Reason: PAIN LEVEL 1-5 Last Admin: 12/23/18 21:58 Dose: 1,000 mg Atorvastatin Calcium (Lipitor -) 10 mg PO HS JUDSON Last Admin: 12/23/18 21:22 Dose: 10 mg Furosemide (Lasix Injection -) 60 mg IVPUSH DAILY JUDSON Last Admin: 12/24/18 09:15 Dose: 60 mg Hydrocortisone Sodium Succinate (Solu-Cortef -) 100 mg IVPUSH Q8H-IV JUDSON Last Admin: 12/24/18 09:16 Dose: 100 mg Dobutamine HCl 250,000 mcg/ (Sodium Chloride) 250 mls @ 20.13 mls/hr IV TITR JUDSON; Protocol Last Titration: 12/24/18 11:51 Dose: 7.5 mcg/kg/min, 30.2 mls/hr Vasopressin 50 units/ Sodium (Chloride) 100 mls @ 4 mls/hr IVPB ASDIR JUDSON; Protocol Last Admin: 12/24/18 13:24 Dose: 6 units/hr, 12 mls/hr Cefepime HCl 1 gm/ Dextrose 50 mls @ 100 mls/hr IVPB BID JUDSON; Protocol Last Admin: 12/24/18 09:14 Dose: 100 mls/hr Furosemide 100 mg/ Dextrose 50 mls @ 2.5 mls/hr IVPB TITR JUDSON; Protocol Last Titration: 12/24/18 08:20 Dose: 10 mg/hr, 5 mls/hr Norepinephrine Bitartrate 8, (000 mcg/ Dextrose) 250 mls @ 9.37 mls/hr IVPB TITR JUDSON; Protocol Last Admin: 12/24/18 13:23 Dose: 24 mcg/min, 45 mls/hr Morphine Sulfate (Morphine Sulfate) 2 mg IVPUSH Q3H PRN PRN Reason: shortness of breath Non-Formulary Medication (Abiraterone Acetate [Abiraterone Acetate]) 4 tab PO DAILY JUDSON Last Admin: 12/24/18 09:16 Dose: 4 tab Pantoprazole Sodium (Protonix Iv) 40 mg IVPUSH DAILY JUDSON Last Admin: 12/24/18 09:16 Dose: 40 mg - Objective Vital Signs: Vital Signs Temperature 97.7 F 12/24/18 10:00 Pulse Rate 84 06/29/19 12:00 Respiratory Rate 22 H 12/24/18 12:00 Blood Pressure 87/59 L 12/24/18 12:00 O2 Sat by Pulse Oximetry (%) 100 12/22/18 10:12 Labs: CBC, BMP 12/24/18 05:37 12/24/18 05:37 INR, PTT INR 1.94 (0.83-1.09) H 12/24/18 05:37 Fibrinogen 325.0 mg/dL (238-498) 12/23/18 05:15
--- NOTE | 2018-12-24 14:43 | PN ---
Progress Note, Physician History of Present Illness: Overnight events reviewed, placed back on bipap for increased work of breathing , back in rate-controlled afib. Remains on levophed @ 30meq, vasopressin @ 6 units, dobutamine @ 5mq, Lasix gtt @ 2.5. - Current Medication List Current Medications: Active Medications Acetaminophen (Ofirmev Injection -) 1,000 mg IVPB Q6H PRN PRN Reason: PAIN LEVEL 1-5 Last Admin: 12/23/18 21:58 Dose: 1,000 mg Atorvastatin Calcium (Lipitor -) 10 mg PO HS JUDSON Last Admin: 12/23/18 21:22 Dose: 10 mg Furosemide (Lasix Injection -) 60 mg IVPUSH DAILY JUDSON Last Admin: 12/24/18 09:15 Dose: 60 mg Hydrocortisone Sodium Succinate (Solu-Cortef -) 100 mg IVPUSH Q8H-IV JUDSON Last Admin: 12/24/18 09:16 Dose: 100 mg Dobutamine HCl 250,000 mcg/ (Sodium Chloride) 250 mls @ 20.13 mls/hr IV TITR JUDSON; Protocol Last Titration: 12/24/18 11:51 Dose: 7.5 mcg/kg/min, 30.2 mls/hr Vasopressin 50 units/ Sodium (Chloride) 100 mls @ 4 mls/hr IVPB ASDIR JUDSON; Protocol Last Admin: 12/24/18 13:24 Dose: 6 units/hr, 12 mls/hr Furosemide 100 mg/ Dextrose 50 mls @ 2.5 mls/hr IVPB TITR JUDSON; Protocol Last Titration: 12/24/18 08:20 Dose: 10 mg/hr, 5 mls/hr Norepinephrine Bitartrate 8, (000 mcg/ Dextrose) 250 mls @ 9.37 mls/hr IVPB TITR JUDSON; Protocol Last Titration: 12/24/18 14:13 Dose: 30 mcg/min, 56.25 mls/hr Morphine Sulfate (Morphine Sulfate) 4 mg IVPUSH Q3H PRN PRN Reason: shortness of breath Non-Formulary Medication (Abiraterone Acetate [Abiraterone Acetate]) 4 tab PO DAILY JUDSON Last Admin: 12/24/18 09:16 Dose: 4 tab Pantoprazole Sodium (Protonix Iv) 40 mg IVPUSH DAILY JUDSON Last Admin: 12/24/18 09:16 Dose: 40 mg - Objective Vital Signs: Vital Signs Temperature 97.7 F 12/24/18 10:00 Pulse Rate 90 12/24/18 14:13 Respiratory Rate 20 12/24/18 13:00 Blood Pressure 72/49 L 12/24/18 14:13 O2 Sat by Pulse Oximetry (%) 100 12/22/18 10:12 Constitutional: Yes: No Distress, Calm Neck: Yes: Supple Cardiovascular: Yes: Regular Rate and Rhythm Respiratory: Yes: Regular, Diminished, On BiPap Gastrointestinal: Yes: Soft, Hypoactive Bowel Sounds Edema: Yes Edema: LLE: 1+, RLE: 1+ Labs: CBC, BMP 12/24/18 05:37 12/24/18 05:37 INR, PTT INR 1.94 (0.83-1.09) H 12/24/18 05:37 Fibrinogen 325.0 mg/dL (238-498) 12/23/18 05:15 Problem List - Problems (1) Acute kidney injury Code(s): N17.9 - ACUTE KIDNEY FAILURE, UNSPECIFIED (2) Anemia Code(s): D64.9 - ANEMIA, UNSPECIFIED Qualifiers: Anemia type: unspecified type Qualified Code(s): D64.9 - Anemia, unspecified (3) CHF exacerbation Code(s): I50.9 - HEART FAILURE, UNSPECIFIED Qualifiers: Heart failure type: combined systolic and diastolic Qualified Code(s): I50.43 - Acute on chronic combined systolic (congestive) and diastolic ( congestive) heart failure (4) Hyponatremia Code(s): E87.1 - HYPO-OSMOLALITY AND HYPONATREMIA (5) Hyperlipidemia Code(s): E78.5 - HYPERLIPIDEMIA, UNSPECIFIED Qualifiers: Hyperlipidemia type: pure hypercholesterolemia Qualified Code(s): E78.00 - Pure hypercholesterolemia, unspecified; E78.0 - Pure hypercholesterolemia (6) Prostate cancer metastatic to bone Code(s): C61 - MALIGNANT NEOPLASM OF PROSTATE; C79.51 - SECONDARY MALIGNANT NEOPLASM OF BONE (7) Subendocardial ischemia Code(s): I24.8 - OTHER FORMS OF ACUTE ISCHEMIC HEART DISEASE (8) Supratherapeutic INR Code(s): R79.1 - ABNORMAL COAGULATION PROFILE (9) Atrial fibrillation with rapid ventricular response Code(s): I48.91 - UNSPECIFIED ATRIAL FIBRILLATION (10) Cardiogenic shock Code(s): R57.0 - CARDIOGENIC SHOCK Assessment/Plan 12/20/2018 Echo: Severely decreased LVEF 25%, normal RV size and fxn, tr MR, TR RVSP 41 mmHg 1. Acute on chronic class III-IV NYHA classification LV systolic failure, cardiogenic shock - to exclude sepsis related hypotension 2. CAD with evidence of demand ischemia 3. Paroxysmal afib with RVR 4. Acute on chronic renal insufficiency 2/2 worsening ATN 5. Hyponatremia-Hypervolemic 6. Metastatic prostate carcinoma 7. 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 Anemia 9. Shock liver PLAN: 1. Continue pressors and wean as tolerated maintaining MAP > 65 mmHg, 2. Dobutamine@7.5 and use amiodarone as needed for rate-control 3. Lasix gtt @ 2.5 with monitor diuretic response, renal fxn and electrolytes 4. Eventually hemodynamics permitting recommend the addition of B-Blockers/ Coreg +/- ACEI or ARBS- provided renal function at baseline 5. Follow Na level closely 6. Empiric abx course per C&S, stress dose steroids, O2 to keep Spo2 >90% 7. GOC to be addressed, palliative care consult 8. Coumadin per INR, trend LFTs 9. DNR/DNI, will give morphine for dyspnea as needed
[2018-12-24] MEDS: DOBUTAMINE HCL 250,000 MCG in SODIUM CHLORIDE 230 ML IV SCH (16:22)
[2018-12-24 18:39] VITALS: TEMP 97.9
[2018-12-24] MEDS ORDERED: MORPHINE SULFATE/0.9% NACL/PF 100 MG/100 ML BAG IVPB SCH (22:30)
[2018-12-24 23:26] VITALS: BP 76/52; PULSE 51
--- NOTE | 2018-12-24 23:56 | PN ---
Progress Note (short form) - Note Progress Note: Called to bedside at 1150pm for agonal breathing, asystole on monitor. On exam pt was unconscious, apneic and without pulse. Patient had previously been made DNR/DNI. No resuscitation was attempted. There was no corneal reflexes, pupils were fixed and dilated. Pt pronounced at 11:52pm. Pt sister at bedside, supportive care given. No autopsy requested. Nursing staff to contact primary team/Attending. and [facility] [employer] [place]. [id number]
--- NOTE | 2018-12-25 22:01 | DS ---
Physical Examination Vital Signs: Vital Signs Labs: CBC, BMP 12/24/18 05:37 12/24/18 05:37 Discharge Summary Reason For Visit: ACUTE KIDNEY INJURY ACUTE ON CHRONIC CONGESTIVE Condition: Critical - Instructions Disposition: - Home Medications Comprehensive Discharge Medication List: Ambulatory Orders Ergocalciferol (Vitamin D2) [Vitamin D2] 50,000 unit PO WEEKLY 09/05/18 Simvastatin 10 mg PO DAILY 09/05/18 Nitroglycerin Dewey [Nitrolingual Dewey -] 1 spray TL [id number] PRN #1 bottle MDD 3 09/07/18 Abiraterone Acetate 4 tab PO DAILY 09/15/18 Prednisone 5 mg PO BID 09/15/18 Losartan Potassium [Cozaar -] 25 mg PO DAILY #30 tablet 11/02/18 Metoprolol Succinate [Toprol XL -] 25 mg PO DAILY #30 tab.sr.24h 11/02/18 Furosemide [Lasix -] 20 mg PO DAILY 12/19/18 Tramadol HCl/Acetaminophen [Tramadol-Acetaminophn 37.5-325] 1 each PO TID PRN Warfarin Na [Coumadin -] 2.5 mg PO DAILY@1800 12/19/18 certificate filled out
== END 2018-12-24 23:52 | disposition expired ==
LOC: JER 18:27 → JERBED 20:35 → JICU 12-20 00:38
PROVIDERS: ADMIT Internal Medicine; ATTEND Internal Medicine
PROC: 02HV33Z Insertion of Infusion Device into Superior Vena Cava, Percutaneous Approach (ICD-10-PCS; principal; 2018-12-21)
PROC: B544ZZA Ultrasonography of Left Jugular Veins, Guidance (ICD-10-PCS; 2018-12-21)
PROC: 5A2204Z Restoration of Cardiac Rhythm, Single (ICD-10-PCS; 2018-12-21)
DX: I13.0 Hypertensive heart and chronic kidney disease with heart failure and stage 1 through stage 4 chronic kidney disease, or unspecified chronic kidney disease (principal); I21.4 Non-ST elevation (NSTEMI) myocardial infarction; I50.43 Acute on chronic combined systolic (congestive) and diastolic (congestive) heart failure; K72.00 Acute and subacute hepatic failure without coma; C78.00 Secondary malignant neoplasm of unspecified lung; N17.9 Acute kidney failure, unspecified; C79.51 Secondary malignant neoplasm of bone; E87.2 Acidosis; C61 Malignant neoplasm of prostate; E78.5 Hyperlipidemia, unspecified; D64.9 Anemia, unspecified; R79.1 Abnormal coagulation profile; E83.51 Hypocalcemia; N18.9 Chronic kidney disease, unspecified; R57.0 Cardiogenic shock; Z86.718 Personal history of other venous thrombosis and embolism; Z79.01 Long term (current) use of anticoagulants; I48.0 Paroxysmal atrial fibrillation; Z66 Do not resuscitate
CPT/HCPCS: 36415; 36430; 36600; 71045-TC-FY; 76775-TC; 76856-TC; 80048; 80053; 80076; 81003; 82272; 82436; 82533; 82550; 82553; 82565; 82803; 83605; 83735; 83880; 83930; 83935; 84100; 84133; 84300; 84443; 84484; 84540; 85025; 85027; 85384; 85610; 85730; 86850; 86900; 86901; 86922; 87040; 87086; 93005; 93010; 93306-TC; 94660; 99283-25; J0131; J1250; J7030; P9038; P9058